=== PATIENT | male | born 1945 | race Caucasian/White ===

== ENCOUNTER 2016-06-13 01:37 | Emergency (ER) | payer OTHER ==
[~2016-06-13] VITALS: Ht 180.3 cm; Wt 73.3 kg
[~2016-06-13 01:37] MED LIST: ALLO300T2 PO; ASPI81TA28 PO; CLOP1TAB15 PO; CMP/10 PO; INSUINJ14 SC; INSUINJ4 SC; LOSA100T65 PO; METF-384 PO; NRV/5 PO; PLV75 PO; PRAV40TA2 PO; REPA1TAB10 PO
[2016-06-13 01:42] VITALS: TEMP 36.7; Ht 180.3 cm; Wt 73.3 kg
[2016-06-13] MEDS ORDERED: SODIUM CHLORIDE 0.9% 1000ML 1,000 ML IV STA ×2 (01:55→03:29)
[2016-06-13 02:06] VITALS: O2SAT 94
[2016-06-13] MEDS ORDERED: NovoLIN-R INSULIN PER UNIT CHARGE IV STA (02:15)
[2016-06-13 02:25] LABS: ISTAT CREATININE 0.8 mg/dl (0.6-1.3); ISTAT HEMOGLOBIN 14.6 g/dl (14.0-18.0); ISTAT IONIZED CALCIUM 1.19 mmol/l (1.12-1.32)
[2016-06-13] MEDS ORDERED: ATOR-24 PO (02:28)
[2016-06-13] MEDS ORDERED: ESCI10TA17 PO (02:30)
[2016-06-13] MEDS ORDERED: DOCU-94 PO (02:37)
[2016-06-13] MEDS ORDERED: DONE5TAB14 PO (02:39)
[2016-06-13 02:41] LABS: BASO % 0.6 %; BASO ABS # 0.04 K/uL (0-0.2); COMPLETE YES; EOS % 2.8 %; HEMATOCRIT 39.5 % (42-52); IG% 0.4 %; LYMPH % 25.4 %; LYMPH ABS # 1.71 K/uL (1.2-3.4); MEAN CELL VOLUME 86.1 fL (80-100); MEAN CORPUSCULAR HEMOGLOBIN 31.4 pg (25-34); MEAN CORPUSCULAR HGB CONC 36.5 g/dl (32-36); MEAN PLATELET VOLUME 10.2 fL (7.4-10.4); MONO % 7.3 %; NEUT % 63.5 %; PLATELET COUNT 310 K/uL (130-400); RED BLOOD COUNT 4.59 M/uL (4.7-6.1); URINE APPEARANCE CLEAR (CLEAR); URINE BILIRUBIN NEG (NEG); URINE COLOR YELLOW; URINE NITRITE NEG (NEG); URINE SPECIFIC GRAVITY 1.029 (1.000-1.030); UROBILINOGEN NEG (NEG); WHITE BLOOD COUNT 6.72 K/uL (4.8-10.8); ZZUR CULT IF INDIC CLEAN CATCH NO
[2016-06-13 02:54] LABS: MANUAL MICROSCOPIC REQUIRED? NO; REVIEW REQ? NO
[2016-06-13 02:59] LABS: VEN BLD GAS O2 SATURATION 63.9 %; VEN BLOOD GAS BASE EXCESS 4.1 mmol/L
[2016-06-13 03:17] LABS: ALKALINE PHOSPHATASE 294 U/L (45-117); ALT/SGPT 38 U/L (12-78); BLOOD UREA NITROGEN 17 mg/dl (7-18); BUN/CREATININE RATIO 13.3 (10-20); CALCIUM 8.9 mg/dl (8.5-10.1); CARBON DIOXIDE 26 mmol/L (21-32); CHLORIDE 91 mmol/L (98-107); GLUCOSE 642 mg/dl (70-99)
[2016-06-13 03:23] LABS: POTASSIUM 4.3 mmol/L (3.5-5.1); SODIUM 130 mmol/L (136-145)
[2016-06-13 03:38] LABS: AST/SGOT 19 U/L (15-37); BETA-HYDROXYBUTYRATE 3.91 mg/dL (0.2-2.81)
--- NOTE | 2016-06-13 03:43 | EMERGENCY ROOM VISIT NOTE ---
History First contact with patient: 01:47 Chief Complaint: HYPERGLYCEMIA Stated Complaint: VERY HIGH BLOOD SUGAR - REFERRED TO ER BY DR HILTON History of Present Illness The patient is a 70 year old male who presents to the Emergency Room with complaints of polydipsia and polyuria for the past few days who went to see the family care doctor for checkup and was called in to the ER for blood sugar greater than 800. Patient is a type II diabetic. He takes insulin. He does not routinely check his blood sugar. Blood sugar yesterday was 280. Patient states he has been feeling fatigued. Patient denies chest pain, dyspnea, fever , chills, cough, congestion, nausea, vomiting, diarrhea, back pain, urinary symptoms, diplopia. He is tolerating by mouth fluids and food. Review of Systems See HPI for pertinent positives & negatives. A total of 10 systems reviewed and were otherwise negative. Past Medical/Surgical History Medical Problems: (1) Chest pain (2) Chest pain (3) Chest pain at rest (4) Chest pain on exertion (5) Diabetes (6) Hyperglycemia (7) Hyperlipidemia Nec/Nos (8) Hypertension Nos (9) Lymphoma (10) Peripheral vascular disease (11) Weakness Surgical Problems: (1) Cataract Extraction Status Family History Heart disease Social History Smoking Status: Former Smoker Marital Status: Housing Status: lives with family Current/Historical Medications Scheduled Amlodipine Besylate (Amlodipine Besylate), 5 MG PO DAILY Aspirin (Aspirin Ec), 81 MG PO DAILY Atorvastatin (Lipitor), 40 MG PO DAILY Clopidogrel Bisulfate (Clopidogrel), 75 MG PO DAILY Donepezil Hydrochloride (Aricept), 5 MG PO DAILY Escitalopram (Lexapro), 10 MG PO DAILY Insulin Glargine (Lantus Solostar Pen), 10 UNITS SC AMPM Losartan Potassium (Cozaar), 100 MG PO DAILY Metformin Hcl (Glucophage), 1,000 MG PO BID Pravastatin Sodium (Pravastatin Sodium), 40 MG PO DAILY Repaglinide (Repaglinide), 2 MG PO DAILY Scheduled PRN Docusate Sodium (Colace), 100 MG PO BID PRN for Constipation Allergies Coded Allergies: KAVITA Inhibitors (Verified Allergy, Intermediate, COUGH, 06/13/16) Penicillins (Verified Allergy, Unknown, UNK, 06/13/16) Physical Exam Vital Signs Date Time Temp Pulse Resp B/P Pulse Ox O2 Delivery O2 Flow Rate FiO2 06/13/16 02:06 94 Room Air 06/13/16 01:42 36.7 85 18 125/74 93 Room Air Physical Exam VITALS: Vitals are noted on the nurse's note and reviewed by myself. Vital signs stable. GENERAL: Pleasant male, in no acute distress, nondiaphoretic, well-developed well-nourished. SKIN: The skin was without rashes, erythema, edema, or bruising. There is no tenting of the skin. Capillary reflex less than 2 seconds. HEAD: Normocephalic atraumatic. EARS: External auditory canals clear, tympanic membranes pearly amador without erythema or effusion bilaterally. EYES: Pupils equal round and reactive to light and accommodation. Conjunctivae without injection, sclerae without icterus. Extraocular movements intact. NOSE: Patent, turbinates without inflammation or discharge. MOUTH: Mucous membranes moist. Pharynx without erythema or exudate. Uvula midline. Airway patent. Tongue does not deviate. NECK: Supple without nuchal rigidity. No lymphadenopathy. No thyromegaly. Cervical spine is nontender. No JVD. HEART: Regular rate and rhythm LUNGS: Clear to auscultation bilaterally without wheezes, rales or rhonchi. No dullness to percussion. No retractions or accessory muscle use. ABDOMEN: Positive bowel sounds x 4. Normal tympanic percussion. Soft, nontender, without masses or organomegaly. Simmons sign negative. No guarding or rebound tenderness. MUSCULOSKELETAL: No muscle atrophy, erythema, or edema noted. NEURO: Patient was alert and oriented to person place and time. Normal sensation to light and sharp touch. No focal neurological deficits. Medical Decision & Procedures Laboratory Results 06/13/16 02:00 Red Blood Count 4.59, Mean Corpuscular Volume 86.1, Mean Corpuscular Hemoglobin 31.4, Mean Corpuscular Hemoglobin Concent 36.5, Mean Platelet Volume 10.2, Neutrophils (%) (Auto) 63.5, Lymphocytes (%) (Auto) 25.4, Monocytes (%) (Auto) 7.3, Eosinophils (%) (Auto) 2.8, Basophils (%) (Auto) 0.6, Neutrophils # (Auto) 4.26, Lymphocytes # (Auto) 1.71, Monocytes # (Auto) 0.49, Eosinophils # (Auto) 0.19, Basophils # (Auto) 0.04 06/13/16 02:00 Test 06/13/16 01:53 06/13/16 02:00 06/13/16 02:09 06/13/16 02:45 Bedside Glucose > 600 mg/dl (70-99) White Blood Count 6.72 K/uL (4.8-10.8) Red Blood Count 4.59 M/uL (4.7-6.1) Hemoglobin 14.4 g/dL (14.0-18.0) Hematocrit 39.5 % (42-52) Mean Corpuscular Volume 86.1 fL (80-100) Mean Corpuscular Hemoglobin 31.4 pg (25-34) Mean Corpuscular Hemoglobin Concent 36.5 g/dl (32-36) Platelet Count 310 K/uL (130-400) Mean Platelet Volume 10.2 fL (7.4-10.4) Neutrophils (%) (Auto) 63.5 % Lymphocytes (%) (Auto) 25.4 % Monocytes (%) (Auto) 7.3 % Eosinophils (%) (Auto) 2.8 % Basophils (%) (Auto) 0.6 % Neutrophils # (Auto) 4.26 K/uL (1.4-6.5) Lymphocytes # (Auto) 1.71 K/uL (1.2-3.4) Monocytes # (Auto) 0.49 K/uL (0.11-0.59) Eosinophils # (Auto) 0.19 K/uL (0-0.5) Basophils # (Auto) 0.04 K/uL (0-0.2) RDW Standard Deviation 37.9 fL (36.4-46.3) RDW Coefficient of Variation 12.0 % (11.5-14.5) Immature Granulocyte % (Auto) 0.4 % Immature Granulocyte # (Auto) 0.03 K/uL (0.00-0.02) Urine Color YELLOW Urine Appearance CLEAR (CLEAR) Urine pH 6.0 (4.5-7.5) Urine Specific [place]berta 1.029 (1.000-1.030) Urine Protein NEG (NEG) Urine Glucose (UA) 3+ (NEG) Urine Ketones NEG (NEG) Urine Occult Blood NEG (NEG) Urine Nitrite NEG (NEG) Urine Bilirubin NEG (NEG) Urine Urobilinogen NEG (NEG) Urine Leukocyte Esterase NEG (NEG) Est Creatinine Clear Calc Drug Dose 56.4 ml/min Estimated GFR () 65.0 Estimated GFR (Non- 56.1 BUN/Creatinine Ratio 13.3 (10-20) Calcium Level 8.9 mg/dl (8.5-10.1) Total Bilirubin 0.6 mg/dl (0.2-1) Direct Bilirubin 0.2 mg/dl (0-0.2) Aspartate Amino Transf (AST/SGOT) 19 U/L (15-37) Alanine Aminotransferase (ALT/SGPT) 38 U/L (12-78) Alkaline Phosphatase 294 U/L (45-117) Troponin I < 0.015 ng/ml (0-0.045) Total Protein 7.5 gm/dl (6.4-8.2) Albumin 4.3 gm/dl (3.4-5.0) Lipase 219 U/L (73-393) Beta-Hydroxybutyric Acid 3.91 mg/dL (0.2-2.81) Bedside Hemoglobin 14.6 g/dl (14.0-18.0) Bedside Hematocrit 43 % (42-52) Bedside Sodium 128 mEq/L (135-144) Bedside Potassium 4.2 mEq/L (3.3-5.0) Bedside Chloride 89 mEq/L (101-112) Bedside Total CO2 25 mEq/l (24-31) Anion Gap 19.0 mmol/L (16-25) Bedside Blood Urea Nitrogen 19 mg/dl (7-18) Bedside Creatinine 0.8 mg/dl (0.6-1.3) Bedside Glucose (other) 647 mg/dl (70-99) Bedside Ionized Calcium (Alen) 1.19 mmol/l (1.12-1.32) Venous Blood pH 7.42 (7.36-7.41) Venous Blood Partial Pressure CO2 47 mmHg (38.0-50.0) Venous Blood Partial Pressure O2 34 mmHg Venous Blood HCO3 29 mmol/L Venous Blood Oxygen Saturation 63.9 % Venous Blood Base Excess 4.1 mmol/L Medications Administered Medications (Trade) Dose Ordered Sig/Gypsy Route Start Time Stop Time Status Last Admin Dose Admin Sodium Chloride (Nss 1000ml) 1,000 ml @ 999 mls/hr Q1H1M STAT IV 06/13/16 01:55 06/13/16 02:55 DC 06/13/16 02:09 999 MLS/HR Insulin Human Regular (novoLIN-R U-100 PER UNIT) 10 units NOW STAT IV 06/13/16 02:15 06/13/16 02:16 DC 06/13/16 02:29 10 UNITS ED Course Prior records/ancillary studies reviewed and summarized above. Nursing notes reviewed. Additional history obtained from family The patient's history was concerning for hyperglycemia Differential diagnosis: Etiologies such as metabolic, infection, hypo/hyperglycemia, electrolyte abnormalities, cardiac sources, intracerebral event, toxicologic, neurologic, as well as others were entertained. Physical examination: As above. ER treatment provided: IV Lock IV fluids, insulin On reassessment the patient felt better. Diagnostics interpretation by me: ECG: Normal sinus, normal intervals, no acute ST-T wave changes. Impression normal sinus rhythm interpreted by myself The labs revealed hyperglycemia without DKA. Elevated alkaline phosphatase Imaging studies: Chest x-ray with no free air, consolidation or pneumothorax per my interpretation Exam and history seem consistent with hyperglycemia without DKA. Patient is well-appearing. No signs of meningitis. No signs of sepsis. No pneumonia. He was advised to rest, stay well-hydrated and to monitor his blood sugars. He was advised to follow-up tomorrow with family care here in the ER sooner for high blood sugar, chest pain, difficulty breathing, worsening signs or symptoms or as needed. He was advised to follow-up for his elevated alkaline phosphatase of family care. By the evaluation outlined above emergent etiologies such as infection, electrolyte abnormalities, cardiac sources, intracerebral event, toxologic, neurologic, metabolic, as well as others were deemed relatively unlikely. The pt informed about the findings as listed above. All questions were answered and pleased with the treatment. Return instructions were outlined and the patient was discharged in stable condition. Referral: The patient was referred back to primary care physician for follow-up in 2 to 3 days for a recheck of the current condition. Case reviewed with my attending Medical Decision As above Impression Primary Impression: Hyperglycemia due to type 2 diabetes mellitus Departure Information Dispostion Home / Self-Care Condition GOOD Referrals Morgan Rock, D.O. (PCP) Patient Instructions My [facility] Additional Instructions Ibuprofen(Motrin, Advil) may be used for fever or pain. Use 600mg every six hours as needed. Take with food. Avoid using more than 2400mg in a 24 hour period. Do not use 2400mg per day for more than three consecutive days without physician direction. Prolonged inappropriate use can lead to stomach upset or ulcers. (AND/OR) Acetaminophen(Tylenol) may be used for fever or pain. Use 1000mg every six hours as needed. Avoid using more than 3000mg in a 24 hour period. Monitor your blood sugars. Rest and drink plenty of fluids as tolerated. Continue current medications. Return to the ER immediately for worsening or persistent high blood sugar, abdominal pain, vomiting, fevers, chest pains, difficulty breathing, worsening of your condition, or as needed. Follow up with your primary physician in 2-3 days for a recheck of your current condition, call this morning for follow-up for further workup on your insulin regimen and follow up for your elevated alkaline phosphatase on bloodwork. Problem Qualifiers Primary Impression: Hyperglycemia due to type 2 diabetes mellitus Diabetes mellitus shelter insulin use: with extermination supervisor use Qualified Codes: E11.65 - Type 2 diabetes mellitus with hyperglycemia; Z79.4 - [facility] ( current) use of insulin
[2016-06-13 03:50] VITALS: BP 126/69; PULSE 76; O2SAT 96
--- NOTE | 2016-06-13 04:13 | EMERGENCY ROOM VISIT NOTE ---
ED Visit Note First contact with patient: 01:47 I have personally evaluated and examined this patient. I agree with assessment and plan of Luzmaria Azar PA-C. 70 yr old DMII on insulin and metformin arrives for evaluation of asymptomatic hyperglycemia other than increase PO fluids and frequent urination. No evidence infection. He admits he eats 4 bowls of icecream each night which clearly isn't helping things. Discussed proper diet and need to discuss with PCP if Insulin should be increased. BG much improved with fluids and IV insulin here. Feeling well and no distress. Home with . Will follow up with PCP in morning.
--- NOTE | 2016-06-13 06:47 | DIAGNOSTIC IMAGING REPORT ---
CHEST ONE VIEW PORTABLE CLINICAL HISTORY: CHEST PAIN pain COMPARISON STUDY: 09/02/2014 FINDINGS: The bones soft tissues and hemidiaphragms are normal. The cardiomediastinal silhouette is normal. The lungs are clear. The pulmonary vasculature is normal. IMPRESSION: Negative chest. Electronically signed by: Marc Fontenot M.D. 06/13/2016 6:46 AM Dictated Date/Time: 06/13/2016 6:45 AM
== END 2016-06-13 03:55 | disposition home or self-care (01) ==
LOC: C.EDB 01:40
DX: E11.65 Type 2 diabetes mellitus with hyperglycemia (principal); E78.5 Hyperlipidemia, unspecified; I10 Essential (primary) hypertension; Z82.49 Family history of ischemic heart disease and other diseases of the circulatory system; Z87.891 Personal history of nicotine dependence; Z79.82 Long term (current) use of aspirin; Z79.4 Long term (current) use of insulin

== ENCOUNTER 2017-08-27 13:08 | Emergency (ER) | payer OTHER ==
[~2017-08-27] VITALS: Ht 180.3 cm; Wt 75.8 kg
[~2017-08-27 13:08] MED LIST changes: -ALLO300T2 PO; +ATOR-24 PO; -CLOP1TAB15 PO; -CMP/10 PO; +DOCU-94 PO; +DONE5TAB14 PO; +ESCI10TA17 PO; -INSUINJ14 SC
[2017-08-27 13:13] VITALS: TEMP 36.8; Ht 180.3 cm; Wt 75.8 kg
--- NOTE | 2017-08-27 13:49 | DIAGNOSTIC IMAGING REPORT ---
L FOOT MIN 3 VIEWS ROUTINE HISTORY: 72 years-old Male L great toe infection acute pain and swelling of the left great toe COMPARISON: None available TECHNIQUE: 3 views of the left foot FINDINGS: Mild hallux valgus deformity. Bipartite medial and lateral hallux sesamoids. Mild soft tissue swelling of the great toe. Mild osteoarthritis about the interphalangeal joints. There is no acute fracture or dislocation identified. Mild soft tissue prominence about the fifth MTP joint. Mild soft tissue swelling about the ankle. Peripheral arterial calcifications. Mild marginal spurring about the tibiotalar joint. No opaque foreign body. IMPRESSION: 1. Mild forefoot and ankle soft tissue swelling without acute fracture or dislocation. 2. Degenerative changes as above. 3. Peripheral arterial disease. The above report was generated using voice recognition software. It may contain grammatical, syntax or spelling errors. Electronically signed by: Kendall Brush M.D. 08/27/2017 1:48 PM Dictated Date/Time: 08/27/2017 1:46 PM
[2017-08-27] MEDS ORDERED: INSDGIPEN SC (13:55)
[2017-08-27] MEDS ORDERED: CEPH500C2 PO (14:03)
--- NOTE | 2017-08-27 14:17 | EMERGENCY ROOM VISIT NOTE ---
ED Visit Note First contact with patient: 13:15 The patient was seen and examined with Harry Alexandra PA-C. I agree with the history, physical and findings. Please see the note for disposition and details.
[2017-08-27 14:26] VITALS: BP 143/86; PULSE 89; O2SAT 98
--- NOTE | 2017-08-27 20:50 | EMERGENCY ROOM VISIT NOTE ---
ED Visit Note First contact with patient: 13:15 Chief Complaint: Left great toe pain. History of Present Illness: Mr. Elizondo is a 72-year-old white male who ambulates into the ED complaining of left great toe pain. Patient reports approximately 1 week ago he remembers rubbing his toe on a piece of furniture and then 4-5 days ago he noticed that he was developing left great toe pain. Since that time his pain has been constant. Currently he describes his pain as a throbbing sensation. He rates his discomfort 1/10. His pain is nonradiating. His pain worsens with ambulation. He has not identified any alleviating factors related to the pain. Associated with his pain he has noted some redness and swelling around the toenail and extending down to the interphalangeal joint. He has not had to take any medications for his pain prior to arrival at the hospital. He denies fevers, chills, sweats, red streaking, fevers, other foot pain, ankle pain, foot/toe weakness/numbness/tingling peer Review of Systems: As noted above in history of present illness. Past Medical History: Diabetes, unspecified knee surgery. Current Medications: Medications Dose Route/Sig Max Daily Dose Days Date Category Lantus Solostar (Insulin Glargine) 100 Unit/Ml Inj 40 Units SC QAM 08/27/17 Reported Aricept (Donepezil Hydrochloride) 5 Mg Tab 5 Mg PO DAILY 06/13/16 Reported Colace (Docusate Sodium) 100 Mg Cap 100 Mg PO BID PRN 06/13/16 Reported Lexapro (Escitalopram Oxalate) 10 Mg Tab 10 Mg PO DAILY 06/13/16 Reported Lipitor (Atorvastatin Calcium) 40 Mg Tab 40 Mg PO DAILY 06/13/16 Reported Aspirin Ec (Aspirin) 81 Mg Tab 81 Mg PO DAILY 01/13/15 Reported Repaglinide 2 Mg Tab 2 Mg PO DAILY 01/13/15 Reported Clopidogrel (Clopidogrel Bisulfate) 75 Mg Tab 75 Mg PO DAILY 01/13/15 Reported Cozaar (Losartan Potassium) 100 Mg Tab 100 Mg PO DAILY 01/13/15 Reported Pravastatin Sodium 40 Mg Tab 40 Mg PO DAILY 01/13/15 Reported Amlodipine Besylate 5 Mg Tab 5 Mg PO DAILY 01/13/15 Reported Glucophage (Metformin Hcl) 1,000 Mg Tab 1,000 Mg PO BID 11/08/13 Reported Allergies to Medications: KAVITA inhibitors, penicillin. Social History: Patient is currently employed; he feels safe in his home environment; he denies tobacco use; he admits to alcohol use. Physical Examination: Vital Signs: Date Time Temp Pulse Resp B/P (MAP) Pulse Ox O2 Delivery O2 Flow Rate FiO2 08/27/17 14:26 89 20 143/86 98 08/27/17 13:13 36.8 103 18 158/63 99 Room Air GENERAL: 72-year-old male in no acute distress, nontoxic-appearing, afebrile and hemodynamically stable. NEUROLOGICAL: Awake, alert and oriented to person, place and time. Answering questions appropriately and following commands. Normal gait. Good hand eye coordination. No focal motor sensory deficits. SKIN: Warm, dry and pink. LEFT FOOT: No gross bony deformity. Over the medial aspect of the left great toe patient has an obvious ingrown toenail. The area is mildly erythematous and edematous. That erythema and edema advances superiorly to the interphalangeal joint. There is actually some blood in the medial nail fold. There is no blood or pus under the toenail. On palpation he does have mild tenderness over the lateral interphalangeal joint line. I do not appreciate any bony deformity or crepitus. He has full range of motion of the MTP and interphalangeal joint against resistance. Throughout the toe he was able to distinguish light sensations. Capillary refill was brisk. ED Course: Patient is assessed as noted above. Patient's medication list was reviewed. Patient was offered pain medication and refused. Left Foot X-Rays: Were read by myself and the radiologist showing no acute fractures or dislocations. Patient was offered a postop shoe and refused. Patient's case was reviewed with Dr. Barrera; we agreed on diagnostic approach, treatment, disposition and plan. Patient was educated about today's findings and instructed on his treatment plan ; he verbalized understanding and agreement with this plan. Clinical Impression: Left great toe ingrown toenail. Disposition: Patient discharged home in stable condition; prior to departure he was reassessed and subjectively reported that he was pain-free Plan: Patient was encouraged use ibuprofen or acetaminophen as needed for pain. Patient was prescribed Keflex 500 mg 4 times a day for 7 days. Patient was encouraged to keep his wound clean with soap and water and then cover the area with antibiotic ointment. Additionally patient was encouraged to soak his great toe 4-5 times a day and after soaking push the skin over the medial toenail to the side. Patient was encouraged to contact his PCPs office for advice on recommendation with podiatry. Patient was encouraged return the ED for worsening/uncontrolled pain, any increasing signs of infection or any new/concerning symptoms.
== END 2017-08-27 14:27 | disposition home or self-care (01) ==
LOC: C.EDB 13:10 → C.EDD 14:27
DX: L60.0 Ingrowing nail (principal); E11.9 Type 2 diabetes mellitus without complications; Z79.4 Long term (current) use of insulin; Z79.899 Other long term (current) drug therapy; Z79.82 Long term (current) use of aspirin; Z79.84 Long term (current) use of oral hypoglycemic drugs; Z88.0 Allergy status to penicillin; Z88.8 Allergy status to other drugs, medicaments and biological substances

== ENCOUNTER 2018-05-06 01:49 | Observation (INO) ==
[2018-05-06] MEDS ORDERED: NITROGLYCERIN SL 0.4 MG/TAB TAB SL STA (02:16)
[2018-05-06 02:25] LABS: Basophils # (auto) 0.03 K/uL (0-0.2); Basophils % (auto) 0.6 %; Eosinophils % (auto) 3.8 %; Hematocrit (blood only) 42.6 % (42-52); Hemoglobin 14.7 g/dL (14.0-18.0); Immature Granulocytes # (auto) 0.01 K/uL (0.00-0.02); Immature Granulocytes % (auto) 0.2 %; Lymphocytes # (auto) 1.59 K/uL (1.2-3.4); Lymphocytes % (auto) 30.5 %; Mean Corpuscular Hgb Conc 34.5 g/dL (32-36); Mean Corpuscular Volume 90.4 fL (80-100); Mean Platelet Volume 9.8 fL (7.4-10.4); Monocytes # (auto) 0.51 K/uL (0.11-0.59); Monocytes % (auto) 9.8 %; Neutrophils # (auto) 2.88 K/uL (1.4-6.5); Neutrophils % (auto) 55.1 %; Platelet Count 281 K/uL (130-400); RDW Coefficient of Variation 12.5 % (11.5-14.5); RDW Standard Deviation 41.4 fL (36.4-46.3); Red Blood Count 4.71 M/uL (4.7-6.1); White Blood Count 5.22 K/uL (4.8-10.8)
[2018-05-06 02:43] LABS: BUN Creatinine Ratio 18.1 (10-20); Blood Urea Nitrogen 15 mg/dl (7-18); Calcium 8.8 mg/dl (8.5-10.1); Carbon Dioxide 31 mmol/L (21-32); Chloride 105 mmol/L (98-107); Creatinine Clr Calc Pharmacy 83.4 ml/min; Est GFR (African American) 103.8; Est GFR (Non-African American) 89.6; Glucose 192 mg/dl (70-99); Potassium 4.3 mmol/L (3.5-5.1); Sodium 137 mmol/L (136-145)
[2018-05-06 02:47] LABS: Troponin I < 0.015 ng/ml (0-0.045)
--- NOTE | 2018-05-06 04:34 | Emergency Department Note ---
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 The patient states that the pain woke him up early this morning, and he notes that he's still in pain. The patient denies any radiation. The patient's , at bedside, states that his blood sugar has been "a little off." He denies any back pain, edema in the lower extremities, fever, cough, nausea/vomiting, dysuria, hematuria, hematochezia, syncope, and SOB. The patient states that he has been eating his normal diet. The patient reports that he took 325 mg Aspirin SECURITY ADVISOR. He denies any history of GERD. The patient's stated that he went in for a check-up 2 days ago, and notes that nothing abnormal was found. The patient reports that he used to smoke, but he no longer does. He denies the use of alcohol. ROS: See above HPI for pertinent positives & negatives. A total of 10 systems reviewed and were otherwise negative. Past Medical History: Diabetes, hypertension Past Surgical History: Stents Family History: Family history is noncontributory Social History: Home Medications: See below. Allergies: KAVITA Inhibitors, Penicillins Physical: Vitals: BP: 170/82, P: 62, R: 17, O2 Sat: 98, Delivery: Room Air Exam: GENERAL: Patient is well appearing and mildly distressed. EYES: No scleral icterus, unremarkable pupils. ENT: Mucous membranes moist, no nasal congestion. NECK: No masses appreciated, no meningismus, trachea is midline. RESPIRATORY: No dyspnea. Clear to auscultation and equal bilaterally. No wheeze , no rhonchi. CARDIOVASCULAR: Regular rate and rhythm. No murmurs, rubs, gallops appreciated. GASTROINTESTINAL: Abdomen soft, non-tender, no peritonitis. Bowel sounds positive. No masses appreciated. BACK: No midline tenderness, no CVA tenderness EXTREMITIES: Normal motion all extremities, no cyanosis, no edema. NEUROLOGIC: Alert and oriented, no acute motor or sensory deficits, no focal weakness, cranial nerves grossly intact. SKIN: No rash, no jaundice, no diaphoresis. ED Course: Prior Medical Record, Triage/Nursing Notes, Medications, Allergies reviewed by Me Vital Signs: reviewed and remarkable for hypertension. Labs: Reviewed and remarkable for Normal CBC, BMP, Trop. Mild elevated Dimer within age limit Interventions: None - already with ASA SECURITY ADVISOR and pain resolved prior to SLNTG Imaging: X ray results are stated below per my interpretation: Chest: 1 view: No infiltrate, no effusion, normal cardiac border. EKG: See below. Consults: I [facility] He will evaluate the patient for further management. Times: 0209: Past medical records reviewed. The patient was evaluated in room A9 , and a complete history and physical examination were performed. 0243: The patient states that he has a resolution of his chest pain. 0300: I spoke to the patient. He is agreeable to hospitalization. 0302: I reviewed the [facility]'s [facility] He will evaluate the patient for further management. Blood pressure: HTN - referred to hospitalist [facility] Prescriptions: none. Differentials: Acute coronary syndrome, pulmonary embolus, aortic dissection, musculoskeletal pain, pneumonia, pleural effusion, pneumothorax amongst other pathologies. Medical Decision Makin yr old male with known carotic artherosclerosis though no previous MA arrives with left chest pressure which resolved prior to slntg. ASA at home. He has DMII, HTN, Dislipidemia. He is high risk for CAD. At this time EKG OK and Trop negative thus I do not feel the heparinization indicated at this time. Dimer 610 and as he is 72yrs old I feel this is wnl for age, and without persistent pain and no shob nor vital abnormals I do not feel this is PE nor do I think this is dissection. Impression: Left Sided Chest Pain Osito Cartwright MD The scribe's documentation has been prepared under my direction and personally reviewed by me in its entirety. I confirm that the note above accurately reflects all work, treatment, procedures, and medical decision making performed by me. Impression & Plan Left sided chest pain Past Med/Surg History Social History Feels Safe at Home: Yes Smoking Status: Former smoker Results & Data Vital Signs Vital Signs - 24 hr 05/06/18 01:54 05/06/18 02:23 05/06/18 04:18 Sepsis Recent Fever Within 48 Hours No Sepsis New/Unexplained Change in Mental Status No Sepsis Action Taken by Nursing No Action Required Pulse Rate 62 Pulse Rate [Bilateral] 63 57 L Pulse Rhythm Regular Pulse Rhythm [Bilateral] Regular Regular Pulse Strength Normal Pulse Strength [Bilateral] Normal Normal Respiratory Rate 17 18 18 Respiratory Effort / Characteristics Non-Labored Spontaneous Non-Labored Spontaneous Non-Labored Spontaneous Respiratory Depth Normal Normal Normal Respiratory Pattern Regular Regular Regular Blood Pressure 170/82 H Blood Pressure [Right Arm] 164/78 H 159/74 H Blood Pressure Mean 111 Blood Pressure Mean [Right Arm] 106 102 Blood Pressure Position Lying Blood Pressure Position [Right Arm] Lying Lying Pulse Oximetry 98 98 98 Oxygen Delivery Method Room Air Room Air Room Air Home Medications Current Medication List: was personally reviewed by me Laboratory Data Attestation: I reviewed the patient's lab results. Result diagrams: 05/06/18 02:00 05/06/18 02:00 Lab Results 05/06/18 05/06/18 05/06/18 Range/Units 02:00 02:00 02:00 WBC 5.22 (4.8-10.8) K/uL RBC 4.71 (4.7-6.1) M/uL Hgb 14.7 (14.0-18.0) g/dL Hct 42.6 (42-52) % MCV 90.4 (80-100) fL MCH 31.2 (25-34) pg MCHC 34.5 (32-36) g/dL RDW Std Deviation 41.4 (36.4-46.3) fL RDW Coeff of Lolly 12.5 (11.5-14.5) % Plt Count 281 (130-400) K/uL MPV 9.8 (7.4-10.4) fL Immature Gran % (Auto) 0.2 % Neut % (Auto) 55.1 % Lymph % (Auto) 30.5 % [place] % (Auto) 9.8 % Eos % (Auto) 3.8 % Baso % (Auto) 0.6 % Immature Gran # (Auto) 0.01 (0.00-0.02) K/uL Neut # (Auto) 2.88 (1.4-6.5) K/uL Lymph # (Auto) 1.59 (1.2-3.4) K/uL [place] # (Auto) 0.51 (0.11-0.59) K/uL Eos # (Auto) 0.20 (0-0.5) K/uL Baso # (Auto) 0.03 (0-0.2) K/uL D-Dimer 610 H* (0-500) ug/L FEU Sodium 137 (136-145) mmol/L Potassium 4.3 (3.5-5.1) mmol/L Chloride 105 (98-107) mmol/L Carbon Dioxide 31 (21-32) mmol/L Anion Gap 1.0 L (3-11) BUN 15 (7-18) mg/dl Creatinine 0.82 (0.6-1.4) mg/dl Est Cr Clr Drug Dosing 83.4 ml/min Est GFR ( Amer) 103.8 Est GFR (Non-Af Amer) 89.6 BUN/Creatinine Ratio 18.1 (10-20) Glucose 192 H (70-99) mg/dl Calcium 8.8 (8.5-10.1) mg/dl Troponin I < 0.015 (0-0.045) ng/ml Administered Medications Discontinued Medications Nitroglycerin (Nitrostat) 0.4 mg SL NOW STA Stop: 05/06/18 02:17 Last Admin: 05/06/18 04:04 Dose: Not Given ECG Data Attestation: I personally reviewed and interpreted this ECG as follows: Indication: chest pain Rate (beats per minute): 63 Rhythm: normal sinus Findings: no acute ischemic change and no ectopy Change: the following changes noted (similar to previous EKG) Blood Pressure Blood Pressure Findings: Elevated blood pressure Blood Pressure Disposition: further management by hospitalist Discharge Plan Visit Data Chief Complaint: Chest Pain Stated Complaint: CHEST PAIN ED Provider: Osito Cartwright Discharge Problem: Left sided chest pain Patient Disposition: Being Evaluated by Hospitalist Discharge Instructions Interventions: ED Discharge Assessment Last Done: 05/06/18 04:22 Prescriptions Prescriptions: No Action atorvastatin 80 mg Tablet 80 mg PO DAILY RF: 0 metformin 500 mg Tablet Extended Release 24 Hr 500 mg PO PM RF: 0 escitalopram oxalate [Lexapro] 20 mg Tablet 20 mg PO DAILY RF: 0 aspirin 81 mg Tablet,Delayed Release (Dr/Ec) 81 mg PO DAILY RF: 0 donepezil 5 mg Tablet 5 mg PO DAILY RF: 0 clopidogrel 75 mg Tablet 75 mg PO DAILY RF: 0 losartan 100 mg Tablet 100 mg PO DAILY RF: 0 insulin glargine [Lantus Solostar U-100 Insulin] 100 unit/mL (3 mL) Insulin Pen 50 unit SUBCUT DAILY RF: 0 turmeric root extract 500 mg Capsule 500 mg PO DAILY RF: 0 The scribe's documentation has been prepared under my direction and personally reviewed by me in its entirety. I confirm that the note above accurately reflects all work, treatment, procedures, and medical decision making performed by me.
[2018-05-06] MEDS ORDERED: ONDANSETRON INJ 2 MG/ML 2 ML VIAL IV PRN (04:57)
[2018-05-06] MEDS ORDERED: ACETAMINOPHEN 325 MG TAB PO PRN (04:57)
[2018-05-06] MEDS ORDERED: DOCUSATE SODIUM 100 MG CAP PO PRN (04:57)
[2018-05-06] MEDS ORDERED: NITROGLYCERIN SL 0.4 MG/TAB TAB SL PRN (04:57)
[2018-05-06] MEDS ORDERED: Nursing to Pharmacy Communication ONE ×2 (05:38→14:29)
[2018-05-06] MEDS: INSULIN ASPART 100 UNITS/ML 3 ML PEN SC SCH ×2 (05:56→14:16)
[2018-05-06 07:09] LABS: Basophils # (auto) 0.03 K/uL (0-0.2); Basophils % (auto) 0.6 %; Eosinophils % (auto) 3.7 %; Hematocrit (blood only) 42.5 % (42-52); Hemoglobin 14.5 g/dL (14.0-18.0); Immature Granulocytes # (auto) 0.01 K/uL (0.00-0.02); Immature Granulocytes % (auto) 0.2 %; Lymphocytes # (auto) 1.57 K/uL (1.2-3.4); Lymphocytes % (auto) 29.1 %; Mean Corpuscular Hgb Conc 34.1 g/dL (32-36); Mean Corpuscular Volume 90.2 fL (80-100); Mean Platelet Volume 9.7 fL (7.4-10.4); Monocytes # (auto) 0.45 K/uL (0.11-0.59); Monocytes % (auto) 8.3 %; Neutrophils # (auto) 3.14 K/uL (1.4-6.5); Neutrophils % (auto) 58.1 %; Platelet Count 275 K/uL (130-400); RDW Coefficient of Variation 12.5 % (11.5-14.5); RDW Standard Deviation 41.1 fL (36.4-46.3); Red Blood Count 4.71 M/uL (4.7-6.1)
--- NOTE | 2018-05-06 07:12 | XRay Report ---
XR chest 1V portable CLINICAL HISTORY: 72 years-old Male presenting with chest pain. TECHNIQUE: Portable upright AP view of the chest was obtained. COMPARISON: 06/13/[address] from 08/03/2015. FINDINGS: Atherosclerosis of the aortic arch. Cardiac silhouette mildly enlarged. Mild hyperinflation of the sondra ngs. No focal opacity. No large effusion or pneumothorax. Osseous structures normal. Upper abdomen no rmal. Vascular stent projects over the left base of the neck. IMPRESSION: 1. Findings suggest emphysema. No focal infiltrate to suggest pneumonia. Electronically signed by: Wiliam Andujar M.D. 05/06/2018 7:11 AM
[2018-05-06 07:25] LABS: Estimated Average Glucose 338 mg/dl
[2018-05-06 07:48] LABS: BUN Creatinine Ratio 19.7 (10-20); Blood Urea Nitrogen 16 mg/dl (7-18); Calcium 8.5 mg/dl (8.5-10.1); Carbon Dioxide 30 mmol/L (21-32); Chloride 104 mmol/L (98-107); Creatinine Clr Calc Pharmacy 82.9 ml/min; Est GFR (African American) 104.4; Glucose 124 mg/dl (70-99); Magnesium 2.2 mg/dl (1.8-2.4); Sodium 139 mmol/L (136-145)
[2018-05-06 07:53] LABS: Chol HDL Ratio 3; Cholesterol 108 mg/dl (0-200); HDL Cholesterol 36 mg/dl; LDL Cholesterol Calculated 50 mg/dl; Triglycerides 111 mg/dl (0-150); Troponin I < 0.015 ng/ml (0-0.045); VLDL Cholesterol 22 mg/dl
--- NOTE | 2018-05-06 08:40 | History and Physical Report ---
DATE OF ADMISSION: 05/06/2018 NOTICE TO RECEIVING [facility]/AGENCY This information is strictly Confidential and protected under [place] law. [place] law prohibits you from making any further disclosure of this information unless further disclosure is expressly permitted by the written consent of the person to whom it pertains or is authorized by law. A general authorization for the release of medical or other information is not sufficient for this purpose. Hospital accepts no responsibility if the information is made available to any other person, INCLUDING THE PATIENT. CHIEF COMPLAINT: Chest pain. 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 Recently had follow up with heme/onc and subsequently seems to be in remission. Today in the middle of the night, he woke up with chest pain, left side rated 5/10 in severity, some pressure like feeling. No nausea. No shortness of breath, no sweating, no lightheadedness. He took aspirin by the time he came to the ED the pain resolved. He denies any headache, no blurred vision, no runny nose, no sore throat, no difficulty swallowing. No nausea, no vomiting, no abdominal pain. Normal bowel and bladder movements. Otherwise is active at home without any issues. ALLERGIES: KAVITA INHIBITORS, PENICILLIN. PAST MEDICAL HISTORY: As mentioned above. PAST SURGICAL HISTORY: Biopsy of skin , carpal tunnel surgery on right wrist, cataract surgeries bilateral, removal of a-port, lumbar spine injections , knee arthroscopy, lumbar spine biopsy, left carotid stent with cerebral angiogram. MEDICATIONS: The patient is on metformin ER 500 mg p.o. daily, Lexapro 20 mg p.o. daily, Lantus 15 units daily, Lipitor 80 mg p.o. daily, losartan 100 mg p.o. daily, aspirin 81 mg p.o. daily, Plavix 75 mg p.o. daily, Aricept 5 mg p.o. daily, carbonate 500 mg p.o. daily. FAMILY HISTORY: Significant for father at age of 62, history of COPD. Maternal grandmother had colon cancer. SOCIAL HISTORY: and lives with his . Quit smoking in 2011. Prior smoking history 2packs a day 15 years. Occasional glass of wine. No drug use. REVIEW OF SYMPTOMS: As per HPI. PHYSICAL EXAMINATION: GENERAL: The patient is of moderate build, not in distress. VITAL SIGNS: Afebrile, pulse 62, respiratory rate 15, blood pressure 130/82, oxygen 88% room air. HEENT: No pallor, no icterus. Pupils equal, round, and react to light. NECK: No neck masses, no carotid bruits. CARDIOVASCULAR: S1, S2 heard, regular rate and rhythm. No gallop. RESPIRATORY SYSTEM: Normal AP diameter. There is no wheezing, no crackles. ABDOMEN: Soft, bowel sounds present. Nontender. No distention. CENTRAL NERVOUS SYSTEM: CN 2-12 grossly intact. Nonfocal. EXTREMITIES: No edema. LABS: WBC 5.2, hematocrit 40.6, platelets 281. D-dimer 16. Sodium 137, potassium 4.3, chloride 105, bicarb 31, BUN 15, creatinine 0.8, serum glucose 192, calcium 8.8. Troponin I less than 0.015. Chest x-ray: No acute findings seen. EKG: Normal sinus rhythm with rate of 63, no acute ST changes seen. ASSESSMENT AND PLAN: This is a 72-year-old male who presents with chest pain. 1. Chest pain. relieved with aspirin, currently resting comfortable and hemodynamically stable. The patient has poorly controlled diabetes, hypertension, hyperlipidemia, age as risk factors. Will observe in tele floor. Serial cardiac enzymes, echocardiogram, consult cardiology for possible stress test We will keep him n.p.o. 2. Diabetes, poorly controlled. His last HbA1c levels was 14.1 in January 2018 .Patient is on Lantus daily and metformin ER 500 mg p.o. daily, We will hold metformin. The patient is currently n.p.o.will give Lantus 30 units ISS and monitor blood sugar. 3. History of carotid artery stenosis status post stent to the left carotid artery.Recently followed with vascular surgery. Continue aspirin, Plavix and statin. 4. History of depression. Continue Lexapro. 5. History of dementia. Follows with neurology.On Aricept. 6. Mild elevation of D-dimer. The patient is not short of breath, no tachycardia. chest pain resolved. PE is low probability.. We will follow lower extremity Doppler and echocardiogram. 7. Hypertension. Continue his home dose of losartan. Monitor blood pressure. 8. DVT prophylaxis, SCDs for now. 9. Disposition: Observation tele floor. Expect to discharge home and follow with family doctor. Level 1 full code. MTDD
[2018-05-06] MEDS ORDERED: DONEPEZIL HCL 5 MG TAB PO SCH (09:00)
[2018-05-06] MEDS ORDERED: CLOPIDOGREL BISULFATE 75 MG TAB PO SCH (09:00)
[2018-05-06] MEDS ORDERED: ATORVASTATIN 40 MG TAB PO SCH (09:00)
[2018-05-06] MEDS ORDERED: LOSARTAN POTASSIUM 50 MG TAB PO SCH (09:00)
[2018-05-06] MEDS ORDERED: ESCITALOPRAM OXALATE 20 MG TAB PO SCH (09:00)
[2018-05-06] MEDS ORDERED: ASPIRIN 81 MG ECTAB PO SCH (09:00)
[2018-05-06] MEDS ORDERED: INSULIN GLARGINE SOLOSTAR 100 UNITS/ML 3 ML PEN SC SCH (09:00)
--- NOTE | 2018-05-06 10:50 | Cardiology Consultation ---
Date of Consultation May 06, 2018 Assessment & Plan (1) Left sided chest pain: Patient developed left sided chest pain with some atypical features last evening concerns are raised given underlying known vascular disease and risk factors. Initial EKGs and enzymes are negative for injury or infarct. Plan: Given elevated d-dimer patient will be referred for CT of the chest exclude pulmonary embolus as well as assess other underlying issues including history of non-Hodgkin's lymphoma recent weight loss. If studies are unrevealing will refer for dobutamine stress echocardiography for risk stratification later today "orders placed (2) Vascular disease: Stable (3) Hypertension: (4) Hyperlipidemia: On appropriate therapy History of Present Illness Reason for Consultation: Chest pain Requesting Physician: Dr. Rios Attending Physician: Harry Rios MD History of Present Illness Patient is a complex 72-year-old male past medical history is notable for known vascular disease including left carotid artery stenting, moderate left leg atherosclerosis by recent testing. His underlying medical problems include a history of non-Hodgkin's lymphoma large B-cell type diagnosed in 2013 status post CHOP chemotherapy. He also carries a history of hyperlipidemia, hypertension and mild dementia with short-term memory issues. Patient presents this admission having been awakened from sleep with left-sided chest discomfort described as a pressure pain in his left subcostal area. Patient took aspirin at home with symptoms resolving prior to ER presentation. Noted no associated acute shortness of breath. Patient is a relatively poor historian discussed patient's he has manifested increasing dyspnea with exertion in the past weeks time. Did shovel snow earlier this week and day prior to presentation without chest pain or discomfort. He denies fevers chills sweats cough hoarseness wheeze or hemoptysis. Appetite's been fair with some slight decline in weight. Notes no bleeding difficulties melena hematochezia dysuria hematuria. Notes no sleep disturbances. Has been taking medications as prescribed Allergies Allergy/AdvReac Type Severity Reaction Status Date / Time KAVITA Inhibitors Allergy Intermediate COUGH Verified 05/06/18 04:16 Penicillins Allergy Unknown UNK Verified 05/06/18 04:16 Home Medications Home Medications Medication Instructions Recorded Confirmed Type aspirin 81 mg PO DAILY 05/06/18 05/06/18 History atorvastatin 80 mg PO DAILY 05/06/18 05/06/18 History clopidogrel 75 mg PO DAILY 05/06/18 05/06/18 History donepezil 5 mg PO DAILY 05/06/18 05/06/18 History escitalopram oxalate [Lexapro] 20 mg PO DAILY 05/06/18 05/06/18 History insulin glargine [Lantus Solostar 50 unit SUBCUT DAILY 05/06/18 05/06/18 History U-100 Insulin] losartan 100 mg PO DAILY 05/06/18 05/06/18 History metformin 500 mg PO PM 05/06/18 05/06/18 History turmeric root extract 500 mg PO DAILY 05/06/18 05/06/18 History Patient History Social History Current Living Situation: Spouse Current Living Situation Comment: lives with in home with 1 step to enter and 7 steps inside Other Information That Helps Us Care for You: No Feels Safe at Home: Yes Safety Concerns: Feels Safe At This Time Smoking Status: Former smoker Hx Alcohol Use: Yes Alcohol type: beer and wine Alcohol Intake Frequency: holidays/special occasions only Hx Substance Use: No Beliefs That Will Affect Care: None Preferred Language: Macedonian Communication Ability: Effective Engineering Instructor Required: No Review of Systems As per HPI with full review of systems otherwise negative Physical Exam 2 Vital Signs (Past 24 Hours): Last Vital Signs Temp 37.1 C 05/06/18 04:38 Pulse 66 05/06/18 08:00 Resp 16 05/06/18 04:38 BP 153/80 H 05/06/18 04:38 Pulse Ox 100 05/06/18 04:38 Constitutional: well developed and + thin Eyes: PERRL, conjunctivae normal, anicteric sclerae ENMT: external ear and nose normal, oropharynx normal Neck: trachea midline, no thyromegaly No palpable lymphadenopathy Respiratory: Clear with mildly diminished breath sounds Cardiovascular: Rate/Rhythm: regular rate and regular rhythm Heart Sounds: normal S1 and normal S2; no gallop, no murmur and no cardiac rub Vessels: + carotid bruit (Faint right carotid bruits present) and dorsalis pedis pulses present (Right greater than left) Extremities: no pedal edema Gastrointestinal (Abdomen): normal bowel sounds, soft, nontender, no hepatosplenomegaly Neurologic: PERRL, EOMI, accommodation nl, no face palsy, no dysarthria Evidence of mild dementia is present with short-term memory issues Results & Data Laboratory Results Laboratory Results - last 24 hr 0105/06/18 05/06/18 02:00 02:00 02:00 WBC 5.22 RBC 4.71 Hgb 14.7 Hct 42.6 MCV 90.4 MCH 31.2 MCHC 34.5 RDW Std Deviation 41.4 RDW Coeff of Lolly 12.5 Plt Count 281 MPV 9.8 Immature Gran % (Auto) 0.2 Neut % (Auto) 55.1 Lymph % (Auto) 30.5 [place] % (Auto) 9.8 Eos % (Auto) 3.8 Baso % (Auto) 0.6 Immature Gran # (Auto) 0.01 Neut # (Auto) 2.88 Lymph # (Auto) 1.59 [place] # (Auto) 0.51 Eos # (Auto) 0.20 Baso # (Auto) 0.03 D-Dimer 610 H* Sodium 137 Potassium 4.3 Chloride 105 Carbon Dioxide 31 Anion Gap 1.0 L BUN 15 Creatinine 0.82 Est Cr Clr Drug Dosing 83.4 Est GFR ( Amer) 103.8 Est GFR (Non-Af Amer) 89.6 BUN/Creatinine Ratio 18.1 Glucose 192 H POC Glucose Estimat Average Glucose Hemoglobin A1c Calcium 8.8 Magnesium Troponin I < 0.015 Triglycerides Cholesterol LDL Cholesterol, Calc VLDL Cholesterol, Calc HDL Cholesterol Cholesterol/HDL Ratio 05/06/18 05/06/18 05/06/18 05:36 06:55 06:55 WBC 5.40 RBC 4.71 Hgb 14.5 Hct 42.5 MCV 90.2 MCH 30.8 MCHC 34.1 RDW Std Deviation 41.1 RDW Coeff of Lolly 12.5 Plt Count 275 MPV 9.7 Immature Gran % (Auto) 0.2 Neut % (Auto) 58.1 Lymph % (Auto) 29.1 [place] % (Auto) 8.3 Eos % (Auto) 3.7 Baso % (Auto) 0.6 Immature Gran # (Auto) 0.01 Neut # (Auto) 3.14 Lymph # (Auto) 1.57 [place] # (Auto) 0.45 Eos # (Auto) 0.20 Baso # (Auto) 0.03 D-Dimer Sodium 139 Potassium 4.0 Chloride 104 Carbon Dioxide 30 Anion Gap 5.0 BUN 16 Creatinine 0.81 Est Cr Clr Drug Dosing 82.9 Est GFR ( Amer) 104.4 Est GFR (Non-Af Amer) 90.0 BUN/Creatinine Ratio 19.7 Glucose 124 H POC Glucose 131 H Estimat Average Glucose Hemoglobin A1c Calcium 8.5 Magnesium 2.2 Troponin I < 0.015 Triglycerides 111 Cholesterol 108 LDL Cholesterol, Calc 50 VLDL Cholesterol, Calc 22 HDL Cholesterol 36 Cholesterol/HDL Ratio 3 05/06/18 06:55 WBC RBC Hgb Hct MCV MCH MCHC RDW Std Deviation RDW Coeff of Lolly Plt Count MPV Immature Gran % (Auto) Neut % (Auto) Lymph % (Auto) [place] % (Auto) Eos % (Auto) Baso % (Auto) Immature Gran # (Auto) Neut # (Auto) Lymph # (Auto) [place] # (Auto) Eos # (Auto) Baso # (Auto) D-Dimer Sodium Potassium Chloride Carbon Dioxide Anion Gap BUN Creatinine Est Cr Clr Drug Dosing Est GFR ( Amer) Est GFR (Non-Af Amer) BUN/Creatinine Ratio Glucose POC Glucose Estimat Average Glucose 338 Hemoglobin A1c 13.4 H Calcium Magnesium Troponin I Triglycerides Cholesterol LDL Cholesterol, Calc VLDL Cholesterol, Calc HDL Cholesterol Cholesterol/HDL Ratio ECG Additional Comments: 06-MAY-2018 01:55:49 [facility] Normal sinus rhythm Normal ECG When compared with ECG of 13-JUN-2016 02:12, No significant change was found
[2018-05-06] MEDS ORDERED: METOPROLOL TARTRATE 1 MG/ML VIAL IV ONE (10:52)
[2018-05-06] MEDS ORDERED: DOBUTamine HCL 12.5 MG/ML 20 ML VIAL IV ONE (10:52)
[2018-05-06] MEDS ORDERED: ATROPINE SULFATE 0.1 MG/ML 10ML SYR IV ONE (10:55)
[2018-05-06] MEDS ORDERED: OPTIRAY 320 125ml IV PRN (11:07)
--- NOTE | 2018-05-06 11:14 | CT Scan Report ---
CT ANGIOGRAM OF THE CHEST CLINICAL HISTORY: Atypical chest pain and elevated d-dimer COMPARISON STUDY: Chest x-ray dated 05/06/2018, chest CT dated 08/03/2015 TECHNIQUE: Following the IV administration of 91 mL of [id number]-320, CT angiogram of the thorax was pe rformed from the thoracic inlet to the lung bases utilizing the pulmonary embolus protocol. Images ar e reviewed in the axial, sagittal, and coronal planes. IV contrast was administered without complicat ion. MIP imaging was performed. A dose lowering technique was utilized adhering to the principles of ALARA. CT DOSE: 250.72 mGy.cm FINDINGS: Subcarinal lymph nodes are the upper limits of normal in size. There is no definitive pathologic williams opathy. There is no evidence of thoracic aortic aneurysm. There were no pulmonary artery filling defects to indicate acute pulmonary embolism. Evaluation of pe ripheral lower lobe pulmonary artery branches is somewhat limited due to respiratory motion artifact. No pleural effusions are visualized. There is respiratory motion artifact. There is suspected underlying emphysema. There is no focal pulm onary consolidation. There is no pneumothorax. IMPRESSION: 1. Pulmonary emphysema 2. No evidence of acute pulmonary embolism 3. No evidence of focal pulmonary consolidation Electronically signed by: Marvel Ni M.D. 05/06/2018 11:13 AM
[2018-05-06] MEDS ORDERED: GLUCOSE 40% GEL 15 GM TUBE PO PRN (14:38)
[2018-05-06] MEDS ORDERED: DEXTROSE 50% 50 ML SYRINGE IV PRN (14:38)
[2018-05-06] MEDS ORDERED: GLUCAGON FOR INJ 1 MG VIAL IM PRN (14:38)
[2018-05-06] MEDS ORDERED: GLUCOSE 10 TABS/TUBE PO PRN (14:38)
[2018-05-06] MEDS ORDERED: CARBOHYDRATES FOR HYPOGLYCEMIA PO PRN (14:38)
--- NOTE | 2018-05-06 16:07 | Hospitalist Progress Note ---
Date of Service May 06, 2018 Assessment & Plan (1) Chest pain: Cardiology consulted. TX ruled out. PE ruled out by CTA. Dobutamine stress echo did not show any evidence of stress-induced ischemia. Continue risk factor modification. (2) Hypertension: Continue losartan. (3) Hyperlipidemia: Continue atorvastatin. (4) Carotid artery disease: Continue aspirin, clopidogrel, statin. (5) Diabetes mellitus type 2, uncontrolled, with complications: Not well-controlled. Hgb A1C 13.4. FBS day of discharge was 131. Discharge on usual regimen. Will need ongoing outpatient education / support. (6) Discharge planning issues: Discharge to home. Family Medicine follow-up with Dr. Morgan Rock. Subjective Doing well. No further chest pain. No other concerns. Physical Exam 2 Vital Signs (Past 24 Hours): Last Vital Signs Temp 36.9 C 05/06/18 15:15 Pulse 58 L 05/06/18 16:00 Resp 18 05/06/18 15:15 BP 125/67 05/06/18 15:15 Pulse Ox 97 05/06/18 15:15 Constitutional: no acute distress Respiratory: no respiratory distress Auscultation: lungs clear to auscultation bilaterally Cardiovascular: Rate/Rhythm: regular rate and regular rhythm Vessels: no JVD Extremities: no calf tenderness and no edema Gastrointestinal (Abdomen): normal bowel sounds, soft, nontender, no hepatosplenomegaly Skin: no rashes, warm and dry Psychiatric: Orientation: alert and oriented x 3
[2018-05-06] MEDS ORDERED: INSULIN ASPART 100 UNITS/ML 3 ML PEN SC SCH (16:30)
--- NOTE | 2018-05-12 08:38 | Discharge Summary ---
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 Recently had follow up with heme/onc and subsequently seems to be in remission. Today in the middle of the night, he woke up with chest pain, left side rated 5/10 in severity, some pressure like feeling. No nausea. No shortness of breath, no sweating, no lightheadedness. He took aspirin by the time he came to the ED the pain resolved. He denies any headache, no blurred vision, no runny nose, no sore throat, no difficulty swallowing. No nausea, no vomiting, no abdominal pain. Normal bowel and bladder movements. Otherwise is active at home without any issues. Admission Exam Per Admitting Provider GENERAL: The patient is of moderate build, not in distress. VITAL SIGNS: Afebrile, pulse 62, respiratory rate 15, blood pressure 130/82, oxygen 88% room air. HEENT: No pallor, no icterus. Pupils equal, round, and react to light. NECK: No neck masses, no carotid bruits. CARDIOVASCULAR: S1, S2 heard, regular rate and rhythm. No gallop. RESPIRATORY SYSTEM: Normal AP diameter. There is no wheezing, no crackles. ABDOMEN: Soft, bowel sounds present. Nontender. No distention. CENTRAL NERVOUS SYSTEM: CN 2-12 grossly intact. Nonfocal. EXTREMITIES: No edema. Principal Diagnosis chest pain ND ruled out negative dobutamine stress echo pulmonary embolism ruled out Discharge Data Allergies Allergy/AdvReac Type Severity Reaction Status Date / Time KAVITA Inhibitors Allergy Intermediate COUGH Verified 05/06/18 04:16 Penicillins Allergy Unknown UNK Verified 05/06/18 04:16 Consultations 05/06/18 02:59 ED Decision to Admit Stat 05/06/18 04:57 Consult Cardiology Routine Ordered Studies 05/06/18 10:54 CT angio chest PE protocol Stat Hospital Course (1) Chest pain: Cardiology consulted. [place] that CP was atypical, but warranted further evaluation given risk factors. ND ruled out. PE ruled out by CTA. Dobutamine stress echo did not show any evidence of stress-induced ischemia. Continue risk factor modification. (2) Hypertension: Continue losartan. (3) Hyperlipidemia: Continue atorvastatin. (4) Carotid artery disease: Continue aspirin, clopidogrel, statin. (5) Diabetes mellitus type 2, uncontrolled, with complications: Not well-controlled. Hgb A1C 13.4. FBS day of discharge was 131. Discharge on usual regimen. Will need ongoing outpatient education / support. (6) Discharge planning issues: Discharge to home. Family Medicine follow-up with Dr. Morgan Rock. Total Time Total Time Spent Total Time Spent (In Minutes): 30 Discharge Plan Discharge Items Patient Disposition: Home - Self-Care Reason For Visit: chest pain Discharge Diagnosis: chest pain- no sign of heart attack high blood sugars Discharge Goals: Decrease discomfort and Improve disease control Activity: Resume your previous activity Non-emergency contact: Primary Care Provider and Hospitalist Call non-emergency contact if: you have any medication questions and your symptoms worsen Follow-up/Referrals: Morgan Rock [Primary Care Provider] - (05/12/2018 11:10 AM Morgan Rock DO) Diet: Carb Consistent or DM2 and Heart Healthy Addtl Provider Instructions: OTHER INSTRUCTIONS: Your hemoglobin A1C was 13 (too high). Check your blood sugar before each meal. Continue Lantus 40 units each morning. Change metformin to 500 mg twice a day- new prescription sent to your pharmacy. If your sugars are too high, use NovoLog with meals to get things under control: BLOOD SUGAR UNITS NOVOLOG under 201 none 201-250 4 units 251-300 6 units 301-400 8 units above 400 10 units (This sliding scale for NovoLog is just a start. It may be adjusted by team in clinic if sugars still running too high.) Seek medical attention if you have: * temperature above 101 * chest pain or trouble breathing * abdominal pain, nausea, vomiting * diarrhea, dark stools or bloody stools * any unanswered questions or concerns Call [phone] if symptoms are severe. Call if you have any questions or problems. My cell # is [phone]. You can also reach a [facility] hospitalist on duty at [facility] 24 hours a day by calling [phone]. Prescriptions: New metformin 500 mg tablet extended release 24 hr 500 mg PO BID Qty: 60 RF: 5 insulin aspart U-100 [Novolog Flexpen U-100 Insulin] 100 unit/mL insulin pen See Label Instructions .ROUTE .COMPLEX Qty: 15 RF: 0 pen needle, diabetic [BD Ultra-Fine Leonor Pen Needle] 32 gauge x 5/32" needle .ROUTE .MEDSUPPLY Qty: 10 RF: 12 Continue atorvastatin 80 mg Tablet 80 mg PO DAILY RF: 0 escitalopram oxalate [Lexapro] 20 mg Tablet 20 mg PO DAILY RF: 0 aspirin 81 mg Tablet,Delayed Release (Dr/Ec) 81 mg PO DAILY RF: 0 donepezil 5 mg Tablet 5 mg PO DAILY RF: 0 clopidogrel 75 mg Tablet 75 mg PO DAILY RF: 0 losartan 100 mg Tablet 100 mg PO DAILY RF: 0 insulin glargine [Lantus Solostar U-100 Insulin] 100 unit/mL (3 mL) Insulin Pen 40 unit SUBCUT DAILY RF: 0 turmeric root extract 500 mg Capsule 500 mg PO DAILY RF: 0 Discontinued metformin 500 mg Tablet Extended Release 24 Hr 500 mg PO PM RF: 0 Stand-Alone Forms: [facility] Discharge Orders: Discharge Order (Routine); Ordered 05/06/18 Ordered By: Harry Rios Admission Data Admit Date/Time: 05/06/18 03:53 Attending Provider: Harry Rios Admit Provider: Luther Perdomo Primary Care Provider: Morgan Rock. Other Providers: Luther Perdomo ; Topher Cornell ; Domingo Bhatt ; Rhett Castillo ; Josué Mendoza ; Holland Brooke ; Marc Adkins ; Yoly Balderas ; Lien Norman Service: Telemetry Other Interventions: Discharge Summary Assessment (RN) Last Done: 05/06/18 16:34 DC Date/Time DO NOT enter until pt leaves facility: 05/06/18 18:10
== END 2018-05-06 18:10 | disposition home or self-care (01) ==
LOC: 2S 01:49 → ED 01:49 → 2S 04:22

== ENCOUNTER 2019-06-12 19:10 | Inpatient (IN) ==
[2019-06-12] MEDS ORDERED: GI COCKTAIL ED USE PO ONE (19:23)
[2019-06-12 19:33] LABS: Basophils # (auto) 0.04 K/uL (0-0.2); Basophils % (auto) 0.5 %; Eosinophils # (auto) 0.14 K/uL (0-0.5); Eosinophils % (auto) 1.9 %; Hemoglobin 11.4 g/dL (14.0-18.0); Immature Granulocytes # (auto) 0.02 K/uL (0.00-0.02); Immature Granulocytes % (auto) 0.3 %; Lymphocytes # (auto) 1.34 K/uL (1.2-3.4); Lymphocytes % (auto) 18.3 %; Mean Corpuscular Hemoglobin 31.1 pg (25-34); Mean Corpuscular Hgb Conc 32.6 g/dL (32-36); Mean Corpuscular Volume 95.6 fL (80-100); Mean Platelet Volume 9.6 fL (7.4-10.4); Monocytes # (auto) 0.76 K/uL (0.11-0.59); Monocytes % (auto) 10.4 %; Neutrophils # (auto) 5.04 K/uL (1.4-6.5); Neutrophils % (auto) 68.6 %; Platelet Count 290 K/uL (130-400); RDW Coefficient of Variation 12.9 % (11.5-14.5); RDW Standard Deviation 45.1 fL (36.4-46.3); Red Blood Count 3.66 M/uL (4.7-6.1); White Blood Count 7.34 K/uL (4.8-10.8)
--- NOTE | 2019-06-12 19:40 | XRay Report ---
XR chest 1V portable CLINICAL HISTORY: 73 years-old Male presenting with Chest Pain. TECHNIQUE: Portable upright AP view of the chest was obtained. COMPARISON: 05/06/2018. FINDINGS: Atherosclerosis of the aortic arch. Cardiac silhouette mildly enlarged. Degenerative changes of the g lenohumeral joints. Multiple right upper rib fractures may be present, new from prior. Upper abdomen normal. IMPRESSION: 1. Multiple right upper rib fractures may be present. Consider dedicated right rib series. 2. Mild cardiomegaly. ACT 112: Negative or not required by law. Electronically signed by: Wiliam Andujar M.D. 06/12/2019 7:38 PM
[2019-06-12 19:50] LABS: Albumin Level 3.3 gm/dl (3.4-5.0); BUN Creatinine Ratio 21.7 (10-20); Creatinine Clr Calc Pharmacy 60.6 ml/min; Est GFR (African American) 70.8; Est GFR (Non-African American) 61.1; Potassium 4.6 mmol/L (3.5-5.1)
[2019-06-12 20:08] LABS: Partial Thromboplastin Time 28.6 Seconds (21.0-31.0); Prothrombin Time 10.9 Seconds (9.0-12.0)
[2019-06-12 20:11] LABS: Albumin Globulin Ratio 0.9 (0.9-2); Bilirubin,Total 0.4 mg/dl (0.2-1); Globulin 3.7 gm/dl (2.5-4.0); Troponin I 0.99 ng/ml (0-0.045)
[2019-06-12] MEDS ORDERED: OPTIRAY 320 125ml IV PRN (20:15)
--- NOTE | 2019-06-12 20:34 | CT Scan Report ---
CT angio chest PE protocol CLINICAL HISTORY: 73 years-old Male presenting with atypical chest pain, possible rib fracture on x-r ay, clinical concern for pulmonary embolus. TECHNIQUE: Multidetector CT angiography of the chest was performed after administration of intravenou s contrast. 3-D volumetric and/or maximum intensity projection (MIP) images were subsequently reconst ructed for review. IV contrast: 119 mL of Optiray 320. One or more dose lowering techniques were used consistent with the principles of ALARA (as low as reasonably achievable), including automatic expos ure control, mA or kV adjustment to individual patient size, and/or use of iterative reconstruction. COMPARISON: CTA chest from 05/06/2018. CT DOSE (mGy.cm): The estimated cumulative dose is 372.44 mGy.cm. FINDINGS: Service Center Manager topogram: Unremarkable. Pulmonary vasculature: The study is adequate for assessment of the pulmonary vascular tree. No filling defect within the pul monary arteries to suggest embolus. Main pulmonary artery is not enlarged. No flattening of the inter ventricular septum. No intracardiac filling defect. No reflux of contrast into the hepatic veins. Remaining chest: Soft tissues: Normal thyroid and thoracic inlet. Largely subcentimeter mediastinal and bilateral giselle r lymph nodes. The largest nodes are located in the subcarinal region measuring nearly a centimeter i n short axis. These are larger than on the prior exam. Atherosclerosis of the aorta. Borderline enlar gement of the heart. Coronary artery and aortic valve calcification. Small bilateral pleural effusion s. Upper abdomen normal. Lungs and airways: No pneumothorax. Mild diffuse bronchial wall thickening. Central airways patent. P ulmonary artery is minimally enlarged relative to adjacent bronchi. Mild interlobular septal thickeni ng at the apices and lung bases. Mosaic attenuation. Trace centrilobular emphysema may be present. De pendent groundglass opacities and subpleural dependent solid consolidation, at least in part atelecta sis. Musculoskeletal: Multiple subacute to chronic rib fractures at the lateral right third through sixth ribs, the fifth rib fracture in 2 places. These fractures are new from prior though not acute appeari ng. This correlates to the radiographic finding. Additional subacute to chronic left lateral seventh through 11th rib fractures are also new from prior. IMPRESSION: 1. No evidence of pulmonary embolus. 2. Volume overload and congestive change. Some of the dependent groundglass opacity may represent ed tian rather than atelectasis. 3. Increased prominence of mediastinal and hilar lymph nodes. This is nonspecific though may represe nt changes related to venolymphatic congestion. Lymphoproliferative or metastatic disease considered much less likely. Attention on follow-up. 4. Small bilateral pleural effusions with passive atelectasis. 5. Multiple bilateral subacute to chronic rib fractures are new since the prior exam and correlate w ith the radiographic finding. ACT 112: Negative or not required by law. Electronically signed by: Wiliam Andujar M.D. 06/12/2019 8:33 PM
--- NOTE | 2019-06-12 21:10 | CT Scan Report ---
CT head/brain wo con CLINICAL HISTORY: 73 years-old Male presenting with exclude ICH for anticoagulation. TECHNIQUE: Multidetector CT imaging of the head was performed without the use of intravenous contrast . IV contrast: None. One or more dose lowering techniques were used consistent with the principles of ALARA (as low as reasonably achievable), including automatic exposure control, mA or kV adjustment t o individual patient size, and/or use of iterative reconstruction. COMPARISON: None. CT DOSE (mGy.cm): The estimated cumulative dose is 537.48 mGy.cm. FINDINGS: [employer] Teacher topogram: The patient is edentulous. Proportional ventricular and sulcal prominence, likely age-related parenchymal volume loss. No hemorr giles. Focal periventricular white matter hypodensity in the right parietal lobe with apparent intact overlying amador matter. Additional similar-appearing more limited focal periventricular white matter n oted in the left temporal occipital region. No acute territorial infarct. No mass effect or midline s hift. No extra-axial fluid collection. Paranasal sinuses and mastoid air cells clear. Focal lucent le javier near the confluence of the metopic suture and coronal suture (series 3 image 25), which has a na rrow zone of transition, possibly congenital and likely benign. Residual contrast noted in the dural venous sinuses. IMPRESSION: 1. Chronic small vessel ischemic change. No acute intracranial abnormality. 2. No hemorrhage. ACT 112: Negative or not required by law. Electronically signed by: Wiliam Andujar M.D. 06/12/2019 9:08 PM
[2019-06-12] MEDS ORDERED: HEPARIN SOD 5,000 UNIT/0.5 ML VIAL ONE (21:25)
[2019-06-12] MEDS: HEPARIN SODIUM/DEXTROSE 25,000 UNITS/500 ML BAG IV SCH (21:29)
--- NOTE | 2019-06-12 21:35 | Emergency Department Note ---
Entered by Jason Miller acting as a scribe for Ayush Landeros M.D. History of Present Illness General Chief complaint: Chest Pain Stated complaint: CHEST PAINS Time Seen by Provider: 06/12/19 19:14 Source: patient History of Present Illness Onset (ago): hour(s) 1 (1.5) Location: chest (left upper chest) Radiation: non-radiation Pain Consistency: + constant Maximum Pain Intensity: 3 Quality: + other (pressure) Relieved By: + none Exacerbated By: + none Associated symptoms: + denies other symptoms (leg swelling); no shortness of breath The patient is a 73 year old M who presents to the Emergency Room with complaints of constant chest pain that started 1.5 hours ago. The HPI was provided by the patient and his . The patient describes his chest pain as a pressure. He states that his chest pain is located in his left upper chest. He notes that his chest pain does not radiate. He states that nothing makes his pain better or worse. He adds that he was moving boxes prior to his onset of chest pain. The patients notes that she gave the patient 2 doses of bufferin prior to coming into the ED. She adds that the patient had pizza to eat for lunch. She notes that the patient has not had any recent cold symptoms. She denies that the patient has any recent travel. The patients states that the patient has Alzheimers. She notes that the patient left her a note, 2 days ago, that he was experiencing chest pains when he walked to the post office. The patient denies currently experiencing any shortness of breath and leg swelling. The patients notes that the patient has a history of cancer and stents placed in his neck. She adds that the patients cancer is in remission. She notes that the patient is supposed to take an aspirin every day, but adds that they ran out. She states that the patient is currently on Plavix. She adds that the patient had a stress test done, 1 year ago. Home Medications Home Medications Medication Instructions Recorded Confirmed Type Lantus Solostar U-100 Insulin 50 unit SUBCUT QA 05/06/18 06/12/19 History aspirin 81 mg PO QAM 05/06/18 06/12/19 History atorvastatin 80 mg PO QAM 05/06/18 06/12/19 History clopidogrel 75 mg PO QAM 05/06/18 06/12/19 History donepezil 5 mg PO QAM 05/06/18 06/12/19 History escitalopram oxalate [Lexapro] 20 mg PO QAM 05/06/18 06/12/19 History losartan 100 mg PO QAM 05/06/18 06/12/19 History turmeric root extract 500 mg PO DAILY PRN 05/06/18 06/12/19 History metformin 500 mg PO QAM 04/14/19 06/12/19 History finasteride 5 mg PO QAM 06/12/19 06/12/19 History sennosides-docusate sodium 2 tab PO BID PRN 06/12/19 06/12/19 History [Senokot-S] Allergies Allergy/AdvReac Type Severity Reaction Status Date / Time KAVITA Inhibitors Allergy Intermediate COUGH Verified 04/14/19 17:14 Penicillins Allergy Unknown UNK Verified 04/14/19 17:14 Past Med/Surg History Social History Preferred Language: Korean Communication Ability: Effective 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 and A total of 10 systems reviewed and were otherwise negative Physical Exam Vital Signs Vital Signs - 24 hr 06/12/19 19:11 06/12/19 19:30 Temperature 36.6 C Temperature Source Oral Pulse Rate 98 H Respiratory Rate 16 Blood Pressure 108/64 Blood Pressure Mean 78 Pulse Oximetry 96 98 Oxygen Delivery Method Room Air Room Air Sepsis Recent Fever Within 48 Hours No Sepsis New/Unexplained Change in Mental Status No Sepsis Action Taken by Nursing No Action Required GENERAL: Awake, alert, well-appearing, in no distress HENT: Normocephalic, atraumatic. EYES: Normal conjunctiva. Sclera non-icteric. RESPIRATORY: Clear to auscultation. No wheezes. Normal respiratory effort. CARDIAC: Normal rate. Normal rhythm. Extremities warm and well perfused. GI: Soft, non-distended. No tenderness to palpation. No rebound or guarding. No masses. MUSCULOSKELETAL: Atraumatic. Chest examination reveals no tenderness. LOWER EXTREMITIES: Calves are equal size bilaterally and non-tender. No edema NEURO: Normal sensorium. No sensory or motor deficits noted. No facial droop. Mild short-term memory deficits. SKIN: Warm and dry. No rash or jaundice noted. Course Course 1915: The patient was evaluated in room C3. A complete history and physical exam was performed. 2017: I re-checked the patient and update him on his test results. 2040: I updated the patient and plan of care was discussed. 2113: I updated the patient on the plan for admission. 2121: I reviewed the patient's case with Dr. Bonilla Perdomo, [facility]. He will evaluate the patient for further management. Administered Medications Heparin Sodium/Dextrose (Heparin Sodium/Dextrose) 25,000 units in 500 mls @ 0.02 mls/hr IV .Q24H [facility]; Protocol Stop: 07/12/19 21:14 Last Admin: 06/12/19 21:29 Dose: 1,350 units/hr, 27 mls/hr Documented by: [id number] Cosigned by: [id number] Ioversol (Optiray 320 125ml) 119 ml IV ONCE PRN PRN Reason: Interaction Checking Stop: 06/16/19 20:14 Last Admin: 06/12/19 20:16 Dose: 119 ml Documented by: [id number] Discontinued Medications Al Hydrox/Mg Hydrox/Simethicone () 1 dose PO ONE ONE Stop: 06/12/19 19:24 Last Admin: 06/12/19 19:44 Dose: 1 dose Documented by: [id number] Heparin Sodium (Porcine) (Heparin Sodium (Porcine)) Confirm Administered Dose 5,000 units .ROUTE .STK-MED ONE Stop: 06/12/19 21:26 Last Admin: 06/12/19 21:30 Dose: 5,000 units Documented by: [id number] Cosigned by: [id number] Critical Care Time Critical Care Time: Yes Total Critical Care Time: 43 I have personally spent 43 minutes of critical care time in the direct management of this patient. This includes bedside care, interpretation of diagnostic studies, and testing, discussion with consultants, patient, and family members, and other required patient management activities. This 43 minutes is in excess of all separately billable procedures. Medical Decision Making Differential Diagnosis Differential diagnoses includes but is not limited to acute coronary syndrome, myocardial infarction, pericarditis, pulmonary embolus, aortic dissection, pneumonia, pneumothorax, musculoskeletal, shingles, esophageal. Medical Records Attestation: I reviewed the patient's medical records. Home Medications Current Medication List: was personally reviewed by me Laboratory Data Attestation: I reviewed the patient's lab results. Result diagrams: 06/12/19 19:25 06/12/19 19:25 Lab Results 06/12/19 06/12/19 06/12/19 Range/Units 19:25 19:25 19:25 WBC 7.34 (4.8-10.8) K/uL RBC 3.66 L (4.7-6.1) M/uL Hgb 11.4 L (14.0-18.0) g/dL Hct 35.0 L (42-52) % MCV 95.6 (80-100) fL MCH 31.1 (25-34) pg MCHC 32.6 (32-36) g/dL RDW Std Deviation 45.1 (36.4-46.3) fL RDW Coeff of Lolly 12.9 (11.5-14.5) % Plt Count 290 (130-400) K/uL MPV 9.6 (7.4-10.4) fL Immature Gran % (Auto) 0.3 % Neut % (Auto) 68.6 % Lymph % (Auto) 18.3 % [place] % (Auto) 10.4 % Eos % (Auto) 1.9 % Baso % (Auto) 0.5 % Immature Gran # (Auto) 0.02 (0.00-0.02) K/uL Neut # (Auto) 5.04 (1.4-6.5) K/uL Lymph # (Auto) 1.34 (1.2-3.4) K/uL [place] # (Auto) 0.76 H (0.11-0.59) K/uL Eos # (Auto) 0.14 (0-0.5) K/uL Baso # (Auto) 0.04 (0-0.2) K/uL PT 10.9 (9.0-12.0) Seconds INR 1.0 (0.9-1.1) APTT 28.6 (21.0-31.0) Seconds PTT Ratio 1.0 Sodium 140 (136-145) mmol/L Potassium 4.6 (3.5-5.1) mmol/L Chloride 109 H (98-107) mmol/L Carbon Dioxide 28 (21-32) mmol/L Anion Gap 3.0 (3-11) BUN 26 H (7-18) mg/dl Creatinine 1.19 (0.6-1.4) mg/dl Est Cr Clr Drug Dosing 60.6 ml/min Est GFR ( Amer) 70.8 Est GFR (Non-Af Amer) 61.1 BUN/Creatinine Ratio 21.7 H (10-20) Glucose 123 H (70-99) mg/dl Calcium 9.0 (8.5-10.1) mg/dl Total Bilirubin 0.4 (0.2-1) mg/dl AST 20 (15-37) U/L ALT 39 (12-78) U/L Alkaline Phosphatase 78 (45-117) U/L Troponin I 0.990 H* (0-0.045) ng/ml Total Protein 7.0 (6.4-8.2) gm/dl Albumin 3.3 L (3.4-5.0) gm/dl Globulin 3.7 (2.5-4.0) gm/dl Albumin/Globulin Ratio 0.9 (0.9-2) Lipase 51 L (73-393) U/L Imaging Data Radiologist's Impression: Radiology results as stated below per my review and the radiologist's interpretation: XR chest 1V portable CLINICAL HISTORY: 73 years-old Male presenting with Chest Pain. TECHNIQUE: Portable upright AP view of the chest was obtained. COMPARISON: 05/06/2018. FINDINGS: Atherosclerosis of the aortic arch. Cardiac silhouette mildly enlarged. Degenerative changes of the glenohumeral joints. Multiple right upper rib fractures may be present, new from prior. Upper abdomen normal. IMPRESSION: 1. Multiple right upper rib fractures may be present. Consider dedicated right rib series. 2. Mild cardiomegaly. ACT 112: Negative or not required by law. Electronically signed by: Wiliam Andujar M.D. 06/12/2019 7:[address] angio chest PE protocol CLINICAL HISTORY: 73 years-old Male presenting with atypical chest pain, possible rib fracture on x-ray, clinical concern for pulmonary embolus. TECHNIQUE: Multidetector CT angiography of the chest was performed after administration of intravenous contrast. 3-D volumetric and/or maximum intensity projection (MIP) images were subsequently reconstructed for review. IV contrast: 119 mL of Optiray 320. One or more dose lowering techniques were used consistent with the principles of ALARA (as low as reasonably achievable), including automatic exposure control, mA or kV adjustment to individual patient size, and/or use of iterative reconstruction. COMPARISON: CTA chest from 05/06/2018. CT DOSE (mGy.cm): The estimated cumulative dose is 372.44 mGy.cm. FINDINGS: Geophysical Computer topogram: Unremarkable. Pulmonary vasculature: The study is adequate for assessment of the pulmonary vascular tree. No filling defect within the pulmonary arteries to suggest embolus. Main pulmonary artery is not enlarged. No flattening of the interventricular septum. No intracardiac filling defect. No reflux of contrast into the hepatic veins. Remaining chest: Soft tissues: Normal thyroid and thoracic inlet. Largely subcentimeter mediastinal and bilateral hilar lymph nodes. The largest nodes are located in the subcarinal region measuring nearly a centimeter in short axis. These are larger than on the prior exam. Atherosclerosis of the aorta. Borderline enlargement of the heart. Coronary artery and aortic valve calcification. Small bilateral pleural effusions. Upper abdomen normal. Lungs and airways: No pneumothorax. Mild diffuse bronchial wall thickening. Central airways patent. Pulmonary artery is minimally enlarged relative to adjacent bronchi. Mild interlobular septal thickening at the apices and lung bases. Mosaic attenuation. Trace centrilobular emphysema may be present. Dependent groundglass opacities and subpleural dependent solid consolidation, at least in part atelectasis. Musculoskeletal: Multiple subacute to chronic rib fractures at the lateral right third through sixth ribs, the fifth rib fracture in [address]. These fractures are new from prior though not acute appearing. This correlates to the radiographic finding. Additional subacute to chronic left lateral seventh thro ugh 11th rib fractures are also new from prior. IMPRESSION: 1. No evidence of pulmonary embolus. 2. Volume overload and congestive change. Some of the dependent groundglass opacity may represent edema rather than atelectasis. 3. Increased prominence of mediastinal and hilar lymph nodes. This is nonspecific though may represent changes related to venolymphatic congestion. Lymphoproliferative or metastatic disease considered much less likely. Attention on follow-up. 4. Small bilateral pleural effusions with passive atelectasis. 5. Multiple bilateral subacute to chronic rib fractures are new since the prior exam and correlate with the radiographic finding. ACT 112: Negative or not required by law. Electronically signed by: Wiliam Andujar M.D. 06/12/2019 8:[address] head/brain wo con CLINICAL HISTORY: 73 years-old Male presenting with exclude ICH for anticoagulation. TECHNIQUE: Multidetector CT imaging of the head was performed without the use of intravenous contrast. IV contrast: None. One or more dose lowering techniques were used consistent with the principles of ALARA (as low as reasonably achievable), including automatic exposure control, mA or kV adjustment to individual patient size, and/or use of iterative reconstruction. COMPARISON: None. CT DOSE (mGy.cm): The estimated cumulative dose is 537.48 mGy.cm. FINDINGS: Geophysical Computer topogram: The patient is edentulous. Proportional ventricular and sulcal prominence, likely age-related parenchymal volume loss. No hemorrhage. Focal periventricular white matter hypodensity in the right parietal lobe with apparent intact overlying amador matter. Additional similar-appearing more limited focal periventricular white matter noted in the left temporal occipital region. No acute territorial infarct. No mass effect or midline shift. No extra-axial fluid collection. Paranasal sinuses and mastoid air cells clear. Focal lucent lesion near the confluence of the metopic suture and coronal suture (series 3 image 25), which has a narrow zone of transition, possibly congenital and likely benign. Residual contrast noted in the dural venous sinuses. IMPRESSION: 1. Chronic small vessel ischemic change. No acute intracranial abnormality. 2. No hemorrhage. ACT 112: Negative or not required by law. Electronically signed by: Wiliam Andujar M.D. 06/12/2019 9:08 PM ECG Data Attestation: I personally reviewed and interpreted this ECG as follows: Indication: + chest pain Rate (beats per minute): 92 Rhythm: + normal sinus ECG [place]: + Normal ECG ST segments: + T-wave inversions (Inferior); no ST depression and no ST elevation ECG Findings: no PVCs Comparison ECG Date: from (05/06/18) Change: the following changes noted (new inferior TWI) Blood Pressure Blood Pressure Findings: Elevated blood pressure Blood Pressure Disposition: further management by hospitalist TAYA Narrative Patient is a 73-year-old gentleman history of some Alzheimer's, carotid artery disease with stent, diabetes, hypertension presenting today with report of onset of chest pain 90 minutes prior to arrival. Started with the patient was at rest. Did report earlier this week some chest pain with exertional walking [place] post office. Patient denies shortness of breath or radiation of his pain which is central to just left of the mid chest. Nonreproducible on exam. Took some aspirin prior to arrival as well as a Tagamet. Given a GI cocktail here. EKG without significant change. Chest x-ray was obtained. Basic labs obtained.Patient had prior cardiac work-up and stress test approximately 13 months ago. Patient is a vasculopath with known arterial disease and again carotid stent on Plavix. Patient has been out of his aspirin and not taking it regularly recently. Patient denies significant cardiac history to myself. Patient's troponin is significantly elevated and this is a new finding. Chest x-ray questioned possible rib fractures. Has a distant history. CT scan of the chest was completed to evaluate for this or possible PE. No evidence of PE. Subacute rib fractures noted but patient without significant chest wall tenderness. CT of the head was completed to exclude intracranial traumatic injury given his difficulty with memory before anticoagulating. This was negative for bleed. Heparin drip was started given the NSTEMI. Hospitalist was contacted for evaluation. Patient states he has maybe a small amount of tightness but no real pain at this time. Impression & Plan Non-ST elevation LA (NSTEMI), Chest pain Discharge Plan Visit Data Chief Complaint: Chest Pain Stated Complaint: CHEST PAINS ED Provider: Ayush Landeros Discharge Problem: Non-ST elevation LA (NSTEMI), Chest pain Patient Disposition: Admitted As Inpatient Forms Stand Alone Forms: [facility] Prescriptions Prescriptions: No Action atorvastatin 80 mg Tablet 80 mg PO QAM RF: 0 escitalopram oxalate [Lexapro] 20 mg Tablet 20 mg PO QAM RF: 0 aspirin 81 mg Tablet,Delayed Release (Dr/Ec) 81 mg PO QAM RF: 0 donepezil 5 mg Tablet 5 mg PO QAM RF: 0 clopidogrel 75 mg Tablet 75 mg PO QAM RF: 0 losartan 100 mg Tablet 100 mg PO QAM RF: 0 Lantus Solostar U-100 Insulin 100 unit/mL (3 mL) Insulin Pen 50 unit SUBCUT QAM RF: 0 turmeric root extract 500 mg Capsule 500 mg PO DAILY PRN (Reason: immune system boost) RF: 0 metformin 500 mg tablet extended release 24 hr 500 mg PO QAM RF: 0 finasteride 5 mg tablet 5 mg PO QAM RF: 0 sennosides-docusate sodium [Senokot-S] 8.6-50 mg tablet 2 tab PO BID PRN (Reason: Constipation) RF: 0 Referrals Referrals: Morgan Rock DO [Primary Care Provider] - Discharge Problem: Chest pain Qualifiers: Chest pain type: unspecified Qualified Code(s): R07.9 - Chest pain, unspecified The scribe's documentation has been prepared under my direction and personally reviewed by me in its entirety. I confirm that the note above accurately reflects all work, treatment, procedures, and medical decision making performed by me.
[2019-06-12] MEDS ORDERED: DOCUSATE SODIUM/SENNA 50/8.6MG TAB PO PRN (22:53)
[2019-06-12] MEDS ORDERED: ONDANSETRON INJ 2 MG/ML 2 ML VIAL IV PRN (22:53)
[2019-06-12] MEDS ORDERED: ACETAMINOPHEN 325 MG TAB PO PRN (22:53)
[2019-06-12] MEDS ORDERED: POLYETHYLENE (MIRALAX) 17 GM PACK PO PRN (22:53)
[2019-06-12] MEDS ORDERED: SODIUM CHLORIDE 0.9% 1000ML 1,000 ML IV SCH (22:53)
[2019-06-12] MEDS ORDERED: GLUCOSE 40% GEL 15 GM TUBE PO PRN (23:15)
[2019-06-12] MEDS ORDERED: GLUCAGON FOR INJ 1 MG VIAL SQ PRN (23:15)
[2019-06-12] MEDS ORDERED: GLUCOSE 10 TABS/TUBE PO PRN (23:15)
[2019-06-12] MEDS ORDERED: DEXTROSE 50% 50 ML SYRINGE IV PRN (23:15)
[2019-06-12] MEDS ORDERED: CARBOHYDRATES FOR HYPOGLYCEMIA PO PRN (23:15)
[2019-06-12] MEDS ORDERED: Nursing to Pharmacy Communication ONE (23:23)
[2019-06-12] MEDS: NITROGLYCERIN 2% OINTMENT 30GM TUBE EXT SCH (23:41)
[2019-06-13] MEDS: INSULIN ASPART 100 UNITS/ML 3 ML PEN SC SCH ×5 (00:12→20:38)
--- NOTE | 2019-06-13 03:07 | History and Physical Report ---
DATE OF ADMISSION: 06/12/2019 CHIEF COMPLAINT: Chest pain. 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 Following with hematology/oncology and currently in remission, presents with chest pain. The patient lives with his . states they were packing things today and in the evening he complained of chest pain, left sided , 6/10 in severity, nagging pain. No associating factors. Patient recently last Friday he walked [place], [place] and he has dementia and he wrote a note to his that he had chest pain while he was walking to the post office, so that he would not forget to tell her, but after that he seemed okay. Because of this recurring chest pain, he was brought into the ER and his troponin 0.9. EKG showed some T-wave inversions in inferior and anterior leads, he was started on IV heparin in the ER. Currently, resting comfortably and hemodynamically stable. He says he still has some mild nagging pain in the left side of the chest. No shortness of breath, no nausea. Has some mild headache, no dizziness, no cough, no fever, no chills, no runny nose, no sore throat, no cold like symptoms. No earaches, no abdominal pain. Normal bowel and bladder movements. No black stools or bloody stools. No burning micturition, no swelling in the legs, no rash. He sleeps okay. Appetite is good. Ambulates okay in the house without any support. ALLERGIES: KAVITA INHIBITORS, PENICILLIN. PAST MEDICAL HISTORY: As mentioned above. PAST SURGICAL HISTORY: Carpal tunnel surgery on the right side, colonoscopy, bilateral cataract surgeries, removal of the A-port, carotid stent x2, lumbar spinal shots, insertion of tunneled venous catheter, knee arthroscopy, cervical bone lumbar bone biopsy, left carotid stent with cerebral angiogram. MEDICATIONS: The patient is on aspirin 81 mg p.o. daily, Lipitor 80 mg daily, Plavix 75 mg daily, Aricept 5 mg p.o. a.m., Lexapro 20 mg p.o. a.m., finasteride 5 mg p.o. a.m., Lantus 15 units p.o. a.m., losartan 100 mg p.o. a.m., metformin 500 mg p.o. a.m., Senokot-S 2 tablets p.o. b.i.d. p.r.n., turmeric root extract 500 mg p.o. daily p.r.n. FAMILY HISTORY: Significant for maternal grandmother had colon cancer. SOCIAL HISTORY: Former smoker, quit in 2011, smoked 2 pack a day for 15 years. Alcohol rarely. No drug use. . REVIEW OF SYMPTOMS: As per HPI. Rest of review of symptoms negative. PHYSICAL EXAMINATION: GENERAL: The patient is of moderate build, not in acute distress. VITAL SIGNS: Temperature 36.6, pulse 73, respiratory rate 18, blood pressure 106/70, oxygen 98% on room air. HEENT: No pallor, no icterus. Pupils equal, round, and reactive to light. NECK: No JVD, no neck masses, no carotid bruits. CARDIOVASCULAR: S1, S2 heard, regular rate and rhythm, no murmur, no gallop. RESPIRATORY SYSTEM: Normal AP diameter. No accessory muscle use. No wheezing, no crackles. ABDOMEN: Soft, bowel sounds present, nontender. No distention. CENTRAL NERVOUS SYSTEM: Cranial nerves II-XII grossly intact. Nonfocal. EXTREMITIES: No edema, no erythema. LABORATORY DATA: WBC 7.3, hemoglobin 11.4, hematocrit 35, platelets 290. PT 10.9, INR 1, APTT 28.6. Sodium 140, potassium 4.6, chloride 109, bicarbonate 28, BUN 26, creatinine 1.1, serum glucose 123, calcium 9, total bilirubin 0.4, AST 20, ALT 13 and alkaline phosphatase 79. Troponin I 0.9, lipase 51. IMAGING: Chest x-ray, multiple right upper rib fractures. CT of the chest, no PE, volume overload and congestion and some dependent ground-glass opacity, represent edema rather than atelectasis, increased prominence of mediastinal and hilar lymph nodes are nonspecific though may represent changes related to venous or lymphatic congestion, lymphoproliferative or metastatic disease considered much less likely needs follow up. Head CT, chronic small vessel ischemic change, no acute intracranial abnormality. EKG: Normal sinus rhythm, rate of 92, T-wave inversions in inferior and anterior leads. ASSESSMENT AND PLAN: This is a 73-year-old male who presents with chest pain. 1. Chest pain, non-ST elevated myocardial infarction with elevation of troponin 0.9 and also some EKG changes. Still has some nagging left-sided chest pain. Will place him on nitro paste, IV heparin initiated in the ER which we will continue. Follow serial enzymes, echocardiogram. We will keep him n.p.o. after midnight and consult cardiology in a.m. for further recommendations for possible cardiac catheterization. On gentle IV fluids in anticipation of cardiac catheterization, but we will monitor for volume overload as there is some question of edema on the imaging studies. 2. Diabetes: Seems poorly controlled. Will give half of home Lantus as he is currently n.p.o. Hold metformin, placed on insulin sliding scale. Follow his blood sugars. Follow his HbA1c levels. 3. Dementia: On Aricept. Monitor for any delirium. 4. Depression: On Lexapro. 5. History of carotid artery stenosis status post left carotid stent: On aspirin, Plavix and statin. 6. Hyperlipidemia: On statin. 7. Hypertension: On losartan and also currently placing on nitro paste. Monitor blood pressure. 8. BPH: On Proscar. 9.. History of diffuse large B-cell lymphoma in the left forehead and L5 vertebral bodies, status post R-CHOP therapy x6 in 2013, currently in remission. No recurrence. 10. Multiple bilateral rib fractures could be also possible contributing pain.We will monitor. 11. DVT PX iv heparin. DISPOSITION: Closely monitor in tele floor. Level 1 full code. MTDD
[2019-06-13 05:21] LABS: Basophils # (auto) 0.04 K/uL (0-0.2); Basophils % (auto) 0.6 %; Eosinophils # (auto) 0.19 K/uL (0-0.5); Eosinophils % (auto) 2.9 %; Hemoglobin 9.9 g/dL (14.0-18.0); Immature Granulocytes # (auto) 0.01 K/uL (0.00-0.02); Immature Granulocytes % (auto) 0.2 %; Lymphocytes # (auto) 2.25 K/uL (1.2-3.4); Lymphocytes % (auto) 34.2 %; Mean Corpuscular Hemoglobin 30.7 pg (25-34); Mean Corpuscular Hgb Conc 31.9 g/dL (32-36); Mean Corpuscular Volume 96.3 fL (80-100); Monocytes # (auto) 0.62 K/uL (0.11-0.59); Monocytes % (auto) 9.4 %; Neutrophils # (auto) 3.47 K/uL (1.4-6.5); Neutrophils % (auto) 52.7 %; Platelet Count 285 K/uL (130-400); RDW Standard Deviation 45.5 fL (36.4-46.3); Red Blood Count 3.22 M/uL (4.7-6.1); White Blood Count 6.58 K/uL (4.8-10.8)
[2019-06-13 05:41] LABS: Partial Thromboplastin Ratio 2.3
[2019-06-13 05:53] LABS: Partial Thromboplastin Time 65.1 Seconds (21.0-31.0)
[2019-06-13 06:10] LABS: BUN Creatinine Ratio 22.7 (10-20); Calcium 8.3 mg/dl (8.5-10.1); Creatinine Clr Calc Pharmacy 66.8 ml/min; Est GFR (African American) 79.6; Est GFR (Non-African American) 68.7; Magnesium 2.1 mg/dl (1.8-2.4); Potassium 3.6 mmol/L (3.5-5.1)
[2019-06-13] MEDS: NITROGLYCERIN 2% OINTMENT 30GM TUBE EXT SCH ×4 (06:21→23:10)
[2019-06-13] MEDS ORDERED: D5W AND NSS 1,000 ML IV SCH (06:30)
[2019-06-13] MEDS ORDERED: INSULIN ASPART 100 UNITS/ML 3 ML PEN SC SCH (07:30)
[2019-06-13] MEDS: ESCITALOPRAM OXALATE 20 MG TAB PO SCH (12:27)
[2019-06-13] MEDS: FINASTERIDE 5 MG TAB PO SCH (12:27)
[2019-06-13] MEDS: CLOPIDOGREL BISULFATE 75 MG TAB PO SCH (12:28)
[2019-06-13] MEDS: LOSARTAN POTASSIUM 50 MG TAB PO SCH (12:28)
[2019-06-13] MEDS: INSULIN GLARGINE SOLOSTAR 100 UNITS/ML 3 ML PEN SC SCH (12:28)
[2019-06-13] MEDS: ATORVASTATIN 40 MG TAB PO SCH (12:28)
[2019-06-13] MEDS: ASPIRIN 81 MG ECTAB PO SCH (12:28)
[2019-06-13] MEDS: DONEPEZIL HCL 5 MG TAB PO SCH (12:28)
--- NOTE | 2019-06-13 13:55 | Hospitalist Progress Note ---
Date of Service June 13, 2019 Assessment & Plan (1) Non-ST elevation [place] (NSTEMI): presented with angina symptom , chest pain with exertion got relief with rest no chest pain or angina symptom at present EKG shows T wave inversion on lateral leads ECHO : significant wall motion abnormality on septal and anterior wall with reduced ejection fx of 30% possible late presentation of OR appreciate input from cardiology recommends medication management : pt is chest pain free , ischemic c ardiomyopathy evident in ECHO / pt is continued with IV heparin Started on dual antiplatelets aspirin Plavix, beta alfredo , losartan given presentation CHF with systolic dysfunction -by cardiology pt does not have any evidence of cardiac decompensation or CHF cont to monitor in tele for eval of any Arrhythmia post OR (2) Ischemic cardiomyopathy: possible due to acute OR happened between past several weeks pt is not a reliable historian due to baseline dementia does not recall any complain from pt regarding chest pain or discomfort in past similar to this presentation ischemic cardiomyopathy with systolic dysfunction EF 30% change from 05/2018 ECHO : which showed normal EF with no wall motion abnormality Dobutamine stress test was negative for stress induced ischemia 1 yr back cont to monitor vol status Added losartan by cardiology (3) Chest pain: due to stable angina / Symptom has resolved (4) Dementia: Patient is oriented to place and person, very pleasant, no confusion or agitation (5) Lymphoma: Admission and Anticipated Discharge Date Admission Date: June 12, 2019 Subjective no complain of chest pain or SOB no RIVERA pt feels fine has baseline dementia/no sign of confusion , very pleasant , present at bedside Patient feels comfortable, offers no complaint Review of Systems Review of Systems: All systems reviewed & are unremarkable except as noted in HPI & below Cardiovascular: no chest pain, no radiating jaw, neck or arm pain, no dyspnea, no dyspnea at rest, no orthopnea, no palpitations, no lightheadedness, no syncope and no edema Physical Exam Constitutional: WD/WN, vitals as above Eyes: PERRL, conjunctivae normal, anicteric sclerae ENMT: external ear and nose normal, oropharynx normal Neck: trachea midline, no thyromegaly Respiratory: normal respiratory effort, lungs clear to auscultation Cardiovascular: RRR, no murmur, no edema Gastrointestinal (Abdomen): normal bowel sounds, soft, nontender, no hepat osplenomegaly Musculoskeletal: no cyanosis or clubbing, extremities motor strength 5/5 Skin: no rashes, warm and dry Neurologic: PERRL, EOMI, accommodation nl, no face palsy, no dysarthria Psychiatric: A+Ox3, euthymic affect Results & Data ([facility]) Vital Signs (Past 12 Hours) Vital Signs Temp Pulse Pulse Pulse Resp BP BP 06/13/19 12:04 36.6 C 81 18 132/74 06/13/19 08:00 85 06/13/19 07:08 36.7 C 76 18 110/67 06/13/19 03:09 36.5 C 79 17 102/64 Pulse Ox 06/13/19 12:04 96 06/13/19 08:00 06/13/19 07:08 93 06/13/19 03:09 94 (1) Chest pain Chest pain type: unspecified Qualified Code(s): R07.9 - Chest pain, unspecified
--- NOTE | 2019-06-13 14:31 | Cardiology Consultation ---
Date of Consultation June 13, 2019 Assessment & Plan (1) Chest pain: (2) Non-ST elevation [place] (NSTEMI): (3) Ischemic cardiomyopathy: The patient is currently clinically stable. I believe that this is a late presentation of an acute myocardial infarction. It may have happened several weeks ago and he may have additional post infarct angina. It is hard to say because of his dementia. He does not have congestive heart failure. I agree with heparin and dual antiplatelet therapy. I will add a beta-alfredo. Given his history of dementia I think a conservative approach is indicated. I discussed the various options with the patient and his and in a shared decision making process they are agreeable to conservative management unless clinically medical management fails. History of Present Illness Attending Physician: Marni Ashraf MD History of Present Illness This is a 73-year-old male patient with a history of early dementia who states that [place] and recently during 1 of his walks he had chest pain and shortness of breath which concerned him. He had additional chest discomfort over several days and then presented to the emergency department where he has been admitted. His initial EKG would suggest a old anteroseptal infarct and his troponins are borderline elevated at 0.9 without much variation during serial studies. He was admitted in April and underwent an echocardiogram as well as an exercise echocardiogram study. At that time he had normal LV function and no wall motion abnormalities. He had an echocardiogram following this admission and there is been a change with wall motion abnormalities the distal septum and apex along with reduced LV function and ejection fraction 35%. He has had no progressive shortness of breath or dyspnea. No lower extremity edema or orthopnea. He does have early dementia and is not a good historian. Information is taken from the medical record as well as his . Allergies Allergy/AdvReac Type Severity Reaction Status Date / Time Penicillins Allergy Unknown UNK Verified 04/14/19 17:14 KAVITA Inhibitors AdvReac Intermediate COUGH Verified 06/12/19 21:45 Home Medications Home Medications Medication Instructions Recorded Confirmed Type Lantus Solostar U-100 Insulin 50 unit SUBCUT QA 05/06/18 06/12/19 History aspirin 81 mg PO QAM 05/06/18 06/12/19 History atorvastatin 80 mg PO QAM 05/06/18 06/12/19 History clopidogrel 75 mg PO QAM 05/06/18 06/12/19 History donepezil 5 mg PO QAM 05/06/18 06/12/19 History escitalopram oxalate [Lexapro] 20 mg PO QAM 05/06/18 06/12/19 History losartan 100 mg PO QAM 05/06/18 06/12/19 History turmeric root extract 500 mg PO DAILY PRN 05/06/18 06/12/19 History metformin 500 mg PO QAM 04/14/19 06/12/19 History finasteride 5 mg PO QAM 06/12/19 06/12/19 History sennosides-docusate sodium 2 tab PO BID PRN 06/12/19 06/12/19 History [Senokot-S] Patient History Medical History Carotid artery disease DM (diabetes mellitus) HTN (hypertension) Hyperglycemia Hyperlipemia Vascular disease Surgical History History of colonoscopy Family History Other Family history non-contributory Social History Preferred Language: German Communication Ability: Effective Underwear Cutter Required: No Beliefs That Will Affect Care: None Current Living Situation: Spouse Current Living Situation Comment: lives with in home with 1 step to enter and 7 steps inside Other Information That Helps Us Care for You: No Feels Safe at Home: Yes Safety Concerns: Feels Safe At This Time Smoking Status: Former smoker Do You Dip or Chew Tobacco: No (quit years ago) ; Smoking End Date: years ago ; Second Hand Exposure: No ; Hx Alcohol Use: Yes Alcohol type: beer and wine Hx Substance Use: No Review of Systems Review of Systems: All systems reviewed & are unremarkable except as noted in HPI & below Nothing additional to add. Physical Exam Physical Exam: General: no acute distress and stated age Head: normocephalic, no masses, lesions, tenderness or abnormalities Eyes: conjunctiva are pink and non-injected, sclera clear Neck: supple, no adenopathy, no bruits, normal jugular venous pulse, no hepatojugular reflux Chest: normal shape and normal respiratory effort Lungs: clear to auscultation and percussion Cardiac Exam: - regular rate & rhythm, no murmurs gallops or rubs - normal S1, normal S2 Pulses: 2(+) throughout Abdomen: abdomen soft, non-tender, no abnormal masses and no hepatosplenomegaly Musculoskeletal: no gait disturbance, no joint inflammation, no deforming arthritis Extremities: no edema and no cyanosis Neuro: grossly normal exam Results & Data ([facility]) Vital Signs (Past 12 Hours) Vital Signs Temp Pulse Pulse Pulse Resp BP BP 06/13/19 12:04 36.6 C 81 18 132/74 06/13/19 08:00 85 06/13/19 07:08 36.7 C 76 18 110/67 06/13/19 03:09 36.5 C 79 17 102/64 Pulse Ox 06/13/19 12:04 96 06/13/19 08:00 06/13/19 07:08 93 06/13/19 03:09 94 Laboratory Results Laboratory Results - last 24 hr 06/12/19 06/12/19 06/12/19 19:25 19:25 19:25 WBC 7.34 RBC 3.66 L Hgb 11.4 L Hct 35.0 L MCV 95.6 MCH 31.1 MCHC 32.6 RDW Std Deviation 45.1 RDW Coeff of Lolly 12.9 Plt Count 290 MPV 9.6 Immature Gran % (Auto) 0.3 Neut % (Auto) 68.6 Lymph % (Auto) 18.3 [place] % (Auto) 10.4 Eos % (Auto) 1.9 Baso % (Auto) 0.5 Immature Gran # (Auto) 0.02 Neut # (Auto) 5.04 Lymph # (Auto) 1.34 [place] # (Auto) 0.76 H Eos # (Auto) 0.14 Baso # (Auto) 0.04 PT 10.9 INR 1.0 APTT 28.6 PTT Ratio 1.0 Sodium 140 Potassium 4.6 Chloride 109 H Carbon Dioxide 28 Anion Gap 3.0 BUN 26 H Creatinine 1.19 Est Cr Clr Drug Dosing 60.6 Est GFR ( Amer) 70.8 Est GFR (Non-Af Amer) 61.1 BUN/Creatinine Ratio 21.7 H Glucose 123 H POC Glucose Estimat Average Glucose Hemoglobin A1c Calcium 9.0 Magnesium Total Bilirubin 0.4 AST 20 ALT 39 Alkaline Phosphatase 78 Troponin I 0.990 H* Total Protein 7.0 Albumin 3.3 L Globulin 3.7 Albumin/Globulin Ratio 0.9 Lipase 51 L Hepatitis C Ab Screen 06/12/19 06/12/19 06/12/19 19:26 23:10 23:38 WBC RBC Hgb Hct MCV MCH MCHC RDW Std Deviation RDW Coeff of Lolly Plt Count MPV Immature Gran % (Auto) Neut % (Auto) Lymph % (Auto) [place] % (Auto) Eos % (Auto) Baso % (Auto) Immature Gran # (Auto) Neut # (Auto) Lymph # (Auto) [place] # (Auto) Eos # (Auto) Baso # (Auto) PT INR APTT PTT Ratio Sodium Potassium Chloride Carbon Dioxide Anion Gap BUN Creatinine Est Cr Clr Drug Dosing Est GFR ( Amer) Est GFR (Non-Af Amer) BUN/Creatinine Ratio Glucose POC Glucose 163 H Estimat Average Glucose Hemoglobin A1c Calcium Magnesium Total Bilirubin AST ALT Alkaline Phosphatase Troponin I 0.961 H* Total Protein Albumin Globulin Albumin/Globulin Ratio Lipase Hepatitis C Ab Screen Neg 06/13/19 06/13/19 06/13/19 00:11 04:37 04:37 WBC 6.58 RBC 3.22 L Hgb 9.9 L Hct 31.0 L MCV 96.3 MCH 30.7 MCHC 31.9 L RDW Std Deviation 45.5 RDW Coeff of Lolly 13.0 Plt Count 285 MPV 10.0 Immature Gran % (Auto) 0.2 Neut % (Auto) 52.7 Lymph % (Auto) 34.2 [place] % (Auto) 9.4 Eos % (Auto) 2.9 Baso % (Auto) 0.6 Immature Gran # (Auto) 0.01 Neut # (Auto) 3.47 Lymph # (Auto) 2.25 [place] # (Auto) 0.62 H Eos # (Auto) 0.19 Baso # (Auto) 0.04 PT INR APTT 65.1 H* PTT Ratio 2.3 Sodium Potassium Chloride Carbon Dioxide Anion Gap BUN Creatinine Est Cr Clr Drug Dosing Est GFR ( Amer) Est GFR (Non-Af Amer) BUN/Creatinine Ratio Glucose POC Glucose 172 H Estimat Average Glucose Hemoglobin A1c Calcium Magnesium Total Bilirubin AST ALT Alkaline Phosphatase Troponin I Total Protein Albumin Globulin Albumin/Globulin Ratio Lipase Hepatitis C Ab Screen 06/13/19 06/13/19 06/13/19 04:37 04:37 06:11 WBC RBC Hgb Hct MCV MCH MCHC RDW Std Deviation RDW Coeff of Lolly Plt Count MPV Immature Gran % (Auto) Neut % (Auto) Lymph % (Auto) [place] % (Auto) Eos % (Auto) Baso % (Auto) Immature Gran # (Auto) Neut # (Auto) Lymph # (Auto) [place] # (Auto) Eos # (Auto) Baso # (Auto) PT INR APTT PTT Ratio Sodium 139 Potassium 3.6 D Chloride 108 H Carbon Dioxide 26 Anion Gap 5.0 BUN 24 H Creatinine 1.08 Est Cr Clr Drug Dosing 66.8 Est GFR ( Amer) 79.6 Est GFR (Non-Af Amer) 68.7 BUN/Creatinine Ratio 22.7 H Glucose 49 L* POC Glucose 53 L* Estimat Average Glucose Pending Hemoglobin A1c Pending Calcium 8.3 L Magnesium 2.1 Total Bilirubin AST ALT Alkaline Phosphatase Troponin I Total Protein Albumin Globulin Albumin/Globulin Ratio Lipase Hepatitis C Ab Screen 06/13/19 06/13/19 06/13/19 06:34 06:52 12:18 WBC RBC Hgb Hct MCV MCH MCHC RDW Std Deviation RDW Coeff of Lolly Plt Count MPV Immature Gran % (Auto) Neut % (Auto) Lymph % (Auto) [place] % (Auto) Eos % (Auto) Baso % (Auto) Immature Gran # (Auto) Neut # (Auto) Lymph # (Auto) [place] # (Auto) Eos # (Auto) Baso # (Auto) PT INR APTT PTT Ratio Sodium Potassium Chloride Carbon Dioxide Anion Gap BUN Creatinine Est Cr Clr Drug Dosing Est GFR ( Amer) Est GFR (Non-Af Amer) BUN/Creatinine Ratio Glucose POC Glucose 170 H 98 Estimat Average Glucose Hemoglobin A1c Calcium Magnesium Total Bilirubin AST ALT Alkaline Phosphatase Troponin I 0.929 H* Total Protein Albumin Globulin Albumin/Globulin Ratio Lipase Hepatitis C Ab Screen 06/13/19 12:34 WBC RBC Hgb Hct MCV MCH MCHC RDW Std Deviation RDW Coeff of Lolly Plt Count MPV Immature Gran % (Auto) Neut % (Auto) Lymph % (Auto) [place] % (Auto) Eos % (Auto) Baso % (Auto) Immature Gran # (Auto) Neut # (Auto) Lymph # (Auto) [place] # (Auto) Eos # (Auto) Baso # (Auto) PT INR APTT PTT Ratio Sodium Potassium Chloride Carbon Dioxide Anion Gap BUN Creatinine Est Cr Clr Drug Dosing Est GFR ( Amer) Est GFR (Non-Af Amer) BUN/Creatinine Ratio Glucose POC Glucose Estimat Average Glucose Hemoglobin A1c Calcium Magnesium Total Bilirubin AST ALT Alkaline Phosphatase Troponin I 0.917 H* Total Protein Albumin Globulin Albumin/Globulin Ratio Lipase Hepatitis C Ab Screen Medications Administered Current Inpatient Medications Acetaminophen (Tylenol) 650 mg PO Q4H PRN PRN Reason: Pain or Fever Stop: 07/12/19 22:52 Aspirin (Ecotrin Ectab) 81 mg PO [facility] Stop: 07/13/19 08:59 Last Admin: 06/13/19 12:28 Dose: 81 mg Documented by: Atorvastatin Calcium (Lipitor) 80 mg PO [facility] Stop: 07/13/19 08:59 Last Admin: 06/13/19 12:28 Dose: 80 mg Documented by: Clopidogrel Bisulfate (Plavix) 75 mg PO [facility] Stop: 07/13/19 08:59 Last Admin: 06/13/19 12:28 Dose: 75 mg Documented by: Dextrose (Dextrose 50%) 25 - 50 ml IV UD PRN; Protocol PRN Reason: Hypoglycemia Protocol Stop: 07/12/19 23:14 Last Admin: 06/13/19 06:15 Dose: 50 ml Documented by: Donepezil HCl (Aricept) 5 mg PO [facility] Stop: 07/13/19 08:59 Last Admin: 06/13/19 12:28 Dose: 5 mg Documented by: Escitalopram Oxalate (Lexapro Tab) 20 mg PO [facility] Stop: 07/13/19 08:59 Last Admin: 06/13/19 12:27 Dose: 20 mg Documented by: Finasteride (Proscar) 5 mg PO [facility] Stop: 07/13/19 08:59 Last Admin: 06/13/19 12:27 Dose: 5 mg Documented by: Glucagon (Glucagen) 1 mg SQ UD PRN; Protocol PRN Reason: Hypoglycemia Protocol Stop: 07/12/19 23:14 Glucose (Glucose 40%) 15 - 30 gm PO UD PRN; Protocol PRN Reason: Hypoglycemia Protocol Stop: 07/12/19 23:14 Glucose (Dex4 Glucose) 4 - 8 tabs PO UD PRN; Protocol PRN Reason: Hypoglycemia Protocol Stop: 07/12/19 23:14 Heparin Sodium/Dextrose (Heparin Sodium/Dextrose) 25,000 units in 500 mls @ 27 mls/hr IV .[id number] GISELL; Protocol Stop: 07/12/19 21:14 Last Titration: 06/13/19 07:06 Dose: 1,350 units/hr, 27 mls/hr Documented by: Dextrose/Sodium Chloride (D5w And Nss) 1,000 mls @ 50 mls/hr IV .Q20H [facility] Stop: 07/13/19 06:29 Last Infusion: 06/13/19 12:20 Dose: Infused Documented by: Insulin Aspart (Novolog Flexpen) 0 units SC Q6 [facility] Stop: 07/13/19 00:00 Last Admin: 06/13/19 12:33 Dose: 1 units Documented by: Insulin Glargine (Lantus Solostar Pen) 25 units SC DAILY [facility] Stop: 07/13/19 08:59 Last Admin: 06/13/19 12:28 Dose: 25 units Documented by: Losartan Potassium (Cozaar) 100 mg PO QAM [facility] Stop: 07/13/19 08:59 Last Admin: 06/13/19 12:28 Dose: 100 mg Documented by: Metoprolol Tartrate (Lopressor) 12.5 mg PO BID [facility] Stop: 07/13/19 20:59 Miscellaneous (Carbohydrates For Hypoglycemia) 15 - 30 gm PO UD PRN PRN Reason: Hypoglycemia Treatment Stop: 07/12/19 23:14 Morphine Sulfate (Morphine Sulfate) 2 mg IV Q30M PRN PRN Reason: Chest Pain Stop: 06/26/19 22:52 Nitroglycerin (Nitrostat) 0.4 mg SL UD PRN PRN Reason: Chest Pain Stop: 07/12/19 22:52 Nitroglycerin (Nitro-Bid 2%) 0.5 inch EXT Q6H [facility] Stop: 07/13/19 00:00 Last Admin: 06/13/19 13:32 Dose: 0.5 inch Documented by: Ondansetron HCl (Zofran) 4 mg IV Q6H PRN PRN Reason: Nausea Stop: 07/12/19 22:52 Polyethylene Glycol (Miralax Powder Packet) 17 gm PO DAILY PRN PRN Reason: Constipation Stop: 07/12/19 22:52 Senna/Docusate Sodium (Senokot S) 2 tab PO BID PRN PRN Reason: Constipation Stop: 07/12/19 22:52 (1) Chest pain Chest pain type: unspecified Qualified Code(s): R07.9 - Chest pain, unspecified
[2019-06-13] MEDS: HEPARIN SODIUM/DEXTROSE 25,000 UNITS/500 ML BAG IV SCH (15:53)
[2019-06-13] MEDS ORDERED: Nursing to Pharmacy Communication ONE (18:27)
[2019-06-13] MEDS: METOPROLOL TARTRATE 25 MG TAB PO SCH (20:33)
[2019-06-14] MEDS: NITROGLYCERIN 2% OINTMENT 30GM TUBE EXT SCH ×3 (06:00→19:11)
[2019-06-14 06:15] LABS: Estimated Average Glucose 269 mg/dl
[2019-06-14 07:08] LABS: Partial Thromboplastin Ratio 1.8
[2019-06-14 07:10] LABS: Partial Thromboplastin Time 49.5 Seconds (21.0-31.0)
[2019-06-14] MEDS: METOPROLOL TARTRATE 25 MG TAB PO SCH ×2 (08:16→20:37)
[2019-06-14] MEDS: ATORVASTATIN 40 MG TAB PO SCH (08:17)
[2019-06-14] MEDS: FINASTERIDE 5 MG TAB PO SCH (08:17)
[2019-06-14] MEDS: DONEPEZIL HCL 5 MG TAB PO SCH (08:17)
[2019-06-14] MEDS: CLOPIDOGREL BISULFATE 75 MG TAB PO SCH (08:17)
[2019-06-14] MEDS: ESCITALOPRAM OXALATE 20 MG TAB PO SCH (08:17)
[2019-06-14] MEDS: LOSARTAN POTASSIUM 50 MG TAB PO SCH (08:17)
[2019-06-14] MEDS: ASPIRIN 81 MG ECTAB PO SCH (08:17)
[2019-06-14] MEDS: INSULIN GLARGINE SOLOSTAR 100 UNITS/ML 3 ML PEN SC SCH (08:17)
[2019-06-14] MEDS: INSULIN ASPART 100 UNITS/ML 3 ML PEN SC SCH ×4 (08:18→20:41)
--- NOTE | 2019-06-14 10:12 | Cardiology Progress Note ---
Date of Service June 14, 2019 Assessment & Plan (1) Chest pain: (2) Non-ST elevation [place] (NSTEMI): (3) Ischemic cardiomyopathy: The plan is to continue conservative management. I will stop his heparin today. If he has no additional chest pain or cardiac symptoms then we can consider further care as an outpatient. Subjective The patient had an uneventful night. He seems to be a little bit more confused today. No current cardiac symptoms. Review of Systems Review of Systems: Unobtainable due to cognitive status Physical Exam Physical Exam: General: no acute distress and stated age Head: normocephalic, no masses, lesions, tenderness or abnormalities Eyes: conjunctiva are pink and non-injected, sclera clear Neck: supple, no adenopathy, no bruits, normal jugular venous pulse, no hepatojugular reflux Chest: normal shape and normal respiratory effort Lungs: clear to auscultation and percussion Cardiac Exam: - regular rate & rhythm, no murmurs gallops or rubs - normal S1, normal S2 Pulses: 2(+) throughout Abdomen: abdomen soft, non-tender, no abnormal masses and no hepatosplenomegaly Musculoskeletal: no gait disturbance, no joint inflammation, no deforming arthritis Extremities: no edema and no cyanosis Neuro: grossly normal exam Results & Data Vital Signs (Past 12 Hours) Vital Signs Temp Pulse Resp BP Pulse Ox 06/14/19 07:18 37.0 C 77 16 102/57 L 90 06/14/19 04:03 37.1 C 78 18 96/59 L 90 06/13/19 22:55 36.8 C 81 16 95/56 L 99 Laboratory Results Laboratory Results - last 24 hr 06/13/19 06/13/19 06/13/19 04:37 12:18 12:34 APTT PTT Ratio POC Glucose 98 Estimat Average Glucose 269 Hemoglobin A1c 11.0 H Troponin I 0.917 H* 06/13/19 06/13/19 06/14/19 16:10 20:35 06:21 APTT 49.5 H* PTT Ratio 1.8 POC Glucose 163 H 154 H Estimat Average Glucose Hemoglobin A1c Troponin I 06/14/19 06/14/19 06/14/19 07:12 07:13 07:13 APTT PTT Ratio POC Glucose 52 L* 95 94 Estimat Average Glucose Hemoglobin A1c Troponin I Medications Administered Current Inpatient Medications Acetaminophen (Tylenol) 650 mg PO Q4H PRN PRN Reason: Pain or Fever Stop: 07/12/19 22:52 Aspirin (Ecotrin Ectab) 81 mg PO [facility] Stop: 07/13/19 08:59 Last Admin: 06/14/19 08:17 Dose: 81 mg Documented by: Atorvastatin Calcium (Lipitor) 80 mg PO [facility] Stop: 07/13/19 08:59 Last Admin: 06/14/19 08:17 Dose: 80 mg Documented by: Clopidogrel Bisulfate (Plavix) 75 mg PO [facility] Stop: 07/13/19 08:59 Last Admin: 06/14/19 08:17 Dose: 75 mg Documented by: Dextrose (Dextrose 50%) 25 - 50 ml IV UD PRN; Protocol PRN Reason: Hypoglycemia Protocol Stop: 07/12/19 23:14 Last Admin: 06/13/19 06:15 Dose: 50 ml Documented by: Donepezil HCl (Aricept) 5 mg PO [facility] Stop: 07/13/19 08:59 Last Admin: 06/14/19 08:17 Dose: 5 mg Documented by: Escitalopram Oxalate (Lexapro Tab) 20 mg PO [facility] Stop: 07/13/19 08:59 Last Admin: 06/14/19 08:17 Dose: 20 mg Documented by: Famotidine (Pepcid) 10 mg PO BID [facility] Stop: 07/14/19 10:14 Finasteride (Proscar) 5 mg PO [facility] Stop: 07/13/19 08:59 Last Admin: 06/14/19 08:17 Dose: 5 mg Documented by: Glucagon (Glucagen) 1 mg SQ UD PRN; Protocol PRN Reason: Hypoglycemia Protocol Stop: 07/12/19 23:14 Glucose (Glucose 40%) 15 - 30 gm PO UD PRN; Protocol PRN Reason: Hypoglycemia Protocol Stop: 07/12/19 23:14 Glucose (Dex4 Glucose) 4 - 8 tabs PO UD PRN; Protocol PRN Reason: Hypoglycemia Protocol Stop: 07/12/19 23:14 Insulin Aspart (Novolog Flexpen) 0 units SC [facility] Stop: 07/13/19 00:00 Last Admin: 06/14/19 08:18 Dose: 3 units Documented by: Insulin Glargine (Lantus Solostar Pen) 25 units SC DAILY [facility] Stop: 07/13/19 08:59 Last Admin: 06/14/19 08:17 Dose: 25 units Documented by: Losartan Potassium (Cozaar) 100 mg PO QAM [facility] Stop: 07/13/19 08:59 Last Admin: 06/14/19 08:17 Dose: 100 mg Documented by: Metoprolol Tartrate (Lopressor) 12.5 mg PO BID [facility] Stop: 07/13/19 20:59 Last Admin: 06/14/19 08:16 Dose: 12.5 mg Documented by: Miscellaneous (Carbohydrates For Hypoglycemia) 15 - 30 gm PO UD PRN PRN Reason: Hypoglycemia Treatment Stop: 07/12/19 23:14 Morphine Sulfate (Morphine Sulfate) 2 mg IV Q30M PRN PRN Reason: Chest Pain Stop: 06/26/19 22:52 Nitroglycerin (Nitrostat) 0.4 mg SL UD PRN PRN Reason: Chest Pain Stop: 07/12/19 22:52 Nitroglycerin (Nitro-Bid 2%) 0.5 inch EXT Q6H [facility] Stop: 07/13/19 00:00 Last Admin: 06/14/19 06:00 Dose: Not Given Documented by: Ondansetron HCl (Zofran) 4 mg IV Q6H PRN PRN Reason: Nausea Stop: 07/12/19 22:52 Polyethylene Glycol (Miralax Powder Packet) 17 gm PO DAILY PRN PRN Reason: Constipation Stop: 07/12/19 22:52 Senna/Docusate Sodium (Senokot S) 2 tab PO BID PRN PRN Reason: Constipation Stop: 07/12/19 22:52 (1) Chest pain Chest pain type: unspecified Qualified Code(s): R07.9 - Chest pain, unspecified
[2019-06-14] MEDS: FAMOTIDINE 10 MG TABLET PO SCH ×2 (10:48→20:38)
[2019-06-14] MEDS: NITROGLYCERIN SL 0.4 MG/TAB TAB SL PRN ×2 (12:42→14:07)
--- NOTE | 2019-06-14 12:58 | Communication Note ---
Date of Service: June 14, 2019 The patient was having additional chest pain earlier this afternoon. Difficult to evaluate due to his dementia. We performed an EKG which showed no acute changes and was essentially unchanged from previous EKGs. We did give him 1 sublingual nitroglycerin that seemed to relieve his discomfort. The plan is to continue with conservative management.
--- NOTE | 2019-06-14 13:11 | Electrocardiogram Report ---
Test Reason : Blood Pressure : / mmHG Vent. Rate : 092 BPM Atrial Rate : 092 BPM P-R Int : 142 ms QRS Dur : 092 ms QT Int : 374 ms P-R-T Axes : 074 057 -08 degrees QTc Int : 462 ms Normal sinus rhythm Possible Anterior infarct , age undetermined Abnormal ECG When compared with ECG of 06-MAY-2018 01:55, T wave inversion now evident in Inferior leads T wave amplitude has decreased in Anterior leads Confirmed by Андрей Zabala ([id number]) on 06/14/2019 1:10:30 PM Referred By: REFERRED SELF Confirmed By:Андрей Zabala
--- NOTE | 2019-06-14 13:22 | Electrocardiogram Report ---
Test Reason : Blood Pressure : / mmHG Vent. Rate : 078 BPM Atrial Rate : 078 BPM P-R Int : 144 ms QRS Dur : 092 ms QT Int : 420 ms P-R-T Axes : 065 067 001 degrees QTc Int : 478 ms Normal sinus rhythm Normal ECG When compared with ECG of 12-JUN-2019 19:18, (unconfirmed) No significant change was found Confirmed by Андрей Zabala ([id number]) on 06/14/2019 1:21:56 PM Referred By: REFERRED SELF Confirmed By:Андрей Zabala
[2019-06-14] MEDS ORDERED: fentaNYL citrate 100 MCG/2 ML VIAL ONE (14:10)
[2019-06-14] MEDS ORDERED: NiCARDipine HCL INJ 2.5 MG/ML 10 ML AMP ONE (14:10)
[2019-06-14] MEDS ORDERED: MIDAZOLAM HCL 1 MG/ML 2ML VIAL ONE (14:10)
[2019-06-14] MEDS ORDERED: HEPARIN (PORCINE) 1000 UNIT/ML 10 ML (CATH LAB USE ONLY) ONE (14:10)
[2019-06-14] MEDS ORDERED: NITROGLYCERIN/D5W 100MCG/ML 20ML SYR ONE (14:11)
[2019-06-14] MEDS: MoRPHine SULFATE 2 MG/ML CARP IV PRN (14:14)
--- NOTE | 2019-06-14 14:50 | Hospitalist Progress Note ---
Date of Service June 14, 2019 Assessment & Plan (1) Non-ST elevation MO (NSTEMI): Unstable angina/cold heart alert developed crushing substernal chest pain this morning: Given sublingual nitro, with improvement of symptoms Stat EKG showed no acute ST-T wave changes Patient was sent for emergent cardiac cath given unstable angina, high risk for MO given already known underlying coronary artery disease Admitted with angina symptom , chest pain with exertion got relief with rest EKG shows T wave inversion on lateral leads ECHO : significant wall motion abnormality on septal and anterior wall with reduced ejection fx of 30% possible late presentation of MO appreciate input from cardiology Patient was treated with IV heparin for 48 hours, Started on dual antiplatelets aspirin Plavix, beta alfredo , losartan given presentation CHF with systolic dysfunction -by cardiology (2) Ischemic cardiomyopathy: possible due to acute MO happened between past several weeks pt is not a reliable historian due to baseline dementia does not recall any complain from pt regarding chest pain or discomfort in past similar to this presentation ischemic cardiomyopathy with systolic dysfunction EF 30% change from 05/2018 ECHO : which showed normal EF with no wall motion abnormality Dobutamine stress test was negative for stress induced ischemia 1 yr back Patient is scheduled to emergent cardiac cath, for acute onset of unstable angina (3) Chest pain: Presented with chest heaviness, on exertion, symptom was resolved on admission and overnight Patient started on medical management, treated with IV heparin, started with aspirin Plavix statin beta-alfredo Echocardiogram showed significant wall motion abnormality on septum to the wall(change from prior echo done 12 months back) Developed crushing substernal chest pain/unstable angina, patient sent for emergent cardiac cath (4) Dementia: Patient is oriented to place and person, Worsening confusion, delirium noted overnight and this morning Developed unstable angina, Patient sent for cardiac cath urgently CODE STATUS: Full code (5) Lymphoma: Admission and Anticipated Discharge Date Admission Date: June 12, 2019 Subjective CODE HEART ALERT was called on the floor Patient was found by nursing leaning on the left side, complaining of crushing substernal chest pain shortness of breath, was diaphoretic, hypotensive Code heart alert was alerted, patient was evaluated at bedside by myself, and cardiology Given sublingual nitro, Nitropaste was not placed as patient systolic blood pressure in 90s Patient reports improvement of chest heaviness, Stat twelve-lead EKG did not show any acute ST-T wave changes -Given patient's clinical presentation of unstable angina, high risk factors for CAD/MO :with already known hx of ischemic cardiomyopathy, ant and septal WMA noted in ECHO this admission decision was made by jewelry sales representative for emergent coronary angiogram and PTCA if indicated patient's was present at bedside, she was agreement for cardiac cath Review of Systems Review of Systems: Other crushing substernal chest pain , diaphoretic , SOB Cardiovascular: + chest pain, + chest pain at rest and + radiating jaw, neck or arm pain Physical Exam Constitutional: + acute distress (due to substernal chest pain ) Eyes: PERRL, conjunctivae normal, anicteric sclerae ENMT: external ear and nose normal, oropharynx normal Neck: trachea midline, no thyromegaly Respiratory: normal respiratory effort, lungs clear to auscultation Cardiovascular: RRR, no murmur, no edema Gastrointestinal (Abdomen): normal bowel sounds, soft, nontender, no hepatosplenomegaly Musculoskeletal: no cyanosis or clubbing, extremities motor strength 5/5 Skin: no rashes, warm and dry Neurologic: PERRL, EOMI, accommodation nl, no face palsy, no dysarthria Psychiatric: Orientation: alert and oriented to place Results & Data ([facility]) Vital Signs (Past 12 Hours) Vital Signs Temp Pulse Pulse Resp BP BP Pulse Ox 06/14/19 12:44 80 95/58 L 94 06/14/19 12:35 84 18 106/65 96 06/14/19 10:59 36.4 C L 83 18 98/60 L 95 06/14/19 08:00 82 06/14/19 07:18 37.0 C 77 16 102/57 L 90 06/14/19 04:03 37.1 C 78 18 96/59 L 90 (1) Chest pain Chest pain type: unspecified Qualified Code(s): R07.9 - Chest pain, unspecified
--- NOTE | 2019-06-14 15:29 | Electrocardiogram Report ---
Test Reason : Blood Pressure : / mmHG Vent. Rate : 082 BPM Atrial Rate : 082 BPM P-R Int : 148 ms QRS Dur : 094 ms QT Int : 390 ms P-R-T Axes : 071 075 042 degrees QTc Int : 456 ms Normal sinus rhythm Nonspecific ST abnormality Inferior leads Abnormal ECG When compared with ECG of 13-JUN-2019 06:43, (unconfirmed) No significant change was found Confirmed by Андрей Zabala ([id number]) on 06/14/2019 3:28:35 PM Referred By: REFERRED SELF Confirmed By:Андрей Zabala
--- NOTE | 2019-06-14 15:53 | Post Anesthesia Assessment ---
Date of Service June 14, 2019 Post Sedation Assessment Vital Signs Temp Pulse Pulse Pulse Resp BP BP 06/14/19 15:45 72 18 108/74 06/14/19 15:30 73 18 115/70 06/14/19 12:44 80 95/58 L 06/14/19 12:35 84 18 106/65 06/14/19 10:59 36.4 C L 83 18 98/60 L 06/14/19 08:00 82 06/14/19 07:18 37.0 C 77 16 102/57 L 06/14/19 04:03 37.1 C 78 18 96/59 L 06/13/19 22:55 36.8 C 81 16 95/56 L 06/13/19 19:08 36.6 C 91 H 17 117/65 Pulse Ox 06/14/19 15:45 94 06/14/19 15:30 94 06/14/19 12:44 94 06/14/19 12:35 96 06/14/19 10:59 95 06/14/19 08:00 06/14/19 07:18 90 06/14/19 04:03 90 06/13/19 22:55 99 06/13/19 19:08 95 Recovery Score Activity: Moves 4 extremities Respiration: Deep Breath/Cough Circulation: +/-20% PreAnes Value Consciousness: Fully Awake Oxygen Saturation: > 92% On Room Air Post Anesthesia Score: 10 Discharge Sedation Level of Care: Phase I Post Sedation Plan On clinical assessment, the patient appears to have tolerated the sedation without complications. Patient is recovering as anticipated. Patient will continue to be monitored by nursing and may be discharged when sedation discharge criteria are met per below protocol. Upon Completions of procedure up to 15 minutes continue every 5 minute vital signs and the P.A.R. score; then discharge to a Phase I or Fast Track to Phase II per the following guidelines: * Discharge Patient to appropriate Phase II area if PAR is 8 or greater or return to pre- procedure baseline. The post - procedure orders will be as directed. * If PAR score is less than 8 or not return to pre-procedure baseline then patient will follow Phase I monitoring till PAR is reached for Phase II. The Phase I may be done in procedure room or may call to secure a Phase I area. * If naloxone or flumazenil are used for reversal, hold in Phase I for continued monitoring from when last reversal dose was given for a minimum of 60 minutes or longer pending the nurse and/or physician discretion of patient condition before discharge to Phase II. Please call the Sedation Physician to re-evaluate and complete post-note for discharge to Phase II area. Do NOT discharge from procedure sedation or Phase 1 until post- sedation evaluation note is complete by procedure /sedation MD Sedation Discharge Instructions to be given to the patient at discharge to home.
--- NOTE | 2019-06-14 16:08 | Cardiac Catheterization ---
Cardiac Cath Procedure Full Procedure Date June 14, 2019 Pre-Procedure Diagnosis Pre-Procedure Diagnosis: Non STEMI AUC Score AUC Score: 09 Post-Procedure Diagnosis Post-Procedure Diagnosis: Severe CAD and Successful PCI Procedure(s) Performed Procedure(s) Performed: Coronary Angiography and Drug Eluting Stent Telegraph Office Manager Domingo Contreras MD Estimated Blood Loss Estimated Blood Loss: <10 ml Medication(s) Medication(s): Heparin, Lidocaine 1%, Nicardipine and Nitroglycerin Summary of Findings LMT: large, diffuse mild Ca+2 and disease. LAD: large and transapical. Prox-long eccentric 90% with Ca+2 and thrombus. Mid and distal scattered mild disease. S1 ok, D1 large caliber. Proximal Ca++ and 50-70%. Distal 70%. Too small for PCI LCx: medium and nondominant. Travels in AV groove. Distal terminates as small vessel. OM1-med branching. Diffuse up to 50%. Ramus: medium, long branching. Prox up to 50%, remainder diffuse mild. RCA: large, dominant. ostial 95%, prox heavily calcified up to 90%. Mid diffuse mild <40%. PDA and PLB mild. PCI to LAD: 0% residual stenosis post PCI (2.75x23 mm Narcisa KI, post dilated to 3.0 mm distally, 3.2 mm Proximally) no dissection/perforation post PCI MARY III flow post PCI Hemodynamics Rest Ao:: 75/44 mm Hg, mean 59 mm Hg Final Ao: 96/47 mm Hg, mean 66 mm Hg LV: deffered Recommendations Recommendations: PCI without planned CABG and Management Recommendatons (DAPT with ASA and Plavix for 1+ years. GDMT with beta alfredo, statin and ACEi/ARB as tolerated) Specimens Specimens: None Radiation Exposure (mGy) 2508 Contrast (mls) 180 ml Procedural Complication(s) None Disposition Psych Sales Specialist Holding/Recovery I attest to the content of the Intraoperative Record and any orders documented therein. Any exceptions are noted below. [facility] Data: Psych Sales Specialist Cardiac Status Clinical evaluation leading to the procedure CAD Presenation: Non STEMI Diagnostic Physicians Name: Domingo Contreras MD Closure Device Recommendations: PCI without planned CABG and Management Recommendatons (DAPT with ASA and Plavix for 1+ years. GDMT with beta alfredo, statin and ACEi/ARB as tolerated)
--- NOTE | 2019-06-14 16:18 | Cardiac Catheterization ---
Cardiac Cath Procedure Full Procedure Date June 14, 2019 Pre-Procedure Diagnosis Pre-Procedure Diagnosis: Non STEMI AUC Score AUC Score: 09 Post-Procedure Diagnosis Post-Procedure Diagnosis: Severe CAD and Successful PCI Procedure(s) Performed Procedure(s) Performed: Coronary Angiography and Drug Eluting Stent Campaign Advisor Domingo Contreras MD Estimated Blood Loss Estimated Blood Loss: <10 ml Medication(s) Medication(s): Heparin, Lidocaine 1%, Nicardipine and Nitroglycerin Summary of Findings LMT: large, diffuse mild Ca+2 and disease. LAD: large and transapical. Prox-long eccentric 90% with Ca+2 and thrombus. Mid and distal scattered mild disease. S1 ok, D1 large caliber. Proximal Ca++ and 50-70%. Distal 70%. Too small for PCI LCx: medium and nondominant. Travels in AV groove. Distal terminates as small vessel. OM1-med branching. Diffuse up to 50%. Ramus: medium, long branching. Prox up to 50%, remainder diffuse mild. RCA: large, dominant. ostial 95%, prox heavily calcified up to 90%. Mid diffuse mild <40%. PDA and PLB mild. PCI to LAD: 0% residual stenosis post PCI (2.75x23 mm Narcisa KI, post dilated to 3.0 mm distally, 3.2 mm Proximally) no dissection/perforation post PCI MARY III flow post PCI Hemodynamics Rest Ao:: 75/44 mm Hg, mean 59 mm Hg Final Ao: 96/47 mm Hg, mean 66 mm Hg LV: deferred Recommendations Recommendations: PCI without planned CABG and Management Recommendatons (DAPT with ASA and Plavix for 1+ years. GDMT with beta alfredo, statin and ACEi/ARB as tolerated) Specimens Specimens: None Procedural Complication(s) None Disposition Research Nurse Practitioner Holding/Recovery I attest to the content of the Intraoperative Record and any orders documented therein. Any exceptions are noted below. [facility] Data: Research Nurse Practitioner Cardiac Status Clinical evaluation leading to the procedure CAD Presenation: Non STEMI Anginal Classification: CCS IV Heart Failure: NYHA Class: CCS III Cardiogenic Shock within 24 Hours: No Cardiac Arrest within 24 Hours: No STEMI OR Non-STEMI Symptom Onset Date: 06/14/19 Symptom Onset Time: 12:01 Thrombolytics: No Coronary Anatomy Dominant: Right Left Main (% Stenosis): Normal (mild) LAD (% Stenosis): Proximal (90) D1 (% Stenosis): Proximal (50-70%) and Distal (70%) Circumflex (% Stenosis): Normal (diffuse less than 50%) RCA (% Stenosis): Ostial (95%), Proximal (90%) and Mid Ramus (% Stenosis): Proximal (50%) and Normal (diffuse mild) Diagnostic Physicians Name: Domingo Contreras MD Status: Urgent Closure Device Percutaneous Entry Location: Radial Closure Device: Radial Band Recommendations: PCI without planned CABG and Management Recommendatons (DAPT with ASA and Plavix for 1+ years. GDMT with beta alfredo, statin and ACEi/ARB as tolerated) PCI Indication: PCI for high risk Non-SAIMA Lesion Segment Name: proximal LAD Culprit Artery: Yes Stenosis Prior to Rx (%): 90 Chronic Total Occlusion: No Pre-Procedure MARY Flow: 2 Previously Treated Lesion: No Lesion Complexity: Non-High/Non-C Lesion Length (mm): 18 Thrombus Present: Yes Bifurcation Lesion: Yes Guidewire Across Lesion: Yes Intraprocedure Events Significant Disection: No Perforation: No
[2019-06-14 16:46] LABS: Basophils # (auto) 0.03 K/uL (0-0.2); Basophils % (auto) 0.5 %; Eosinophils # (auto) 0.11 K/uL (0-0.5); Eosinophils % (auto) 1.8 %; Hematocrit (blood only) 31.5 % (42-52); Hemoglobin 10.2 g/dL (14.0-18.0); Lymphocytes # (auto) 1.13 K/uL (1.2-3.4); Lymphocytes % (auto) 18.8 %; Mean Corpuscular Hemoglobin 30.4 pg (25-34); Mean Corpuscular Hgb Conc 32.4 g/dL (32-36); Mean Platelet Volume 9.5 fL (7.4-10.4); Monocytes # (auto) 0.53 K/uL (0.11-0.59); Monocytes % (auto) 8.8 %; Neutrophils # (auto) 4.21 K/uL (1.4-6.5); Neutrophils % (auto) 70.1 %; Platelet Count 265 K/uL (130-400); RDW Coefficient of Variation 12.9 % (11.5-14.5); RDW Standard Deviation 44.3 fL (36.4-46.3); Red Blood Count 3.35 M/uL (4.7-6.1); White Blood Count 6.01 K/uL (4.8-10.8)
[2019-06-15] MEDS: NITROGLYCERIN 2% OINTMENT 30GM TUBE EXT SCH ×5 (00:23→23:49)
[2019-06-15] MEDS: MoRPHine SULFATE 2 MG/ML CARP IV PRN ×3 (05:31→20:39)
[2019-06-15 06:46] LABS: Partial Thromboplastin Time 26.6 Seconds (21.0-31.0)
[2019-06-15 07:12] LABS: BUN Creatinine Ratio 24.6 (10-20); Creatinine Clr Calc Pharmacy 54.2 ml/min; Est GFR (African American) 64.2; Est GFR (Non-African American) 55.4; Potassium 4.2 mmol/L (3.5-5.1)
[2019-06-15] MEDS ORDERED: PHARMACY GLYCEMIC MGMT CONSULT PRN (07:44)
--- NOTE | 2019-06-15 08:24 | Hospitalist Progress Note ---
Date of Service June 15, 2019 Assessment & Plan (1) Non-ST elevation VT (NSTEMI): Patient admitted with non-ST elevated VT/unstable angina underwent emergent cardiac cath yesterday 06/14/2019, for non-ST elevated VT, substernal chest pain unstable angina Cardiac cath showed severe coronary artery disease with calcification thrombus on coronaries 90% narrowing with thrombus CA +2 in the LAD PCI to LAD with drug-eluting stent Patient tolerated procedure well, Remained hemodynamically stable overnight Intermittent chest discomfort reported by nursing Continue Nitropaste/may need to transition to long-acting PO nitro: Imdur -will follow recommendation per cardiology Appreciate input from cardiology Given drug-eluting stent, patient will need dual antiplatelet with aspirin and Plavix uninterrupted for 1 year Medical management for ACS: With beta-alfredo /statin /losartan Continue to monitor patient in PCU /telemetry post PTCA Troponin elevation noted, possible secondary to cardiac cath/procedure yesterday 06/14/2019 Per cardiac cath report, 0% residual stenosis noted post PCI at LAD No dissection/perforation post PCI MARY III flow post PCI. Admitted with angina symptom , chest pain with exertion got relief with rest EKG on admission shows T wave inversion on lateral leads ECHO : significant wall motion abnormality on septal and anterior wall with reduced ejection fx of 30% appreciate input from cardiology Patient was treated with IV heparin for 48 hours, Required emergent cardiac cath as outlined above Type 2 diabetes: Hypoglycemic episode with blood sugar 51 noted this morning, patient remains asymptomatic Received 30 g of p.o. dextrose per protocol repeat BSG 71 Hemoglobin A1c 11 on 06/13/2019 Long-acting Lantus discontinued, Insulin sliding scale with conservative glycemic management to prevent hypoglycemic episode, given acute VT, pharmacy consulted for glycemic management Continue to monitor in telemetry (2) Ischemic cardiomyopathy: Non-ST elevated VT/severe coronary artery disease pt is not a reliable historian due to baseline dementia Echo shows ischemic cardiomyopathy with systolic dysfunction EF 30% Status post emergent cardiac cath showing diffuse coronary artery disease/status post PCI to LAD as outlined above Patient is continued with losartan Monitor volume status (3) Chest pain: Unstable angina, Asymptomatic now status post PCI to LAD Continue Nitropaste, PCU monitoring Cardiology following closely (4) Dementia: Patient is oriented to place and person, Worsening confusion, delirium noted overnight and this morning CODE STATUS: Full code (5) Lymphoma: Admission and Anticipated Discharge Date Admission Date: June 12, 2019 Subjective Updated by production worker, Patient had intermittent chest heaviness earlier this morning around 5 AM while going to the bathroom Nitropaste was applied Patient seen at bedside, comfortable finishing breakfast, very pleasant and in good spirit Patient does not recall any event of chest pain or chest discomfort No sign of discomfort at present Review of Systems Review of Systems: Unobtainable due to cognitive status (Dementia, patient appears to be comfortable) Constitutional: no fever and no chills Physical Exam Constitutional: WD/WN, vitals as above no acute distress (due to substernal chest pain ) Eyes: PERRL, conjunctivae normal, anicteric sclerae ENMT: external ear and nose normal, oropharynx normal Neck: trachea midline, no thyromegaly Respiratory: normal respiratory effort, lungs clear to auscultation Cardiovascular: RRR, no murmur, no edema Gastrointestinal (Abdomen): normal bowel sounds, soft, nontender, no hepatosplenomegaly Musculoskeletal: no cyanosis or clubbing, extremities motor strength 5/5 Skin: no rashes, warm and dry Neurologic: PERRL, EOMI, accommodation nl, no face palsy, no dysarthria Psychiatric: Orientation: alert and oriented to person (Baseline dementia, pleasant) Results & Data ([facility]) Vital Signs (Past 12 Hours) Vital Signs Temp Pulse Pulse Resp BP Pulse Ox 06/15/19 07:33 36.4 C L 20 111/66 97 06/15/19 05:20 80 128/81 06/15/19 03:18 36.6 C 78 20 113/64 91 06/14/19 22:53 36.6 C 78 20 103/66 92 (1) Chest pain Chest pain type: unspecified Qualified Code(s): R07.9 - Chest pain, unspecified
[2019-06-15] MEDS: METOPROLOL TARTRATE 25 MG TAB PO SCH ×2 (08:28→20:17)
[2019-06-15] MEDS: DONEPEZIL HCL 5 MG TAB PO SCH (08:28)
[2019-06-15] MEDS: ASPIRIN 81 MG ECTAB PO SCH (08:28)
[2019-06-15] MEDS: LOSARTAN POTASSIUM 50 MG TAB PO SCH (08:29)
[2019-06-15] MEDS: ATORVASTATIN 40 MG TAB PO SCH (08:29)
[2019-06-15] MEDS: FINASTERIDE 5 MG TAB PO SCH (08:29)
[2019-06-15] MEDS: ESCITALOPRAM OXALATE 20 MG TAB PO SCH (08:29)
[2019-06-15] MEDS: CLOPIDOGREL BISULFATE 75 MG TAB PO SCH (08:30)
[2019-06-15] MEDS: FAMOTIDINE 10 MG TABLET PO SCH ×2 (08:30→20:17)
[2019-06-15] MEDS: INSULIN ASPART 100 UNITS/ML 3 ML PEN SC SCH ×4 (08:30→20:23)
[2019-06-15] MEDS: INSULIN GLARGINE SOLOSTAR 100 UNITS/ML 3 ML PEN SC SCH (10:25)
[2019-06-15] MEDS: NITROGLYCERIN SL 0.4 MG/TAB TAB SL PRN (12:35)
--- NOTE | 2019-06-15 14:20 | Cardiology Progress Note ---
Date of Service June 15, 2019 Assessment & Plan (1) Chest pain: (2) Non-ST elevation [place] (NSTEMI): (3) Ischemic cardiomyopathy: (4) Dementia: The patient is difficult to evaluate due to his dementia. His symptoms seem to be all over the place. He may have had a vasovagal event when he try to have a bowel movement earlier today. He is complaining of abdominal discomfort and at present I do not believe his symptoms are due to cardiac angina or congestive heart failure. Going to make him n.p.o. except for medications and start an IV for now. Subjective The patient this morning got up to use the commode. Although he said that he h ad a bowel movement the aide that was helping him said he did not. He then had an episode where he became short of breath, diaphoretic and lightheaded. He was brought back to his bed. He said that he was having some chest discomfort and he was given a sublingual nitroglycerin and Nitropaste. Nursing feels that his symptoms resolved with the nitroglycerin. When I was in to see him he was compl aining of abdominal discomfort. According to his he did eat lunch and soon after had his discomfort. He is difficult to evaluate due to his short-term memory loss and dementia. Review of Systems Review of Systems: Unobtainable due to cognitive status Physical Exam Physical Exam: General: no acute distress and stated age Head: normocephalic, no masses, lesions, tenderness or abnormalities Eyes: conjunctiva are pink and non-injected, sclera clear Neck: supple, no adenopathy, no bruits, normal jugular venous pulse, no hepatojugular reflux Chest: normal shape and normal respiratory effort Lungs: clear to auscultation and percussion Cardiac Exam: - regular rate & rhythm, no murmurs gallops or rubs - normal S1, normal S2 Pulses: 2(+) throughout Abdomen: abdomen soft, non-tender, no abnormal masses and no hepatosplenomegaly Musculoskeletal: no gait disturbance, no joint inflammation, no deforming arthritis Extremities: no edema and no cyanosis Neuro: grossly normal exam Results & Data Vital Signs (Past 12 Hours) Vital Signs Temp Pulse Pulse Resp BP Pulse Ox 06/15/19 11:24 36.4 C L 75 19 106/61 98 06/15/19 07:33 36.4 C L 20 111/66 97 06/15/19 05:20 80 128/81 06/15/19 03:18 36.6 C 78 20 113/64 91 Laboratory Results Laboratory Results - last 24 hr 06/14/19 06/14/19 06/14/19 14:59 16:26 16:36 WBC 6.01 RBC 3.35 L Hgb 10.2 L Hct 31.5 L MCV 94.0 MCH 30.4 MCHC 32.4 RDW Std Deviation 44.3 RDW Coeff of Lolly 12.9 Plt Count 265 MPV 9.5 Immature Gran % (Auto) 0.0 Neut % (Auto) 70.1 Lymph % (Auto) 18.8 [place] % (Auto) 8.8 Eos % (Auto) 1.8 Baso % (Auto) 0.5 Immature Gran # (Auto) 0.00 Neut # (Auto) 4.21 Lymph # (Auto) 1.13 L [place] # (Auto) 0.53 Eos # (Auto) 0.11 Baso # (Auto) 0.03 APTT PTT Ratio Activ Coag Time Kaolin 169 H Sodium Potassium Chloride Carbon Dioxide Anion Gap BUN Creatinine Est Cr Clr Drug Dosing Est GFR ( Amer) Est GFR (Non-Af Amer) BUN/Creatinine Ratio Glucose POC Glucose 131 H Calcium Troponin I 06/14/19 06/15/19 06/15/19 20:15 06:18 06:18 WBC RBC Hgb Hct MCV MCH MCHC RDW Std Deviation RDW Coeff of Lolly Plt Count MPV Immature Gran % (Auto) Neut % (Auto) Lymph % (Auto) [place] % (Auto) Eos % (Auto) Baso % (Auto) Immature Gran # (Auto) Neut # (Auto) Lymph # (Auto) [place] # (Auto) Eos # (Auto) Baso # (Auto) APTT 26.6 PTT Ratio 1.0 Activ Coag Time Kaolin Sodium 137 Potassium 4.2 Chloride 106 Carbon Dioxide 26 Anion Gap 5.0 BUN 32 H Creatinine 1.29 Est Cr Clr Drug Dosing 54.2 Est GFR ( Amer) 64.2 Est GFR (Non-Af Amer) 55.4 BUN/Creatinine Ratio 24.6 H Glucose 51 L* POC Glucose 187 H Calcium 8.0 L Troponin I 06/15/19 06/15/19 06/15/19 06:18 07:08 07:09 WBC RBC Hgb Hct MCV MCH MCHC RDW Std Deviation RDW Coeff of Lolly Plt Count MPV Immature Gran % (Auto) Neut % (Auto) Lymph % (Auto) [place] % (Auto) Eos % (Auto) Baso % (Auto) Immature Gran # (Auto) Neut # (Auto) Lymph # (Auto) [place] # (Auto) Eos # (Auto) Baso # (Auto) APTT PTT Ratio Activ Coag Time Kaolin Sodium Potassium Chloride Carbon Dioxide Anion Gap BUN Creatinine Est Cr Clr Drug Dosing Est GFR ( Amer) Est GFR (Non-Af Amer) BUN/Creatinine Ratio Glucose POC Glucose 59 L* 66 L* Calcium Troponin I 1.430 H* 06/15/19 06/15/19 06/15/19 07:31 11:12 11:41 WBC RBC Hgb Hct MCV MCH MCHC RDW Std Deviation RDW Coeff of Lolly Plt Count MPV Immature Gran % (Auto) Neut % (Auto) Lymph % (Auto) [place] % (Auto) Eos % (Auto) Baso % (Auto) Immature Gran # (Auto) Neut # (Auto) Lymph # (Auto) [place] # (Auto) Eos # (Auto) Baso # (Auto) APTT PTT Ratio Activ Coag Time Kaolin Sodium Potassium Chloride Carbon Dioxide Anion Gap BUN Creatinine Est Cr Clr Drug Dosing Est GFR ( Amer) Est GFR (Non-Af Amer) BUN/Creatinine Ratio Glucose POC Glucose 73 173 H Calcium Troponin I 1.480 H* 06/15/19 13:39 WBC RBC Hgb Hct MCV MCH MCHC RDW Std Deviation RDW Coeff of Lolly Plt Count MPV Immature Gran % (Auto) Neut % (Auto) Lymph % (Auto) [place] % (Auto) Eos % (Auto) Baso % (Auto) Immature Gran # (Auto) Neut # (Auto) Lymph # (Auto) [place] # (Auto) Eos # (Auto) Baso # (Auto) APTT PTT Ratio Activ Coag Time Kaolin Sodium Potassium Chloride Carbon Dioxide Anion Gap BUN Creatinine Est Cr Clr Drug Dosing Est GFR ( Amer) Est GFR (Non-Af Amer) BUN/Creatinine Ratio Glucose POC Glucose 128 H Calcium Troponin I Medications Administered Current Inpatient Medications Acetaminophen (Tylenol) 650 mg PO Q4H PRN PRN Reason: Pain or Fever Stop: 07/12/19 22:52 Aspirin (Ecotrin Ectab) 81 mg PO [facility] Stop: 07/13/19 08:59 Last Admin: 06/15/19 08:28 Dose: 81 mg Documented by: Atorvastatin Calcium (Lipitor) 80 mg PO [facility] Stop: 07/13/19 08:59 Last Admin: 06/15/19 08:29 Dose: 80 mg Documented by: Clopidogrel Bisulfate (Plavix) 75 mg PO [facility] Stop: 07/13/19 08:59 Last Admin: 06/15/19 08:30 Dose: 75 mg Documented by: Dextrose (Dextrose 50%) 25 - 50 ml IV UD PRN; Protocol PRN Reason: Hypoglycemia Protocol Stop: 07/12/19 23:14 Last Admin: 06/13/19 06:15 Dose: 50 ml Documented by: Donepezil HCl (Aricept) 5 mg PO [facility] Stop: 07/13/19 08:59 Last Admin: 06/15/19 08:28 Dose: 5 mg Documented by: Escitalopram Oxalate (Lexapro Tab) 20 mg PO [facility] Stop: 07/13/19 08:59 Last Admin: 06/15/19 08:29 Dose: 20 mg Documented by: Famotidine (Pepcid) 10 mg PO BID [facility] Stop: 07/14/19 10:14 Last Admin: 06/15/19 08:30 Dose: 10 mg Documented by: Finasteride (Proscar) 5 mg PO [facility] Stop: 07/13/19 08:59 Last Admin: 06/15/19 08:29 Dose: 5 mg Documented by: Glucagon (Glucagen) 1 mg SQ UD PRN; Protocol PRN Reason: Hypoglycemia Protocol Stop: 07/12/19 23:14 Glucose (Glucose 40%) 15 - 30 gm PO UD PRN; Protocol PRN Reason: Hypoglycemia Protocol Stop: 07/12/19 23:14 Glucose (Dex4 Glucose) 4 - 8 tabs PO UD PRN; Protocol PRN Reason: Hypoglycemia Protocol Stop: 07/12/19 23:14 Insulin Aspart (Novolog Flexpen) 0 units SC ACHS [facility]; Protocol Stop: 07/13/19 00:00 Last Admin: 06/15/19 11:50 Dose: 4 units Documented by: Insulin Glargine (Lantus Solostar Pen) 15 units SC DAILY [facility]; Protocol Stop: 07/15/19 08:59 Last Admin: 06/15/19 10:25 Dose: 15 units Documented by: Losartan Potassium (Cozaar) 100 mg PO QAM [facility] Stop: 07/13/19 08:59 Last Admin: 06/15/19 08:29 Dose: 100 mg Documented by: Metoprolol Tartrate (Lopressor) 12.5 mg PO BID [facility] Stop: 07/13/19 20:59 Last Admin: 06/15/19 08:28 Dose: 12.5 mg Documented by: Miscellaneous (Carbohydrates For Hypoglycemia) 15 - 30 gm PO UD PRN PRN Reason: Hypoglycemia Treatment Stop: 07/12/19 23:14 Last Admin: 06/15/19 07:13 Dose: 15 gm Documented by: Jeannecellaneous Information (Consult Glycemic Management Pharmacy) 1 ea N/A UD PRN PRN Reason: Consult Stop: 07/15/19 07:43 Morphine Sulfate (Morphine Sulfate) 2 mg IV Q30M PRN PRN Reason: Chest Pain Stop: 06/26/19 22:52 Last Admin: 06/15/19 12:40 Dose: 2 mg Documented by: Nitroglycerin (Nitrostat) 0.4 mg SL UD PRN PRN Reason: Chest Pain Stop: 07/12/19 22:52 Last Admin: 06/15/19 12:35 Dose: 0.4 mg Documented by: Nitroglycerin (Nitro-Bid 2%) 0.5 inch EXT Q6H [facility] Stop: 07/13/19 00:00 Last Admin: 06/15/19 12:40 Dose: 0.5 inch Documented by: Ondansetron HCl (Zofran) 4 mg IV Q6H PRN PRN Reason: Nausea Stop: 07/12/19 22:52 Polyethylene Glycol (Miralax Powder Packet) 17 gm PO DAILY PRN PRN Reason: Constipation Stop: 07/12/19 22:52 Senna/Docusate Sodium (Senokot S) 2 tab PO BID PRN PRN Reason: Constipation Stop: 07/12/19 22:52 (1) Chest pain Chest pain type: unspecified Qualified Code(s): R07.9 - Chest pain, unspecified
--- NOTE | 2019-06-15 14:28 | Electrocardiogram Report ---
Test Reason : Blood Pressure : / mmHG Vent. Rate : 077 BPM Atrial Rate : 077 BPM P-R Int : 148 ms QRS Dur : 090 ms QT Int : 420 ms P-R-T Axes : 069 071 -14 degrees QTc Int : 475 ms Normal sinus rhythm Septal infarct , age undetermined Abnormal ECG When compared with ECG of 14-JUN-2019 06:40, (unconfirmed) No significant change was found Confirmed by Андрей Zabala ([id number]) on 06/15/2019 2:28:01 PM Referred By: REFERRED SELF Confirmed By:Андрей Zabala
[2019-06-15] MEDS: SODIUM CHLORIDE 0.9% 1000ML 1,000 ML IV SCH (14:35)
--- NOTE | 2019-06-15 14:37 | Electrocardiogram Report ---
Test Reason : Blood Pressure : / mmHG Vent. Rate : 081 BPM Atrial Rate : 081 BPM P-R Int : 148 ms QRS Dur : 086 ms QT Int : 390 ms P-R-T Axes : 065 066 115 degrees QTc Int : 453 ms Poor data quality, interpretation may be adversely affected Normal sinus rhythm Nonspecific T wave abnormality Borderline ECG When compared with ECG of 14-JUN-2019 12:39, (unconfirmed) No significant change Confirmed by Андрей Zabala ([id number]) on 06/15/2019 2:36:54 PM Referred By: REFERRED SELF Confirmed By:Андрей Zabala
--- NOTE | 2019-06-15 15:00 | Electrocardiogram Report ---
Test Reason : Blood Pressure : / mmHG Vent. Rate : 074 BPM Atrial Rate : 074 BPM P-R Int : 146 ms QRS Dur : 096 ms QT Int : 422 ms P-R-T Axes : 072 075 -06 degrees QTc Int : 468 ms Normal sinus rhythm Low voltage QRS Septal infarct , age undetermined Abnormal ECG When compared with ECG of 14-JUN-2019 14:11, (unconfirmed) No significant change was found Confirmed by Андрей Zabala ([id number]) on 06/15/2019 3:00:07 PM Referred By: REFERRED SELF Confirmed By:Андрей Zabala
--- NOTE | 2019-06-15 16:15 | Hospitalist Progress Note ---
Date of Service June 15, 2019 Assessment & Plan Admission and Anticipated Discharge Date Admission Date: June 12, 2019 Subjective Attending addendum: Patient continues to complain of intermittent chest heaviness, anginal symptoms on exertion, shortness of breath, dizzy spell or lightheadedness Had chest heaviness around 5 AM this morning, given Nitropaste, EKG showed no acute change except for T wave inversion on anterolateral leads which were present since admission Around noontime patient developed severe chest heaviness, was very short of breath, became pale diaphoretic,-while walking to the bathroom Symptom was resolved after rest, sublingual nitro Patient reports of nausea, discomfort, no vomiting Cardiology aware of the symptoms, ordered for n.p.o. IV fluids, continue monitoring stripper preliminary serial cardiac markers, Troponin elevation noted at 6:18 AM :1.43,( post cardiac cath procedure) Repeat troponin at 12 PM- 1.48 Serial every 6 hours troponin ordered at 6 PM at midnight Patient may need IV heparin if troponin continues to rise and patient reports of unstable angina Remains hypotensive systolic in 90s, We will reduce losartan dose to 50 mg daily Continue Nitropaste, beta-alfredo, patient is on dual antiplatelet on aspirin and Plavix Patient's present at bedside updated Marni Ashraf MD Results & Data ([facility]) Vital Signs (Past 12 Hours) Vital Signs Temp Pulse Pulse Resp BP Pulse Ox 06/15/19 15:46 36.8 C 65 19 92/49 L 88 L 06/15/19 11:24 36.4 C L 75 19 106/61 98 06/15/19 07:33 36.4 C L 20 111/66 97 06/15/19 05:20 80 128/81
[2019-06-16] MEDS: SODIUM CHLORIDE 0.9% 1000ML 1,000 ML IV SCH ×2 (02:07→16:41)
[2019-06-16] MEDS: NITROGLYCERIN 2% OINTMENT 30GM TUBE EXT SCH ×3 (05:07→17:28)
[2019-06-16 07:29] LABS: BUN Creatinine Ratio 26.8 (10-20); Calcium 8.2 mg/dl (8.5-10.1); Creatinine Clr Calc Pharmacy 42.2 ml/min; Est GFR (African American) 45.7; Est GFR (Non-African American) 39.4
[2019-06-16] MEDS: FAMOTIDINE 10 MG TABLET PO SCH ×2 (08:26→20:01)
[2019-06-16] MEDS: METOPROLOL TARTRATE 25 MG TAB PO SCH ×2 (08:26→20:01)
[2019-06-16] MEDS: FINASTERIDE 5 MG TAB PO SCH (08:27)
[2019-06-16] MEDS: DONEPEZIL HCL 5 MG TAB PO SCH (08:27)
[2019-06-16] MEDS: ASPIRIN 81 MG ECTAB PO SCH (08:27)
[2019-06-16] MEDS: LOSARTAN POTASSIUM 50 MG TAB PO SCH (08:27)
[2019-06-16] MEDS: ESCITALOPRAM OXALATE 20 MG TAB PO SCH (08:27)
[2019-06-16] MEDS: ATORVASTATIN 40 MG TAB PO SCH (08:27)
[2019-06-16] MEDS: INSULIN ASPART 100 UNITS/ML 3 ML PEN SC SCH ×4 (08:28→21:39)
[2019-06-16] MEDS: CLOPIDOGREL BISULFATE 75 MG TAB PO SCH (08:28)
[2019-06-16] MEDS: INSULIN GLARGINE SOLOSTAR 100 UNITS/ML 3 ML PEN SC SCH (08:29)
--- NOTE | 2019-06-16 09:10 | Cardiology Progress Note ---
Date of Service June 16, 2019 Assessment & Plan (1) Chest pain: (2) Non-ST elevation [place] (NSTEMI): (3) Ischemic cardiomyopathy: (4) Dementia: The patient continues to have atypical chest pain despite having no EKG changes and troponins which are trending down after his intervention. He is difficult to evaluate and each time he has chest pain nursing becomes concerned resulting in phone calls to the hospitalist, especially at night, he is given treatment including analgesics and additional nitrates which may or may not be helping. I am going to ask the eyeglass fitter to review the case to be certain that nothing further can be done and that we are on the right tract. I am also going to ask neurology to see him. His dementia makes it difficult for us to evaluate him and I think there is a component of anxiety which may be contributing and if treated could potentially help us. I discussed the above options with the patient's and in a shared decision making process she is agreeable to the above. Subjective The patient had additional atypical chest pain last night. Although he is conversive he does have short-term memory loss and is confused. His cardiac markers continue to trend down despite having chest pain. EKG is unchanged which shows his old anterior wall infarct and no additional changes. He has no cardiac complaints this morning. Review of Systems Review of Systems: Unobtainable due to cognitive status Physical Exam Physical Exam: General: no acute distress and stated age Head: normocephalic, no masses, lesions, tenderness or abnormalities Eyes: conjunctiva are pink and non-injected, sclera clear Neck: supple, no adenopathy, no bruits, normal jugular venous pulse, no hepatojugular reflux Chest: normal shape and normal respiratory effort Lungs: clear to auscultation and percussion Cardiac Exam: - regular rate & rhythm, no murmurs gallops or rubs - normal S1, normal S2 Pulses: 2(+) throughout Abdomen: abdomen soft, non-tender, no abnormal masses and no hepatosplenomegaly Musculoskeletal: no gait disturbance, no joint inflammation, no deforming arthritis Extremities: no edema and no cyanosis Neuro: grossly normal exam Results & Data Vital Signs (Past 12 Hours) Vital Signs Temp Pulse Resp BP BP Pulse Ox 06/16/19 07:30 36.7 C 72 18 114/65 95 06/16/19 03:22 36.5 C 76 18 96/67 L 92 06/15/19 23:17 36.5 C 72 17 111/71 94 Laboratory Results Laboratory Results - last 24 hr 06/15/19 06/15/19 06/15/19 11:12 11:41 13:39 Sodium Potassium Chloride Carbon Dioxide Anion Gap BUN Creatinine Est Cr Clr Drug Dosing Est GFR ( Amer) Est GFR (Non-Af Amer) BUN/Creatinine Ratio Glucose POC Glucose 173 H 128 H Calcium Troponin I 1.480 H* 06/15/19 06/15/19 06/15/19 16:08 18:15 20:21 Sodium Potassium Chloride Carbon Dioxide Anion Gap BUN Creatinine Est Cr Clr Drug Dosing Est GFR ( Amer) Est GFR (Non-Af Amer) BUN/Creatinine Ratio Glucose POC Glucose 112 H 183 H Calcium Troponin I 1.320 H* 06/16/19 06/16/19 06/16/19 00:19 06:10 07:11 Sodium 135 L Potassium 5.0 D Chloride 105 Carbon Dioxide 26 Anion Gap 4.0 BUN 46 H Creatinine 1.71 H D Est Cr Clr Drug Dosing 42.2 Est GFR ( Amer) 45.7 Est GFR (Non-Af Amer) 39.4 BUN/Creatinine Ratio 26.8 H Glucose 173 H POC Glucose 154 H Calcium 8.2 L Troponin I 1.130 H* Medications Administered Current Inpatient Medications Acetaminophen (Tylenol) 650 mg PO Q4H PRN PRN Reason: Pain or Fever Stop: 07/12/19 22:52 Aspirin (Ecotrin Ectab) 81 mg PO [facility] Stop: 07/13/19 08:59 Last Admin: 06/16/19 08:27 Dose: 81 mg Documented by: Atorvastatin Calcium (Lipitor) 80 mg PO [facility] Stop: 07/13/19 08:59 Last Admin: 06/16/19 08:27 Dose: 80 mg Documented by: Clopidogrel Bisulfate (Plavix) 75 mg PO [facility] Stop: 07/13/19 08:59 Last Admin: 06/16/19 08:28 Dose: 75 mg Documented by: Dextrose (Dextrose 50%) 25 - 50 ml IV UD PRN; Protocol PRN Reason: Hypoglycemia Protocol Stop: 07/12/19 23:14 Last Admin: 06/13/19 06:15 Dose: 50 ml Documented by: Done[facility]il [facility] ([facility]) [facility] [place]: 07/13/19 08:59 Last Admin: 06/16/19 08:27 Dose: 5 mg Documented by: Escitalopram Oxalate (Lexapro Tab) 20 mg PO QAM [facility] Stop: 07/13/19 08:59 Last Admin: 06/16/19 08:27 Dose: 20 mg Documented by: Famotidine (Pepcid) 10 mg PO BID [facility] Stop: 07/14/19 10:14 Last Admin: 06/16/19 08:26 Dose: 10 mg Documented by: Finasteride (Proscar) 5 mg PO QAM [facility] Stop: 07/13/19 08:59 Last Admin: 06/16/19 08:27 Dose: 5 mg Documented by: Glucagon (Glucagen) 1 mg SQ UD PRN; Protocol PRN Reason: Hypoglycemia Protocol Stop: 07/12/19 23:14 Glucose (Glucose 40%) 15 - 30 gm PO UD PRN; Protocol PRN Reason: Hypoglycemia Protocol Stop: 07/12/19 23:14 Glucose (Dex4 Glucose) 4 - 8 tabs PO UD PRN; Protocol PRN Reason: Hypoglycemia Protocol Stop: 07/12/19 23:14 Sodium Chloride (Nss 1000ml) 1,000 mls @ 80 mls/hr IV .[id number] [facility] Stop: 07/15/19 14:29 Last Admin: 06/16/19 02:07 Dose: 80 mls/hr Documented by: Insulin Aspart (Novolog Flexpen) 0 units SC ACHS [facility]; Protocol Stop: 07/13/19 00:00 Last Admin: 06/16/19 08:28 Dose: 5 units Documented by: Insulin Glargine (Lantus Solostar Pen) 15 units SC DAILY [facility]; Protocol Stop: 07/15/19 08:59 Last Admin: 06/16/19 08:29 Dose: 15 units Documented by: Losartan Potassium (Cozaar) [facility] [place] Stop: 07/16/19 08:59 Last Admin: 06/16/19 08:27 Dose: 50 mg Documented by: Metoprolol Tartrate (Lopressor) 12.5 mg PO BID [facility] Stop: 07/13/19 20:59 Last Admin: 06/16/19 08:26 Dose: 12.5 mg Documented by: Miscellaneous (Carbohydrates For Hypoglycemia) 15 - 30 gm PO UD PRN PRN Reason: Hypoglycemia Treatment Stop: 07/12/19 23:14 Last Admin: 06/15/19 07:13 Dose: 15 gm Documented by: Miscellaneous Information (Consult Glycemic Management Pharmacy) 1 ea N/A UD PRN PRN Reason: Consult Stop: 07/15/19 07:43 Morphine Sulfate (Morphine Sulfate) 2 mg IV Q30M PRN PRN Reason: Chest Pain Stop: 06/26/19 22:52 Last Admin: 06/15/19 20:39 Dose: 2 mg Documented by: Nitroglycerin (Nitrostat) 0.4 mg SL UD PRN PRN Reason: Chest Pain Stop: 07/12/19 22:52 Last Admin: 06/15/19 12:35 Dose: 0.4 mg Documented by: Nitroglycerin (Nitro-Bid 2%) 0.5 inch EXT Q6H [facility] Stop: 07/13/19 00:00 Last Admin: 06/16/19 05:07 Dose: Not Given Documented by: Ondansetron HCl (Zofran) 4 mg IV Q6H PRN PRN Reason: Nausea Stop: 07/12/19 22:52 Polyethylene Glycol (Miralax Powder Packet) 17 gm PO DAILY PRN PRN Reason: Constipation Stop: 07/12/19 22:52 Senna/Docusate Sodium (Senokot S) 2 tab PO BID PRN PRN Reason: Constipation Stop: 07/12/19 22:52 (1) Chest pain Chest pain type: unspecified Qualified Code(s): R07.9 - Chest pain, unspecified
--- NOTE | 2019-06-16 09:40 | Pharmacy Report ---
Pharmacy Glycemic Short Note 2 - Date of Service June 16, 2019 - Glycemic Short BSG Results (Last 24 hours): 06/15/19 06/15/19 06/15/19 11:12 13:39 16:08 Glucose POC Glucose 173 H 128 H 112 H 06/15/19 06/16/19 06/16/19 20:21 06:10 07:11 Glucose 173 H POC Glucose 183 H 154 H OUTPATIENT ANTIDIABETIC REGIMEN: * Lantus 50 units SQ qAM * Metformin 500mg PO qAM * HbA1c: 11% (06/13/19) ASSESSMENT: 06/16/19: * Fasting BSG 154 this morning after reducing Lantus dose yesterday. * No further changes at this time. Will continue to monitor. * Patient has been requiring significantly less insulin during admission, likely due to decreased PO intake as compared to his eating habits at home. 06/15/19 * Mr Elizondo is a 73yo diabetic gentleman, admitted on 06/12/19 with chest pain/NSTEMI. * PMH is significant for Alzheimer's disease. Patient's administers insulin at home. Patient follows with [facility]. * CDE consulted and has spoken with pt/ this admission: "Pt's also reports that pt is home alone most of the day and tends to eat all day long and so she has started hiding some of the "junk food" in the house so that he can not eat it unsupervised." * Patient has been ordered a reduced dose of Lantus since admission, but has been hypoglycemic each morning (BSGs 53, 52, 59 past 3 days). * Lantus dose reduced this morning. Novolog parameters appear to be appropriate at this time. PLAN FOR INPATIENT GLYCEMIC CONTROL: * Hold outpatient oral diabetes medications * Basal insulin * Lantus 15 units SQ qAM * Bolus insulin * NovoLog per scale ACHS or Q6hrs while NPO * Goal Range: Low 120 mg/dL - High 150 mg/dL * Correction Factor: 30 mg/dL/unit * Nutritional / Prandial insulin per carb ratio of 1 unit per 12 grams CHO consumed PLAN FOR DISCHARGE: * Patient's current A1c (11%) indicates significantly sub-optimal glycemic control. * Given patient's comorbidities and age, a reasonable goal A1c might be closer to ~8%. * Patient follows with [facility], and A1c has been improving with their help. * Would encourage continued mgmt with outpatient providers to optimize A1c.
--- NOTE | 2019-06-16 10:11 | Cardiology Consultation ---
Date of Consultation June 16, 2019 Assessment & Plan (1) Chest pain on exertion: Most of his chest pain is non-anginal and likely non cardiac. He did fall and possible this is related to injury. However, his less frequent SOB and tightness in chest may be anginal. Has been relieved by nitro. Would consider change to Imdur and titrate up to relieve CP. If BP limits then add Ranexa. Present on Admission?: Yes (2) Non-ST elevation CO (NSTEMI): The culprit lesion was treated by KI. Continue DAPT with ASA and plavix. Continue GDMT with metoprolol, ARB and statin. If unable to adequately control anginal chest pain, can consider high risk PCI to RCA for anginal relief. This would best be accomplished at a facility with CTS backup. Present on Admission?: No (3) Hyperlipidemia: high risk. Agree with high intensity stain therapy with Lipitor 80 mg. Present on Admission?: Yes History of Present Illness Reason for Consultation: recurrent chest pain Requesting Physician: Dr Holland Brooke Attending Physician: Gabino Lux MD History of Present Illness pleasant demented 73 yo male whom I took to the cathode builder on Friday for ACS. He received a KI to LAD for severe thrombotic lesion felt to be culprit. Had chronic severe RCA disease with significant calcification. Patient complains of chest pain which is reproducible by palpation and is specifically oriented over the L sternal border. He has also complained of acute dyspnea and his reports he was pale, anxious, and diaphoretic. He does not recall episodes well but states he gets light headed upon rising from bed and ambulating. He denied chest pain or pressure. Prior to admission his states he fell at home. Unclear if LOC. Currently, he denies any chest pain, SOB, syncope, near syncope, orthopnea, PND, tachycardia, palpitations and edema. His has concerns regarding how he will do when discharged. She feels home health or rehab may be best. Allergies Allergy/AdvReac Type Severity Reaction Status Date / Time Penicillins Allergy Unknown UNK Verified 04/14/19 17:14 KAVITA Inhibitors AdvReac Intermediate COUGH Verified 06/12/19 21:45 Home Medications Home Medications Medication Instructions Recorded Confirmed Type Lantus Solostar U-100 Insulin 50 unit SUBCUT QAM 05/06/18 06/12/19 History aspirin 81 mg PO QAM 05/06/18 06/12/19 History atorvastatin 80 mg PO QAM 05/06/18 06/12/19 History clopidogrel 75 mg PO QAM 05/06/18 06/12/19 History donepezil 5 mg PO QAM 05/06/18 06/12/19 History escitalopram oxalate [Lexapro] 20 mg PO QAM 05/06/18 06/12/19 History losartan 100 mg PO QAM 05/06/18 06/12/19 History turmeric root extract 500 mg PO DAILY PRN 05/06/18 06/12/19 History metformin 500 mg PO QAM 04/14/19 06/12/19 History finasteride 5 mg PO QAM 06/12/19 06/12/19 History sennosides-docusate sodium 2 tab PO BID PRN 06/12/19 06/12/19 History [Senokot-S] Patient History Medical History (Updated 06/16/19 @ 10:17 by Domingo Contreras MD) Carotid artery disease Chest pain on exertion (Resolved 11/08/13) DM (diabetes mellitus) HTN (hypertension) Hyperglycemia Hyperlipemia Vascular disease Surgical History History of colonoscopy Family History Other Family history non-contributory Social History Preferred Language: Moldovan Communication Ability: Effective Silver [employer] Assembler Required: No Beliefs That Will Affect Care: None Current Living Situation: Spouse Current Living Situation Comment: lives with in home with 1 step to enter and 7 steps inside Other Information That Helps Us Care for You: No Feels Safe at Home: Yes Safety Concerns: Feels Safe At This Time Smoking Status: Former smoker Do You Dip or Chew Tobacco: No (quit years ago) ; Smoking End Date: years ago ; Second Hand Exposure: No ; Hx Alcohol Use: Yes Alcohol type: beer and wine Hx Substance Use: No Review of Systems Cardiovascular: + chest pain with activity and + dyspnea on exertion Physical Exam Constitutional: WD/WN, vitals as above Eyes: PERRL and EOM intact bilaterally ENMT: external ear and nose normal, oropharynx normal Neck: normal visual inspection No JVD Respiratory: normal respiratory effort, lungs clear to auscultation No ronchi, crackles, wheezing Cardiovascular: Rate/Rhythm: regular rate and regular rhythm Heart Sounds: normal S1, normal S2 and + murmur (soft systolic) Extremities: normal capillary refill cath access site without mass, bruit. Chest (Breasts): Chest: normal inspection of chest Additional Comments: mild tenderness to palpation of L anterior chest. Gastrointestinal (Abdomen): normal bowel sounds, soft, nontender, no hepatosplenomegaly Musculoskeletal: no cyanosis or clubbing, extremities motor strength 5/5 Neurologic: moves all extremities Results & Data ([facility]) Vital Signs (Past 12 Hours) Vital Signs Temp Pulse Resp BP BP Pulse Ox 06/16/19 07:30 36.7 C 72 18 114/65 95 06/16/19 03:22 36.5 C 76 18 96/67 L 92 06/15/19 23:17 36.5 C 72 17 111/71 94
[2019-06-16] MEDS: NITROGLYCERIN SL 0.4 MG/TAB TAB SL PRN ×2 (10:18→12:33)
--- NOTE | 2019-06-16 13:48 | Neurology Consultation ---
Date of Consultation June 16, 2019 Assessment & Plan (1) Dementia: 1. aricept 5 mg currently would not increase- if bradycardia is an issues would D/C 2. work up as outpatient for further treatment after discharge 3. anxiety does not seem to be a current issue - continue to monitor and psych could be consulted for treatment 4. if folic acid, TSH, b12 has not been checked would order 5. MRI brain with and without can be done as an outpatient for further evaluation of possible lesions etc 6. call with questions concerns. will be available as needed follow up with neurology as outpatient in 4-6 weeks Lien IRENE (2) Ischemic cardiomyopathy: (3) Vascular disease: Supervising Physician Co-Signing Physician Notes Patient was seen and examined. Patient previously seen by Jacy Broussard for dementia and on Aricept. He currently denies any complaints at this time. Awake and alert. Pleasant. No acute distress. Disoriented to year. Comprehension is intact. Speech is clear. Following 4 part commands. EOMI. Face is symmetric. Agree with Lien Boyd PA-C as noted below. May consider formal neuropsych eval as outpatient. 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 He follows with hem/onc and currently in remission. He presented to the ED with CP 06/12/2019. He was seen by cardiology and they are following for his cardiac issues. He is pleasant demented and cooperates with exam. He took of the site monitor and nursing currently replacing leads. denies CP, SOB, abdominal pain, one sided weakness, numbness tingling, N, V. Allergies Allergy/AdvReac Type Severity Reaction Status Date / Time Penicillins Allergy Unknown UNK Verified 04/14/19 17:14 KAVITA Inhibitors AdvReac Intermediate COUGH Verified 06/12/19 21:45 Home Medications Home Medications Medication Instructions Recorded Confirmed Type Lantus Solostar U-100 Insulin 50 unit SUBCUT QAM 05/06/18 06/12/19 History aspirin 81 mg PO QAM 05/06/18 06/12/19 History atorvastatin 80 mg PO QAM 05/06/18 06/12/19 History clopidogrel 75 mg PO QAM 05/06/18 06/12/19 History donepezil 5 mg PO QAM 05/06/18 06/12/19 History escitalopram oxalate [Lexapro] 20 mg PO QAM 05/06/18 06/12/19 History losartan 100 mg PO QAM 05/06/18 06/12/19 History turmeric root extract 500 mg PO DAILY PRN 05/06/18 06/12/19 History metformin 500 mg PO QAM 04/14/19 06/12/19 History finasteride 5 mg PO QAM 06/12/19 06/12/19 History sennosides-docusate sodium 2 tab PO BID PRN 06/12/19 06/12/19 History [Senokot-S] Patient History Family History Other Family history non-contributory Social History Preferred Language: Divehi Communication Ability: Effective Zinc Skimmer Required: No Beliefs That Will Affect Care: None Current Living Situation: Spouse Current Living Situation Comment: lives with in home with 1 step to enter and 7 steps inside Other Information That Helps Us Care for You: No Feels Safe at Home: Yes Safety Concerns: Feels Safe At This Time Smoking Status: Former smoker Do You Dip or Chew Tobacco: No (quit years ago) ; Smoking End Date: years ago ; Second Hand Exposure: No ; Hx Alcohol Use: Yes Alcohol type: beer and wine Hx Substance Use: No Physical Exam Physical Exam: Physical Exam: Constitutional: appearance nourished, healthy and normal Ears, Nose, Mouth and Throat: mucous membranes moist, no injection and skin normal, eyes normal Cardiovascular: normal S-1 and S-2 and regular rate and rhythm Respiratory: clear to auscultation (CTA) and no rales, or wheezing Musculoskeletal: no peripheral edema and good distal pulses Skin: no stigmata of neurocutaneous disease noted and normal and intact Eyes: extraocular muscles intact (EOMI) and pupils equal, round and reactive to light (PERRL) NEUROLOGIC EXAMINATION: Mental status: Alert and interactive Oriented to [place] he lives in [place], know Jayne president, does not know season, year-2016 Oriented to person Speech fluent with no evidence of aphasia Cranial Nerves smile eye brow raise symmetric Reflexes: Deep tendon reflexes were symmetrical and graded 2/5. down going toes Sensory: no deficit to light or cool touch Coordination: finger to nose no bi pass Gait/Stance: Posture normal. Gait not assessed Motor: Negative for pronator drift of out stretched arms with eyes closed. Strength: biceps triceps hand intake clinician bilaterally 5/5 hip flex patellar plantar flex ext 5/5 Results & Data Vital Signs (Past 12 Hours) Vital Signs Temp Pulse Pulse Resp BP BP Pulse Ox 06/16/19 10:37 36.7 C 68 18 108/69 92 06/16/19 08:00 83 06/16/19 07:30 36.7 C 72 18 114/65 95 06/16/19 03:22 36.5 C 76 18 96/67 L 92 Laboratory Results Abnormal lab results 06/15/19 06/15/19 06/15/19 Range/Units 16:08 18:15 20:21 Sodium (136-145) mmol/L BUN (7-18) mg/dl Creatinine (0.6-1.4) mg/dl BUN/Creatinine Ratio (10-20) Glucose (70-99) mg/dl POC Glucose 112 H 183 H (70-99) mg/dl Calcium (8.5-10.1) mg/dl Troponin I 1.320 H* (0-0.045) ng/ml 06/16/19 06/16/19 06/16/19 Range/Units 00:19 06:10 07:11 Sodium 135 L (136-145) mmol/L BUN 46 H (7-18) mg/dl Creatinine 1.71 H D (0.6-1.4) mg/dl BUN/Creatinine Ratio 26.8 H (10-20) Glucose 173 H (70-99) mg/dl POC Glucose 154 H (70-99) mg/dl Calcium 8.2 L (8.5-10.1) mg/dl Troponin I 1.130 H* (0-0.045) ng/ml 06/16/19 Range/Units 11:23 Sodium (136-145) mmol/L BUN (7-18) mg/dl Creatinine (0.6-1.4) mg/dl BUN/Creatinine Ratio (10-20) Glucose (70-99) mg/dl POC Glucose 185 H (70-99) mg/dl Calcium (8.5-10.1) mg/dl Troponin I (0-0.045) ng/ml Diagnostic Findings CT head- Chronic small vessel ischemic change. No acute intracranial abnormality.
--- NOTE | 2019-06-16 16:26 | Electrocardiogram Report ---
Test Reason : Blood Pressure : / mmHG Vent. Rate : 079 BPM Atrial Rate : 079 BPM P-R Int : 154 ms QRS Dur : 096 ms QT Int : 412 ms P-R-T Axes : 078 081 -07 degrees QTc Int : 472 ms Normal sinus rhythm T wave abnormality, consider inferior ischemia Abnormal ECG When compared with ECG of 15-JUN-2019 03:23, No significant change was found Confirmed by Андрей Zabala ([id number]) on 06/16/2019 4:25:59 PM Referred By: REFERRED SELF Confirmed By:Андрей Zabala
--- NOTE | 2019-06-16 20:54 | Hospitalist Progress Note ---
Date of Service June 16, 2019 Assessment & Plan (1) Chest pain: (2) Non-ST elevation ND (NSTEMI): Presented on admission with chest pain Had emergent cardiac cath done on 06/14/2019, for non-ST elevated ND, substernal chest pain unstable angina Cardiac cath showed severe coronary artery disease with calcification thrombus on coronaries 90% narrowing with thrombus CA +2 in the LAD Successful PCI to LAD with drug-eluting stent Continue to have intermittent chest discomfort Troponin elevation noted, possible secondary to cardiac cath/procedure, Troponin trending down Imdur added and would titrate up to relieve CP If unable to adequately control anginal chest pain, can consider high risk PCI to RCA for anginal relief (will need to transfer to a tertiary facility) Cardiology on board ECHO showed significant wall motion abnormality on septal and anterior wall with reduced ejection fx of 30% Continue dual antiplatelet with aspirin and Plavix uninterrupted for 1 year Continue beta-alfredo /statin /losartan Continue monitor in tele Type 2 diabetes: Hypoglycemic episode with blood sugar 51 noted this morning, patient remains asymptomatic Most recent Hemoglobin A1c 11 on 06/13/2019 Long-acting Lantus discontinued Continue insulin sliding scale pharmacy consulted for glycemic management Continue monitor BS ASHER Creatinine increased to 1.7 On Gentle hydration Monitor closely for fluid overload Will d/c IVF Avoid nephrotoxic agents Monitor BMP (3) Lymphoma: Admission and Anticipated Discharge Date Admission Date: June 12, 2019 Subjective Pt was seen an examined Lying in bed with no distress with at bedside Pt said that early today he had some nagging chest discomfort early Currently denies any chest pain, palpitation and SOB Physical Exam Physical Exam: General- No acute distress Head- atraumatic Eyes- PERRL, EOMI, ENT- oropharynx clear Neck- supple, no JVD Lungs- clear to auscultation Heart- regular rhythm; no murmur Abdomen- normal bowel sounds, soft, nontender Extremities- no calf tenderness Neuro- alert, oriented x 3; PERRL, EOMI; no facial palsy; no dysarthria Skin- warm & dry Results & Data ([facility]) Vital Signs (Past 12 Hours) Vital Signs Temp Pulse Pulse Resp BP BP Pulse Ox 06/16/19 19:27 36.8 C 84 16 135/68 93 06/16/19 16:32 73 06/16/19 15:23 36.6 C 76 18 114/69 99 06/16/19 10:37 36.7 C 68 18 108/69 92 (1) Chest pain Chest pain type: unspecified Qualified Code(s): R07.9 - Chest pain, unspecified
[2019-06-17] MEDS: NITROGLYCERIN 2% OINTMENT 30GM TUBE EXT SCH ×5 (00:52→23:28)
[2019-06-17 07:56] LABS: BUN Creatinine Ratio 31.7 (10-20); Calcium 8.4 mg/dl (8.5-10.1); Creatinine Clr Calc Pharmacy 56.8 ml/min; Est GFR (African American) 65.4; Est GFR (Non-African American) 56.5; Potassium 4.7 mmol/L (3.5-5.1)
[2019-06-17] MEDS: FINASTERIDE 5 MG TAB PO SCH (08:56)
[2019-06-17] MEDS: ATORVASTATIN 40 MG TAB PO SCH (08:56)
[2019-06-17] MEDS: LOSARTAN POTASSIUM 50 MG TAB PO SCH (08:56)
[2019-06-17] MEDS: CLOPIDOGREL BISULFATE 75 MG TAB PO SCH (08:56)
[2019-06-17] MEDS: ESCITALOPRAM OXALATE 20 MG TAB PO SCH (08:56)
[2019-06-17] MEDS: ASPIRIN 81 MG ECTAB PO SCH (08:56)
[2019-06-17] MEDS: DONEPEZIL HCL 5 MG TAB PO SCH (08:56)
[2019-06-17] MEDS: METOPROLOL TARTRATE 25 MG TAB PO SCH ×2 (08:57→20:51)
[2019-06-17] MEDS: FAMOTIDINE 10 MG TABLET PO SCH ×2 (08:57→20:52)
[2019-06-17] MEDS: INSULIN ASPART 100 UNITS/ML 3 ML PEN SC SCH ×4 (09:00→20:53)
[2019-06-17] MEDS ORDERED: INSULIN GLARGINE SOLOSTAR 100 UNITS/ML 3 ML PEN SC SCH (09:00)
--- NOTE | 2019-06-17 12:41 | Cardiology Progress Note ---
Date of Service June 17, 2019 Assessment & Plan (1) Chest pain: (2) Non-ST elevation SD (NSTEMI): (3) Ischemic cardiomyopathy: (4) Dementia: The patient is having a better day today. Both interventional cardiology and neurology notes appreciated. Although he has had no additional chest pain he has had some shortness of breath and I think he may be in some mild heart failure. Going to give him a dose of Lasix today. At present we will continue current management. Subjective The patient appears to be having a better day today. He has had no additional chest pain however when nursing stands him up he is a little short of breath. Review of Systems Review of Systems: All systems reviewed & are unremarkable except as noted in HPI & below Nothing additional to add. Physical Exam Physical Exam: General: no acute distress and stated age Head: normocephalic, no masses, lesions, tenderness or abnormalities Eyes: conjunctiva are pink and non-injected, sclera clear Neck: supple, no adenopathy, no bruits, normal jugular venous pulse, no he patojugular reflux Chest: normal shape and normal respiratory effort Lungs: Rales right lower lung field Cardiac Exam: - regular rate & rhythm, no murmurs gallops or rubs - normal S1, normal S2 Pulses: 2(+) throughout Abdomen: abdomen soft, non-tender, no abnormal masses and no hepatosplenomegaly Musculoskeletal: no gait disturbance, no joint inflammation, no deforming arthritis Extremities: no edema and no cyanosis Neuro: grossly normal exam Results & Data Vital Signs (Past 12 Hours) Vital Signs Temp Pulse Pulse Resp BP BP Pulse Ox 06/17/19 10:59 36.5 C 88 19 124/74 93 06/17/19 08:00 76 06/17/19 07:43 36.7 C 82 18 136/79 92 06/17/19 03:15 36.7 C 86 18 164/68 H 92 Laboratory Results Laboratory Results - last 24 hr 06/16/19 06/16/19 06/17/19 16:27 20:22 07:13 Sodium 136 Potassium 4.7 Chloride 107 Carbon Dioxide 24 Anion Gap 5.0 BUN 40 H Creatinine 1.27 D Est Cr Clr Drug Dosing 56.8 Est GFR ( Amer) 65.4 Est GFR (Non-Af Amer) 56.5 BUN/Creatinine Ratio 31.7 H Glucose 189 H POC Glucose 157 H 236 H Calcium 8.4 L 06/17/19 06/17/19 07:33 11:27 Sodium Potassium Chloride Carbon Dioxide Anion Gap BUN Creatinine Est Cr Clr Drug Dosing Est GFR ( Amer) Est GFR (Non-Af Amer) BUN/Creatinine Ratio Glucose POC Glucose 206 H 292 H Calcium Medications Administered Current Inpatient Medications Acetaminophen (Tylenol) 650 mg PO Q4H PRN PRN Reason: Pain or Fever Stop: 07/12/19 22:52 Aspirin (Ecotrin Ectab) 81 mg PO [facility] Stop: 07/13/19 08:59 Last Admin: 06/17/19 08:56 Dose: 81 mg Documented by: Atorvastatin Calcium (Lipitor) 80 mg PO [facility] Stop: 07/13/19 08:59 Last Admin: 06/17/19 08:56 Dose: 80 mg Documented by: Clopidogrel Bisulfate (Plavix) 75 mg PO [facility] Stop: 07/13/19 08:59 Last Admin: 06/17/19 08:56 Dose: 75 mg Documented by: Dextrose (Dextrose 50%) 25 - 50 ml IV UD PRN; Protocol PRN Reason: Hypoglycemia Protocol Stop: 07/12/19 23:14 Last Admin: 06/13/19 06:15 Dose: 50 ml Documented by: Donepezil HCl (Aricept) 5 mg PO [facility] Stop: 07/13/19 08:59 Last Admin: 06/17/19 08:56 Dose: 5 mg Documented by: Escitalopram Oxalate (Lexapro Tab) 20 mg PO [facility] Stop: 07/13/19 08:59 Last Admin: 06/17/19 08:56 Dose: 20 mg Documented by: Famotidine (Pepcid) 10 mg PO BID [facility] Stop: 07/14/19 10:14 Last Admin: 06/17/19 08:57 Dose: 10 mg Documented by: Finasteride (Proscar) 5 mg PO [facility] Stop: 07/13/19 08:59 Last Admin: 06/17/19 08:56 Dose: 5 mg Documented by: Furosemide (Lasix) 40 mg PO ONE ONE Stop: 06/17/19 12:46 Glucagon (Glucagen) 1 mg SQ UD PRN; Protocol PRN Reason: Hypoglycemia Protocol Stop: 07/12/19 23:14 Glucose (Glucose 40%) 15 - 30 gm PO UD PRN; Protocol PRN Reason: Hypoglycemia Protocol Stop: 07/12/19 23:14 Glucose (Dex4 Glucose) 4 - 8 tabs PO UD PRN; Protocol PRN Reason: Hypoglycemia Protocol Stop: 07/12/19 23:14 Insulin Aspart (Novolog Flexpen) 0 units SC ACHS [facility]; Protocol Stop: 07/13/19 00:00 Last Admin: 06/17/19 12:29 Dose: 9 units Documented by: Insulin Glargine (Lantus Solostar Pen) 20 units SC DAILY [facility]; Protocol Stop: 07/17/19 08:59 Last Admin: 06/17/19 08:57 Dose: 20 units Documented by: Losartan Potassium (Cozaar) 50 mg PO QAM [facility] Stop: 07/16/19 08:59 Last Admin: 06/17/19 08:56 Dose: 50 mg Documented by: Metoprolol Succinate (Toprol Xl) 25 mg PO QAM [facility] Stop: 07/18/19 08:59 Metoprolol Tartrate (Lopressor) 12.5 mg PO BID [facility] Stop: 06/18/19 06:59 Last Admin: 06/17/19 08:57 Dose: 12.5 mg Documented by: Miscellaneous (Carbohydrates For Hypoglycemia) 15 - 30 gm PO UD PRN PRN Reason: Hypoglycemia Treatment Stop: 07/12/19 23:14 Last Admin: 06/15/19 07:13 Dose: 15 gm Documented by: Miscellaneous Information (Consult Glycemic Management Pharmacy) 1 ea N/A UD PRN PRN Reason: Consult Stop: 07/15/19 07:43 Morphine Sulfate (Morphine Sulfate) 2 mg IV Q30M PRN PRN Reason: Chest Pain Stop: 06/26/19 22:52 Last Admin: 06/15/19 20:39 Dose: 2 mg Documented by: Nitroglycerin (Nitrostat) 0.4 mg SL UD PRN PRN Reason: Chest Pain Stop: 07/12/19 22:52 Last Admin: 06/16/19 12:33 Dose: 0.4 mg Documented by: Nitroglycerin (Nitro-Bid 2%) 0.5 inch EXT Q6H [facility] Stop: 07/13/19 00:00 Last Admin: 06/17/19 06:08 Dose: 0.5 inch Documented by: Ondansetron HCl (Zofran) 4 mg IV Q6H PRN PRN Reason: Nausea Stop: 07/12/19 22:52 Polyethylene Glycol (Miralax Powder Packet) 17 gm PO DAILY PRN PRN Reason: Constipation Stop: 07/12/19 22:52 Senna/Docusate Sodium (Senokot S) 2 tab PO BID PRN PRN Reason: Constipation Stop: 07/12/19 22:52 (1) Chest pain Chest pain type: unspecified Qualified Code(s): R07.9 - Chest pain, unspecified
[2019-06-17] MEDS ORDERED: FUROSEMIDE 40 MG TAB PO ONE (12:45)
--- NOTE | 2019-06-17 15:49 | Pharmacy Report ---
Pharmacy Glycemic Short Note 2 - Date of Service June 17, 2019 - Glycemic Short BSG Results (Last 24 hours): 06/16/19 06/16/19 06/17/19 16:27 20:22 07:13 Glucose 189 H POC Glucose 157 H 236 H 06/17/19 06/17/19 07:33 11:27 Glucose POC Glucose 206 H 292 H OUTPATIENT ANTIDIABETIC REGIMEN: * Lantus 50 units SQ qAM * Metformin 500mg PO qAM * HbA1c: 11% (06/13/19) ASSESSMENT: 06/17/19: * BSGs became elevated last night. Suspect that this may be due to increased PO intake? * Lantus dose increased this morning. Novolog parameters adjusted to provide additional prandial/correctional insulin. * Will continue to follow. 06/16/19 * Fasting BSG 154 this morning after reducing Lantus dose yesterday. * No further changes at this time. Will continue to monitor. * Patient has been requiring significantly less insulin during admission, likely due to decreased PO intake as compared to his eating habits at home. 06/15/19 * Mr Elizondo is a 73yo diabetic gentleman, admitted on 06/12/19 with chest pain/NSTEMI. * PMH is significant for Alzheimer's disease. Patient's administers insulin at home. Patient follows with [facility]. * CDE consulted and has spoken with pt/ this admission: "Pt's also reports that pt is home alone most of the day and tends to eat all day long and so she has started hiding some of the "junk food" in the house so that he can not eat it unsupervised." * Patient has been ordered a reduced dose of Lantus since admission, but has been hypoglycemic each morning (BSGs 53, 52, 59 past 3 days). * Lantus dose reduced this morning. Novolog parameters appear to be appropriate at this time. PLAN FOR INPATIENT GLYCEMIC CONTROL: * Hold outpatient oral diabetes medications * Basal insulin * Lantus 20 units SQ qAM * Bolus insulin * NovoLog per scale ACHS or Q6hrs while NPO * Goal Range: Low 110 mg/dL - High 140 mg/dL * Correction Factor: 30 mg/dL/unit * Nutritional / Prandial insulin per carb ratio of 1 unit per 10 grams CHO consumed PLAN FOR DISCHARGE: * Patient's current A1c (11%) indicates significantly sub-optimal glycemic control. * Given patient's comorbidities and age, a reasonable goal A1c might be closer to ~8%. * Patient follows with [facility], and A1c has been improving with their help. * Would encourage continued mgmt with outpatient providers to optimize A1c.
--- NOTE | 2019-06-17 19:17 | Hospitalist Progress Note ---
Date of Service June 17, 2019 Assessment & Plan (1) Chest pain: Unstable angina, Asymptomatic now status post PCI to LAD Continue Nitropaste, PCU monitoring Cardiology following closely (2) Non-ST elevation [place] (NSTEMI): Presented on admission with chest pain Had emergent cardiac cath done on 06/14/2019, for non-ST elevated [place], substernal chest pain unstable angina Cardiac cath showed severe coronary artery disease with calcification thrombus on coronaries 90% narrowing with thrombus CA +2 in the LAD Successful PCI to LAD with drug-eluting stent Continue to have intermittent chest discomfort Troponin elevation noted, possible secondary to cardiac cath/procedure, Troponin trending down Imdur added and would titrate up to relieve CP If unable to adequately control anginal chest pain, can consider high risk PCI to RCA for anginal relief (will need to transfer to a tertiary facility) Cardiology on board ECHO showed significant wall motion abnormality on septal and anterior wall with reduced ejection fx of 30% Case discussed with cardio and recommended to start on lasix 20mg Continue dual antiplatelet with aspirin and Plavix uninterrupted for 1 year Continue beta-alfredo /statin /losartan Continue monitor in tele Type 2 diabetes: Hypoglycemic episode with blood sugar 51 noted this morning, patient remains asymptomatic Most recent Hemoglobin A1c 11 on 06/13/2019 Long-acting Lantus discontinued Continue insulin sliding scale pharmacy consulted for glycemic management Continue monitor BS ASHER Creatinine increased to 1.7 Received Gentle hydration Creatinine improved to 1.2 Monitor closely for fluid overload Avoid nephrotoxic agents Monitor BMP (3) Lymphoma: Admission and Anticipated Discharge Date Admission Date: June 12, 2019 Subjective Pt was seen and examined Lying in bed with no distress Currently denies any chest pain Physical Exam Physical Exam: General- No acute distress Head- atraumatic Eyes- PERRL, EOMI, ENT- oropharynx clear Neck- supple, no JVD Lungs- clear to auscultation Heart- regular rhythm; no murmur Abdomen- normal bowel sounds, soft, nontender Extremities- no calf tenderness Neuro- alert, oriented x 3; PERRL, EOMI; no facial palsy; no dysarthria Skin- warm & dry Results & Data ([facility]) Vital Signs (Past 12 Hours) Vital Signs Temp Pulse Pulse Resp BP Pulse Ox 06/17/19 17:45 86 06/17/19 15:56 36.3 C L 79 18 133/80 97 06/17/19 10:59 36.5 C 88 19 124/74 93 06/17/19 08:00 76 06/17/19 07:43 36.7 C 82 18 136/79 92 (1) Chest pain Chest pain type: unspecified Qualified Code(s): R07.9 - Chest pain, unspecified
[2019-06-18] MEDS: NITROGLYCERIN 2% OINTMENT 30GM TUBE EXT SCH (06:23)
[2019-06-18] MEDS: INSULIN ASPART 100 UNITS/ML 3 ML PEN SC SCH ×4 (08:54→21:07)
[2019-06-18 08:58] LABS: BUN Creatinine Ratio 29.9 (10-20); Calcium 8.6 mg/dl (8.5-10.1); Creatinine Clr Calc Pharmacy 56.4 ml/min; Est GFR (African American) 64.8; Est GFR (Non-African American) 55.9; Potassium 4.5 mmol/L (3.5-5.1)
[2019-06-18] MEDS ORDERED: INSULIN GLARGINE SOLOSTAR 100 UNITS/ML 3 ML PEN SC SCH (09:00)
[2019-06-18] MEDS: DONEPEZIL HCL 5 MG TAB PO SCH (09:01)
[2019-06-18] MEDS: ASPIRIN 81 MG ECTAB PO SCH (09:01)
[2019-06-18] MEDS: ESCITALOPRAM OXALATE 20 MG TAB PO SCH (09:01)
[2019-06-18] MEDS: FAMOTIDINE 10 MG TABLET PO SCH ×2 (09:02→20:35)
[2019-06-18] MEDS: LOSARTAN POTASSIUM 50 MG TAB PO SCH (09:02)
[2019-06-18] MEDS: ATORVASTATIN 40 MG TAB PO SCH (09:02)
[2019-06-18] MEDS: CLOPIDOGREL BISULFATE 75 MG TAB PO SCH (09:03)
[2019-06-18] MEDS: FINASTERIDE 5 MG TAB PO SCH (09:03)
[2019-06-18] MEDS: METOPROLOL SUCC 25MG EXT REL TAB PO SCH (09:04)
--- NOTE | 2019-06-18 10:56 | Cardiology Progress Note ---
Date of Service June 18, 2019 Assessment & Plan (1) Chest pain: (2) Non-ST elevation [place] (NSTEMI): (3) Ischemic cardiomyopathy: (4) Dementia: The patient has had no anginal type chest pain for the past 24 hours. He appears to be comfortable. I think the diuretics may have helped him as well and I will continue Lasix. I will switch him over to an oral nitrate. Hopefully he will progress to the point where he can be discharged home over the weekend. Subjective The patient has had no significant chest pain for the past 24 hours. He does have some point tenderness over his left breast which is most likely musculoskeletal in what he describes as his chest pain. I do not believe that this is angina. Review of Systems Review of Systems: All systems reviewed & are unremarkable except as noted in HPI & below Nothing additional to add. Physical Exam Physical Exam: General: no acute distress and stated age Head: normocephalic, no masses, lesions, tenderness or abnormalities Eyes: conjunctiva are pink and non-injected, sclera clear Neck: supple, no adenopathy, no bruits, normal jugular venous pulse, no hepatojugular reflux Chest: normal shape and normal respiratory effort Lungs: clear to auscultation and percussion Cardiac Exam: - regular rate & rhythm, no murmurs gallops or rubs - normal S1, normal S2 Pulses: 2(+) throughout Abdomen: abdomen soft, non-tender, no abnormal masses and no hepatosplenomegaly Musculoskeletal: no gait disturbance, no joint inflammation, no deforming arthritis Extremities: no edema and no cyanosis Neuro: grossly normal exam Results & Data Vital Signs (Past 12 Hours) Vital Signs Temp Pulse Resp BP BP Pulse Ox 06/18/19 08:59 79 127/69 06/18/19 06:59 36.6 C 71 18 123/72 90 06/18/19 04:00 36.6 C 76 16 120/74 92 06/17/19 23:01 36.6 C 72 18 124/72 95 Laboratory Results Laboratory Results - last 24 hr 06/17/19 06/17/19 06/17/19 11:27 16:21 20:21 Sodium Potassium Chloride Carbon Dioxide Anion Gap BUN Creatinine Est Cr Clr Drug Dosing Est GFR ( Amer) Est GFR (Non-Af Amer) BUN/Creatinine Ratio Glucose POC Glucose 292 H 213 H 162 H Calcium 06/18/19 06/18/19 07:23 08:20 Sodium 138 Potassium 4.5 Chloride 107 Carbon Dioxide 27 Anion Gap 4.0 BUN 38 H Creatinine 1.28 Est Cr Clr Drug Dosing 56.4 Est GFR ( Amer) 64.8 Est GFR (Non-Af Amer) 55.9 BUN/Creatinine Ratio 29.9 H Glucose 206 H POC Glucose 210 H Calcium 8.6 Medications Administered Current Inpatient Medications Acetaminophen (Tylenol) 650 mg PO Q4H PRN PRN Reason: Pain or Fever Stop: 07/12/19 22:52 Aspirin (Ecotrin Ectab) 81 mg PO [facility] Stop: 07/13/19 08:59 Last Admin: 06/18/19 09:01 Dose: 81 mg Documented by: Atorvastatin Calcium (Lipitor) 80 mg PO [facility] Stop: 07/13/19 08:59 Last Admin: 06/18/19 09:02 Dose: 80 mg Documented by: Clopidogrel Bisulfate (Plavix) 75 mg PO [facility] Stop: 07/13/19 08:59 Last Admin: 06/18/19 09:03 Dose: 75 mg Documented by: Dextrose (Dextrose 50%) 25 - 50 ml IV UD PRN; Protocol PRN Reason: Hypoglycemia Protocol Stop: 07/12/19 23:14 Last Admin: 06/13/19 06:15 Dose: 50 ml Documented by: Donepezil HCl (Aricept) 5 mg PO [facility] Stop: 07/13/19 08:59 Last Admin: 06/18/19 09:01 Dose: 5 mg Documented by: Escitalopram Oxalate (Lexapro Tab) 20 mg PO [facility] Stop: 07/13/19 08:59 Last Admin: 06/18/19 09:01 Dose: 20 mg Documented by: Famotidine (Pepcid) 10 mg PO BID [facility] Stop: 07/14/19 10:14 Last Admin: 06/18/19 09:02 Dose: 10 mg Documented by: Finasteride (Proscar) 5 mg PO [facility] Stop: 07/13/19 08:59 Last Admin: 06/18/19 09:03 Dose: 5 mg Documented by: [facility] (Lasix) [facility]: 07/19/19 08:59 Furosemide (Lasix) 40 mg PO NOW ONE Stop: 06/18/19 10:46 Glucagon (Glucagen) 1 mg SQ UD PRN; Protocol PRN Reason: Hypoglycemia Protocol Stop: 07/12/19 23:14 Glucose (Glucose 40%) 15 - 30 gm PO UD PRN; Protocol PRN Reason: Hypoglycemia Protocol Stop: 07/12/19 23:14 Glucose (Dex4 Glucose) 4 - 8 tabs PO UD PRN; Protocol PRN Reason: Hypoglycemia Protocol Stop: 07/12/19 23:14 Insulin Aspart (Novolog Flexpen) 0 units SC [facility]; Protocol Stop: 07/13/19 00:00 Last Admin: 06/18/19 08:54 Dose: 9 units Documented by: Insulin Glargine (Lantus Solostar Pen) 22 units SC DAILY [facility]; Protocol Stop: 07/18/19 08:59 Last Admin: 06/18/19 08:55 Dose: 22 units Documented by: Isosorbide Mononitrate (Imdur Extended Rel) 30 mg PO NOW ONE Stop: 06/18/19 10:42 Isosorbide Mononitrate (Imdur Extended Rel) 30 mg PO [facility] Stop: 07/19/19 08:59 Losartan Potassium (Cozaar) 50 mg PO [facility] Stop: 07/16/19 08:59 Last Admin: 06/18/19 09:02 Dose: 50 mg Documented by: Metoprolol Succinate (Toprol Xl) 25 mg PO [facility] Stop: 07/18/19 08:59 Last Admin: 06/18/19 09:04 Dose: 25 mg Documented by: Miscellaneous (Carbohydrates For Hypoglycemia) 15 - 30 gm PO UD PRN PRN Reason: Hypoglycemia Treatment Stop: 07/12/19 23:14 Last Admin: 06/15/19 07:13 Dose: 15 gm Documented by: Miscellaneous Information (Consult Glycemic Management Pharmacy) 1 ea N/A UD PRN PRN Reason: Consult Stop: 07/15/19 07:43 Morphine Sulfate (Morphine Sulfate) 2 mg IV Q30M PRN PRN Reason: Chest Pain Stop: 06/26/19 22:52 Last Admin: 06/15/19 20:39 Dose: 2 mg Documented by: Nitroglycerin (Nitrostat) 0.4 mg SL UD PRN PRN Reason: Chest Pain Stop: 07/12/19 22:52 Last Admin: 06/16/19 12:33 Dose: 0.4 mg Documented by: Ondansetron HCl (Zofran) 4 mg IV Q6H PRN PRN Reason: Nausea Stop: 07/12/19 22:52 Polyethylene Glycol (Miralax Powder Packet) 17 gm PO DAILY PRN PRN Reason: Constipation Stop: 07/12/19 22:52 Senna/Docusate Sodium (Senokot S) 2 tab PO BID PRN PRN Reason: Constipation Stop: 07/12/19 22:52 (1) Chest pain Chest pain type: unspecified Qualified Code(s): R07.9 - Chest pain, unspecified
--- NOTE | 2019-06-18 11:01 | Pharmacy Report ---
Glycemic Control Progress Note - Date of Service June 18, 2019 - Scope Glycemic Pharmacist consulted for glycemic control to write orders per [facility] inpatient glycemic control protocol. - Objective Accuchecks BSG(last 24 hours):: 06/17/19 06/17/19 06/17/19 11:27 16:21 20:21 Glucose POC Glucose 292 H 213 H 162 H 06/18/19 06/18/19 07:23 08:20 Glucose 206 H POC Glucose 210 H HbA1c:: Hemoglobin A1c 11.0 % (4.5-5.6) H 06/13/19 04:37 - Recent Pertinent Medications The patient is currently receiving: * Basal insulin: Lantus 20 units every 24 hours * Correctional Insulin: Novolog Correction per scale ACHS Goal Range: Low 110 mg/dL - High 140 mg/dL Correction Factor: 30 mg/dL/unit * Prandial insulin: Per carb ratio of 1 unit per 10 grams CHO consumed - Outpatient Anti-Diabetic Meds Lantus 50 units in the morning and metformin 500 mg qAM - Assessment & Plan ASSESSMENT: * See progress note from 06/15/2019 for more background info, in short: * Pt receiving SQ basal bolus insulin regimen for hyperglycemia secondary to baseline DM (outpatient regimen on hold). * Patient is currently receiving an average of 47 units of insulin per day * 20 units of basal insulin * 27 units of prandial/correctional insulin * BSGs ranging 162 - 292 mg/dl over the past 24hrs * Changes needed to insulin regimen: * AM Fasting BSG = 210 mg/dl. This is above goal range for patient based on inpatient targets and co-morbidities. The basal insulin will be increased by 10% to 22 units. Hesitant to go straight to 25 units daily as patient had hypoglycemia on this dose. HOWEVER, if fasting BSGs continue to trend upwards this will be necessary. Set a scale for tomorrow morning reflecting this. * Post-prandial BSGs were trending upwards to tightened. * Total daily dose = ~50-60 units. Increased dosing appropriately. PLAN FOR INPATIENT GLYCEMIC CONTROL: * Increasing Lantus to 22 units SQ daily (25 units if BSG 160 mg/dL or greater) * TIGHTENING correction factor to 25 mg/dl/unit * TIGHTENING carb ratio to 1 unit per 8 grams CHO consumed * Continuing goal range of Low 110 mg/dL - High 140 mg/dL RECOMMENDATIONS FOR DISCHARGE: * Continue to follow with [facility]. Thank you.
[2019-06-18] MEDS ORDERED: FUROSEMIDE 40 MG TAB PO ONE (11:15)
[2019-06-18] MEDS ORDERED: ISOSORBIDE MONO EXTENDED REL 30 MG TABCR PO ONE (11:15)
--- NOTE | 2019-06-18 19:33 | Hospitalist Progress Note ---
Date of Service June 18, 2019 Assessment & Plan (1) Chest pain: Unstable angina, Asymptomatic now status post PCI to LAD Continue Nitropaste, PCU monitoring Cardiology following closely (2) Non-ST elevation [place] (NSTEMI): Presented on admission with chest pain Had emergent cardiac cath done on 06/14/2019, for non-ST elevated [place], substernal chest pain unstable angina Cardiac cath showed severe coronary artery disease with calcification thrombus on coronaries 90% narrowing with thrombus CA +2 in the LAD Successful PCI to LAD with drug-eluting stent Continue to have intermittent chest discomfort Troponin elevation noted, possible secondary to cardiac cath/procedure, Troponin trending down Imdur added and would titrate up to relieve CP If unable to adequately control anginal chest pain, can consider high risk PCI to RCA for anginal relief (will need to transfer to a tertiary facility) Cardiology on board ECHO showed significant wall motion abnormality on septal and anterior wall with reduced ejection fx of 30% Continue dual antiplatelet with aspirin and Plavix uninterrupted for 1 year Continue beta-alfredo /statin /losartan Continue monitor in tele Type 2 diabetes: Hypoglycemic episode with blood sugar 51 noted this morning, patient remains asymptomatic Most recent Hemoglobin A1c 11 on 06/13/2019 Long-acting Lantus discontinued Continue insulin sliding scale pharmacy consulted for glycemic management Continue monitor BS ASHER Creatinine increased to 1.7 On Gentle hydration Monitor closely for fluid overload Creatinine improved to 1.2 Avoid nephrotoxic agents Monitor BMP Unsteady gait Fall precaution PT/OT eval DVT px Adding heparin subq (3) Lymphoma: Admission and Anticipated Discharge Date Admission Date: June 12, 2019 Subjective Pt was seen and examined Pt said that he feels much better he said that he feels good He has no chest pain today Denies any chest pain, palpitation, dizziness and SOB Physical Exam Physical Exam: General- No acute distress Head- atraumatic Eyes- PERRL, EOMI, ENT- oropharynx clear Neck- supple, no JVD Lungs- clear to auscultation Heart- regular rhythm; no murmur Abdomen- normal bowel sounds, soft, nontender Extremities- no calf tenderness Neuro- alert, oriented x 3; PERRL, EOMI; no facial palsy; no dysarthria Skin- warm & dry Results & Data ([facility]) Vital Signs (Past 12 Hours) Vital Signs Temp Pulse Pulse Resp BP BP Pulse Ox 06/18/19 19:25 36.5 C 81 17 149/76 H 96 06/18/19 16:00 70 06/18/19 15:58 73 06/18/19 15:52 36.4 C L 84 18 157/75 H 93 06/18/19 11:51 36.4 C L 72 19 131/72 95 06/18/19 11:21 71 119/74 06/18/19 08:59 79 127/69 06/18/19 08:00 74 (1) Chest pain Chest pain type: unspecified Qualified Code(s): R07.9 - Chest pain, unspecified
[2019-06-19] MEDS: ISOSORBIDE MONO EXTENDED REL 30 MG TABCR PO SCH (08:07)
[2019-06-19] MEDS: ESCITALOPRAM OXALATE 20 MG TAB PO SCH (08:07)
[2019-06-19] MEDS: METOPROLOL SUCC 25MG EXT REL TAB PO SCH (08:07)
[2019-06-19] MEDS: ASPIRIN 81 MG ECTAB PO SCH (08:12)
[2019-06-19] MEDS: ATORVASTATIN 40 MG TAB PO SCH (08:12)
[2019-06-19] MEDS: CLOPIDOGREL BISULFATE 75 MG TAB PO SCH (08:12)
[2019-06-19] MEDS: FINASTERIDE 5 MG TAB PO SCH (08:12)
[2019-06-19] MEDS: DONEPEZIL HCL 5 MG TAB PO SCH (08:12)
[2019-06-19] MEDS: FUROSEMIDE 20 MG TAB PO SCH (08:13)
[2019-06-19] MEDS: LOSARTAN POTASSIUM 50 MG TAB PO SCH (08:13)
[2019-06-19] MEDS: FAMOTIDINE 10 MG TABLET PO SCH ×2 (08:13→20:12)
[2019-06-19] MEDS: INSULIN GLARGINE SOLOSTAR 100 UNITS/ML 3 ML PEN SC SCH (08:14)
[2019-06-19] MEDS: INSULIN ASPART 100 UNITS/ML 3 ML PEN SC SCH ×4 (08:15→20:15)
--- NOTE | 2019-06-19 14:16 | Cardiology Progress Note ---
Date of Service June 19, 2019 Assessment & Plan (1) Non-ST elevation [place] (NSTEMI): (2) Ischemic cardiomyopathy: Status post PCI, drug-eluting stent to the proximal LAD which is felt to be the culprit this admission. Medication management recommended for complex calcified ostial RCA. Continue dual antiplatelet therapy with aspirin and clopidogrel. Continue metoprolol, Imdur, furosemide, losartan, atorvastatin. Volume status appears well compensated. DVT prophylaxis: Increase ambulation as tolerated. Subjective Patient denies chest discomfort. Physical Exam Physical Exam: Temp Pulse Resp BP Pulse Ox 36.4 C L 80 18 131/72 93 06/19/19 13:47 06/19/19 13:47 06/19/19 13:47 06/19/19 13:47 06/19/19 13:47 Constitutional: WD/WN, vitals as above Respiratory: normal respiratory effort, lungs clear to auscultation Cardiovascular: RRR, no murmur, no edema Gastrointestinal (Abdomen): normal bowel sounds, soft, nontender, no hepatosplenomegaly Neurologic: PERRL, EOMI, accommodation nl, no face palsy, no dysarthria Results & Data Vital Signs (Past 12 Hours) Vital Signs Temp Pulse Pulse Resp BP BP Pulse Ox 06/19/19 13:47 36.4 C L 80 78 18 120/64 131/72 93 06/19/19 12:02 36.4 C L 78 18 120/64 93 06/19/19 07:45 36.7 C 81 18 130/71 93 06/19/19 04:45 36.4 C L 81 18 131/81 93 Laboratory Results Intake and Output 06/18/19 06/19/19 06/19/19 22:59 06:59 14:59 Intake Total 425 / 825 Balance 425 / 825 Intake: Oral 425 / 825 Other: Other Intake Source sips # Unmeasured Voids 3 Weight 79.6 kg 79.6 kg Patient Weight 06/20/19 06:59 Weight 79.6 kg
--- NOTE | 2019-06-19 15:36 | Hospitalist Progress Note ---
Date of Service June 19, 2019 Assessment & Plan (1) Chest pain: (2) Non-ST elevation [place] (NSTEMI): Presented on admission with chest pain Had emergent cardiac cath done on 06/14/2019, for non-ST elevated [place], substernal chest pain unstable angina Cardiac cath showed severe coronary artery disease with calcification thrombus on coronaries 90% narrowing with thrombus CA +2 in the LAD Successful PCI to LAD with drug-eluting stent Medication management recommended for complex calcified ostial RCA. Troponin elevation noted, possible secondary to cardiac cath/procedure, Troponin trending down Imdur added and would titrate up to relieve CP If unable to adequately control anginal chest pain, can consider high risk PCI to RCA for anginal relief (will need to transfer to a tertiary facility) Cardiology on board ECHO showed significant wall motion abnormality on septal and anterior wall with reduced ejection fx of 30% Continue dual antiplatelet with aspirin and Plavix uninterrupted for 1 year Continue metoprolol, Imdur, furosemide, losartan, atorvastatin. OK from cardiology standpoint to discharge home Will need referral to cardiac rehab Type 2 diabetes: Hypoglycemic episode with blood sugar 51 noted this morning, patient remains asymptomatic Most recent Hemoglobin A1c 11 on 06/13/2019 Long-acting Lantus discontinued Continue insulin sliding scale Pharmacy on board for glycemic management Continue monitor BS ASHER Creatinine increased to 1.7 On Gentle hydration Monitor closely for fluid overload Creatinine improved to 1.2 Avoid nephrotoxic agents Monitor BMP Unsteady gait Fall precaution PT recommended to use a cane and walker with ambulation Ribs fracture CT chest showed multiple subacute to chronic rib fractures at the lateral right third through sixth ribs, the fifth rib fracture in [address]. Subacute to chronic left lateral seventh through 11th rib fractures are also new from prior. Continue PT/OT with home health services Fall precaution (3) Lymphoma: CT showed increased prominence of mediastinal and hilar lymph nodes. Will need outpatient follow up Admission and Anticipated Discharge Date Admission Date: June 12, 2019 Subjective Pt was seen and examined Lying in bed with no distress with at bedside Pt said that he feels fine today He said that he does not have any chest pain He walked around with therapy today with no distress Denies any chest pain, palpitation, dizziness and SOB Physical Exam Physical Exam: General- No acute distress Head- atraumatic Eyes- PERRL, EOMI, ENT- oropharynx clear Neck- supple, no JVD Lungs- clear to auscultation Heart- regular rhythm; no murmur Abdomen- normal bowel sounds, soft, nontender Extremities- no calf tenderness Neuro- alert, oriented x 3; PERRL, EOMI; no facial palsy; no dysarthria Skin- warm & dry Results & Data ([facility]) Vital Signs (Past 12 Hours) Vital Signs Temp Pulse Pulse Resp BP BP Pulse Ox 06/19/19 15:18 36.4 C L 74 16 126/69 94 06/19/19 13:47 36.4 C L 80 78 18 120/64 131/72 93 06/19/19 12:02 36.4 C L 78 18 120/64 93 06/19/19 07:45 36.7 C 81 18 130/71 93 06/19/19 04:45 36.4 C L 81 18 131/81 93 (1) Chest pain Chest pain type: unspecified Qualified Code(s): R07.9 - Chest pain, unspecified
[2019-06-19] MEDS: HEPARIN SOD 5,000 UNIT/0.5 ML VIAL SQ SCH (20:16)
[2019-06-20] MEDS: HEPARIN SOD 5,000 UNIT/0.5 ML VIAL SQ SCH ×2 (05:52→13:06)
[2019-06-20] MEDS: FINASTERIDE 5 MG TAB PO SCH (07:54)
[2019-06-20] MEDS: FAMOTIDINE 10 MG TABLET PO SCH (07:54)
[2019-06-20] MEDS: ESCITALOPRAM OXALATE 20 MG TAB PO SCH (07:55)
[2019-06-20] MEDS: METOPROLOL SUCC 25MG EXT REL TAB PO SCH (07:55)
[2019-06-20] MEDS: ASPIRIN 81 MG ECTAB PO SCH (07:55)
[2019-06-20] MEDS: CLOPIDOGREL BISULFATE 75 MG TAB PO SCH (07:56)
[2019-06-20] MEDS: ISOSORBIDE MONO EXTENDED REL 30 MG TABCR PO SCH (07:56)
[2019-06-20] MEDS: FUROSEMIDE 20 MG TAB PO SCH (07:56)
[2019-06-20] MEDS: ATORVASTATIN 40 MG TAB PO SCH (07:56)
[2019-06-20] MEDS: DONEPEZIL HCL 5 MG TAB PO SCH (07:57)
[2019-06-20] MEDS: LOSARTAN POTASSIUM 50 MG TAB PO SCH (07:57)
[2019-06-20] MEDS: INSULIN GLARGINE SOLOSTAR 100 UNITS/ML 3 ML PEN SC SCH (08:02)
[2019-06-20] MEDS: INSULIN ASPART 100 UNITS/ML 3 ML PEN SC SCH ×2 (08:03→11:57)
--- NOTE | 2019-06-20 08:52 | Pharmacy Report ---
Pharmacy Glycemic Short Note 2 - Date of Service June 20, 2019 - Glycemic Short BSG Results (Last 24 hours): 06/19/19 06/19/19 06/19/19 11:43 16:11 20:10 POC Glucose 162 H 89 195 H 06/20/19 08:00 POC Glucose 96 OUTPATIENT ANTIDIABETIC REGIMEN: * Lantus 50 units SQ qAM * Metformin 500mg PO qAM * HbA1c: 11% (06/13/19) ASSESSMENT: 06/19: * Patient received total of 38 units of insulin yesterday, of which 22 were basal insulin * Fasting BSG trending down more today at 96 mg/dL - Lantus already given this morning/plan to decrease tomorrow 06/20 * Will plan to loosen CF/CR today as anticipate BSGs to trend down throughout the day PLAN FOR INPATIENT GLYCEMIC CONTROL: * Hold outpatient oral diabetes medications * Basal insulin * Lantus 22 units this AM * Decreased 316 AM - Will reevaluate 316 AM * Bolus insulin - loosen * NovoLog per scale ACHS or Q6hrs while NPO * Goal Range: Low 110 mg/dL - High 140 mg/dL * Correction Factor: 35 mg/dL/unit * Nutritional / Prandial insulin per carb ratio of 1 unit per -- grams CHO consumed PLAN FOR DISCHARGE: * To be determined * A1C 11% - patient will need outpatient provider follow on discharge
--- NOTE | 2019-06-20 15:47 | Cardiology Progress Note ---
Date of Service June 20, 2019 Assessment & Plan (1) Non-ST elevation [place] (NSTEMI): (2) Ischemic cardiomyopathy: (3) Dementia: Discussion with the patient and his spouse. I do not think the most recent chest pain episodes are reflective of angina, the patient shows no indication of distress. The residual right coronary artery lesion has the appearance of significant chronicity, and the culprit LAD lesion was addressed with PCI. We discussed that if worse there is a degree of unpredictable nature to coronary heart disease, but I think at this time, ongoing medication therapy is recommended, and he is on an excellent regimen including aspirin, clopidogrel, atorvastatin, losartan, metoprolol, and isosorbide mononitrate. He is also on low-dose furosemide. Recommend discharge, with plans for outpatient follow-up with Dr. Brooke or other provider in our office and interval of 2 to 3 weeks. Subjective Patient had been tentatively discharged yesterday but then had an episode of recurrent chest discomfort. This prompted a repeat EKG performed yesterday 06/20/2019 at 1725 revealing sinus rhythm at 77 bpm, age-indeterminate septal infarction pattern noted in lead V2, unchanged compared to 06/15/2019. Ongoing observation was recommended. Today during my assessment he is feeling well. He has his clothes on and feels ready to go home. His spouse is at the bedside. Telemetry reveals sinus rhythm at 70 bpm range, he did have a 7 beat run of atrial tachycardia at 10:30 AM with no associated symptoms. Review of Systems Review of Systems: All systems reviewed & are unremarkable except as noted in HPI & below Physical Exam Physical Exam: Temp Pulse Resp BP Pulse Ox 36.7 C 71 18 131/72 91 06/20/19 11:45 06/20/19 11:45 06/20/19 11:45 06/20/19 11:45 06/20/19 11:45 Constitutional: WD/WN, vitals as above Respiratory: normal respiratory effort, lungs clear to auscultation Cardiovascular: RRR, no murmur, no edema Gastrointestinal (Abdomen): normal bowel sounds, soft, nontender, no hepatosplenomegaly Neurologic: moves all extremities Cognitive impairment consistent with his history of dementia Results & Data Vital Signs (Past 12 Hours) Vital Signs Temp Pulse Resp BP BP Pulse Ox 06/20/19 11:45 36.7 C 71 18 131/72 91 06/20/19 07:55 36.6 C 77 18 116/67 94
[2019-06-21] MEDS ORDERED: INSULIN ASPART 100 UNITS/ML 3 ML PEN SC SCH
--- NOTE | 2019-06-22 05:38 | Electrocardiogram Report ---
Test Reason : Blood Pressure : / mmHG Vent. Rate : 075 BPM Atrial Rate : 075 BPM P-R Int : 144 ms QRS Dur : 094 ms QT Int : 426 ms P-R-T Axes : 074 072 -07 degrees QTc Int : 475 ms Normal sinus rhythm Nonspecific T wave abnormality Septal infarct Abnormal ECG When compared with ECG of 19-JUN-2019 17:25, No significant change was found Confirmed by Espinoza Haynes ([id number]) on 06/22/2019 5:38:23 AM Referred By: REFERRED SELF Confirmed By:Espinoza Haynes
--- NOTE | 2019-06-24 23:08 | Discharge Summary ---
Date of Service June 20, 2019 Admission HPI Per Admitting Provider CHIEF COMPLAINT: Chest pain. 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 Following with hematology/oncology and currently in remission, presents with chest pain. The patient lives with his . states they were packing things today and in the evening he complained of chest pain, left sided , 6/10 in severity, nagging pain. No associating factors. Patient recently last Friday [place], [place] and he has dementia and he wrote a note to his that he had chest pain while he was walking to the post office, so that he would not forget to tell her, but after that he seemed okay. Because of this recurring chest pain, he was brought into the ER and his troponin 0.9. EKG showed some T-wave inversions in inferior and anterior leads, he was started on IV heparin in the ER. Currently, resting comfortably and hemodynamically stable. He says he still has some mild nagging pain in the left side of the chest. No shortness of breath, no nausea. Has some mild headache, no dizziness, no cough, no fever, no chills, no runny nose, no sore throat, no cold like symptoms. No earaches, no abdominal pain. Normal bowel and bladder movements. No black stools or bloody stools. No burning micturition, no swelling in the legs, no rash. He sleeps okay. Appetite is good. Ambulates okay in the house without any support. Admission Exam Per Admitting Provider GENERAL: The patient is of moderate build, not in acute distress. VITAL SIGNS: Temperature 36.6, pulse 73, respiratory rate 18, blood pressure 106/70, oxygen 98% on room air. HEENT: No pallor, no icterus. Pupils equal, round, and reactive to light. NECK: No JVD, no neck masses, no carotid bruits. CARDIOVASCULAR: S1, S2 heard, regular rate and rhythm, no murmur, no gallop. RESPIRATORY SYSTEM: Normal AP diameter. No accessory muscle use. No wheezing, no crackles. ABDOMEN: Soft, bowel sounds present, nontender. No distention. CENTRAL NERVOUS SYSTEM: Cranial nerves II-XII grossly intact. Nonfocal. EXTREMITIES: No edema, no erythema. Principal Diagnosis Chest pain: Non-ST elevation WY (NSTEMI): Type 2 diabetes: ASHER Unsteady gait Ribs fracture Lymphoma: Discharge Exam General- No acute distress Head- atraumatic Eyes- PERRL, EOMI, ENT- oropharynx clear Neck- supple, no JVD Lungs- clear to auscultation Heart- regular rhythm; no murmur Abdomen- normal bowel sounds, soft, nontender Extremities- no calf tenderness Neuro- alert, oriented x 3; PERRL, EOMI; no facial palsy; no dysarthria Skin- warm & dry Discharge Data Allergies Allergy/AdvReac Type Severity Reaction Status Date / Time Penicillins Allergy Unknown UNK Verified 06/20/19 21:19 KAVITA Inhibitors AdvReac Intermediate COUGH Verified 06/20/19 21:19 Consultations 06/12/19 21:16 ED Decision to Admit Stat 06/12/19 22:53 Consult Case Management - Discharge Planning Routine 06/13/19 08:00 Consult Cardiology Routine 06/16/19 08:47 Consult Cardiology Routine 06/16/19 08:49 Consult Neurology Routine Procedures Performed Operation Date: 06/14/19 14:15 Actual Procedures s Cineradiography w/Routine Exam - Domingo Contreras MD s Cath, Coronaries ONLY (no LV) - Domingo Contreras MD p Aspiration/PCI w/IK for Stemi - Domingo Contreras MD Ordered Studies 06/12/19 20:01 CT angio chest PE protocol Stat 06/12/19 20:36 CT head/brain wo con Stat 06/14/19 14:09 CL Cath Imgs for PACS use only Routine XR chest 1V portable CLINICAL HISTORY: 73 years-old Male presenting with Chest Pain. TECHNIQUE: Portable upright AP view of the chest was obtained. COMPARISON: 05/06/2018. FINDINGS: Atherosclerosis of the aortic arch. Cardiac silhouette mildly enlarged. Degenerative changes of the glenohumeral joints. Multiple right upper rib fractures may be present, new from prior. Upper abdomen normal. IMPRESSION: 1. Multiple right upper rib fractures may be present. Consider dedicated right rib series. 2. Mild cardiomegaly. ACT 112: Negative or not required by law. Electronically signed by: Wiliam Andujar M.D. 06/12/2019 7:38 PM Dictated: 06/12/191936 Transcribed: 06/12/191936 CT angio chest PE protocol CLINICAL HISTORY: 73 years-old Male presenting with atypical chest pain, possibl e rib fracture on x-ray, clinical concern for pulmonary embolus. TECHNIQUE: Multidetector CT angiography of the chest was performed after administration of intravenous contrast. 3-D volumetric and/or maximum intensity projection (MIP) images were subsequently reconstructed for review. IV contrast: 119 mL of Optiray 320. One or more dose lowering techniques were used consistent with the principles of ALARA (as low as reasonably achievable), including automatic exposure control, mA or kV adjustment to individual patient size, and/or use of iterative reconstruction. COMPARISON: CTA chest from 05/06/2018. CT DOSE (mGy.cm): The estimated cumulative dose is 372.44 mGy.cm. FINDINGS: Biological Aide topogram: Unremarkable. Pulmonary vasculature: The study is adequate for assessment of the pulmonary vascular tree. No filling defect within the pulmonary arteries to suggest embolus. Main pulmonary artery is not enlarged. No flattening of the interventricular septum. No intracardiac filling defect. No reflux of contrast into the hepatic veins. Remaining chest: Soft tissues: Normal thyroid and thoracic inlet. Largely subcentimeter mediastinal and bilateral hilar lymph nodes. The largest nodes are located in the subcarinal region measuring nearly a centimeter in short axis. These are larger than on the prior exam. Atherosclerosis of the aorta. Borderline enlargement of the heart. Coronary artery and aortic valve calcification. Small bilateral pleural effusions. Upper abdomen normal. Lungs and airways: No pneumothorax. Mild diffuse bronchial wall thickening. Central airways patent. Pulmonary artery is minimally enlarged relative to adjacent bronchi. Mild interlobular septal thickening at the apices and lung bases. Mosaic attenuation. Trace centrilobular emphysema may be present. Depend ent groundglass opacities and subpleural dependent solid consolidation, at least in part atelectasis. Musculoskeletal: Multiple subacute to chronic rib fractures at the lateral right third through sixth ribs, the fifth rib fracture in [address]. These fractures are new from prior though not acute appearing. This correlates to the radiographic finding. Additional subacute to chronic left lateral seventh through 11th rib fractures are also new from prior. IMPRESSION: 1. No evidence of pulmonary embolus. 2. Volume overload and congestive change. Some of the dependent groundglass opacity may represent edema rather than atelectasis. 3. Increased prominence of mediastinal and hilar lymph nodes. This is nonspecific though may represent changes related to venolymphatic congestion. Lymphoproliferative or metastatic disease considered much less likely. Attention on follow-up. 4. Small bilateral pleural effusions with passive atelectasis. 5. Multiple bilateral subacute to chronic rib fractures are new since the prior exam and correlate with the radiographic finding. ACT 112: Negative or not required by law. Electronically signed by: Wiliam Andujar M.D. 06/12/2019 8:33 PM Dictated: 06/12/192024 CT head/brain wo con CLINICAL HISTORY: 73 years-old Male presenting with exclude ICH for anticoagulation. TECHNIQUE: Multidetector CT imaging of the head was performed without the use of intravenous contrast. IV contrast: None. One or more dose lowering techniques were used consistent with the principles of ALARA (as low as reasonably achievable), including automatic exposure control, mA or kV adjustment to individual patient size, and/or use of iterative reconstruction. COMPARISON: None. CT DOSE (mGy.cm): The estimated cumulative dose is 537.48 mGy.cm. FINDINGS: Biological Aide topogram: The patient is edentulous. Proportional ventricular and sulcal prominence, likely age-related parenchymal volume loss. No hemorrhage. Focal periventricular white matter hypodensity in the right parietal lobe with apparent intact overlying amador matter. Additional similar-appearing more limited focal periventricular white matter noted in the left temporal occipital region. No acute territorial infarct. No mass effect or midline shift. No extra-axial fluid collection. Paranasal sinuses and mastoid air cells clear. Focal lucent lesion near the confluence of the metopic suture and coronal suture (series 3 image 25), which has a narrow zone of transition, possibly congenital and likely benign. Residual contrast noted in the dural venous sinuses. IMPRESSION: 1. Chronic small vessel ischemic change. No acute intracranial abnormality. 2. No hemorrhage. ACT 112: Negative or not required by law. Electronically signed by: Wiliam Andujar M.D. 06/12/2019 9:08 PM Dictated: 06/12/192103 Transcribed: 06/12/192103 Hospital Course (1) Chest pain: (2) Non-ST elevation WY (NSTEMI): Presented on admission with chest pain Had emergent cardiac cath done on 06/14/2019, for non-ST elevated WY, substernal chest pain unstable angina Cardiac cath showed severe coronary artery disease with calcification thrombus on coronaries 90% narrowing with thrombus CA +2 in the LAD Successful PCI to LAD with drug-eluting stent Medication management recommended for complex calcified ostial RCA. Troponin elevation noted, possible secondary to cardiac cath/procedure, Troponin trending down Imdur added and would titrate up to relieve CP If unable to adequately control anginal chest pain, can consider high risk PCI t o RCA for anginal relief (will need to transfer to a tertiary facility) Cardiology on board ECHO showed significant wall motion abnormality on septal and anterior wall with reduced ejection fx of 30% Continue dual antiplatelet with aspirin and Plavix uninterrupted for 1 year Continue metoprolol, Imdur, furosemide, losartan, atorvastatin. OK from cardiology standpoint to discharge home Will need referral to cardiac rehab Type 2 diabetes: Hypoglycemic episode with blood sugar 51 noted this morning, patient remains asymptomatic Most recent Hemoglobin A1c 11 on 06/13/2019 Long-acting Lantus discontinued Continue insulin sliding scale Pharmacy on board for glycemic management Continue monitor BS ASHER Creatinine increased to 1.7 On Gentle hydration Monitor closely for fluid overload Creatinine improved to 1.2 Avoid nephrotoxic agents Monitor BMP Unsteady gait Fall precaution PT recommended to use a cane and walker with ambulation Ribs fracture CT chest showed multiple subacute to chronic rib fractures at the lateral right third through sixth ribs, the fifth rib fracture in 2 places. Subacute to chronic left lateral seventh through 11th rib fractures are also new from prior. Continue PT/OT with home health services Fall precaution (3) Lymphoma: CT showed increased prominence of mediastinal and hilar lymph nodes. Will need outpatient follow up Total Time Total Time Spent Total Time Spent (In Minutes): 35 minutes Total Time Includes: Examination of the Patient, Discharge Planning, Medication Reconciliation, Communication With Other Providers and Other Discharge Plan Discharge Items Patient Disposition: Home - Home Health Services Reason For Visit: CHEST PAIN Discharge Diagnosis: Chest pain: Non-ST elevation WY (NSTEMI): Type 2 diabetes: ASHER Unsteady gait Ribs fracture Lymphoma: Activity: Resume your previous activity Non-emergency contact: Primary Care Provider and Salesperson [employer] Call non-emergency contact if: you have any medication questions and your symptoms worsen Follow-up/Referrals: Holland Brooke DO [[employer]person [employer]] - 07/07/19 10:45 am (06/21/19 @ 8:57 LM WITH FOLLOW-UP APPT DATE,TIME AND WITH DR. BROOKE AT [facility]) Morgna Pimentel DO [Primary Care Provider] - 06/28/19 1:05 pm (06/21/19 @ 8:57am- LM WITH FOLLOW-UP APPT DATE AND TIME WITH DR. PIMENTEL) Diet: Carb Consistent or DM2 and Heart Healthy Addtl Attending Provider Instructions: Follow up with your primary care provider Dr. Pimentel within 1 week Follow up with your cardiology in 2 to 4 weeks Continue physical and occupation therapy with home health services Check BMP in 1 week to monitor your electrolytes and renal function Fall precaution Please use a walker or a cane with ambulation Continue aspirin and plavix uninterrupted for 1 year Monitor for abnormal bleeding while on aspirin and plavix (Please notify your physician or seek medical attention if you develop any bleeding) Continue monitor your blood sugar and bring your blood sugar reading at your next appointment with your physician Your physician will refer you for cardiac rehab Your Cat scan showed enlarge lymph node, your physician will need to continue monitor the lymph node Pending Studies at Discharge: No Stand-Alone Forms: My Accumulate, Smoking Cessation Medications and DC Order Prescriptions: New isosorbide mononitrate 30 mg Tablet Extended Release 24 Hr 30 mg PO QAM 30 Days Qty: 30 RF: 0 nitroglycerin [Nitrostat] 0.4 mg Tablet, Sublingual 0.4 mg sublingual UD PRN (Reason: chest pain) Qty: 30 RF: 0 furosemide 20 mg Tablet 20 mg PO QAM 30 Days Qty: 30 RF: 0 metoprolol succinate 25 mg Tablet Extended Release 24 Hr 25 mg PO QAM 30 Days Qty: 30 RF: 0 Continued atorvastatin 80 mg Tablet 80 mg PO QAM RF: 0 escitalopram oxalate [Lexapro] 20 mg Tablet 20 mg PO QAM RF: 0 donepezil 5 mg Tablet 5 mg PO QAM RF: 0 clopidogrel 75 mg Tablet 75 mg PO QAM RF: 0 losartan 100 mg Tablet 100 mg PO QAM RF: 0 Lantus Solostar U-100 Insulin 100 unit/mL (3 mL) Insulin Pen 50 unit SUBCUT QAM RF: 0 turmeric root extract 500 mg Capsule 500 mg PO DAILY PRN (Reason: immune system boost) RF: 0 metformin 500 mg tablet extended release 24 hr 500 mg PO QAM RF: 0 finasteride 5 mg tablet 5 mg PO QAM RF: 0 sennosides-docusate sodium [Senokot-S] 8.6-50 mg tablet 2 tab PO BID PRN (Reason: Constipation) RF: 0 aspirin 81 mg Tablet,Delayed Release (Dr/Ec) 81 mg PO QAM 30 Days Qty: 30 RF: 0 Discharge Orders: Discharge Order (Routine); Ordered 06/20/19 Ordered By: Gabino Lux Admission Data Admit Date/Time: 06/12/19 21:57 Attending Provider: Gabino Lux Admit Provider: Luther Perdomo Primary Care Provider: Morgan Pimentel Other Providers: Luther Perdomo ; Holland Brooke ; Marni Ashraf ; Domingo Contreras ; Lien Boyd ; Harry Miramontes ; Lien Mendenhall ; Smith Dial ; [facility] Other Interventions: Discharge Summary Assessment (RN) Last Done: 06/19/19 13:47 DC Date/Time DO NOT enter until pt leaves facility: 06/20/19 15:57
== END 2019-06-20 15:57 | disposition home health service (06) | DRG 247 ==
LOC: ED 19:10 → SUATTDRO 21:57 → 2S 21:57
PROC: CLB.CCO (2019-06-14 14:15)

== ENCOUNTER 2019-12-25 14:52 | Inpatient (IN) ==
[2019-12-25] MEDS ORDERED: SODIUM CHLORIDE 0.9% 1000ML 1,000 ML IV ONE (15:41)
[2019-12-25 16:22] LABS: Basophils # (auto) 0.03 K/uL (0-0.2); Basophils % (auto) 0.2 %; Eosinophils # (auto) 0.09 K/uL (0-0.5); Eosinophils % (auto) 0.6 %; Hematocrit (blood only) 38.6 % (42-52); Hemoglobin 12.9 g/dL (14.0-18.0); Immature Granulocytes # (auto) 0.03 K/uL (0.00-0.02); Immature Granulocytes % (auto) 0.2 %; Lymphocytes % (auto) 9.2 %; Mean Corpuscular Hemoglobin 30.4 pg (25-34); Mean Corpuscular Hgb Conc 33.4 g/dL (32-36); Mean Platelet Volume 8.8 fL (7.4-10.4); Monocytes # (auto) 0.78 K/uL (0.11-0.59); Monocytes % (auto) 5.1 %; Neutrophils # (auto) 12.94 K/uL (1.4-6.5); Neutrophils % (auto) 84.7 %; Platelet Count 487 K/uL (130-400); RDW Coefficient of Variation 12.7 % (11.5-14.5); RDW Standard Deviation 42.6 fL (36.4-46.3); Red Blood Count 4.24 M/uL (4.7-6.1); White Blood Count 15.27 K/uL (4.8-10.8)
--- NOTE | 2019-12-25 16:37 | CT Scan Report ---
CT SCAN OF THE BRAIN WITHOUT IV CONTRAST CLINICAL HISTORY: Syncope. COMPARISON STUDY: CT of the brain dated 12/16/2019. TECHNIQUE: Unenhanced axial CT scan of the brain is performed from the vertex to the skull base. A do se lowering technique was utilized adhering to the principles of ALARA. CT DOSE: 1074.96 mGy.cm FINDINGS: Brain parenchyma: There are age-related involutional changes noting mild subcortical and periventric ular microangiopathic change. A focus of right parietal encephalomalacia is unchanged and consistent with a remote insult. There is no hemorrhage, mass effect, or evidence of acute territorial ischemia by CT criteria. Fernandez-white matter differentiation is preserved. No extra-axial fluid collection is se en. Ventricles, sulci, cisterns: Prominent secondary to involutional change. Intracranial vasculature: There is atherosclerotic calcification of the cavernous carotid and vertebr al arteries. Calvarium: A benign-appearing sclerotic lesion centered in the anterior frontal bone is unchanged fro m previous. The skeletal structures are osteopenic. No depressed calvarial fracture is identified. Sinuses and mastoids: The visualized paranasal sinuses are clear. The mastoid air cells are well pneu matized. Orbits: The bony orbits are grossly intact. IMPRESSION: There is no hemorrhage, mass effect, or evidence of acute territorial ischemia by CT brandon lawler. ACT 112: Negative or not required by law. Electronically signed by: Alistair Gavin M.D. 12/25/2019 4:36 PM
[2019-12-25 16:38] LABS: INR 1.1 (0.9-1.1); Partial Thromboplastin Ratio 1.1; Partial Thromboplastin Time 30.7 Seconds (21.0-31.0); Prothrombin Time 11.7 Seconds (9.0-12.0)
[2019-12-25 16:39] LABS: Alanine Aminotransferase 19 U/L (12-78); Albumin Level 2.9 gm/dl (3.4-5.0); Aspartate Aminotransferase 13 U/L (15-37); BUN Creatinine Ratio 19.9 (10-20); Blood Urea Nitrogen 18 mg/dl (7-18); Calcium 9.2 mg/dl (8.5-10.1); Carbon Dioxide 29 mmol/L (21-32); Chloride 102 mmol/L (98-107); Creatinine Clr Calc Pharmacy 74.3 ml/min; Est GFR (African American) 97.2; Est GFR (Non-African American) 83.9; Glucose 159 mg/dl (70-99); Lipase 39 U/L (73-393); Magnesium 1.9 mg/dl (1.8-2.4); Potassium 4.5 mmol/L (3.5-5.1); Sodium 137 mmol/L (136-145)
[2019-12-25 16:50] LABS: Albumin Globulin Ratio 0.6 (0.9-2); Alkaline Phosphatase 83 U/L (45-117); Bilirubin,Total 0.5 mg/dl (0.2-1); Globulin 4.5 gm/dl (2.5-4.0); Phosphorus 2.9 mg/dl (2.5-4.9); Total Protein 7.4 gm/dl (6.4-8.2); Troponin I < 0.015 ng/ml (0-0.045)
--- NOTE | 2019-12-25 16:58 | Electrocardiogram Report ---
Test Reason : Blood Pressure : / mmHG Vent. Rate : 080 BPM Atrial Rate : 080 BPM P-R Int : 136 ms QRS Dur : 080 ms QT Int : 400 ms P-R-T Axes : 077 030 041 degrees QTc Int : 461 ms Normal sinus rhythm Normal ECG When compared with ECG of 20-JUN-2019 19:41, T wave inversion no longer evident in Inferior leads T wave amplitude has increased in Anterolateral leads Confirmed by Matthias Rizo ([id number]) on 12/25/2019 4:58:25 PM Referred By: REFERRED SELF Confirmed By:Panchito Rizo
--- NOTE | 2019-12-25 17:09 | XRay Report ---
SINGLE VIEW CHEST CLINICAL HISTORY: Atypical chest pain. FINDINGS: 2 AP, portable, upright chest radiographs are compared to study dated 06/20/2019 and correla cliff with chest CT dated 06/12/2019. The examination is degraded by portable technique and patient rotat ion. The heart is top normal for projection noting atherosclerotic calcification of the thoracic aort a. The pulmonary vasculature is noncongested. Emphysema and chronic interstitial thickening is simila r to previous. No airspace consolidation or large pleural effusion is identified. No pneumothorax is seen. The skeletal structures are osteopenic. There are numerous healed bilateral rib fractures. A st ent is noted in the left carotid artery. IMPRESSION: Emphysematous change with no acute cardiopulmonary abnormality. ACT 112: Negative or not required by law. Electronically signed by: Alistair Gavin M.D. 12/25/2019 5:08 PM
--- NOTE | 2019-12-25 17:10 | XRay Report ---
RIGHT FOOT 3 VIEWS CLINICAL HISTORY: Ulcers. Heel pain. FINDINGS: 3 views of the right foot are obtained. No prior studies are available for comparison at th e time of dictation. The skeletal structures are heterogeneously osteopenic. No fracture is seen. The re is no bony erosion or periostitis. Mild osteoarthritic change is noted in the first metatarsophala ngeal joint and throughout the midfoot. Mild soft tissue edema overlies the heel. There is advanced a therosclerotic calcification of the regional arteries. IMPRESSION: 1. No acute bony abnormality is identified. 2. Soft tissue edema overlies the heel. Electronically signed by: Alistair Gavin M.D. 12/25/2019 5:09 PM
--- NOTE | 2019-12-25 17:43 | Emergency Department Note ---
Impression & Plan Generalized weakness, Dementia, PAD (peripheral artery disease), Chronic heel ulcer ED Provider Note NAME: ESTRELLA CAMARENA AGE: 74 SEX: M ARRIVES VIA: Ambulance INFORMANT: , ED PROVIDER(S): Milan Franco MD CHIEF COMPLAINT: Weakness, Chronic BLE wounds PLAN: Disposition: Admit MEDICAL DECISION MAKING: The patient is a pleasant 74 a gentleman with a past medical history of dementia, DM 2, hypertension, hyperlipidemia, carotid stenosis, dementia, history of diffuse large B-cell lymphoma, CAD with h/o NSTEMI s/p PCI 06/14/2019 who presents emergency department accompanied by his concern for generalized weakness with near syncope in the setting of the patient's dementia where the patient's reports he is growing more more difficult to manage safely at home. When discussing the patient's worsening dementia and functional status she quickly becomes tearful and appears somewhat hopeless and relates that "she does not know what to do". Further relates that the patient has been following with wound care for chronic lower extremity ulcers but that there is new concern for worsening of right lateral heel ulcers. She reports a culture was performed on his last visit. She does report that the patient's diarrhea has improved and nearly resolved with only 1 bowel movement per day but she reports that he frequently will stool himself in the setting of his dementia which complicates his ability be managed at home. He is almost completed his course of oral vancomycin and despite being seen previously for episodes of low blood sugar these have been stable after insulin adjustments. On arrival, the patient is fatigued appearing but no acute distress, afebrile stable vital signs. He appears clinically dry. He otherwise has no complaints. Abdomen is benign. He moves all extremities equally without any focal neuro deficits. Scattered BLE leg ulcers with largesst of right lateral heel measuring ~4cm with central eschar, mild surround erythema and tenderness. No crepitus. EKG without overt acute ischemia. Chest x-ray negative acute process. WBC 15.2, nonspecific but increased from prior. H/H 12.9/38.6 improved from prior. Platelets 487 similar to prior. ESR and CRP are elevated at 69 and 5, respectively. Chemistry without acidosis. Electrolytes and LFTs unremarkable. Troponin negative/undetectable. CT head negative. Plain film of the right foot without any evidence of osseous involvement per plain film. In the patient's worsening functional status at home as well as clinical findings that suggest at a minimum worsening cellulitis/ulcer will proceed with admission for further evaluation/management and possible placement. The patient's is agreeable and grateful for this. Will defer antibiotics to admitting team given the patient's history of C. difficile. Recent wound cultures have grown pansensitive Klebsiella oxytoca and group B beta strep with sensitivities pending. Case was discussed with Roshan Ramirez PAC, with Dr. Timmy Islas hospitalist who will evaluate the patient for admission. Triage Nursing notes reviewed and agree them. Prior medical records reviewed: wound cx from 12/23/2019 grew Kebsiella oxytoca (pansensitive) and Group B Beta strep (sensitivities pending) Vital Signs: reviewed and remarkable for no significant abnormalities Differential diagnosis: Infection, dehydration, metabolic abnormality, hypo/hyperglycemia, electrolyte disturbance, anemia, hypoxia, cardiac sources, intracerebral event, toxicologic, neurologic, as well as other pathologies. ER treatment provided: See below. Diagnostics interpreted by me: ECG: Normal sinus rhythm, 80 bpm, no ectopy, no overt ST elevation or depression, QTC 461, QRS 80. Cardiac Monitoring: An order for continuous cardiac monitoring was placed and demonstrated sinus rhythm, 80 bpm, no ectopy. Laboratory studies: See below Imaging studies: CT SCAN OF THE BRAIN WITHOUT IV CONTRAST CLINICAL HISTORY: Syncope. COMPARISON STUDY: CT of the brain dated 12/16/2019. TECHNIQUE: Unenhanced axial CT scan of the brain is performed from the vertex to the skull base. A dose lowering technique was utilized adhering to the principles of ALARA. CT DOSE: 1074.96 mGy.cm FINDINGS: Brain parenchyma: There are age-related involutional changes noting mild subcortical and periventricular microangiopathic change. A focus of right parietal encephalomalacia is unchanged and consistent with a remote insult. There is no hemorrhage, mass effect, or evidence of acute territorial ischemia by CT criteria. Fernandez-white matter differentiation is preserved. No extra-axial fluid collection is seen. Ventricles, sulci, cisterns: Prominent secondary to involutional change. Intracranial vasculature: There is atherosclerotic calcification of the cavernous carotid and vertebral arteries. Calvarium: A benign-appearing sclerotic lesion centered in the anterior frontal bone is unchanged from previous. The skeletal structures are osteopenic. No depressed calvarial fracture is identified. Sinuses and mastoids: The visualized paranasal sinuses are clear. The mastoid air cells are well pneumatized. Orbits: The bony orbits are grossly intact. IMPRESSION: There is no hemorrhage, mass effect, or evidence of acute territorial ischemia by CT criteria. - SINGLE VIEW CHEST CLINICAL HISTORY: Atypical chest pain. FINDINGS: 2 AP, portable, upright chest radiographs are compared to study dated 06/20/2019 and correlated with chest CT dated 06/12/2019. The examination is deg raded by portable technique and patient rotation. The heart is top normal for projection noting atherosclerotic calcification of the thoracic aorta. The pulmonary vasculature is noncongested. Emphysema and chronic interstitial thickening is similar to previous. No airspace consolidation or large pleural effusion is identified. No pneumothorax is seen. The skeletal structures are osteopenic. There are numerous healed bilateral rib fractures. A stent is noted in the left carotid artery. IMPRESSION: Emphysematous change with no acute cardiopulmonary abnormality. - RIGHT FOOT 3 VIEWS CLINICAL HISTORY: Ulcers. Heel pain. FINDINGS: 3 views of the right foot are obtained. No prior studies are available for comparison at the time of dictation. The skeletal structures are heterogeneously osteopenic. No fracture is seen. There is no bony erosion or periostitis. Mild osteoarthritic change is noted in the first metatarsophalangeal joint and throughout the midfoot. Mild soft tissue edema overlies the heel. There is advanced atherosclerotic calcification of the regional arteries. IMPRESSION: 1. No acute bony abnormality is identified. 2. Soft tissue edema overlies the heel. Consultation(s): Case was discussed with Roshan Ramirez PAC, with Dr. Timmy Islas hospitalist who will evaluate the patient for admission. HPI: The patient is a pleasant 74 a gentleman with a past medical history of dementia, DM 2, hypertension, hyperlipidemia, carotid stenosis, dementia, history of diffuse large B-cell lymphoma, CAD with h/o NSTEMI s/p PCI 06/14/2019 who presents emergency department accompanied by his concern for gener alized weakness with near syncope in the setting of the patient's dementia where the patient's reports he is growing more more difficult to manage safely at home. When discussing the patient's worsening dementia and functional status she quickly becomes tearful and appears somewhat hopeless and relates that "she does not know what to do". Further relates that the patient has been following with wound care for chronic lower extremity ulcers but that there is new concern for worsening of right lateral heel ulcers. She reports a culture was performed on his last visit. She does report that the patient's diarrhea has improved and nearly resolved with only 1 bowel movement per day but she reports that he frequently will stool himself in the setting of his dementia which complicates his ability be managed at home. He is almost completed his course of oral vancomycin and despite being seen previously for episodes of low blood sugar these have been stable after insulin adjustments. ROS: See above HPI for pertinent positives & negatives. A total of 10 systems reviewed and were otherwise negative. PAST MEDICAL HISTORY:See Below PAST SURGICAL HISTORY:See Below FAMILY HISTORY:See Below SOCIAL HISTORY:See Below HOME MEDICATIONS:See Below ALLERGIES:See Below VITALS:See Below PHYSICAL EXAMINATION: GENERAL: Awake, alert, fatigued-appearing, in no distress HENT: Normocephalic, atraumatic. Oropharynx with dry mucous membranes and otherwise unremarkable. . EYES: Normal conjunctiva. Sclera non-icteric. NECK: Supple. No nuchal rigidity. FROM. No JVD. RESPIRATORY: Clear to auscultation. CARDIAC: Regular rate, normal rhythm. Extremities warm and well perfused. Pulses equal. ABDOMEN: Soft, non-distended. No tenderness to palpation. No rebound or guarding. No masses. RECTAL: Deferred. MUSCULOSKELETAL: Chest examination reveals no tenderness. The back is symmetrical on inspection without obvious abnormality. There is no CVA tenderness to palpation. No joint edema. LOWER EXTREMITIES: Calves are equal size bilaterally and non-tender. Scattered BLE leg ulcers with largesst of right lateral heel measuring ~4cm with central eschar, mild surround erythema and tenderness. No crepitus. NEURO: Normal sensorium. No focal sensory or motor deficits noted. 5/5 strength and SILT x 4 extremities. SKIN: No rash or jaundice noted. Milan Franco MD Past Med/Surg History Medical History Carotid artery disease Chest pain on exertion (11/08/13) Dementia DM (diabetes mellitus) HTN (hypertension) Hyperglycemia Hyperlipemia Hypoglycemia Ischemic cardiomyopathy Non-ST elevation WI (NSTEMI) Open wound Slurred speech Type 2 diabetes mellitus, with long-term current use of insulin Vascular disease Vascular disease Surgical History History of colonoscopy History of repair of ACL Family History Other Family history non-contributory Social History Smoking Status: Former smoker Second Hand Exposure: No; Hx Alcohol Use: Yes Alcohol type: beer and wine Hx Substance Use: No Preferred Language: Surinamese Communication Ability: Effective Auto Body Repairman Required: No Beliefs That Will Affect Care: None Current Living Situation: Spouse Current Living Situation Comment: lives with in home with 1 step to enter and 7 steps inside Other Information That Helps Us Care for You: No Feels Safe at Home: Yes Safety Concerns: Feels Safe At This Time Allergies Allergies Allergy/AdvReac Type Severity Reaction Status Date / Time Penicillins Allergy Unknown UNK Verified 12/25/19 17:36 KAVITA Inhibitors AdvReac Intermediate COUGH Verified 12/25/19 17:36 Home Meds Home Medications Medication Instructions Recorded Confirmed atorvastatin 80 mg PO QAM 05/06/18 12/25/19 clopidogrel 75 mg PO QAM 05/06/18 12/25/19 donepezil 5 mg PO QAM 05/06/18 12/25/19 escitalopram oxalate [Lexapro] 20 mg PO QAM 05/06/18 12/25/19 turmeric root extract 500 mg PO DAILY 05/06/18 12/25/19 metformin 500 mg PO QAM 04/14/19 12/25/19 finasteride 5 mg PO QAM 06/12/19 12/25/19 insulin glargine 100 unit/mL (3 26 unit SUBCUT QAM ml 11/29/19 12/25/19 mL) subcutaneous pen insulin aspart U-100 0 unit SUBCUT UD 12/16/19 12/25/19 isosorbide mononitrate 30 mg PO DAILY 12/16/19 12/25/19 metoprolol succinate 25 mg PO DAILY 12/16/19 12/25/19 polyethylene glycol 3350 [Miralax] 17 g PO DAILY 12/16/19 12/25/19 psyllium husk (with sugar) 1 tsp PO DAILY 12/16/19 12/25/19 [Metamucil Free] risperidone 0.25 mg PO DAILY PRN 12/16/19 12/25/19 sennosides [senna] 8.6 mg PO HS 12/16/19 12/25/19 acidophilus-pectin, citrus 1 cap PO TIDM 12/25/19 12/25/19 [Acidophilus Probiotic] hydroxyzine HCl 10 mg PO Q8 12/25/19 12/25/19 vancomycin 125 mg PO Q6H 12/25/19 12/25/19 Previous Rx's Medication Instructions Recorded aspirin 81 mg PO QAM 30 Days #30 tab 06/19/19 nitroglycerin [Nitrostat] 0.4 mg SUBLINGUAL UD PRN #30 tab 06/19/19 Results & Data (ED) Vital Signs Vital Signs - 24 hr 12/25/19 14:57 12/25/19 15:00 12/25/19 15:30 Temperature 36.7 C Temperature Source Oral Pulse Rate 84 78 74 Pulse Rate [Apical] Pulse Rate from SpO2 Sensor 77 75 Respiratory Rate 16 17 18 Respiratory Effort / Characteristics Non-Labored Spontaneous Respiratory Depth Normal Respiratory Pattern Regular Blood Pressure 165/75 H 165/75 H 154/77 H Blood Pressure [Right Arm] Blood Pressure Mean 105 110 120 Blood Pressure Mean [Right Arm] Blood Pressure Position Lying Pulse Oximetry 97 96 94 Oxygen Delivery Method Room Air Sepsis Recent Fever Within 48 Hours No Sepsis New/Unexplained Change in Mental Status No Sepsis Action Taken by Nursing No Action Required 12/25/19 15:43 12/25/19 16:10 12/25/19 16:11 Temperature Temperature Source Pulse Rate 74 Pulse Rate [Apical] 74 Pulse Rate from SpO2 Sensor 74 Respiratory Rate 19 18 Respiratory Effort / Characteristics Respiratory Depth Respiratory Pattern Blood Pressure 152/73 H Blood Pressure [Right Arm] 152/73 H Blood Pressure Mean 123 Blood Pressure Mean [Right Arm] 99 Blood Pressure Position Pulse Oximetry 96 93 93 Oxygen Delivery Method Room Air Room Air Sepsis Recent Fever Within 48 Hours Sepsis New/Unexplained Change in Mental Status Sepsis Action Taken by Nursing 12/25/19 16:41 12/25/19 17:01 12/25/19 17:31 Temperature Temperature Source Pulse Rate 78 84 77 Pulse Rate [Apical] Pulse Rate from SpO2 Sensor 77 83 77 Respiratory Rate 18 17 15 Respiratory Effort / Characteristics Respiratory Depth Respiratory Pattern Blood Pressure 175/81 H 181/84 H 136/70 Blood Pressure [Right Arm] Blood Pressure Mean 124 99 96 Blood Pressure Mean [Right Arm] Blood Pressure Position Pulse Oximetry 95 97 96 Oxygen Delivery Method Sepsis Recent Fever Within 48 Hours Sepsis New/Unexplained Change in Mental Status Sepsis Action Taken by Nursing 12/25/19 18:00 Temperature Temperature Source Pulse Rate 77 Pulse Rate [Apical] Pulse Rate from SpO2 Sensor 76 Respiratory Rate 16 Respiratory Effort / Characteristics Respiratory Depth Respiratory Pattern Blood Pressure 160/81 H Blood Pressure [Right Arm] Blood Pressure Mean 122 Blood Pressure Mean [Right Arm] Blood Pressure Position Pulse Oximetry 95 Oxygen Delivery Method Sepsis Recent Fever Within 48 Hours Sepsis New/Unexplained Change in Mental Status Sepsis Action Taken by Nursing Laboratory Data Attestation: I reviewed the patient's lab results. Result diagrams: 12/25/19 16:10 12/25/19 16:10 Lab Results 12/25/19 12/25/19 12/25/19 Range/Units 16:10 16:10 16:10 WBC 15.27 H (4.8-10.8) K/uL RBC 4.24 L (4.7-6.1) M/uL Hgb 12.9 L (14.0-18.0) g/dL Hct 38.6 L (42-52) % MCV 91.0 (80-100) fL MCH 30.4 (25-34) pg MCHC 33.4 (32-36) g/dL RDW Std Deviation 42.6 (36.4-46.3) fL RDW Coeff of Lolly 12.7 (11.5-14.5) % Plt Count 487 H (130-400) K/uL MPV 8.8 (7.4-10.4) fL Immature Gran % (Auto) 0.2 % Neut % (Auto) 84.7 % Lymph % (Auto) 9.2 % Haines % (Auto) 5.1 % Eos % (Auto) 0.6 % Baso % (Auto) 0.2 % Neut # (Auto) 12.94 H (1.4-6.5) K/uL Lymph # (Auto) 1.40 (1.2-3.4) K/uL Haines # (Auto) 0.78 H (0.11-0.59) K/uL Eos # (Auto) 0.09 (0-0.5) K/uL Baso # (Auto) 0.03 (0-0.2) K/uL Immature Gran # (Auto) 0.03 H (0.00-0.02) K/uL ESR (0-14) mm/hr PT 11.7 (9.0-12.0) Seconds INR 1.1 (0.9-1.1) APTT 30.7 (21.0-31.0) Seconds PTT Ratio 1.1 Sodium 137 (136-145) mmol/L Potassium 4.5 (3.5-5.1) mmol/L Chloride 102 (98-107) mmol/L Carbon Dioxide 29 (21-32) mmol/L Anion Gap 7.0 (3-11) BUN 18 (7-18) mg/dl Creatinine 0.91 (0.6-1.4) mg/dl Est Cr Clr Drug Dosing 74.3 ml/min Est GFR ( Amer) 97.2 Est GFR (Non-Af Amer) 83.9 BUN/Creatinine Ratio 19.9 (10-20) Glucose 159 H (70-99) mg/dl Calcium 9.2 (8.5-10.1) mg/dl Phosphorus 2.9 (2.5-4.9) mg/dl Magnesium 1.9 (1.8-2.4) mg/dl Total Bilirubin 0.5 (0.2-1) mg/dl AST 13 L (15-37) U/L ALT 19 (12-78) U/L Alkaline Phosphatase 83 (45-117) U/L Troponin I < 0.015 (0-0.045) ng/ml C-Reactive Protein (0-0.29) mg/dl Total Protein 7.4 (6.4-8.2) gm/dl Albumin 2.9 L (3.4-5.0) gm/dl Globulin 4.5 H (2.5-4.0) gm/dl Albumin/Globulin Ratio 0.6 L (0.9-2) Lipase 39 L (73-393) U/L TSH 1.960 (0.300-4.500) uIu/ml 12/25/19 12/25/19 Range/Units 16:16 16:16 WBC (4.8-10.8) K/uL RBC (4.7-6.1) M/uL Hgb (14.0-18.0) g/dL Hct (42-52) % MCV (80-100) fL MCH (25-34) pg MCHC (32-36) g/dL RDW Std Deviation (36.4-46.3) fL RDW Coeff of Lolly (11.5-14.5) % Plt Count (130-400) K/uL MPV (7.4-10.4) fL Immature Gran % (Auto) % Neut % (Auto) % Lymph % (Auto) % Haines % (Auto) % Eos % (Auto) % Baso % (Auto) % Neut # (Auto) (1.4-6.5) K/uL Lymph # (Auto) (1.2-3.4) K/uL Haines # (Auto) (0.11-0.59) K/uL Eos # (Auto) (0-0.5) K/uL Baso # (Auto) (0-0.2) K/uL Immature Gran # (Auto) (0.00-0.02) K/uL ESR 69 H (0-14) mm/hr PT (9.0-12.0) Seconds INR (0.9-1.1) APTT (21.0-31.0) Seconds PTT Ratio Sodium (136-145) mmol/L Potassium (3.5-5.1) mmol/L Chloride (98-107) mmol/L Carbon Dioxide (21-32) mmol/L Anion Gap (3-11) BUN (7-18) mg/dl Creatinine (0.6-1.4) mg/dl Est Cr Clr Drug Dosing ml/min Est GFR ( Amer) Est GFR (Non-Af Amer) BUN/Creatinine Ratio (10-20) Glucose (70-99) mg/dl Calcium (8.5-10.1) mg/dl Phosphorus (2.5-4.9) mg/dl Magnesium (1.8-2.4) mg/dl Total Bilirubin (0.2-1) mg/dl AST (15-37) U/L ALT (12-78) U/L Alkaline Phosphatase (45-117) U/L Troponin I (0-0.045) ng/ml C-Reactive Protein 5.03 H (0-0.29) mg/dl Total Protein (6.4-8.2) gm/dl Albumin (3.4-5.0) gm/dl Globulin (2.5-4.0) gm/dl Albumin/Globulin Ratio (0.9-2) Lipase (73-393) U/L TSH (0.300-4.500) uIu/ml Administered Medications Heparin Sodium (Porcine) (Heparin Sod 5,000 Unit/0.5 Ml Vial) 5,000 units SQ Q12 GISELL Stop: 01/24/20 20:59 Last Admin: 12/25/19 21:33 Dose: 5,000 units Documented by: [id number] Cosigned by: [id number] Sodium Chloride (Nss 1000ml) 1,000 mls @ 80 mls/hr IV .[id number] GISELL Stop: 12/26/19 20:13 Last Admin: 12/25/19 21:30 Dose: 80 mls/hr Documented by: [id number] Cefepime HCl 2,000 mg/ Syringe 20 mls @ 5 mls/min IV Q12H GISELL Stop: 01/01/20 21:59 Last Admin: 12/25/19 21:46 Dose: 5 mls/min Documented by: [id number] Insulin Aspart (Insulin Aspart 100 Units/Ml 3 Ml Pen) 0 units SC ACHS GISELL Stop: 01/24/20 20:59 Last Admin: 12/25/19 21:34 Dose: Not Given Documented by: [id number] Cosigned by: [id number] Insulin Glargine (Insulin Glargine Solostar 100 Units/Ml 3 Ml Pen) 12 units SC BID GISELL Stop: 01/24/20 20:59 Last Admin: 12/25/19 21:33 Dose: 12 units Documented by: [id number] Cosigned by: [id number] Metronidazole (Metronidazole 500 Mg Tab) 500 mg PO TID GISELL; Protocol Stop: 01/01/20 21:59 Last Admin: 12/25/19 21:46 Dose: 500 mg Documented by: [id number] Discontinued Medications Sodium Chloride (Nss 1000ml) 1,000 mls @ 999 mls/hr IV .[id number] ONE Stop: 12/25/19 16:41 Last Infusion: 12/25/19 17:20 Dose: 0 mls/hr Documented by: [id number] Admin: 12/25/19 16:11 Dose: 999 mls/hr Documented by: [id number] Blood Pressure Blood Pressure Findings: Elevated blood pressure Blood Pressure Disposition: elevated BP felt to be situational Discharge Plan Visit Data Chief Complaint: Weakness ED Provider: Milan Franco Discharge Problem: Generalized weakness, Dementia, PAD (peripheral artery disease), Chronic heel ulcer Patient Disposition: Admitted As Inpatient Discharge Instructions Interventions: ED Discharge Assessment Last Done: 12/25/19 19:53
[2019-12-25] MEDS ORDERED: NON-FORMULARY MEDICATION (Vancomycin 125 MG) PO SCH (18:47)
--- NOTE | 2019-12-25 19:07 | History & Physical Report ---
Date of Service December 25, 2019 Assessment & Plan (1) Weakness: (2) Confusion: (3) Dementia: Patient is a complicated 74 yo male with increasing confusion and weakness per his . He has many possible contributing factors including dementia, chronic right heel ulceration which appears acutely infected, C Diff colitis, etc. Patient will be admitted for Observation. Full code per discussion with patient and his . He does have a living will. The patient likely will benefit from increased care at home or consideration of placement for further care. Renal function stable. Gentle hydration with NSS 80ml/hr Fall precautions. Urine sample pending collection- possible contributing factor still could include UTI. (4) Chronic heel ulcer: (5) Arterial leg ulcer: (6) PAD (peripheral artery disease): Patient's right heel ulceration is acutely tender to the touch and erythematous. Wound care images reviewed from 12/21. Appears relatively stable, but still concern for underlying infection. Recent culture grew Klebsiella and Group B strep (pending sensitivities) ESR, CRP, and WBC count elevated. Foot XR was unrevealing. Concern for possible osteo. Check MRI foot ID Consult Wound care nurse consult Start IV Zosyn pending ID opinion. (7) C. difficile colitis: C. Diff has been improving per the patient's . Due to use of IV abx, recommend continuing PO Vancomycin 125 mg QID. Consider longer course pending continued need for abx. Continue probiotic. Deescalate abx when able. Await ID opinion (8) Carotid artery disease: (9) History of non-ST elevation myocardial infarction (NSTEMI): (10) Hyperlipidemia: Continue Atorvastatin, ASA, Plavix. Recheck Lipids in AM Consider repeat Arterial Doppler of RLE especially (11) Hypertension: Continue Metoprolol. Monitor BP. History of problems with hypotension per his - monitor closely (12) Type 2 diabetes mellitus, with long-term current use of insulin: Stop Metformin. Insulin while inpatient. Repeat A1C in AM (13) History of lymphoma: Scheduled for PET-CT as an outpatient. No further management at this time. (14) DVT prophylaxis: Heparin Q12h History of Present Illness Chief Complaint: Weakness, confusion Primary Care Provider: Corina Strong MD Patient is a 74 yo male with a complex past medical history including DM Type 2, chronic bilateral lower extremity PAD with chronic right heel ulceration, HTN, Dyslipidemia, Dementia, history of NSTEMI, history of Lymphoma who presented to the ED with concern of worsening confusion and functional status this morning. The patient's is the main historian, but the patient does contribute to the conversation as well. His states that he has been steadily declining over the past few months, but more recently, he has had increasing confusion and had a lot of 'almost' falls at home. The patient saw his PCP's office yesterday, and they were trying to get him more help at home vs. placement. He ultimately was not placed, and he didn't get out of bed until 1:30 PM today. His states that he moved his bowels prior to waking and then was having problems getting cleaned up. She has a hard time taking care of him at home at this point. The patient does also follow regularly at Wound Care with [facility]. He saw them on 12/22/19 and a culture was taken of his right ankle wound. The culture is growing pansensitive Klebsiella oxytoca and Group B strep for which sensitivities are pending. He did have a Foot X-Ray since presentation to the ED which showed no signs of osteo and soft tissue edema. Patient did have CATA's done as an outpatient on the B/L LE last year 05/04/18 which showed moderate arterial occlusive disease B/L LE. He is expected to have repeat vascular US next week at wound care. Of note, the patient was also set up for outpatient PET-CT to check on some lymphadenopathy that he has had. He has history of lymphoma. Since presentation to the ED, that patient is noted to have a WBC count of 15K with left shift, elevated ESR of 69, elevated CRP of 5.03. BUN 18, Creatinine 0.91. Most recently outpatient A1C was 7.4 in October 2019. Allergies Allergy/AdvReac Type Severity Reaction Status Date / Time Penicillins Allergy Unknown UNK Verified 12/25/19 17:36 KAVITA Inhibitors AdvReac Intermediate COUGH Verified 12/25/19 17:36 Home Medications Home Medications Medication Instructions Recorded Confirmed Type atorvastatin 80 mg PO QAM 05/06/18 12/25/19 History clopidogrel 75 mg PO QAM 05/06/18 12/25/19 History donepezil 5 mg PO QAM 05/06/18 12/25/19 History escitalopram oxalate [Lexapro] 20 mg PO QAM 05/06/18 12/25/19 History turmeric root extract 500 mg PO DAILY 05/06/18 12/25/19 History metformin 500 mg PO QAM 04/14/19 12/25/19 History finasteride 5 mg PO QAM 06/12/19 12/25/19 History aspirin 81 mg PO QAM 30 Days #30 tab 06/19/19 12/25/19 Rx nitroglycerin [Nitrostat] 0.4 mg SUBLINGUAL UD PRN #30 tab 06/19/19 12/25/19 Rx insulin glargine 100 unit/mL (3 26 unit SUBCUT QAM ml 11/29/19 12/25/19 History mL) subcutaneous pen insulin aspart U-100 0 unit SUBCUT UD 12/16/19 12/25/19 History isosorbide mononitrate 30 mg PO DAILY 12/16/19 12/25/19 History metoprolol succinate 25 mg PO DAILY 12/16/19 12/25/19 History polyethylene glycol 3350 [Miralax] 17 g PO DAILY 12/16/19 12/25/19 History psyllium husk (with sugar) 1 tsp PO DAILY 12/16/19 12/25/19 History [Metamucil Free] risperidone 0.25 mg PO DAILY PRN 12/16/19 12/25/19 History sennosides [senna] 8.6 mg PO HS 12/16/19 12/25/19 History acidophilus-pectin, citrus 1 cap PO TIDM 12/25/19 12/25/19 History [Acidophilus Probiotic] hydroxyzine HCl 10 mg PO Q8 12/25/19 12/25/19 History vancomycin 125 mg PO Q6H 12/25/19 12/25/19 History Past Med/Surg History Medical History (Updated 12/25/19 @ 19:03 by Ledy Dimas PA-C) Carotid artery disease Chest pain on exertion (11/08/13) Dementia DM (diabetes mellitus) HTN (hypertension) Hyperglycemia Hyperlipemia Hypoglycemia Ischemic cardiomyopathy Non-ST elevation MT (NSTEMI) Open wound Slurred speech Type 2 diabetes mellitus, with long-term current use of insulin Vascular disease Vascular disease Surgical History History of colonoscopy History of repair of ACL Family History Other Family history non-contributory Social History Smoking Status: Former smoker Second Hand Exposure: No; Hx Alcohol Use: Yes Alcohol type: beer and wine Hx Substance Use: No Preferred Language: Albanian Communication Ability: Effective Industrial Sociologist Required: No Beliefs That Will Affect Care: None Current Living Situation: Spouse Current Living Situation Comment: lives with in home with 1 step to enter and 7 steps inside Other Information That Helps Us Care for You: No Feels Safe at Home: Yes Safety Concerns: Feels Safe At This Time Review of Systems Review of Systems: All systems reviewed & are unremarkable except as noted in HPI & below Physical Exam Constitutional: WD/WN, vitals as above Eyes: PERRL, conjunctivae normal, anicteric sclerae ENMT: external ear and nose normal, oropharynx normal Neck: trachea midline, no thyromegaly Respiratory: normal respiratory effort, lungs clear to auscultation Cardiovascular: RRR, no murmur, no edema Gastrointestinal (Abdomen): normal bowel sounds, soft, nontender, no hepatosplenomegaly Musculoskeletal: Head/Neck/Chest: normocephalic and head atraumatic Skin: + ulcer (2 large, black eschars on the right lateral heel. Surrounding erythema.); no rashes Tenderness to palpation. Neurologic: moves all extremities; no focal motor deficits Speech / Cognition: normal speech Psychiatric: Orientation: alert Speech: normal rate/rhythm/volume of speech Affect: euthymic affect Results & Data Results & Data ([facility]) Vital Signs (Past 12 Hours) Vital Signs Temp Pulse Pulse Resp BP BP Pulse Ox 12/25/19 18:00 77 16 160/81 H 95 12/25/19 17:31 77 15 136/70 96 12/25/19 17:01 84 17 181/84 H 97 12/25/19 16:41 78 18 175/81 H 95 12/25/19 16:11 74 18 152/73 H 93 12/25/19 16:10 74 19 152/73 H 93 12/25/19 15:43 96 12/25/19 15:30 74 18 154/77 H 94 12/25/19 15:00 78 17 165/75 H 96 12/25/19 14:57 36.7 C 84 16 165/75 H 97 Laboratory Results Laboratory Results - last 24 hr 12/25/19 12/25/19 12/25/19 16:10 16:10 16:10 WBC 15.27 H RBC 4.24 L Hgb 12.9 L Hct 38.6 L MCV 91.0 MCH 30.4 MCHC 33.4 RDW Std Deviation 42.6 RDW Coeff of Lolly 12.7 Plt Count 487 H MPV 8.8 Immature Gran % (Auto) 0.2 Neut % (Auto) 84.7 Lymph % (Auto) 9.2 [place] % (Auto) 5.1 Eos % (Auto) 0.6 Baso % (Auto) 0.2 Neut # (Auto) 12.94 H Lymph # (Auto) 1.40 [place] # (Auto) 0.78 H Eos # (Auto) 0.09 Baso # (Auto) 0.03 Immature Gran # (Auto) 0.03 H ESR PT 11.7 INR 1.1 APTT 30.7 PTT Ratio 1.1 Sodium 137 Potassium 4.5 Chloride 102 Carbon Dioxide 29 Anion Gap 7.0 BUN 18 Creatinine 0.91 Est Cr Clr Drug Dosing 74.3 Est GFR ( Amer) 97.2 Est GFR (Non-Af Amer) 83.9 BUN/Creatinine Ratio 19.9 Glucose 159 H Calcium 9.2 Phosphorus 2.9 Magnesium 1.9 Total Bilirubin 0.5 AST 13 L ALT 19 Alkaline Phosphatase 83 Troponin I < 0.015 C-Reactive Protein Total Protein 7.4 Albumin 2.9 L Globulin 4.5 H Albumin/Globulin Ratio 0.6 L Lipase 39 L TSH 1.960 12/25/19 12/25/19 16:16 16:16 WBC RBC Hgb Hct MCV MCH MCHC RDW Std Deviation RDW Coeff of Lolly Plt Count MPV Immature Gran % (Auto) Neut % (Auto) Lymph % (Auto) [place] % (Auto) Eos % (Auto) Baso % (Auto) Neut # (Auto) Lymph # (Auto) [place] # (Auto) Eos # (Auto) Baso # (Auto) Immature Gran # (Auto) ESR 69 H PT INR APTT PTT Ratio Sodium Potassium Chloride Carbon Dioxide Anion Gap BUN Creatinine Est Cr Clr Drug Dosing Est GFR ( Amer) Est GFR (Non-Af Amer) BUN/Creatinine Ratio Glucose Calcium Phosphorus Magnesium Total Bilirubin AST ALT Alkaline Phosphatase Troponin I C-Reactive Protein 5.03 H Total Protein Albumin Globulin Albumin/Globulin Ratio Lipase TSH Diagnostic Findings Head CT: IMPRESSION: There is no hemorrhage, mass effect, or evidence of acute territorial ischemia by CT criteria. CXR: IMPRESSION: Emphysematous change with no acute cardiopulmonary abnormality. Right Foot X-Ray: IMPRESSION: 1. No acute bony abnormality is identified. 2. Soft tissue edema overlies the heel. Code Status & VTE Plan VTE Prophylaxis Plan VTE Prophylaxis will be ordered: Yes Supervising Physician Co-Signing Physician Notes I saw this patient with the physician hair assistant, I participated in the history, physical, review of systems, and physical exam. I reviewed the medications with the patient and the physician hair assistant and helped reconcile the medications. I helped take a detailed family and social history as well. I formulated the assessment and plan personally with the physician hair assistant and went over it with the patient. Physical Exam Gen-AAO x 3, NAD, Afebrile, [place]-NCAT, EOMI, PERRLA, Anicteric Sclera, No Posterior Pharyngeal Erythema Neck-Supple, No JVD, No Thyromegaly, No Masses, No LAD, No Bruits Lungs-Clear to Auscultation Bilaterally, No Rales, No Rhonchi, No Wheezing, No Crepitus Chest-No S4, +S1, +S2, No S3, No Murmurs, No Rubs, No Gallops, No Ectopy Abdomen-Soft, Bowel Sounds Present, Non Tender, Non Distended, No Hepatomegaly, No Splenomegaly, No Palpable Masses, No Rebound, No Rigidity, No Guarding Musculoskeletal-Full Range of Motion Bilaterally, No CVAT Extremities-No Cyanosis, No Clubbing, No Edema, +Ankle ulcers R Lateral and L foot wound, Tender Nuero-Cranial Nerves II-XII grossly intact, Motor WNL, DTRs WNL, Strength WNL, Non Focal Psych-Normal Mood
[2019-12-25] MEDS ORDERED: GLUCOSE 40% GEL 15 GM TUBE PO PRN (20:14)
[2019-12-25] MEDS ORDERED: ACETAMINOPHEN 325 MG TAB PO PRN (20:14)
[2019-12-25] MEDS ORDERED: DEXTROSE 50% 50 ML SYRINGE IV PRN (20:14)
[2019-12-25] MEDS ORDERED: GLUCOSE 10 TABS/TUBE PO PRN (20:14)
[2019-12-25] MEDS ORDERED: CARBOHYDRATES FOR HYPOGLYCEMIA PO PRN (20:14)
[2019-12-25] MEDS ORDERED: GLUCAGON FOR INJ 1 MG VIAL SQ PRN (20:14)
[2019-12-25] MEDS ORDERED: POLYETHYLENE (MIRALAX) 17 GM PACK PO PRN (20:14)
[2019-12-25] MEDS ORDERED: PIPERACILL/TAZOBAC CONSULT ACTIVE PRN (20:24)
[2019-12-25] MEDS ORDERED: INSULIN GLARGINE SOLOSTAR 100 UNITS/ML 3 ML PEN SC SCH (21:00)
[2019-12-25] MEDS ORDERED: CEFEPIME CONSULT ACTIVE PRN (21:25)
[2019-12-25] MEDS: SODIUM CHLORIDE 0.9% 1000ML 1,000 ML IV SCH (21:30)
[2019-12-25] MEDS: HEPARIN SOD 5,000 UNIT/0.5 ML VIAL SQ SCH (21:33)
[2019-12-25] MEDS: INSULIN ASPART 100 UNITS/ML 3 ML PEN SC SCH (21:34)
[2019-12-25] MEDS: CEFEPIME 2,000 MG in SYRINGE 0 ML IV SCH (21:46)
[2019-12-25] MEDS: metroNIDAZOLE 500 MG TAB PO SCH (21:46)
[2019-12-26] MEDS: VANCOMYCIN HCL 125 MG/2.5ML SOLN PO SCH ×5 (00:41→23:45)
[2019-12-26] MEDS: RASPBERRY SYRUP 5 ML UDP PO SCH ×5 (00:41→23:45)
[2019-12-26 05:47] LABS: Hemoglobin 10.8 g/dL (14.0-18.0); Mean Corpuscular Hemoglobin 30.1 pg (25-34); Mean Corpuscular Hgb Conc 32.7 g/dL (32-36); Mean Corpuscular Volume 91.9 fL (80-100); Mean Platelet Volume 8.8 fL (7.4-10.4); Platelet Count 456 K/uL (130-400); RDW Coefficient of Variation 12.7 % (11.5-14.5); RDW Standard Deviation 42.7 fL (36.4-46.3); Red Blood Count 3.59 M/uL (4.7-6.1); White Blood Count 12.09 K/uL (4.8-10.8)
[2019-12-26 05:48] LABS: Appearance Urine Clear (Clear); Bilirubin Urine Negative (Negative); Blood Urine Negative (Negative); Color Urine Yellow; Glucose Urine UA Trace (Negative); Ketones Urine Negative (Negative); Leukocyte Esterase Urine Negative (Negative); Nitrite Urine Negative (Negative); Protein Urine Negative (Negative); Specific Gravity Urine 1.018 (1.000-1.030); Urobilinogen Urine Negative (Negative)
[2019-12-26 06:23] LABS: BUN Creatinine Ratio 21.1 (10-20); Calcium 8.5 mg/dl (8.5-10.1); Creatinine Clr Calc Pharmacy 84.5 ml/min; Est GFR (African American) 103.4; Est GFR (Non-African American) 89.2; Potassium 3.9 mmol/L (3.5-5.1)
[2019-12-26] MEDS: ISOSORBIDE MONO EXTENDED REL 30 MG TABCR PO SCH (09:05)
[2019-12-26] MEDS: METOPROLOL SUCC 25MG EXT REL TAB PO SCH (09:07)
[2019-12-26] MEDS: metroNIDAZOLE 500 MG TAB PO SCH ×3 (09:07→21:14)
[2019-12-26] MEDS: ATORVASTATIN 40 MG TAB PO SCH (09:07)
[2019-12-26] MEDS: ASPIRIN 81 MG ECTAB PO SCH (09:07)
[2019-12-26] MEDS: FINASTERIDE 5 MG TAB PO SCH (09:08)
[2019-12-26] MEDS: ESCITALOPRAM OXALATE 20 MG TAB PO SCH (09:08)
[2019-12-26] MEDS: DONEPEZIL HCL 5 MG TAB PO SCH (09:08)
[2019-12-26] MEDS: risperiDONE 0.5 MG TABLET PO PRN (09:08)
[2019-12-26] MEDS: HEPARIN SOD 5,000 UNIT/0.5 ML VIAL SQ SCH ×2 (09:09→20:40)
[2019-12-26] MEDS: LACTOBACILLUS ACIDOPHILUS (FLORANEX) TAB PO SCH ×3 (09:09→18:08)
[2019-12-26] MEDS: CLOPIDOGREL BISULFATE 75 MG TAB PO SCH (09:09)
[2019-12-26] MEDS: INSULIN ASPART 100 UNITS/ML 3 ML PEN SC SCH ×4 (09:12→20:41)
[2019-12-26] MEDS: SODIUM CHLORIDE 0.9% 1000ML 1,000 ML IV SCH (09:19)
[2019-12-26] MEDS: CEFEPIME 2,000 MG in SYRINGE 0 ML IV SCH ×2 (09:55→21:14)
--- NOTE | 2019-12-26 11:33 | Hospitalist Progress Note ---
Date of Service December 26, 2019 Assessment & Plan (1) Weakness: (2) Confusion: Admitted with weakness and acute confusion Has history of dementia and could be due to ongoing dementia No definite infection as per symptoms and sign Has chronic ulcers involving the lower extremities and mostly right heel MRI of the heel will be done to rule out any osteomyelitis (3) Dementia: Patient is a complicated 74 yo male with increasing confusion and weakness per his . He has many possible contributing factors including dementia, chronic right heel ulceration which appears acutely infected, C Diff colitis, etc. Renal function stable. Gentle hydration with NSS 80ml/hr Fall precautions. Urine sample pending collection- possible contributing factor still could include UTI. (4) Chronic heel ulcer: (5) Arterial leg ulcer: (6) PAD (peripheral artery disease): Patient's right heel ulceration is acutely tender to the touch and erythematous. Wound care images reviewed from 12/21. Appears relatively stable, but still concern for underlying infection. Recent culture grew Klebsiella and Group B strep (pending sensitivities) ESR-elevated at 69, CRP elevated at 5.03, and WBC count elevated. Foot XR was unrevealing. Concern for possible osteo. Check MRI foot-pending ID Consult Wound care nurse consult Has been on IV cefepime pending ID opinion. We will continue wound care as an outpatient (7) C. difficile colitis: C. Diff has been improving per the patient's . Due to use of IV abx, recommend continuing PO Vancomycin 125 mg QID and oral metronidazole. Consider longer course pending continued need for abx. Continue probiotic. Deescalate abx when able. Await ID opinion (8) Carotid artery disease: (9) History of non-ST elevation myocardial infarction (NSTEMI): (10) Hyperlipidemia: Continue Atorvastatin, ASA, Plavix. Recheck Lipids in AM Consider repeat Arterial Doppler of RLE especially (11) Hypertension: Continue Metoprolol. Monitor BP. History of problems with hypotension per his - monitor closely (12) Type 2 diabetes mellitus, with long-term current use of insulin: Stop Metformin. Insulin while inpatient. Repeat A1C in AM-pending Noted to have hypoglycemia this morning Will adjust doses of insulin (13) History of lymphoma: Scheduled for PET-CT as an outpatient. No further management at this time. (14) DVT prophylaxis: Heparin Q12h Admission and Anticipated Discharge Date Admission Date: December 25, 2019 Subjective 12/26/2019 The patient was seen and examined in medical floor He was admitted yesterday with generalized weakness and confusion with history of dementia and diabetes including other medical conditions as mentioned in H&P Was noted to have a blood sugar of lower 40s early this morning Denies any symptoms during my examination Remains alert, awake and oriented l Review of Systems Review of Systems: All systems reviewed and are unremarkable except as noted b elow Integumentary: Has multiple superficial and deep arterial ulcers involving the lower extremities as in picture Physical Exam Physical Exam: Lying in bed comfortably Constitutional: well developed and well nourished; no acute distress and not ill appearing Eyes: PERRL, conjunctivae normal, anicteric sclerae ENMT: external ear and nose normal, oropharynx normal Neck: trachea midline, no thyromegaly Respiratory: normal respiratory effort; no respiratory distress Auscultation: lungs clear to auscultation bilaterally Cardiovascular: Rate/Rhythm: regular rate and regular rhythm Heart Sounds: no murmur Gastrointestinal (Abdomen): Inspection/Auscultation: abdomen normal to inspection and normal bowel sounds; abdomen not distended Percussion/Palpation: abdomen soft Musculoskeletal: No acute arthritis involving any joint Skin: Multiple superficial and deep ulcers of various sizes were noted bilateral lower extremities. Worst ulcer was in the right heel Neurologic: moves all extremities; no focal motor deficits Alert, awake and oriented x3. Psychiatric: A+Ox3, euthymic affect Lymphatic: no cervical or axillary lymphadenopathy Results & Data Results & Data ([facility]) Vital Signs (Past 12 Hours) Vital Signs Temp Pulse Resp BP Pulse Ox 12/26/19 09:47 74 109/51 L 12/25/19 23:47 36.9 C 66 16 124/50 L 95 Laboratory Results Short CBC 12/25/19 12/26/19 Range/Units 16:10 05:08 WBC 15.27 H 12.09 H (4.8-10.8) K/uL Hgb 12.9 L 10.8 L (14.0-18.0) g/dL Hct 38.6 L 33.0 L (42-52) % Plt Count 487 H 456 H (130-400) K/uL BMP 12/25/19 12/26/19 16:10 05:08 Sodium 137 140 Potassium 4.5 3.9 Chloride 102 107 Carbon Dioxide 29 29 BUN 18 17 Creatinine 0.91 0.80 Glucose 159 H 45 L* Calcium 9.2 8.5 Cardiac Enzymes 12/25/19 Range/Units 16:10 Troponin I < 0.015 (0-0.045) ng/ml Liver Function 12/25/19 Range/Units 16:10 Total Bilirubin 0.5 (0.2-1) mg/dl AST 13 L (15-37) U/L ALT 19 (12-78) U/L Alkaline Phosphatase 83 (45-117) U/L Albumin 2.9 L (3.4-5.0) gm/dl Urine 12/26/19 Range/Units 05:33 Urine Color Yellow Urine Appearance Clear (Clear) Urine pH 6.0 (4.5-7.5) Ur Specific [place] 1.018 (1.000-1.030) Urine Protein Negative (Negative) Urine Glucose (UA) Trace H (Negative) Medications Administered Current Inpatient Medications Acetaminophen (Acetaminophen 325 Mg Tab) 650 mg PO Q4H PRN PRN Reason: pain/fever Stop: 01/24/20 20:13 Aspirin (Aspirin 81 Mg Ectab) 81 mg PO [facility] Stop: 01/25/20 08:59 Last Admin: 12/26/19 09:07 Dose: 81 mg Documented by: Atorvastatin Calcium (Atorvastatin 40 Mg Tab) 80 mg PO [facility] Stop: 01/25/20 08:59 Last Admin: 12/26/19 09:07 Dose: 80 mg Documented by: Clopidogrel Bisulfate (Clopidogrel Bisulfate 75 Mg Tab) 75 mg PO [facility] Stop: 01/25/20 08:59 Last Admin: 12/26/19 09:09 Dose: 75 mg Documented by: Dextrose (Dextrose 50% 50 Ml Syringe) 25 - 50 ml IV UD PRN; Protocol PRN Reason: Hypoglycemia Protocol Stop: 01/24/20 20:13 Donepezil HCl (Donepezil Hcl 5 Mg Tab) 5 mg PO [facility] Stop: 01/25/20 08:59 Last Admin: 12/26/19 09:08 Dose: 5 mg Documented by: Escitalopram Oxalate (Escitalopram Oxalate 20 Mg Tab) 20 mg PO [facility] Stop: 01/25/20 08:59 Last Admin: 12/26/19 09:08 Dose: 20 mg Documented by: Finasteride (Finasteride 5 Mg Tab) 5 mg PO QAM GISELL Stop: 01/25/20 08:59 Last Admin: 12/26/19 09:08 Dose: 5 mg Documented by: Glucagon (Glucagon For Inj 1 Mg Vial) 1 mg SQ UD PRN; Protocol PRN Reason: Hypoglycemia Protocol Stop: 01/24/20 20:13 Glucose (Glucose 10 Tabs/Tube) 4 - 8 tabs PO UD PRN; Protocol PRN Reason: Hypoglycemia Protocol Stop: 01/24/20 20:13 Glucose (Glucose 40% Gel 15 Gm Tube) 15 - 30 gm PO UD PRN; Protocol PRN Reason: Hypoglycemia Protocol Stop: 01/24/20 20:13 Heparin Sodium (Porcine) (Heparin Sod 5,000 Unit/0.5 Ml Vial) 5,000 units SQ Q12 GISELL Stop: 01/24/20 20:59 Last Admin: 12/26/19 09:09 Dose: 5,000 units Documented by: Sodium Chloride (Nss 1000ml) 1,000 mls @ 80 mls/hr IV .[id number] GISELL Stop: 12/26/19 20:13 Last Admin: 12/26/19 09:19 Dose: 80 mls/hr Documented by: Cefepime HCl 2,000 mg/ Syringe 20 mls @ 5 mls/min IV Q12H GISELL Stop: 01/01/20 21:59 Last Admin: 12/26/19 09:55 Dose: 5 mls/min Documented by: Insulin Aspart (Insulin Aspart 100 Units/Ml 3 Ml Pen) 0 units SC ACHS GISELL Stop: 01/24/20 20:59 Last Admin: 12/26/19 09:12 Dose: 3 units Documented by: Insulin Glargine (Insulin Glargine Solostar 100 Units/Ml 3 Ml Pen) 12 units SC BID GISELL Stop: 01/24/20 20:59 Last Admin: 12/25/19 21:33 Dose: 12 units Documented by: Isosorbide Mononitrate (Isosorbide [place] Extended Rel 30 Mg Tabcr) 30 mg PO DAILY GISELL Stop: 01/25/20 08:59 Last Admin: 12/26/19 09:05 Dose: 30 mg Documented by: Lactobacillus Acidophilus (Lactobacillus Acidophilus (Floranex) Tab) 4 tab PO TIDM GISELL Stop: 01/25/20 07:59 Last Admin: 12/26/19 09:09 Dose: 4 tab Documented by: Metoprolol Succinate (Metoprolol Succ 25mg Ext Rel Tab) 25 mg PO DAILY [facility] Stop: 01/25/20 08:59 Last Admin: 12/26/19 09:07 Dose: 25 mg Documented by: Metronidazole (Metronidazole 500 Mg Tab) 500 mg PO TID [facility]; Protocol Stop: 01/01/20 21:59 Last Admin: 12/26/19 09:07 Dose: 500 mg Documented by: Miscellaneous (Carbohydrates For Hypoglycemia ) 15 - 30 gm PO UD PRN PRN Reason: Hypoglycemia Protocol Stop: 01/24/20 20:13 Last Admin: 12/26/19 06:28 Dose: 30 gm Documented by: Miscellaneous Information (Cefepime Consult Active) 1 ea N/A UD PRN PRN Reason: Consult Stop: 01/24/20 21:24 Polyethylene Glycol (Polyethylene (Miralax) 17 Gm Pack) 17 gm PO DAILY PRN PRN Reason: Constipation Stop: 01/24/20 20:13 Raspberry (Raspberry Syrup 5 Ml Udp) 5 ml PO Q6 GISELL Stop: 01/09/20 00:00 Last Admin: 12/26/19 05:52 Dose: 5 ml Documented by: Risperidone (Risperidone 0.5 Mg Tablet) 0.25 mg PO DAILY PRN PRN Reason: confusion Stop: 01/24/20 20:13 Last Admin: 12/26/19 09:08 Dose: 0.25 mg Documented by: Vancomycin HCl (Vancomycin Hcl 125 Mg/2.5ml Soln) 125 mg PO Q6 [facility] Stop: 01/05/20 00:00 Last Admin: 12/26/19 05:52 Dose: 125 mg Documented by:
[2019-12-26] MEDS ORDERED: GADOXETATE DISODIUM IV ONE (15:48)
--- NOTE | 2019-12-26 16:04 | Magnetic Resonance Report ---
MR ankle RT wo/w con HISTORY: Skin ulcer within the ankle. Assess for osteomyelitis. TECHNIQUE: Multiplanar multisequence MRI of the right ankle was performed both before and after the i ntravenous administration of 7 cc of Gadavist contrast. COMPARISON STUDY: Right foot 12/25/2019. FINDINGS: Focal skin ulceration overlying the lateral malleolus and lateral aspect of the posterior c alcaneus. There is marrow edema and decreased T1 signal within the lateral malleolus with suggestion of focal cortical erosion best seen on axial T1 image 12. There is associated marrow enhancement at t he lateral malleolus. This likely represents a site of osteomyelitis. There is similar T2 hyperintens e, T1 hypointense signal within the lateral posterior calcaneus with associated enhancement. This is also concerning for a focus of osteomyelitis. No loculated fluid collections to suggest an abscess. N o fracture or dislocation within the ankle. There is soft tissue enhancement along the lateral malleo tiago and lateral calcaneus consistent with an associated cellulitis. The flexor, extensor, peroneal, a nd Achilles tendons appear intact. Enhancement with soft tissue edema seen within the plantar muscles . The plantar fascia is intact. No significant joint effusions. Mild cartilage space narrowing at the tibiotalar joint. IMPRESSION: 1. Abnormal signal intensity and enhancement deep to the skin ulcerations at the lateral malleolus an d lateral calcaneus. This is highly suspicious for areas of osteomyelitis. 2. No loculated fluid collections to suggest an abscess. 3. Additional findings as described above. ACT 112: Negative or not required by law. Electronically signed by: Medardo Burnham M.D. 12/26/2019 4:02 PM
[2019-12-27] MEDS: VANCOMYCIN HCL 125 MG/2.5ML SOLN PO SCH ×4 (05:56→23:40)
[2019-12-27] MEDS: RASPBERRY SYRUP 5 ML UDP PO SCH ×4 (05:56→23:40)
[2019-12-27 06:12] LABS: Estimated Average Glucose 174 mg/dl; Hemoglobin A1C 7.7 % (4.5-5.6)
[2019-12-27 09:27] LABS: Creatinine Clr Calc Pharmacy 67.6 ml/min; Est GFR (African American) 86.8; Est GFR (Non-African American) 74.9
[2019-12-27] MEDS: INSULIN ASPART 100 UNITS/ML 3 ML PEN SC SCH ×4 (09:30→21:14)
[2019-12-27] MEDS: HEPARIN SOD 5,000 UNIT/0.5 ML VIAL SQ SCH ×2 (09:31→21:14)
[2019-12-27] MEDS: CLOPIDOGREL BISULFATE 75 MG TAB PO SCH (09:35)
[2019-12-27] MEDS: LACTOBACILLUS ACIDOPHILUS (FLORANEX) TAB PO SCH ×3 (09:35→17:21)
[2019-12-27] MEDS: ATORVASTATIN 40 MG TAB PO SCH (09:36)
[2019-12-27] MEDS: FINASTERIDE 5 MG TAB PO SCH (09:37)
[2019-12-27] MEDS: ASPIRIN 81 MG ECTAB PO SCH (09:37)
[2019-12-27] MEDS: ISOSORBIDE MONO EXTENDED REL 30 MG TABCR PO SCH (09:38)
[2019-12-27] MEDS: DONEPEZIL HCL 5 MG TAB PO SCH (09:39)
[2019-12-27] MEDS: metroNIDAZOLE 500 MG TAB PO SCH ×2 (09:39→12:58)
[2019-12-27] MEDS: ESCITALOPRAM OXALATE 20 MG TAB PO SCH (09:39)
[2019-12-27] MEDS: METOPROLOL SUCC 25MG EXT REL TAB PO SCH (09:39)
[2019-12-27] MEDS: CEFEPIME 2,000 MG in SYRINGE 0 ML IV SCH (10:42)
--- NOTE | 2019-12-27 13:10 | Hospitalist Progress Note ---
Date of Service December 27, 2019 Assessment & Plan (1) Weakness: (2) Confusion: Admitted with weakness and acute confusion Has history of dementia and could be due to ongoing dementia No definite infection as per symptoms and sign Has chronic ulcers involving the lower extremities and mostly right heel MRI of the heel will be done to rule out any osteomyelitis Remains pleasantly confused (3) Dementia: Patient is a complicated 74 yo male with increasing confusion and weakness per his . He has many possible contributing factors including dementia, chronic right heel ulceration which appears acutely infected, C Diff colitis, etc. Renal function stable. Gentle hydration with NSS 80ml/hr Fall precautions. Urine sample pending collection- possible contributing factor still could include UTI. (4) Chronic heel ulcer: (5) Arterial leg ulcer: Patient's right heel ulceration is acutely tender to the touch and erythematous. Wound care images reviewed from 12/21. Appears relatively stable, but still concern for underlying infection. Recent culture grew Klebsiella and Group B strep (pending sensitivities) ESR-elevated at 69, CRP elevated at 5.03, and WBC count elevated. Foot XR was unrevealing. Concern for possible osteo. Wound culture from of this month grew Klebsiella oxytoca and group B beta strep both are sensitive to ceftriaxone Check MRI foot-possible right lateral malleolus and lateral calcaneus osteomyelitis ID Consult-awaited Wound care nurse consult Has been on IV cefepime pending ID opinion. (6) PAD (peripheral artery disease): We will get arterial Doppler (7) C. difficile colitis: C. Diff has been improving per the patient's . Due to use of IV abx, recommend continuing PO Vancomycin 125 mg QID and oral metronidazole. Consider longer course pending continued need for abx. Continue probiotic. Deescalate abx when able. Await ID opinion (8) Carotid artery disease: (9) History of non-ST elevation myocardial infarction (NSTEMI): (10) Hyperlipidemia: Continue Atorvastatin, ASA, Plavix. Recheck Lipids in AM Consider repeat Arterial Doppler of RLE especially (11) Hypertension: Continue Metoprolol. Monitor BP. History of problems with hypotension per his - monitor closely (12) Type 2 diabetes mellitus, with long-term current use of insulin: Stop Metformin. Insulin while inpatient. Repeat A1C in AM-7.7 Noted to have hypoglycemia this morning Will adjust doses of insulin (13) History of lymphoma: Scheduled for PET-CT as an outpatient. No further management at this time. (14) DVT prophylaxis: Heparin Q12h Admission and Anticipated Discharge Date Admission Date: December 25, 2019 Discussed with the in detail Cannot take care of for her at home Case management has been consulted for possible placement Subjective 12/26/2019 The patient was seen and examined in medical floor He was admitted yesterday with generalized weakness and confusion with history of dementia and diabetes including other medical conditions as mentioned in H&P Was noted to have a blood sugar of lower 40s early this morning Denies any symptoms during my examination Remains alert, awake and oriented 12/27/2019 The patient was seen and examined in medical floor in presence of the He does not have any complaints but the says that he has pain involving the right leg and foot Denies any fever and/or chills, denies any nausea and or vomiting Review of Systems Review of Systems: All systems reviewed and are unremarkable except as noted below Integumentary: Has multiple superficial and deep arterial ulcers involving the lower extremities as in picture Physical Exam Physical Exam: Lying in bed comfortably Constitutional: well developed and well nourished; no acute distress and not ill appearing Eyes: PERRL, conjunctivae normal, anicteric sclerae ENMT: external ear and nose normal, oropharynx normal Neck: trachea midline, no thyromegaly Respiratory: normal respiratory effort; no respiratory distress Auscultation: lungs clear to auscultation bilaterally Cardiovascular: Rate/Rhythm: regular rate and regular rhythm Heart Sounds: no murmur Gastrointestinal (Abdomen): Inspection/Auscultation: abdomen normal to inspec tion and normal bowel sounds; abdomen not distended Percussion/Palpation: abdomen soft Musculoskeletal: Right ankle pain with movement Neurologic: moves all extremities; no focal motor deficits Alert and awake. Pleasantly confused at times Psychiatric: Orientation: alert Affect: euthymic affect Judgement: + limited judgement Lymphatic: no cervical or axillary lymphadenopathy Results & Data Results & Data ([facility]) Vital Signs (Past 12 Hours) Vital Signs Temp Pulse Resp BP Pulse Ox 12/27/19 07:30 36.9 C 69 18 133/65 94 Laboratory Results BMP 12/27/19 08:30 Creatinine 1.00 Medications Administered Current Inpatient Medications Acetaminophen (Acetaminophen 325 Mg Tab) 650 mg PO Q4H PRN PRN Reason: pain/fever Stop: 01/24/20 20:13 Aspirin (Aspirin 81 Mg Ectab) [facility] Stop: 01/25/20 08:59 Last Admin: 12/27/19 09:37 Dose: 81 mg Documented by: Atorvastatin Calcium (Atorvastatin 40 Mg Tab) 80 mg PO QAM [facility] Stop: 01/25/20 08:59 Last Admin: 12/27/19 09:36 Dose: 80 mg Documented by: Clopidogrel Bisulfate (Clopidogrel Bisulfate 75 Mg Tab) [facility] Stop: 01/25/20 08:59 Last Admin: 12/27/19 09:35 Dose: 75 mg Documented by: Dextrose (Dextrose 50% 50 Ml Syringe) 25 - 50 ml IV UD PRN; Protocol PRN Reason: Hypoglycemia Protocol Stop: 01/24/20 20:13 Donepezil HCl (Donepezil Hcl 5 Mg Tab) 5 mg PO [facility] Stop: 01/25/20 08:59 Last Admin: 12/27/19 09:39 Dose: 5 mg Documented by: Escitalopram Oxalate (Escitalopram Oxalate 20 Mg Tab) 20 mg PO [facility] Stop: 01/25/20 08:59 Last Admin: 12/27/19 09:39 Dose: 20 mg Documented by: Finasteride (Finasteride 5 Mg Tab) 5 mg PO [facility] Stop: 01/25/20 08:59 Last Admin: 12/27/19 09:37 Dose: 5 mg Documented by: Glucagon (Glucagon For Inj 1 Mg Vial) 1 mg SQ UD PRN; Protocol PRN Reason: Hypoglycemia Protocol Stop: 01/24/20 20:13 Glucose (Glucose 10 Tabs/Tube) 4 - 8 tabs PO UD PRN; Protocol PRN Reason: Hypoglycemia Protocol Stop: 01/24/20 20:13 Glucose (Glucose 40% Gel 15 Gm Tube) 15 - 30 gm PO UD PRN; Protocol PRN Reason: Hypoglycemia Protocol Stop: 01/24/20 20:13 Heparin Sodium (Porcine) (Heparin Sod 5,000 Unit/0.5 Ml Vial) 5,000 units SQ Q12 [facility] Stop: 01/24/20 20:59 Last Admin: 12/27/19 09:31 Dose: 5,000 units Documented by: Cefepime HCl 2,000 mg/ Syringe 20 mls @ 5 mls/min IV Q12H [facility] Stop: 01/01/20 21:59 Last Admin: 12/27/19 10:42 Dose: 5 mls/min Documented by: Insulin Aspart (Insulin Aspart 100 Units/Ml 3 Ml Pen) 0 units SC ACHS [facility] Stop: 01/24/20 20:59 Last Admin: 12/27/19 12:59 Dose: 8 units Documented by: Insulin Glargine (Insulin Glargine Solostar 100 Units/Ml 3 Ml Pen) 12 units SC BID [facility] Stop: 01/24/20 20:59 Last Admin: 12/25/19 21:33 Dose: 12 units Documented by: Isosorbide Mononitrate (Isosorbide Yellow [place] Extended Rel 30 Mg Tabcr) 30 mg PO DAILY [facility] Stop: 01/25/20 08:59 Last Admin: 12/27/19 09:38 Dose: 30 mg Documented by: Lactobacillus Acidophilus (Lactobacillus Acidophilus (Floranex) Tab) 4 tab PO TIDM [facility] Stop: 01/25/20 07:59 Last Admin: 12/27/19 13:03 Dose: 4 tab Documented by: Metoprolol Succinate (Metoprolol Succ 25mg Ext Rel Tab) 25 mg PO DAILY [facility] Stop: 01/25/20 08:59 Last Admin: 12/27/19 09:39 Dose: 25 mg Documented by: Metronidazole (Metronidazole 500 Mg Tab) 500 mg PO TID [facility]; Protocol Stop: 01/01/20 21:59 Last Admin: 12/27/19 12:58 Dose: 500 mg Documented by: Miscellaneous (Carbohydrates For Hypoglycemia ) 15 - 30 gm PO UD PRN PRN Reason: Hypoglycemia Protocol Stop: 01/24/20 20:13 Last Admin: 12/26/19 06:28 Dose: 30 gm Documented by: Miscellaneous Information (Cefepime Consult Active) 1 ea N/A UD PRN PRN Reason: Consult Stop: 01/24/20 21:24 Polyethylene Glycol (Polyethylene (Miralax) 17 Gm Pack) 17 gm PO DAILY PRN PRN Reason: Constipation Stop: 01/24/20 20:13 Raspberry (Raspberry Syrup 5 Ml Udp) 5 ml PO Q6 [facility] Stop: 01/09/20 00:00 Last Admin: 12/27/19 12:57 Dose: 5 ml Documented by: Risperidone (Risperidone 0.5 Mg Tablet) 0.25 mg PO DAILY PRN PRN Reason: confusion Stop: 01/24/20 20:13 Last Admin: 12/26/19 09:08 Dose: 0.25 mg Documented by: Vancomycin HCl (Vancomycin Hcl 125 Mg/2.5ml Soln) 125 mg PO Q6 [facility] Stop: 01/05/20 00:00 Last Admin: 12/27/19 12:57 Dose: 125 mg Documented by:
--- NOTE | 2019-12-27 15:51 | Ultrasound Report ---
US arterial duplex LE BI CLINICAL HISTORY: Peripheral vascular disease. COMPARISON STUDY: Bilateral lower extremity arterial Doppler study 04/18/2014. FINDINGS: The right ankle-brachial index measured with the dorsalis pedis artery was 0.72 in the left ankle-brachial index measured with the dorsalis pedis artery is 0.50. The posterior tibial arteries were noncompressible. Diffuse calcified atherosclerotic plaque seen throughout the bilateral lower ex tremities. No arterial occlusion identified. Monophasic low velocity waveforms seen throughout the ca lf arteries also suggestive of diffuse atherosclerotic disease. Bilateral common femoral arteries are patent. Monophasic waveforms seen within the bilateral superficial femoral arteries and popliteal ar teries with low velocity waveforms. This is most pronounced within the left superficial femoral arter y suggestive of diffuse stenosis. IMPRESSION: 1. Diffuse calcified atherosclerotic plaque seen throughout the bilateral lower extremities. 2. This is most pronounced within the left superficial femoral artery which is heavily calcified and demonstrates dampened monophasic waveform suggestive of diffuse stenosis. 3. No areas of arterial occlusion identified. ACT 112: Negative or not required by law. Electronically signed by: Medardo Burnham M.D. 12/27/2019 3:49 PM
[2019-12-27] MEDS ORDERED: diphenhydrAMINE 50 MG/ML VIAL IV PRN (15:53)
[2019-12-27] MEDS: AMPICILLIN/SULBACTAM SOD 3,000 MG in 0.9 % SODIUM CHLORIDE 100 ML IV SCH ×2 (16:59→22:14)
[2019-12-27] MEDS ORDERED: CEFEPIME 2,000 MG in SYRINGE 0 ML IV SCH (18:00)
[2019-12-28] MEDS: AMPICILLIN/SULBACTAM SOD 3,000 MG in 0.9 % SODIUM CHLORIDE 100 ML IV SCH ×4 (04:58→21:15)
[2019-12-28] MEDS: RASPBERRY SYRUP 5 ML UDP PO SCH ×3 (05:38→17:18)
[2019-12-28] MEDS: VANCOMYCIN HCL 125 MG/2.5ML SOLN PO SCH ×3 (05:38→21:16)
[2019-12-28 06:21] LABS: Est GFR (African American) 85.7
[2019-12-28] MEDS: HEPARIN SOD 5,000 UNIT/0.5 ML VIAL SQ SCH ×2 (09:09→20:33)
[2019-12-28] MEDS: LACTOBACILLUS ACIDOPHILUS (FLORANEX) TAB PO SCH ×3 (09:10→17:19)
[2019-12-28] MEDS: DONEPEZIL HCL 5 MG TAB PO SCH (09:11)
[2019-12-28] MEDS: METOPROLOL SUCC 25MG EXT REL TAB PO SCH (09:11)
[2019-12-28] MEDS: ATORVASTATIN 40 MG TAB PO SCH (09:12)
[2019-12-28] MEDS: FINASTERIDE 5 MG TAB PO SCH (09:12)
[2019-12-28] MEDS: ASPIRIN 81 MG ECTAB PO SCH (09:12)
[2019-12-28] MEDS: ISOSORBIDE MONO EXTENDED REL 30 MG TABCR PO SCH (09:12)
[2019-12-28] MEDS: CLOPIDOGREL BISULFATE 75 MG TAB PO SCH (09:12)
[2019-12-28] MEDS: ESCITALOPRAM OXALATE 20 MG TAB PO SCH (09:13)
[2019-12-28] MEDS: INSULIN ASPART 100 UNITS/ML 3 ML PEN SC SCH ×4 (10:17→20:33)
[2019-12-28] MEDS: INSULIN GLARGINE SOLOSTAR 100 UNITS/ML 3 ML PEN SC SCH (11:12)
--- NOTE | 2019-12-28 16:01 | Wound Consultation ---
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 No debridement was done. Wounds will be dressed with Aquacel Ag. Recommend infectious disease consult and direction for antibiotics. Recommend orthopedic surgery evaluation. Thank you for limited participate in the care of this patient. Please call with any questions. History of Present Illness Reason for Consultation: Right ankle wound Attending Physician: Rudy Isabel MD History of Present Illness Male with a history of peripheral arterial disease, vascular disease, CAD status post [place] and ischemic cardiomyopathy, Alzheimer's disease, dyslipidemia and hypertension who was admitted to the hospital for with increased weakness and confusion. Patient is been following with the wound clinic for bilateral leg wounds. Patient was scheduled to have arterial studies done as an outpatient however was admitted prior to this. MRI is suggestive of osteomyelitis of his right ankle. Allergies Allergy/AdvReac Type Severity Reaction Status Date / Time Penicillins Allergy Unknown UNK Verified 12/25/19 17:36 KAVITA Inhibitors AdvReac Intermediate COUGH Verified 12/25/19 17:36 Home Medications Home Medications Medication Instructions Recorded Confirmed Type atorvastatin 80 mg PO QAM 05/06/18 12/25/19 History clopidogrel 75 mg PO QAM 05/06/18 12/25/19 History donepezil 5 mg PO QAM 05/06/18 12/25/19 History escitalopram oxalate [Lexapro] 20 mg PO QAM 05/06/18 12/25/19 History turmeric root extract 500 mg PO DAILY 05/06/18 12/25/19 History metformin 500 mg PO QAM 04/14/19 12/25/19 History finasteride 5 mg PO QAM 06/12/19 12/25/19 History aspirin 81 mg PO QAM 30 Days #30 tab 06/19/19 12/25/19 Rx nitroglycerin [Nitrostat] 0.4 mg SUBLINGUAL UD PRN #30 tab 06/19/19 12/25/19 Rx insulin glargine 100 unit/mL (3 26 unit SUBCUT QAM ml 11/29/19 12/25/19 History mL) subcutaneous pen insulin aspart U-100 0 unit SUBCUT UD 12/16/19 12/25/19 History isosorbide mononitrate 30 mg PO DAILY 12/16/19 12/25/19 History metoprolol succinate 25 mg PO DAILY 12/16/19 12/25/19 History polyethylene glycol 3350 [Miralax] 17 g PO DAILY 12/16/19 12/25/19 History psyllium husk (with sugar) 1 tsp PO DAILY 12/16/19 12/25/19 History [Metamucil Free] risperidone 0.25 mg PO DAILY PRN 12/16/19 12/25/19 History sennosides [senna] 8.6 mg PO HS 12/16/19 12/25/19 History acidophilus-pectin, citrus 1 cap PO TIDM 12/25/19 12/25/19 History [Acidophilus Probiotic] hydroxyzine HCl 10 mg PO Q8 12/25/19 12/25/19 History vancomycin 125 mg PO Q6H 12/25/19 12/25/19 History cefdinir 300 mg capsule 300 mg PO BID 14 Days #28 cap 12/27/19 Rx Patient History Medical History Carotid artery disease Chest pain on exertion (11/08/13) Dementia DM (diabetes mellitus) HTN (hypertension) Hyperglycemia Hyperlipemia Hypoglycemia Ischemic cardiomyopathy Non-ST elevation [place] (NSTEMI) Open wound Slurred speech Type 2 diabetes mellitus, with long-term current use of insulin Vascular disease Vascular disease Surgical History History of colonoscopy History of repair of ACL Family History Other Family history non-contributory Social History Smoking Status: Former smoker Second Hand Exposure: No; Hx Alcohol Use: Yes Alcohol type: beer and wine Hx Substance Use: No Preferred Language: Tajik Communication Ability: Effective Welfare Officer Required: No Beliefs That Will Affect Care: None marital status: Current Living Situation: Spouse Current Living Situation Comment: lives with in home with 1 step to enter and 7 steps inside Other Information That Helps Us Care for You: No Feels Safe at Home: Yes Safety Concerns: Feels Safe At This Time Assistive Devices: Denture - Upper, Denture - Lower, Glasses and Walker Review of Systems Review of Systems: All systems reviewed & are unremarkable except as noted in HPI & below Physical Exam Physical Exam: Temp Pulse Resp BP Pulse Ox 36.8 C 75 18 167/77 H 97 12/28/19 15:23 12/28/19 15:23 12/28/19 15:23 12/28/19 15:23 12/28/19 15:23 Constitutional: WD/WN, vitals as above Eyes: PERRL, conjunctivae normal, anicteric sclerae ENMT: external ear and nose normal, oropharynx normal Respiratory: normal respiratory effort, lungs clear to auscultation Cardiovascular: RRR, no murmur, no edema Gastrointestinal (Abdomen): normal bowel sounds, soft, nontender, no hepatosplenomegaly Skin: Wounds measuring as recorded in nursing documentation. Overall bilateral leg wounds seem to be improving. The right lateral ankle wounds are covered with eschar and are now palpating is boggy. Neurologic: awake and + confused Psychiatric: Orientation: oriented to person, oriented to place and cooperative Results & Data ([facility]) Vital Signs (Past 12 Hours) Vital Signs Temp Pulse Pulse Resp BP Pulse Ox 12/28/19 15:23 36.8 C 75 18 167/77 H 97 12/28/19 08:37 36.8 C 67 18 165/70 H 92 Laboratory Results 12/28/19 12/28/19 12/28/19 Range/Units 11:56 11:55 08:46 Creatinine (0.6-1.4) mg/dl Est Cr Clr Drug Dosing ml/min Est GFR ( Amer) Est GFR (Non-Af Amer) POC Glucose 354 H* 356 H* 232 H (70-99) mg/dl 12/28/19 12/27/19 12/27/19 Range/Units 04:58 20:33 17:01 Creatinine 1.01 (0.6-1.4) mg/dl Est Cr Clr Drug Dosing 67.0 ml/min Est GFR ( Amer) 85.7 Est GFR (Non-Af Amer) 74.0 POC Glucose 206 H 215 H (70-99) mg/dl Diagnostic Findings right ankle MRI IMPRESSION: 1. Abnormal signal intensity and enhancement deep to the skin ulcerations at the lateral malleolus and lateral calcaneus. This is highly suspicious for areas of osteomyelitis. 2. No loculated fluid collections to suggest an abscess. 3. Additional findings as described above. Arterial duplex right CATA 0.72, left CATA 0.5 IMPRESSION: 1. Diffuse calcified atherosclerotic plaque seen throughout the bilateral lower extremities. 2. This is most pronounced within the left superficial femoral artery which is heavily calcified and demonstrates dampened monophasic waveform suggestive of diffuse stenosis. 3. No areas of arterial occlusion identified. 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
--- NOTE | 2019-12-28 16:18 | Hospitalist Progress Note ---
Date of Service December 28, 2019 Assessment & Plan (1) Weakness: (2) Confusion: Likely has Metabolic encephalopathy in setting of infection Admitted with weakness and acute confusion Has history of dementia and could be due to ongoing dementi Has chronic ulcers involving the lower extremities and mostly right heel MRI of the heel -showed possible osteomyelitis involving the right lateral malleolus and calcaneus Remains pleasantly confused (3) Dementia: Patient is a complicated 74 yo male with increasing confusion and weakness per his . He has many possible contributing factors including dementia, chronic right heel ulceration which appears acutely infected, C Diff colitis, etc. Renal function stable. Gentle hydration with NSS 80ml/hr Fall precautions. (4) Chronic heel ulcer: Acute osteomyelitis, right heel; complicated by diabetes and PVD Patient's right heel ulceration is acutely tender to the touch and erythematous. Wound care images reviewed from 12/21. Appears relatively stable, but still concern for underlying infection. Recent culture grew Klebsiella and Group B strep (pending sensitivities) ESR-elevated at 69, CRP elevated at 5.03, and WBC count elevated. Foot XR was unrevealing. Concern for possible osteo. Wound culture from of this month grew Klebsiella oxytoca and group B beta strep both are sensitive to ceftriaxone Check MRI foot-possible right lateral malleolus and lateral calcaneus osteomyelitis Appreciate ID input and recommendation: Advised to discontinue intravenous cefepime and Flagyl and start Unasyn 3 g IV every 6 hourly If surgical debridement of the wound is undertaken he will need intravenous antibiotic for 6 weeks otherwise he can be transferred to oral antibiotic with Augmentin for 2 weeks Appreciate wound care provider input and recommendation Orthopedic has been consulted for possible debridement Vascular surgery has been consulted for PVD (5) Arterial leg ulcer: As in pictures (6) PAD (peripheral artery disease): We will get arterial Doppler: 1. Diffuse calcified atherosclerotic plaque seen throughout the bilateral lower extremities. 2. This is most pronounced within the left superficial femoral artery which is heavily calcified and demonstrates dampened monophasic waveform suggestive of diffuse stenosis. 3. No areas of arterial occlusion identified. Vascular surgery consulted (7) C. difficile colitis: C. Diff has been improving per the patient's . Due to use of IV abx, recommend continuing PO Vancomycin 125 mg QID and oral metronidazole. Consider longer course pending continued need for abx. Continue probiotic. Deescalate abx when able. Appreciate ID input and recommendation Vancomycin can be continued for twice daily for 1 more week and then stop if no more diarrhea If he has to continue IV/oral antibiotic then continue vancomycin 2 times daily for the duration of the IV/oral antibiotic (8) Carotid artery disease: (9) History of non-ST elevation myocardial infarction (NSTEMI): (10) Hyperlipidemia: Continue Atorvastatin, ASA, Plavix. Recheck Lipids in AM Consider repeat Arterial Doppler of RLE especially (11) Hypertension: Continue Metoprolol. Monitor BP. History of problems with hypotension per his - monitor closely (12) Type 2 diabetes mellitus, with long-term current use of insulin: Stop Metformin. Insulin while inpatient. Repeat A1C in AM-7.7 Noted to have hypoglycemia this morning Will adjust doses of insulin (13) History of lymphoma: Scheduled for PET-CT as an outpatient. No further management at this time. (14) DVT prophylaxis: Heparin Q12h Discussed with the in detail Patient will need to be placed as the mentioned that she cannot take care of her at home Social service has been consulted Admission and Anticipated Discharge Date Admission Date: December 27, 2019 Subjective 12/26/2019 The patient was seen and examined in medical floor He was admitted yesterday with generalized weakness and confusion with history of dementia and diabetes including other medical conditions as mentioned in H&P Was noted to have a blood sugar of lower 40s early this morning Denies any symptoms during my examination Remains alert, awake and oriented 12/27/2019 The patient was seen and examined in medical floor in presence of the He does not have any complaints but the says that he has pain involving the right leg and foot Denies any fever and/or chills, denies any nausea and or vomiting 12/28/2019 Patient was seen and examined in medical floor in presence of the He remains stable and denies any significant symptoms No fever and/or chills and pain in the right foot remains stable Review of Systems Review of Systems: All systems reviewed and are unremarkable except as noted below Integumentary: Has multiple superficial and deep arterial ulcers involving the lower extremities as in picture Physical Exam Physical Exam: During on a chair without any acute distress Constitutional: well developed and well nourished; no acute distress and not ill appearing Eyes: PERRL, conjunctivae normal, anicteric sclerae ENMT: external ear and nose normal, oropharynx normal Neck: trachea midline, no thyromegaly Respiratory: normal respiratory effort; no respiratory distress Auscultation: lungs clear to auscultation bilaterally Cardiovascular: Rate/Rhythm: regular rate and regular rhythm Heart Sounds: no murmur Extremities: no edema Gastrointestinal (Abdomen): Inspection/Auscultation: abdomen normal to inspection and normal bowel sounds; abdomen not distended Percussion/Palpation: abdomen soft Musculoskeletal: Moderate pain with movement of the right ankle Neurologic: moves all extremities; no focal motor deficits Psychiatric: A+Ox3, euthymic affect Orientation: alert Affect: euthymic affect Judgement: + limited judgement Lymphatic: no cervical or axillary lymphadenopathy Results & Data Results & Data ([facility]) Vital Signs (Past 12 Hours) Vital Signs Temp Pulse Pulse Resp BP Pulse Ox 12/28/19 15:23 36.8 C 75 18 167/77 H 97 12/28/19 08:37 36.8 C 67 18 165/70 H 92 Laboratory Results BMP 12/28/19 04:58 Creatinine 1.01 Medications Administered Current Inpatient Medications Acetaminophen (Acetaminophen 325 Mg Tab) 650 mg PO Q4H PRN PRN Reason: pain/fever Stop: 01/24/20 20:13 Aspirin (Aspirin 81 Mg Ectab) [facility] Stop: 01/25/20 08:59 Last Admin: 12/28/19 09:12 Dose: 81 mg Documented by: Atorvastatin Calcium (Atorvastatin 40 Mg Tab) 80 mg PO QAM [facility] Stop: 01/25/20 08:59 Last Admin: 12/28/19 09:12 Dose: 80 mg Documented by: Clopidogrel Bisulfate (Clopidogrel Bisulfate 75 Mg Tab) 75 mg PO QAM [facility] Stop: 01/25/20 08:59 Last Admin: 12/28/19 09:12 Dose: 75 mg Documented by: Dextrose (Dextrose 50% 50 Ml Syringe) 25 - 50 ml IV UD PRN; Protocol PRN Reason: Hypoglycemia Protocol Stop: 01/24/20 20:13 Diphenhydramine HCl (Diphenhydramine Hcl 50 Mg/Ml Vial) 12.5 mg IV Q4H PRN PRN Reason: Rash Stop: 01/26/20 15:52 Donepezil HCl (Donepezil Hcl 5 Mg Tab) [facility] Stop: 01/25/20 08:59 Last Admin: 12/28/19 09:11 Dose: 5 mg Documented by: Escitalopram Oxalate (Escitalopram Oxalate 20 Mg Tab) 20 mg PO QAM [facility] Stop: 01/25/20 08:59 Last Admin: 12/28/19 09:13 Dose: 20 mg Documented by: Finasteride (Finasteride 5 Mg Tab) 5 mg PO QAM [facility] Stop: 01/25/20 08:59 Last Admin: 12/28/19 09:12 Dose: 5 mg Documented by: Glucagon (Glucagon For Inj 1 Mg Vial) 1 mg SQ UD PRN; Protocol PRN Reason: Hypoglycemia Protocol Stop: 01/24/20 20:13 Glucose (Glucose 10 Tabs/Tube) 4 - 8 tabs PO UD PRN; Protocol PRN Reason: Hypoglycemia Protocol Stop: 01/24/20 20:13 Glucose (Glucose 40% Gel 15 Gm Tube) 15 - 30 gm PO UD PRN; Protocol PRN Reason: Hypoglycemia Protocol Stop: 01/24/20 20:13 Heparin Sodium (Porcine) (Heparin Sod 5,000 Unit/0.5 Ml Vial) 5,000 units SQ Q12 [facility] Stop: 01/24/20 20:59 Last Admin: 12/28/19 09:09 Dose: 5,000 units Documented by: Ampicillin Sodium/Sulbactam Sodium 3,000 mg/ Sodium Chloride 108 mls @ 200 mls/hr IV Q6H [facility]; Protocol Stop: 02/07/20 15:59 Last Infusion: 12/28/19 10:55 Dose: Infused Documented by: Insulin Aspart (Insulin Aspart 100 Units/Ml 3 Ml Pen) 0 units SC ACHS [facility] Stop: 01/24/20 20:59 Last Admin: 12/28/19 13:18 Dose: 7 units Documented by: Insulin Glargine (Insulin Glargine Solostar 100 Units/Ml 3 Ml Pen) 20 units SC DAILY [facility] Stop: 01/27/20 10:59 Last Admin: 12/28/19 11:12 Dose: 20 units Documented by: Isosorbide Mononitrate (Isosorbide Roberts Extended Rel 30 Mg Tabcr) 30 mg PO DAILY [facility] Stop: 01/25/20 08:59 Last Admin: 12/28/19 09:12 Dose: 30 mg Documented by: Lactobacillus Acidophilus (Lactobacillus Acidophilus (Floranex) Tab) 4 tab PO TIDM [facility] Stop: 01/25/20 07:59 Last Admin: 12/28/19 13:16 Dose: 4 tab Documented by: Metoprolol Succinate (Metoprolol Succ 25mg Ext Rel Tab) 25 mg PO DAILY [facility] Stop: 01/25/20 08:59 Last Admin: 12/28/19 09:11 Dose: 25 mg Documented by: Miscellaneous (Carbohydrates For Hypoglycemia ) 15 - 30 gm PO UD PRN PRN Reason: Hypoglycemia Protocol Stop: 01/24/20 20:13 Last Admin: 12/26/19 06:28 Dose: 30 gm Documented by: Polyethylene Glycol (Polyethylene (Miralax) 17 Gm Pack) 17 gm PO DAILY PRN PRN Reason: Constipation Stop: 01/24/20 20:13 Raspberry (Raspberry Syrup 5 Ml Udp) 5 ml PO Q6 [facility] Stop: 01/09/20 00:00 Last Admin: 12/28/19 13:16 Dose: 5 ml Documented by: Risperidone (Risperidone 0.5 Mg Tablet) 0.25 mg PO DAILY PRN PRN Reason: confusion Stop: 01/24/20 20:13 Last Admin: 12/26/19 09:08 Dose: 0.25 mg Documented by: Vancomycin HCl (Vancomycin Hcl 125 Mg/2.5ml Soln) 125 mg PO Q6 [facility] Stop: 01/05/20 00:00 Last Admin: 12/28/19 13:17 Dose: 125 mg Documented by:
--- NOTE | 2019-12-28 18:49 | Orthopedic Consultation ---
Date of Consultation December 28, 2019 Assessment & Plan (1) Chronic heel ulcer: (2) Osteomyelitis: Continue with local wound care, IV antibiotics per infectious disease, trend inflammatory labs, pending vascular consultation and possible intervention patient will most likely require debridement of at least lateral calcaneus chronic ulcer and bone. We will follow with you. Thank you for the consultation. History of Present Illness Reason for Consultation: Right foot and ankle osteomyelitis Attending Physician: Rudy Isabel MD History of Present Illness Patient is a 74 yo male with a complex past medical history including DM Type 2, chronic bilateral lower extremity PAD with chronic right heel ulceration, HTN, Dyslipidemia, Dementia, history of NSTEMI, history of Lymphoma who presented to [facility] ED with worsening confusion and functional status this morning. The patient is a poor historian secondary to underlying dementia and the majority of the HPI was obtained from the chart. The patient follows with [facility] wound care. Cultures taken lower extremity ulcerations positive for Klebsiella and group B strep. MRI taken while inpatient demonstrated increased signal uptake overlying the lateral malleolus and lateral calcaneus concerning for osteomyelitis. Allergies Allergy/AdvReac Type Severity Reaction Status Date / Time Penicillins Allergy Unknown UNK Verified 12/25/19 17:36 KAVITA Inhibitors AdvReac Intermediate COUGH Verified 12/25/19 17:36 Home Medications Home Medications Medication Instructions Recorded Confirmed Type atorvastatin 80 mg PO QAM 05/06/18 12/25/19 History clopidogrel 75 mg PO QAM 05/06/18 12/25/19 History donepezil 5 mg PO QAM 05/06/18 12/25/19 History escitalopram oxalate [Lexapro] 20 mg PO QAM 05/06/18 12/25/19 History turmeric root extract 500 mg PO DAILY 05/06/18 12/25/19 History metformin 500 mg PO QAM 04/14/19 12/25/19 History finasteride 5 mg PO QAM 06/12/19 12/25/19 History aspirin 81 mg PO QAM 30 Days #30 tab 06/19/19 12/25/19 Rx nitroglycerin [Nitrostat] 0.4 mg SUBLINGUAL UD PRN #30 tab 06/19/19 12/25/19 Rx insulin glargine 100 unit/mL (3 26 unit SUBCUT QAM ml 11/29/19 12/25/19 History mL) subcutaneous pen insulin aspart U-100 0 unit SUBCUT UD 12/16/19 12/25/19 History isosorbide mononitrate 30 mg PO DAILY 12/16/19 12/25/19 History metoprolol succinate 25 mg PO DAILY 12/16/19 12/25/19 History polyethylene glycol 3350 [Miralax] 17 g PO DAILY 12/16/19 12/25/19 History psyllium husk (with sugar) 1 tsp PO DAILY 12/16/19 12/25/19 History [Metamucil Free] risperidone 0.25 mg PO DAILY PRN 12/16/19 12/25/19 History sennosides [senna] 8.6 mg PO HS 12/16/19 12/25/19 History acidophilus-pectin, citrus 1 cap PO TIDM 12/25/19 12/25/19 History [Acidophilus Probiotic] hydroxyzine HCl 10 mg PO Q8 12/25/19 12/25/19 History vancomycin 125 mg PO Q6H 12/25/19 12/25/19 History cefdinir 300 mg capsule 300 mg PO BID 14 Days #28 cap 12/27/19 Rx Patient History Medical History Carotid artery disease Chest pain on exertion (11/08/13) Dementia DM (diabetes mellitus) HTN (hypertension) Hyperglycemia Hyperlipemia Hypoglycemia Ischemic cardiomyopathy Non-ST elevation MD (NSTEMI) Open wound Slurred speech Type 2 diabetes mellitus, with long-term current use of insulin Vascular disease Vascular disease Surgical History History of colonoscopy History of repair of ACL Family History Other Family history non-contributory Social History Smoking Status: Former smoker Second Hand Exposure: No; Hx Alcohol Use: Yes Alcohol type: beer and wine Hx Substance Use: No Preferred Language: Mongolian Communication Ability: Effective Youth Teacher Required: No Beliefs That Will Affect Care: None marital status: Current Living Situation: Spouse Current Living Situation Comment: lives with in home with 1 step to enter and 7 steps inside Other Information That Helps Us Care for You: No Feels Safe at Home: Yes Safety Concerns: Feels Safe At This Time Assistive Devices: None Review of Systems Review of Systems: All systems reviewed & are unremarkable except as noted in HPI & below Constitutional: as per Subjective / HPI Physical Exam Physical Exam: Bilateral lower extremities are neurovascular sensory intact, decreased sensation grossly at baseline due to neuropathy. Compartment soft nontender, multiple small ulcerations bilateral lower extremity measuring less than 1 cm. Moderately sized ulceration overlying right lower extremity lateral malleolus and calcaneus measuring 1.5 cm x 1 cm and 3 cm x 3 cm respectively. Ulceration overlying lateral calcaneus with necrotic tissue in wound bed. Constitutional: WD/WN, vitals as above Results & Data ([facility]) Vital Signs (Past 12 Hours) Vital Signs Temp Pulse Pulse Resp BP Pulse Ox 12/28/19 15:23 36.8 C 75 18 167/77 H 97 12/28/19 08:37 36.8 C 67 18 165/70 H 92 Diagnostic Findings MR ankle RT wo/w con HISTORY: Skin ulcer within the ankle. Assess for osteomyelitis. TECHNIQUE: Multiplanar multisequence MRI of the right ankle was performed both before and after the intravenous administration of 7 cc of Gadavist contrast. COMPARISON STUDY: Right foot 12/25/2019. FINDINGS: Focal skin ulceration overlying the lateral malleolus and lateral aspect of the posterior calcaneus. There is marrow edema and decreased T1 signal within the lateral malleolus with suggestion of focal cortical erosion best seen on axial T1 image 12. There is associated marrow enhancement at the lateral malleolus. This likely represents a site of osteomyelitis. There is similar T2 hyperintense, T1 hypointense signal within the lateral posterior calcaneus with associated enhancement. This is also concerning for a focus of osteomyelitis. No loculated fluid collections to suggest an abscess. No fracture or dislocation within the ankle. There is soft tissue enhancement along the lateral malleolus and lateral calcaneus consistent with an associated cellulitis. The flexor, extensor, peroneal, and Achilles tendons appear intact. Enhancement with soft tissue edema seen within the plantar muscles. The plantar fascia is intact. No significant joint effusions. Mild cartilage space narrowing at the tibiotalar joint. IMPRESSION: 1. Abnormal signal intensity and enhancement deep to the skin ulcerations at the lateral malleolus and lateral calcaneus. This is highly suspicious for areas of osteomyelitis. 2. No loculated fluid collections to suggest an abscess. 3. Additional findings as described above. RIGHT FOOT 3 VIEWS CLINICAL HISTORY: Ulcers. Heel pain. FINDINGS: 3 views of the right foot are obtained. No prior studies are available for comparison at the time of dictation. The skeletal structures are heterogeneously osteopenic. No fracture is seen. There is no bony erosion or periostitis. Mild osteoarthritic change is noted in the first metatarsophalangeal joint and throughout the midfoot. Mild soft tissue edema overlies the heel. There is advanced atherosclerotic calcification of the regional arteries. IMPRESSION: 1. No acute bony abnormality is identified. 2. Soft tissue edema overlies the heel.
[2019-12-29] MEDS: AMPICILLIN/SULBACTAM SOD 3,000 MG in 0.9 % SODIUM CHLORIDE 100 ML IV SCH ×4 (03:32→21:27)
[2019-12-29 07:03] LABS: Basophils # (auto) 0.05 K/uL (0-0.2); Basophils % (auto) 0.4 %; Eosinophils # (auto) 0.21 K/uL (0-0.5); Eosinophils % (auto) 1.6 %; Hematocrit (blood only) 34.5 % (42-52); Immature Granulocytes # (auto) 0.02 K/uL (0.00-0.02); Immature Granulocytes % (auto) 0.2 %; Lymphocytes # (auto) 1.31 K/uL (1.2-3.4); Lymphocytes % (auto) 9.9 %; Mean Corpuscular Hemoglobin 29.2 pg (25-34); Mean Corpuscular Hgb Conc 31.9 g/dL (32-36); Mean Corpuscular Volume 91.5 fL (80-100); Monocytes # (auto) 1.07 K/uL (0.11-0.59); Monocytes % (auto) 8.1 %; Neutrophils # (auto) 10.51 K/uL (1.4-6.5); Neutrophils % (auto) 79.8 %; Platelet Count 536 K/uL (130-400); RDW Coefficient of Variation 12.7 % (11.5-14.5); RDW Standard Deviation 42.8 fL (36.4-46.3); Red Blood Count 3.77 M/uL (4.7-6.1); White Blood Count 13.17 K/uL (4.8-10.8)
[2019-12-29 07:28] LABS: BUN Creatinine Ratio 16.3 (10-20); Calcium 8.5 mg/dl (8.5-10.1); Creatinine Clr Calc Pharmacy 65.7 ml/min; Est GFR (African American) 83.7; Est GFR (Non-African American) 72.2; Phosphorus 2.6 mg/dl (2.5-4.9)
[2019-12-29] MEDS: INSULIN ASPART 100 UNITS/ML 3 ML PEN SC SCH ×4 (09:02→21:20)
[2019-12-29] MEDS: HEPARIN SOD 5,000 UNIT/0.5 ML VIAL SQ SCH ×2 (09:03→21:19)
[2019-12-29] MEDS: LACTOBACILLUS ACIDOPHILUS (FLORANEX) TAB PO SCH ×3 (09:04→16:20)
[2019-12-29] MEDS: ISOSORBIDE MONO EXTENDED REL 30 MG TABCR PO SCH (09:05)
[2019-12-29] MEDS: DONEPEZIL HCL 5 MG TAB PO SCH (09:06)
[2019-12-29] MEDS: ASPIRIN 81 MG ECTAB PO SCH (09:06)
[2019-12-29] MEDS: METOPROLOL SUCC 25MG EXT REL TAB PO SCH (09:06)
[2019-12-29] MEDS: ATORVASTATIN 40 MG TAB PO SCH (09:07)
[2019-12-29] MEDS: INSULIN GLARGINE SOLOSTAR 100 UNITS/ML 3 ML PEN SC SCH (09:07)
[2019-12-29] MEDS: ESCITALOPRAM OXALATE 20 MG TAB PO SCH (09:08)
[2019-12-29] MEDS: CLOPIDOGREL BISULFATE 75 MG TAB PO SCH (09:08)
[2019-12-29] MEDS: FINASTERIDE 5 MG TAB PO SCH (09:08)
[2019-12-29] MEDS: RASPBERRY SYRUP 5 ML UDP PO SCH ×2 (09:13→21:22)
[2019-12-29] MEDS: VANCOMYCIN HCL 125 MG/2.5ML SOLN PO SCH ×2 (09:13→21:22)
[2019-12-29] MEDS ORDERED: PHARMACY GLYCEMIC MGMT CONSULT PRN (10:56)
[2019-12-29] MEDS ORDERED: INSULIN GLARGINE SOLOSTAR 100 UNITS/ML 3 ML PEN SC ONE (12:00)
--- NOTE | 2019-12-29 13:52 | Hospitalist Progress Note ---
Date of Service December 29, 2019 Assessment & Plan (1) Osteomyelitis: MRI reveals +osteomyelitis. Cont Unasyn per ID recs pending surgical recommendations for debridement. Ortho and Vascular both consulted. Of note, expressed she prefers any operation to be performed at [facility]. 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 The patient is not currently septic. (3) Generalized weakness: This appears to be resolved. PT has already cleared him to return home when medically cleared. (4) C. difficile colitis: Per ID he will cont Vanc PO 125 BID while on antibiotics until he has been without any diarrhea for at least one week. Will cont to monitor clinically and cont contact precautions. (5) History of lymphoma: Per , she states her primary care PA ordered a whole body PET scan for him for enlarged lymph nodes. Encouraged to touch base with his oncologist for help with interpretation with this study, which is currently delayed with active infection. (6) Atherosclerotic plaque: He has known, stable, chronic PAD and CAD. Cont medical management including ASA, Plavix, Lipitor, Toprol. (7) Type 2 diabetes mellitus, with long-term current use of insulin: Still uncontrolled A1C of 7.7 which is improved since June 2019 which was 11.0. He is not at goal inpatient glucose level, so have asked the inpatient glycemic pharmacist to assist with management. Appreciate recs. (8) Alzheimer's dementia: Supportive care. High risk for hospital-induced delirium. Reorient as needed. Cont Donepezil per home regimen. (9) Depression: cont Lexapro per home regimen. (10) DVT prophylaxis: Heparin Full Code Dispo-pending surgical recommendations. DO Roshan Mcginnis Hospitalist Admission and Anticipated Discharge Date Admission Date: December 27, 2019 Subjective 74-year-old man presented on 12/24 with weakness, confusion. He has a known chronic arterial leg ulcer and peripheral arterial disease with the wound concerning for underlying infection. An ankle MRI revealed presence of osteomyelitis. Zosyn was started and has been going on for the last 5 days. Infectious disease was consulted and recommended Unasyn every 6 hours as this will cover Klebsiella oxytocin and group be strep as well as other pathogens including anaerobes that may be present. Orthopedics and vascular surgery were consulted and are currently in the process of deciding about surgical debridement. If debridement will not be pursued infectious disease recommends focusing on treating the soft tissue infection with 2 weeks of oral Augmentin. The patient is a diabetic with Alzheimer's disease. He has multiple ulcers and wounds on both legs and has been seen in these wounds have been dressed by the [facility] care provider. As the patient has Alzheimer's disease and is disoriented at baseline, review of systems is very limited from him. History was obtained from the who was at bedside. She expresses that if any surgery is to be done she would prefer he be transferred to [facility]. The patient is currently sitting upright and eating his meal. He is energetic and joking. He denies any pain and does not appear to be in pain. Overall, his disposition and clinical presents appears to be improved since admission, and his agrees. Review of Systems Review of Systems: Other (Alzheimer's dementia and disorientation limits ROS) Physical Exam Physical Exam: CONSTITUTIONAL: WNWD, vitals as above, generally well- appearing EYES: pupils are equal and round bilaterally, normal conjunctivae, no scleral icterus ENT: external ear and nose normal, oropharynx clear, MMM RESPIRATORY: clear to auscultation bilaterally, no crackles, rales or wheezes, normal respiratory effort CARDIOVASCULAR: regular rate and rhythm, S1 and 2 heard without murmurs, gallops or rubs, no JVD, no peripheral edema GASTROINTESTINAL: soft, nontender, nondistended, no guarding. MUSCULOSKELETAL: strength 5/5 throughout, head is normocephalic and atraumatic SKIN: warm and dry NEUROLOGIC: No facial palsy, no dysarthria. CN 2-12 grossly intact, normal cognition, normal speech PSYCHIATRIC: alert cooperative and disoriented to place and time. Results & Data Results & Data ([facility]) Vital Signs (Past 12 Hours) Vital Signs Temp Pulse Resp BP Pulse Ox 12/29/19 08:21 36.7 C 64 18 165/71 H 93 Laboratory Results Short CBC 12/29/19 Range/Units 06:42 WBC 13.17 H (4.8-10.8) K/uL Hgb 11.0 L (14.0-18.0) g/dL Hct 34.5 L (42-52) % Plt Count 536 H (130-400) K/uL BMP 12/29/19 06:42 Sodium 136 Potassium 4.0 Chloride 101 Carbon Dioxide 27 BUN 17 Creatinine 1.03 Glucose 245 H Calcium 8.5 Medications Administered Current Inpatient Medications Acetaminophen (Acetaminophen 325 Mg Tab) 650 mg PO Q4H PRN PRN Reason: pain/fever Stop: 01/24/20 20:13 Aspirin (Aspirin 81 Mg Ectab) 81 mg PO [facility] Stop: 01/25/20 08:59 Last Admin: 12/29/19 09:06 Dose: 81 mg Documented by: Atorvastatin Calcium (Atorvastatin 40 Mg Tab) 80 mg PO [facility] Stop: 01/25/20 08:59 Last Admin: 12/29/19 09:07 Dose: 80 mg Documented by: Clopidogrel Bisulfate (Clopidogrel Bisulfate 75 Mg Tab) 75 mg PO [facility] Stop: 01/25/20 08:59 Last Admin: 12/29/19 09:08 Dose: 75 mg Documented by: Dextrose (Dextrose 50% 50 Ml Syringe) 25 - 50 ml IV UD PRN; Protocol PRN Reason: Hypoglycemia Protocol Stop: 01/24/20 20:13 Diphenhydramine HCl (Diphenhydramine Hcl 50 Mg/Ml Vial) 12.5 mg IV Q4H PRN PRN Reason: Rash Stop: 01/26/20 15:52 Donepezil HCl (Donepezil Hcl 5 Mg Tab) 5 mg PO [facility] Stop: 01/25/20 08:59 Last Admin: 12/29/19 09:06 Dose: 5 mg Documented by: Escitalopram Oxalate (Escitalopram Oxalate 20 Mg Tab) 20 mg PO [facility] Stop: 01/25/20 08:59 Last Admin: 12/29/19 09:08 Dose: 20 mg Documented by: Finasteride (Finasteride 5 Mg Tab) 5 mg PO [facility] Stop: 01/25/20 08:59 Last Admin: 12/29/19 09:08 Dose: 5 mg Documented by: Glucagon (Glucagon For Inj 1 Mg Vial) 1 mg SQ UD PRN; Protocol PRN Reason: Hypoglycemia Protocol Stop: 01/24/20 20:13 Glucose (Glucose 10 Tabs/Tube) 4 - 8 tabs PO UD PRN; Protocol PRN Reason: Hypoglycemia Protocol Stop: 01/24/20 20:13 Glucose (Glucose 40% Gel 15 Gm Tube) 15 - 30 gm PO UD PRN; Protocol PRN Reason: Hypoglycemia Protocol Stop: 01/24/20 20:13 Heparin Sodium (Porcine) (Heparin Sod 5,000 Unit/0.5 Ml Vial) 5,000 units SQ Q12 [facility] Stop: 01/24/20 20:59 Last Admin: 12/29/19 09:03 Dose: 5,000 units Documented by: Ampicillin Sodium/Sulbactam Sodium 3,000 mg/ Sodium Chloride 108 mls @ 200 mls/hr IV Q6H [facility]; Protocol Stop: 02/07/20 15:59 Last Infusion: 12/29/19 09:55 Dose: Infused Documented by: Insulin Aspart (Insulin Aspart 100 Units/Ml 3 Ml Pen) 0 units SC ACHS [facility] Stop: 01/24/20 20:59 Last Admin: 12/29/19 09:02 Dose: 7 units Documented by: Insulin Glargine (Insulin Glargine Solostar 100 Units/Ml 3 Ml Pen) 20 units SC DAILY [facility] Stop: 01/27/20 10:59 Last Admin: 12/29/19 09:07 Dose: 20 units Documented by: Isosorbide Mononitrate (Isosorbide [place] Extended Rel 30 Mg Tabcr) 30 mg PO DAILY [facility] Stop: 01/25/20 08:59 Last Admin: 12/29/19 09:05 Dose: 30 mg Documented by: Lactobacillus Acidophilus (Lactobacillus Acidophilus (Floranex) Tab) 4 tab PO TIDM [facility] Stop: 01/25/20 07:59 Last Admin: 12/29/19 09:04 Dose: 4 tab Documented by: Metoprolol Succinate (Metoprolol Succ 25mg Ext Rel Tab) 25 mg PO DAILY [facility] Stop: 01/25/20 08:59 Last Admin: 12/29/19 09:06 Dose: 25 mg Documented by: Miscellaneous (Carbohydrates For Hypoglycemia ) 15 - 30 gm PO UD PRN PRN Reason: Hypoglycemia Protocol Stop: 01/24/20 20:13 Last Admin: 12/26/19 06:28 Dose: 30 gm Documented by: Miscellaneous Information (Pharmacy Glycemic Mgmt Consult) 1 ea N/A UD PRN PRN Reason: Consult Stop: 01/28/20 10:55 Polyethylene Glycol (Polyethylene (Miralax) 17 Gm Pack) 17 gm PO DAILY PRN PRN Reason: Constipation Stop: 01/24/20 20:13 Raspberry (Raspberry Syrup 5 Ml Udp) 5 ml PO BID G[facility] Stop: 01/12/20 08:59 Last Admin: 12/29/19 09:13 Dose: 5 ml Documented by: Risperidone (Risperidone 0.5 Mg Tablet) 0.25 mg PO DAILY PRN PRN Reason: confusion Stop: 01/24/20 20:13 Last Admin: 12/26/19 09:08 Dose: 0.25 mg Documented by: Vancomycin HCl (Vancomycin Hcl 125 Mg/2.5ml Soln) 125 mg PO BID [facility] Stop: 01/07/20 20:59 Last Admin: 12/29/19 09:13 Dose: 125 mg Documented by:
--- NOTE | 2019-12-29 14:45 | Pharmacy Report ---
Pharmacy Glycemic Short Note 2 - Date of Service December 29, 2019 - Glycemic Short BSG Results (Last 24 hours): 12/28/19 12/28/19 12/28/19 17:12 17:13 20:31 Glucose POC Glucose 305 H* 300 H 211 H 12/29/19 12/29/19 12/29/19 06:42 08:18 12:30 Glucose 245 H POC Glucose 242 H 296 H OUTPATIENT ANTIDIABETIC REGIMEN: * Lantus 26 units SQ qAM * Novolog SSI * Metformin 500mg PO qAM * HbA1c: 7.7% (12/26/19) ASSESSMENT: * Mr Elizondo is a 74yo diabetic male, admitted with weakness/confusion and also has chronic ulcers in his heals, concerning for osteomyelitis at this time. * BSGs have been significantly elevated for the past couple of days. It looks like patient had an episode of hypoglycemia on 12/25, which prompted Lantus to be held on 12/26. Suspect that hyperglycemia is largely a result of basal insulin deficit. * Pharmacy glycemic consult received today. * Supplemental dose of Lantus given and Novolog parameters tightened to provide additional correctional/prandial insulin throughout the day. * Goals for this patient are to minimize the risk of hypoglycemia (in the setting of dementia) but also to keep BSGs reasonably well controlled to promote wound healing and discourage further infection. PLAN FOR INPATIENT GLYCEMIC CONTROL: * Hold outpatient oral diabetes medications * Continue to hold Metformin for now, as pt is potential surgical candidate. * Basal insulin * Lantus 20 units SQ daily, plus additional 10 units mid-day today * Resume home dose of Lantus 26 units SQ daily starting tomorrow morning * Bolus insulin -- tighten * NovoLog per scale ACHS or Q6hrs while NPO -- overnight check added tonight to provide additional correction if needed * Goal Range: Low 120 mg/dL - High 160 mg/dL * Correction Factor: 30 mg/dL/unit * Nutritional / Prandial insulin per carb ratio of 1 unit per 10 grams CHO consumed PLAN FOR DISCHARGE: * Patient's A1c (7.7%) indicates adequate glycemic control, in a 74yo patient with multiple comorbidities. * Expect that pt may resume home regimen on discharge, as long as he does not report having episodes of hypoglycemia. * Less stringent glycemic mgmt is appropriate in the setting of dementia, when reducing the risk for hypoglycemia is especially relevant.
--- NOTE | 2019-12-29 15:34 | Consultation ---
Date of Consultation December 29, 2019 Assessment & Plan (1) PAD (peripheral artery disease): Pt with PAD noted on US and R heel osteomyelitis. Had US reviewed by Dr Fournier, recommends pt undergo RLE angiogram with intervention in OR on FRIDAY. Will discuss with pt and tomorrow. Patient was seen, examined, and chart reviewed. Agree with exam and treatment plan of the Vascular PA. History of Present Illness Reason for Consultation: RLE osteomyelitis Attending Physician: Danielle Flores DO History of Present Illness 74 yo m with multiple medical problems, including dementia, DMII, ME, PAD, ischemia cardiomyopathy, carotid stenosis s/p L carotid stent, HTN, hyperlipidemia, admitted with infected R heel wound and osteomyelitis, seen in consultation today for PAD noted on US. Pt is very poor historian, so most hx obtained from . Pt is ambulatory. He developed a wound to R heel approx 6 weeks ago and has been going to [facility] regularly. Saw his PCP a few days ago who was worried when he saw the wound and sent him to [facility] for eval d/t infection. unsure how pt developed the wound. Has hx of L carotid stent by Dr Abreu at [facility] sometime within last 5 yrs or so, and was told pt had PAD, but that nothing needed done about it. Not sure how severe it was. Pt denies any claudication or rest pain, but states his heel hurts. Denies COCHRAN, fever, chest pain, SOB, abd pain, N/V, other complaints. Arterial US demonstrated significant PAD in BLE. MRI demonstrated probable osteomyelitis R heel. Allergies Allergy/AdvReac Type Severity Reaction Status Date / Time Penicillins Allergy Unknown UNK Verified 12/25/19 17:36 KAVITA Inhibitors AdvReac Intermediate COUGH Verified 12/25/19 17:36 Home Medications Home Medications Medication Instructions Recorded Confirmed Type atorvastatin 80 mg PO QAM 05/06/18 12/25/19 History clopidogrel 75 mg PO QAM 05/06/18 12/25/19 History donepezil 5 mg PO QAM 05/06/18 12/25/19 History escitalopram oxalate [Lexapro] 20 mg PO QAM 05/06/18 12/25/19 History turmeric root extract 500 mg PO DAILY 05/06/18 12/25/19 History metformin 500 mg PO QAM 04/14/19 12/25/19 History finasteride 5 mg PO QAM 06/12/19 12/25/19 History aspirin 81 mg PO QAM 30 Days #30 tab 06/19/19 12/25/19 Rx nitroglycerin [Nitrostat] 0.4 mg SUBLINGUAL UD PRN #30 tab 06/19/19 12/25/19 Rx insulin glargine 100 unit/mL (3 26 unit SUBCUT QAM ml 11/29/19 12/25/19 History mL) subcutaneous pen insulin aspart U-100 0 unit SUBCUT UD 12/16/19 12/25/19 History isosorbide mononitrate 30 mg PO DAILY 12/16/19 12/25/19 History metoprolol succinate 25 mg PO DAILY 12/16/19 12/25/19 History polyethylene glycol 3350 [Miralax] 17 g PO DAILY 12/16/19 12/25/19 History psyllium husk (with sugar) 1 tsp PO DAILY 12/16/19 12/25/19 History [Metamucil Free] risperidone 0.25 mg PO DAILY PRN 12/16/19 12/25/19 History sennosides [senna] 8.6 mg PO HS 12/16/19 12/25/19 History acidophilus-pectin, citrus 1 cap PO TIDM 12/25/19 12/25/19 History [Acidophilus Probiotic] hydroxyzine HCl 10 mg PO Q8 12/25/19 12/25/19 History vancomycin 125 mg PO Q6H 12/25/19 12/25/19 History cefdinir 300 mg capsule 300 mg PO BID 14 Days #28 cap 12/27/19 Rx Patient History Medical History Carotid artery disease Chest pain on exertion (11/08/13) Dementia DM (diabetes mellitus) HTN (hypertension) Hyperglycemia Hyperlipemia Hypoglycemia Ischemic cardiomyopathy Non-ST elevation ME (NSTEMI) Open wound Slurred speech Type 2 diabetes mellitus, with long-term current use of insulin Vascular disease Vascular disease Surgical History History of colonoscopy History of repair of ACL Family History Other Family history non-contributory Social History Smoking Status: Former smoker Second Hand Exposure: No; Hx Alcohol Use: Yes Alcohol type: beer and wine Hx Substance Use: No Preferred Language: Bruneian Communication Ability: Effective Pot Puncher Required: No Beliefs That Will Affect Care: None marital status: Current Living Situation: Spouse Current Living Situation Comment: lives with in home with 1 step to enter and 7 steps inside Feels Safe at Home: Yes Assistive Devices: None Review of Systems Review of Systems: All systems reviewed & are unremarkable except as noted in HPI & below (but pt is poor historian.) Physical Exam Constitutional: WD/WN, vitals as above + thin, healthy appearing, cooperative and comfortable; not in distress Eyes: PERRL, conjunctivae normal, anicteric sclerae ENMT: Ears: no hearing impairment and no external ear abnormality Neck: trachea midline Respiratory: normal respiratory effort, lungs clear to auscultation Auscultation: + diminished lung sounds Cardiovascular: Rate/Rhythm: regular rate and regular rhythm Vessels: femoral pulses present, posterior tibial pulses present (nonpalpable BLE. Dopplerable), dorsalis pedis pulses present (nonpalpable BLE. Dopplerable) and radial pulses present; + abnormal peripheral pulses Extremities: normal capillary refill and + edema (R heel/ankle) Gastrointestinal (Abdomen): normal bowel sounds, soft, nontender, no hepatosplenomegaly Musculoskeletal: no cyanosis or clubbing, extremities motor strength 5/5 Skin: + wound and + eschar (R lateral heel area, significant odor noted) Neurologic: moves all extremities, awake and + confused (mildly); no focal motor deficits Psychiatric: Orientation: alert, oriented to person, oriented to place and cooperative; + not oriented to time Results & Data ([facility]) Vital Signs (Past 12 Hours) Vital Signs Temp Pulse Resp BP Pulse Ox 12/29/19 08:21 36.7 C 64 18 165/71 H 93
[2019-12-29] MEDS: risperiDONE 0.5 MG TABLET PO PRN (19:39)
[2019-12-30] MEDS ORDERED: INSULIN ASPART 100 UNITS/ML 3 ML PEN SC ONE (02:00)
[2019-12-30] MEDS: AMPICILLIN/SULBACTAM SOD 3,000 MG in 0.9 % SODIUM CHLORIDE 100 ML IV SCH ×4 (04:04→20:56)
--- NOTE | 2019-12-30 08:39 | Surgery Progress Note ---
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 Will discuss with . Admission and Anticipated Discharge Date Admission Date: December 27, 2019 Subjective No complaints Physical Exam Physical Exam: No changes in his exam Constitutional: WD/WN, vitals as above Results & Data ([facility]) Vital Signs (Past 12 Hours) Vital Signs Temp Pulse Pulse Resp BP Pulse Ox 12/30/19 07:35 36.7 C 63 16 147/73 H 95 12/29/19 23:00 36.6 C 75 16 134/63 91
[2019-12-30 08:40] LABS: Est GFR (African American) 88.9; Est GFR (Non-African American) 76.7
[2019-12-30] MEDS ORDERED: INSULIN GLARGINE SOLOSTAR 100 UNITS/ML 3 ML PEN SC SCH (09:00)
[2019-12-30] MEDS: LACTOBACILLUS ACIDOPHILUS (FLORANEX) TAB PO SCH ×3 (09:10→16:08)
[2019-12-30] MEDS: DONEPEZIL HCL 5 MG TAB PO SCH (09:11)
[2019-12-30] MEDS: ATORVASTATIN 40 MG TAB PO SCH (09:11)
[2019-12-30] MEDS: FINASTERIDE 5 MG TAB PO SCH (09:11)
[2019-12-30] MEDS: ASPIRIN 81 MG ECTAB PO SCH (09:11)
[2019-12-30] MEDS: ESCITALOPRAM OXALATE 20 MG TAB PO SCH (09:12)
[2019-12-30] MEDS: METOPROLOL SUCC 25MG EXT REL TAB PO SCH (09:12)
[2019-12-30] MEDS: ISOSORBIDE MONO EXTENDED REL 30 MG TABCR PO SCH (09:12)
[2019-12-30] MEDS: CLOPIDOGREL BISULFATE 75 MG TAB PO SCH (09:12)
[2019-12-30] MEDS: HEPARIN SOD 5,000 UNIT/0.5 ML VIAL SQ SCH ×2 (09:14→20:53)
[2019-12-30] MEDS: RASPBERRY SYRUP 5 ML UDP PO SCH ×2 (09:14→20:56)
[2019-12-30] MEDS: INSULIN ASPART 100 UNITS/ML 3 ML PEN SC SCH ×4 (09:16→20:53)
--- NOTE | 2019-12-30 09:20 | Pharmacy Report ---
Pharmacy Glycemic Short Note 2 - Date of Service December 30, 2019 - Glycemic Short BSG Results (Last 24 hours): 12/29/19 12/29/19 12/29/19 12:30 17:10 20:25 POC Glucose 296 H 186 H 104 H 12/30/19 12/30/19 02:02 08:12 POC Glucose 127 H 152 H OUTPATIENT ANTIDIABETIC REGIMEN: * Lantus 26 units SQ qAM * Novolog SSI * Metformin 500mg PO qAM * HbA1c: 7.7% (12/26/19) ASSESSMENT: * Pt has received 52 units of insulin over the past 24hrs * 30 units of basal * 22 units of prandial/correctional * BSGs [phone] mg/dl * Pt tolerating PO per CHO counts * AM fasting BSG is in goal range for patient based on inpatient targets. Pt only received 20 units on 12/27 which resulted in hyperglycemia on 12/28. Pt received stressed dose of basal on 12/28 to compensate for decreased dose on 12/27. Will resume outpatient dosing of 26 units today which should be adequate based on A1c and previous days dosing. Will continue with conservative glycemic control to minimize the risk of hypo (in the setting of dementia). * Post-prandial BSGs improved after tightening paramters yesterday at lunch time. No change needed today. * Goal is to maintain BSGs < 200mg/ld (ideally <150 mg/dl) to prevent post-op complications PLAN FOR INPATIENT GLYCEMIC CONTROL: * Hold outpatient oral diabetes medications * Continue to hold Metformin for now, as pt is potential surgical candidate. * Basal insulin * Resume home dose of Lantus 26 units SQ daily * Bolus insulin -- no change * NovoLog per scale ACHS or Q6hrs while NPO -- overnight check added tonight to provide additional correction if needed * Goal Range: Low 120 mg/dL - High 160 mg/dL * Correction Factor: 30 mg/dL/unit * Nutritional / Prandial insulin per carb ratio of 1 unit per 10 grams CHO consumed PLAN FOR DISCHARGE: * Patient's A1c (7.7%) indicates adequate glycemic control, in a 74yo patient with multiple comorbidities. * Expect that pt may resume home regimen on discharge, as long as he does not report having episodes of hypoglycemia. * Less stringent glycemic mgmt is appropriate in the setting of dementia, when reducing the risk for hypoglycemia is especially relevant.
[2019-12-30] MEDS: VANCOMYCIN HCL 125 MG/2.5ML SOLN PO SCH ×2 (09:26→20:56)
--- NOTE | 2019-12-30 19:31 | Consultation Report ---
DATE OF CONSULTATION: 12/30/2019 HISTORY OF PRESENT ILLNESS: This is a 74-year-old gentleman with chronic right heel ulceration, peripheral artery disease, C. diff infection on 12/14/2019, diabetes mellitus type 2, coronary artery disease, status post PCI this 06/2019, hyperlipidemia, Alzheimer dementia, GERD, depression and previous heart attack. The patient has had several challenges related to his heel and has been under the care of Dr. Mauro Orantes at the [facility]. He presents back to the Emergency Department on 12/24, admitted through the hospitalist service. Placed on IV antibiotics. Has been in consultations with internal medicine, infectious disease, multiple hospitalists and orthopedics and vascular surgery. The patient has had ulceration for several months and has had difficulty with management due to multiple mitigating factors as noted above. I was asked to see the patient in consultation. He is noted to have findings highly suspicious of osteomyelitis on his most recent MRI affecting the lateral malleolus and the lateral calcaneus. The MRI on 12/26/2019 demonstrates signal intensity and enhancement of deep skin ulcerations of the lateral malleolus and lateral calcaneus, highly suspicious for osteomyelitis. There is local periosteal reaction and possible early bone invasion. He is scheduled to have the arteriogram and possible vascular procedure tomorrow. This will be performed by Dr. Forunier. We will consult with Dr. Fournier as to his findings and develop a care plan including surgical debridement, which will likely occur on Friday after Dr. Fournier was given an opportunity to possibly revascularize the patient. Thank you for the opportunity to participate in the care of this patient. We will reassess tomorrow. In the meantime, continue with IV antibiotics, further care and management by the hospitalist service and vascular services.
--- NOTE | 2019-12-30 22:49 | Hospitalist Progress Note ---
Date of Service December 30, 2019 Assessment & Plan (1) Osteomyelitis: MRI reveals +osteomyelitis. Cont Unasyn per ID recs pending surgical recommendations for debridement. Ortho and Vascular both consulted. We are proceeding with angiogram of RLE in am and possible intervention to increase blood flow per Vascular Surgeon. Based on those results, ortho will weigh in regarding further needs for surgical interventions including debridement or something more extensive. Of note, expressed she prefers any operation to be performed at [facility]. 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 The patient is not currently septic. (3) Generalized weakness: This appears to be resolved. PT has already cleared him to return home when medically cleared. (4) C. difficile colitis: Per ID he will cont Vanc PO 125 BID while on antibiotics until he has been without any diarrhea for at least one week. Will cont to monitor clinically and cont contact precautions. (5) History of lymphoma: Per , she states her primary care PA ordered a whole body PET scan for him for enlarged lymph nodes. Encouraged to touch base with his oncologist for help with interpretation with this study, which is currently delayed with active infection. (6) Atherosclerotic plaque: He has known, stable, chronic PAD and CAD. Cont medical management including ASA, Plavix, Lipitor, Toprol. (7) Type 2 diabetes mellitus, with long-term current use of insulin: Still uncontrolled A1C of 7.7 which is improved since June 2019 which was 11.0. More at inpatient goal today. Cont basal collus insulin. (8) Alzheimer's dementia: Supportive care. High risk for hospital-induced delirium. Reorient as needed. Cont Donepezil per home regimen. (9) Depression: cont Lexapro per home regimen. (10) DVT prophylaxis: Heparin Full Code Dispo-uncertain, angiogram in am and then proceed based on findings and vascular recommendations. Danielle Flores DO [facility] Hospitalist Admission and Anticipated Discharge Date Admission Date: December 27, 2019 Subjective states he is feeling well today denies pain denies fever tolerating PO is good with angiogram and poss intervention byy Vascular Surgeon in am. Review of Systems Review of Systems: All systems reviewed & are unremarkable except as noted in Subjective Physical Exam Physical Exam: CONSTITUTIONAL: WNWD, vitals as above, generally well- appearing EYES: pupils are equal and round bilaterally, normal conjunctivae, no scleral icterus ENT: external ear and nose normal, oropharynx clear, MMM RESPIRATORY: clear to auscultation bilaterally, no crackles, rales or wheezes, normal respiratory effort CARDIOVASCULAR: regular rate and rhythm, S1 and 2 heard without murmurs, gallops or rubs, no JVD, no peripheral edema GASTROINTESTINAL: soft, nontender, nondistended, no guarding. MUSCULOSKELETAL: strength 5/5 throughout, head is normocephalic and atraumatic SKIN: warm and dry NEUROLOGIC: No facial palsy, no dysarthria. CN 2-12 grossly intact, normal cognition, normal speech PSYCHIATRIC: alert cooperative and disoriented to place and time. Results & Data Results & Data ([facility]) Vital Signs (Past 12 Hours) Vital Signs Temp Pulse Resp BP Pulse Ox 12/30/19 15:53 37.1 C 66 16 144/45 H 92 Laboratory Results BMP 12/30/19 07:29 Creatinine 0.98 Medications Administered Current Inpatient Medications Acetaminophen (Acetaminophen 325 Mg Tab) 650 mg PO Q4H PRN PRN Reason: pain/fever Stop: 01/24/20 20:13 Aspirin (Aspirin 81 Mg Ectab) 81 mg PO [facility] Stop: 01/25/20 08:59 Last Admin: 12/30/19 09:11 Dose: 81 mg Documented by: Atorvastatin Calcium ([facility]vastatin 40 Mg Tab) [facility] Stop: 01/25/20 08:59 Last Admin: 12/30/19 09:11 Dose: 80 mg Documented by: Clopidogrel Bisulfate (Clopidogrel Bisulfate 75 Mg Tab) 75 mg PO [facility] Stop: 01/25/20 08:59 Last Admin: 12/30/19 09:12 Dose: 75 mg Documented by: Dextrose (Dextrose 50% 50 Ml Syringe) 25 - 50 ml IV UD PRN; Protocol PRN Reason: Hypoglycemia Protocol Stop: 01/24/20 20:13 Diphenhydramine HCl (Diphenhydramine Hcl 50 Mg/Ml Vial) 12.5 mg IV Q4H PRN PRN Reason: Rash Stop: 01/26/20 15:52 Donepezil HCl (Donepezil Hcl 5 Mg Tab) [facility] Stop: 01/25/20 08:59 Last Admin: 12/30/19 09:11 Dose: 5 mg Documented by: Escitalopram Oxalate (Escitalopram Oxalate 20 Mg Tab) 20 mg PO QAM [facility] Stop: 01/25/20 08:59 Last Admin: 12/30/19 09:12 Dose: 20 mg Documented by: Finasteride (Finasteride 5 Mg Tab) 5 mg PO QAM [facility] Stop: 01/25/20 08:59 Last Admin: 12/30/19 09:11 Dose: 5 mg Documented by: Glucagon (Glucagon For Inj 1 Mg Vial) 1 mg SQ UD PRN; Protocol PRN Reason: Hypoglycemia Protocol Stop: 01/24/20 20:13 Glucose (Glucose 10 Tabs/Tube) 4 - 8 tabs PO UD PRN; Protocol PRN Reason: Hypoglycemia Protocol Stop: 01/24/20 20:13 Glucose (Glucose 40% Gel 15 Gm Tube) 15 - 30 gm PO UD PRN; Protocol PRN Reason: Hypoglycemia Protocol Stop: 01/24/20 20:13 Heparin Sodium (Porcine) (Heparin Sod 5,000 Unit/0.5 Ml Vial) 5,000 units SQ Q12 [facility] Stop: 01/24/20 20:59 Last Admin: 12/30/19 20:53 Dose: 5,000 units Documented by: Ampicillin Sodium/Sulbactam Sodium 3,000 mg/ Sodium Chloride 108 mls @ 200 mls/hr IV Q6H [facility]; Protocol Stop: 02/07/20 15:59 Last Infusion: 12/30/19 21:30 Dose: Infused Documented by: Sodium Chloride (Nss 1000ml) 1,000 mls @ 100 mls/hr IV .Q10H [facility] Stop: 12/31/19 17:59 Insulin Aspart (Insulin Aspart 100 Units/Ml 3 Ml Pen) 0 units SC ACHS [facility] Stop: 01/24/20 20:59 Last Admin: 12/30/19 20:53 Dose: Not Given Documented by: Insulin Aspart (Insulin Aspart 100 Units/Ml 3 Ml Pen) 0 units SC TODAY@0200 ONE Stop: 12/31/19 02:01 Insulin Glargine (Insulin Glargine Solostar 100 Units/Ml 3 Ml Pen) 26 units SC DAILY [facility]; Protocol Stop: 01/29/20 08:59 Last Admin: 12/30/19 09:15 Dose: 26 units Documented by: Isosorbide Mononitrate (Isosorbide [place] Extended Rel 30 Mg Tabcr) 30 mg PO DAILY [facility] Stop: 01/25/20 08:59 Last Admin: 12/30/19 09:12 Dose: 30 mg Documented by: Lactobacillus Acidophilus (Lactobacillus Acidophilus (Floranex) Tab) 4 tab PO TIDM [facility] Stop: 01/25/20 07:59 Last Admin: 12/30/19 16:08 Dose: 4 tab Documented by: Metoprolol Succinate (Metoprolol Succ 25mg Ext Rel Tab) 25 mg PO DAILY [facility] Stop: 01/25/20 08:59 Last Admin: 12/30/19 09:12 Dose: 25 mg Documented by: Miscellaneous (Carbohydrates For Hypoglycemia ) 15 - 30 gm PO UD PRN PRN Reason: Hypoglycemia Protocol Stop: 01/24/20 20:13 Last Admin: 12/26/19 06:28 Dose: 30 gm Documented by: Miscellaneous Information (Pharmacy Glycemic Mgmt Consult) 1 ea N/A UD PRN PRN Reason: Consult Stop: 01/28/20 10:55 Polyethylene Glycol (Polyethylene (Miralax) 17 Gm Pack) 17 gm PO DAILY PRN PRN Reason: Constipation Stop: 01/24/20 20:13 Raspberry (Raspberry Syrup 5 Ml Udp) 5 ml PO BID [facility] Stop: 01/12/20 08:59 Last Admin: 12/30/19 20:56 Dose: 5 ml Documented by: Risperidone (Risperidone 0.5 Mg Tablet) 0.25 mg PO DAILY PRN PRN Reason: confusion Stop: 01/24/20 20:13 Last Admin: 12/29/19 19:39 Dose: 0.25 mg Documented by: Vancomycin HCl (Vancomycin Hcl 125 Mg/2.5ml Soln) 125 mg PO BID [facility] Stop: 01/07/20 20:59 Last Admin: 12/30/19 20:56 Dose: 125 mg Documented by:
[2019-12-31] MEDS ORDERED: INSULIN ASPART 100 UNITS/ML 3 ML PEN SC ONE (02:00)
[2019-12-31] MEDS: AMPICILLIN/SULBACTAM SOD 3,000 MG in 0.9 % SODIUM CHLORIDE 100 ML IV SCH ×4 (04:13→21:23)
[2019-12-31] MEDS: INSULIN ASPART 100 UNITS/ML 3 ML PEN SC SCH ×4 (06:38→21:22)
[2019-12-31] MEDS: CLOPIDOGREL BISULFATE 75 MG TAB PO SCH (07:48)
[2019-12-31] MEDS: ISOSORBIDE MONO EXTENDED REL 30 MG TABCR PO SCH (07:49)
[2019-12-31] MEDS: DONEPEZIL HCL 5 MG TAB PO SCH (07:49)
[2019-12-31] MEDS: FINASTERIDE 5 MG TAB PO SCH (07:49)
[2019-12-31] MEDS: METOPROLOL SUCC 25MG EXT REL TAB PO SCH (07:50)
[2019-12-31] MEDS: ASPIRIN 81 MG ECTAB PO SCH (07:50)
[2019-12-31] MEDS: ESCITALOPRAM OXALATE 20 MG TAB PO SCH (07:50)
[2019-12-31] MEDS: LACTOBACILLUS ACIDOPHILUS (FLORANEX) TAB PO SCH ×3 (07:51→18:49)
[2019-12-31] MEDS: ATORVASTATIN 40 MG TAB PO SCH (07:51)
--- NOTE | 2019-12-31 07:57 | History & Physical Bridge Note ---
Date of Service December 31, 2019 History & Physical Bridge Note Patient for arteriography today with possible intervention. I have discussed the risks options and benefits of the procedure with the patient's . The patient's understands the risks options and benefits and agrees to the procedure. I have examined the patient, reviewed the History & Physical and in the interval since the performance of the History & Physical I have noted the following changes of clinical significance: no changes noted
[2019-12-31] MEDS ORDERED: SODIUM CHLORIDE 0.9% 1000ML 1,000 ML IV SCH (08:00)
[2019-12-31] MEDS: HEPARIN SOD 5,000 UNIT/0.5 ML VIAL SQ SCH ×2 (08:28→21:22)
[2019-12-31] MEDS ORDERED: INSULIN GLARGINE SOLOSTAR 100 UNITS/ML 3 ML PEN SC SCH (09:00)
[2019-12-31] MEDS: VANCOMYCIN HCL 125 MG/2.5ML SOLN PO SCH ×2 (10:36→21:23)
[2019-12-31] MEDS: RASPBERRY SYRUP 5 ML UDP PO SCH ×2 (10:36→21:23)
[2019-12-31] MEDS ORDERED: LIDOCAINE HCL 1% 20 ML VIAL ONE (12:50)
--- NOTE | 2019-12-31 12:50 | Pharmacy Report ---
Pharmacy Glycemic Short Note 2 - Date of Service December 31, 2019 - Glycemic Short BSG Results (Last 24 hours): 12/30/19 12/30/19 12/31/19 17:11 19:50 02:11 POC Glucose 206 H 131 H 211 H 12/31/19 12/31/19 06:00 11:56 POC Glucose 196 H 181 H OUTPATIENT ANTIDIABETIC REGIMEN: * Lantus 26 units SQ qAM * Novolog SSI * Metformin 500mg PO qAM * HbA1c: 7.7% (12/26/19) ASSESSMENT: * Pt has received 49 units of insulin over the past 24hrs * 26 units of basal * 23 units of prandial/correctional * Fasting BSG this AM was elevated at 196. Lantus dose was slightly increased to 30 units this AM. * Post-prandial BSGs were elevated but lower at HS yesterday. * Patient was NPO today for procedure. BSG check at lunch today was 181. No changes were made to Novolog parameters. PLAN FOR INPATIENT GLYCEMIC CONTROL: * Hold outpatient oral diabetes medications * Continue to hold Metformin. * Basal insulin * Lantus dose increased to 30 units SQ daily * Bolus insulin- no change * NovoLog per scale ACHS or Q6hrs while NPO -- overnight check added tonight to provide additional correction if needed * Goal Range: Low 120 mg/dL - High 160 mg/dL * Correction Factor: 30 mg/dL/unit * Nutritional / Prandial insulin per carb ratio of 1 unit per 8 grams CHO consumed PLAN FOR DISCHARGE: * Patient's A1c (7.7%) indicates adequate glycemic control, in a 74yo patient with multiple comorbidities. * Expect that pt may resume home regimen on discharge, as long as he does not report having episodes of hypoglycemia. * Less stringent glycemic mgmt is appropriate in the setting of dementia, when reducing the risk for hypoglycemia is especially relevant.
[2019-12-31] MEDS ORDERED: fentaNYL citrate 100 MCG/2 ML VIAL ONE (13:01)
[2019-12-31] MEDS ORDERED: MIDAZOLAM HCL 1 MG/ML 2ML VIAL ONE (13:02)
--- NOTE | 2019-12-31 13:16 | Pre Anesthesia Assessment ---
Date of Service December 31, 2019 Pre Sedation Assessment Vital Signs Temp Pulse Pulse Resp BP BP Pulse Ox 12/31/19 12:33 36.9 C 65 18 132/77 92 12/31/19 08:29 36.7 C 69 16 134/68 96 12/30/19 23:39 36.4 C L 12/30/19 23:17 38.0 C H 70 16 154/67 H 90 12/30/19 15:53 37.1 C 66 16 144/45 H 92 Cardiovascular RRR, no murmur, no edema Respiratory normal respiratory effort, lungs clear to auscultation Pre-Sedation Airway Assessment Smoking Status: Former smoker Hx Sleep Apnea: No Short, Thick Neck: No Thyromental Distance: > or= 3.5 Finger Breadths Oral Cavity: + WNL Mallampati Class: II ASA: ASA3 NPO Status Date of Last Intake of Fluids: 12/30/19 Date of Last Intake of Solid Food: 12/30/19 Time of Last Intake of Solid Foods: 17:00 Procedure Planning Contraindications for Sedation: none Current Medications Reviewed: Yes Notes The planned sedation has been discussed with the patient. Informed Consent was obtained. I have identified the patient, determined the appropriateness of sedation and have assessed the patient immediately prior to the procedure. All medicine(s) and interventions are by my order.
--- NOTE | 2019-12-31 13:55 | Hospitalist Progress Note ---
Date of Service December 31, 2019 Assessment & Plan (1) Osteomyelitis: MRI reveals +osteomyelitis. Cont Unasyn. Angiogram was unsuccessful today and patient will require bypass surgery next week Ortho will need to debride foot surgically, also. Will need to figure out Ortho plans/recs. 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 The patient is not currently septic. (3) C. difficile colitis: Per ID he will cont Vanc PO 125 BID while on antibiotics until he has been without any diarrhea for at least one week. Will cont to monitor clinically and cont contact precautions. (4) Atherosclerotic plaque: He has known, stable, chronic PAD and CAD. Cont medical management including ASA, Plavix, Lipitor, Toprol. Unsuccessful intervention on leg today. (5) Type 2 diabetes mellitus, with long-term current use of insulin: At inpatient goal glucose. Cont MDD insulin while hospitalized. (6) Alzheimer's dementia: Supportive care. High risk for hospital-induced delirium. Reorient as needed. Cont Donepezil per home regimen. (7) Depression: cont Lexapro per home regimen. (8) DVT prophylaxis: Heparin Full Code Dispo-uncertain at this time. Need orthopedic recs Danielle Flores DO [facility] Hospitalist Admission and Anticipated Discharge Date Admission Date: December 27, 2019 Subjective Pt is post op from angiogram He is alone without Denies pain in legs or anywhere Doing well at this time. Review of Systems Review of Systems: All systems reviewed & are unremarkable except as noted in Subjective Physical Exam Physical Exam: CONSTITUTIONAL: WNWD, vitals as above, generally well- appearing EYES: pupils are equal and round bilaterally, normal conjunctivae, no scleral icterus ENT: external ear and nose normal, oropharynx clear, MMM RESPIRATORY: clear to auscultation bilaterally, no crackles, rales or wheezes, normal respiratory effort. Appears to be better airflow today. CARDIOVASCULAR: regular rate and rhythm, S1 and 2 heard without murmurs, gallops or rubs, no JVD, no peripheral edema GASTROINTESTINAL: soft, nontender, nondistended, no guarding. MUSCULOSKELETAL: strength 5/5 throughout, head is normocephalic and atraumatic SKIN: warm and dry, R round 2 cm arterial ulceration, appears necrotic without drainage. Multiple other nondraining wounds. NEUROLOGIC: No facial palsy, no dysarthria. CN 2-12 grossly intact, normal cognition, normal speech PSYCHIATRIC: alert and cooperative. Results & Data Results & Data ([facility]) Vital Signs (Past 12 Hours) Vital Signs Temp Pulse Pulse Pulse Resp BP Pulse Ox 12/31/19 13:50 57 L 12 117/55 L 100 12/31/19 13:45 59 L 12 106/53 L 100 12/31/19 13:40 59 L 12 110/57 L 100 12/31/19 13:35 60 12 103/54 L 100 12/31/19 13:30 58 L 14 131/66 100 12/31/19 13:25 63 16 144/68 H 100 12/31/19 13:20 67 18 136/64 99 12/31/19 12:33 36.9 C 65 18 132/77 92 12/31/19 08:29 36.7 C 69 16 134/68 96 Medications Administered Current Inpatient Medications Acetaminophen (Acetaminophen 325 Mg Tab) 650 mg PO Q4H PRN PRN Reason: pain/fever Stop: 01/24/20 20:13 Aspirin (Aspirin 81 Mg Ectab) 81 mg PO [facility] Stop: 01/25/20 08:59 Last Admin: 12/31/19 07:50 Dose: 81 mg Documented by: Atorvastatin Calcium (Atorvastatin 40 Mg Tab) 80 mg PO [facility] Stop: 01/25/20 08:59 Last Admin: 12/31/19 07:51 Dose: 80 mg Documented by: Clopidogrel Bisulfate (Clopidogrel Bisulfate 75 Mg Tab) 75 mg PO [facility] Stop: 01/25/20 08:59 Last Admin: 12/31/19 07:48 Dose: 75 mg Documented by: Dextrose (Dextrose 50% 50 Ml Syringe) 25 - 50 ml IV UD PRN; Protocol PRN Reason: Hypoglycemia Protocol Stop: 01/24/20 20:13 Diphenhydramine HCl (Diphenhydramine Hcl 50 Mg/Ml Vial) 12.5 mg IV Q4H PRN PRN Reason: Rash Stop: 01/26/20 15:52 Donepezil HCl (Donepezil Hcl 5 Mg Tab) [facility] Stop: 01/25/20 08:59 Last Admin: 12/31/19 07:49 Dose: 5 mg Documented by: Escitalopram Oxalate (Escitalopram Oxalate 20 Mg Tab) 20 mg PO QAM [facility] Stop: 01/25/20 08:59 Last Admin: 12/31/19 07:50 Dose: 20 mg Documented by: Finasteride (Finasteride 5 Mg Tab) 5 mg PO QAM [facility] Stop: 01/25/20 08:59 Last Admin: 12/31/19 07:49 Dose: 5 mg Documented by: Glucagon (Glucagon For Inj 1 Mg Vial) 1 mg SQ UD PRN; Protocol PRN Reason: Hypoglycemia Protocol Stop: 01/24/20 20:13 Glucose (Glucose 10 Tabs/Tube) 4 - 8 tabs PO UD PRN; Protocol PRN Reason: Hypoglycemia Protocol Stop: 01/24/20 20:13 Glucose (Glucose 40% Gel 15 Gm Tube) 15 - 30 gm PO UD PRN; Protocol PRN Reason: Hypoglycemia Protocol Stop: 01/24/20 20:13 Heparin Sodium (Porcine) (Heparin Sod 5,000 Unit/0.5 Ml Vial) 5,000 units SQ Q12 [facility] Stop: 01/24/20 20:59 Last Admin: 12/31/19 08:28 Dose: Not Given Documented by: Ampicillin Sodium/Sulbactam Sodium 3,000 mg/ Sodium Chloride 108 mls @ 200 mls/hr IV Q6H [facility]; Protocol Stop: 02/07/20 15:59 Last Infusion: 12/31/19 11:10 Dose: Infused Documented by: Sodium Chloride (Nss 1000ml) 1,000 mls @ 100 mls/hr IV .Q10H [facility] Stop: 12/31/19 17:59 Last Admin: 12/31/19 07:45 Dose: 100 mls/hr Documented by: Insulin Aspart (Insulin Aspart 100 Units/Ml 3 Ml Pen) 0 units SC Q6 [facility] Stop: 01/30/20 05:59 Last Admin: 12/31/19 12:11 Dose: 1 units Documented by: Insulin Glargine (Insulin Glargine Solostar 100 Units/Ml 3 Ml Pen) 30 units SC DAILY [facility]; Protocol Stop: 01/30/20 08:59 Last Admin: 12/31/19 07:57 Dose: 30 units Documented by: Isosorbide Mononitrate (Isosorbide [place] Extended Rel 30 Mg Tabcr) 30 mg PO DAILY [facility] Stop: 01/25/20 08:59 Last Admin: 12/31/19 07:49 Dose: 30 mg Documented by: Lactobacillus Acidophilus (Lactobacillus Acidophilus (Floranex) Tab) 4 tab PO TIDM [facility] Stop: 01/25/20 07:59 Last Admin: 12/31/19 12:11 Dose: Not Given Documented by: Metoprolol Succinate (Metoprolol Succ 25mg Ext Rel Tab) 25 mg PO DAILY [facility] Stop: 01/25/20 08:59 Last Admin: 12/31/19 07:50 Dose: 25 mg Documented by: Miscellaneous (Carbohydrates For Hypoglycemia ) 15 - 30 gm PO UD PRN PRN Reason: Hypoglycemia Protocol Stop: 01/24/20 20:13 Last Admin: 12/26/19 06:28 Dose: 30 gm Documented by: Miscellaneous Information (Pharmacy Glycemic Mgmt Consult) 1 ea N/A UD PRN PRN Reason: Consult Stop: 01/28/20 10:55 Polyethylene Glycol (Polyethylene (Miralax) 17 Gm Pack) 17 gm PO DAILY PRN PRN Reason: Constipation Stop: 01/24/20 20:13 Raspberry (Raspberry Syrup 5 Ml Udp) 5 ml PO BID [facility] Stop: 01/12/20 08:59 Last Admin: 12/31/19 10:36 Dose: 5 ml Documented by: Risperidone (Risperidone 0.5 Mg Tablet) 0.25 mg PO DAILY PRN PRN Reason: confusion Stop: 01/24/20 20:13 Last Admin: 12/29/19 19:39 Dose: 0.25 mg Documented by: Vancomycin HCl (Vancomycin Hcl 125 Mg/2.5ml Soln) 125 mg PO BID [facility] Stop: 01/07/20 20:59 Last Admin: 12/31/19 10:36 Dose: 125 mg Documented by:
--- NOTE | 2019-12-31 14:42 | Procedure Note ---
Angiogram Post Procedure Fluoroscopy Time (minutes): 32.9 Conscious Sedation Time (minutes): 83 Radiation (mGy): 175 Contrast: 70mL Post Operative Report Pre & Post Diagnosis Operation Date: 12/31/19 12:50 <No data on this case meets the specified criteria> I identified the patient and participated in the time-out.: Yes Procedure Operation Date: 12/31/19 12:50 Actual Procedures p Right Lower Extremity Angiogram, Moderate Concious Sedation 1328 to 1451(Left) - Blu Fournier MD Surgeon Blu Fournier MD Regulatory Law Specialist Hanh Sanchze MD Estimated Blood Loss 3 Findings Consistent with Post-Op Diagnosis Specimens None Anesthesia Type RN Sedation Complications none Disposition Accompanied Patient To Recovery: No Disposition: Recovery Room Indications 74 yoM with a non-healing wound on the RLE with osteomyelitis. Description of Procedure The patient was placed supine on the operating room table. His bilateral groins were prepared with chlorhexidine and he was draped in standard sterile fashion. A preprocedure time-out was performed correctly identifying the patie nt, procedure, site, and informed consent. The left femoral artery was identified with ultrasound. 1% lidocaine was injected in the subcutaneous tissue overlying the artery. The artery was accessed with an 18-gauge needle using ultrasound guidance with pulsatile bright red blood returned. A wire was advanced and the needle was removed. A small skin edouard was made with a #11 blade. A 5Fr sheath was advanced over the wire and a 0.035 angled Glidewire was inserted and advanced into the right external iliac artery. A 65cm Rim catheter was then advanced. There was some difficulty passing over the aortic bifurcation so a QuickCross was used. A 65cm angled Glidecath was then attempted. A 0.035 stiff angled Glidewire was then used and passed into the SFA. Arteriography showed a common femoral artery that was patent. Profundofemoral artery was also patent as well as the proximal superficial femoral artery. There is total occlusion from the mid superficial femoral artery to the proximal popliteal just beyond the adductor hiatus. A 7Fr Destination catheter was then attempted to be passed, but could not get past the bifurcation of the common iliac. A 0.035 stiff wire was then passed using the QuickCross. The stiff angled Glidewire was then passed through most of the occlusion, however, was unable to traverse the lesion in the distal-SFA. Attempts were made using the 4Fr Glidecath with the wire, however, after multiple attempts with multiple catheters and wires, we elected to stop as the wire was unable to get past the occlusion. The catheter and wire were removed and direct manual pressure was applied. A sterile dressing was applied. At the conclusion of the case, all needle, sponge, and instrument counts were correct. The patient tolerated the procedure well and there were no apparent complications. Dr. Fournier was present for, directly supervised, and participated in the procedure. I attest to the content of the Intraoperative Record and any orders documented therein. Any exceptions are noted below.
--- NOTE | 2019-12-31 14:44 | Post Operative Brief Note ---
Immediate Post Op Note v1 Date of Surgery December 31, 2019 Pre & Post Diagnosis Operation Date: 12/31/19 12:50 Pre-Op Diagnosis: Superficial Femoral Artery Occlusion With Osteomyelitis Post-Op Diagnosis: Superficial Femoral Artery Occlusion With Osteomyelitis I identified the patient and participated in the time-out.: Yes Procedure Operation Date: 12/31/19 12:50 Actual Procedures p Right Lower Extremity Angiogram with Attempted Intervention, Ultrasound Localization of Left Femoral Artery, Moderate Concious Sedation 1328 to 1451(Left) - Blu Fournier MD Surgeon Blu Fournier MD Chairman Ceo Hanh Sanchez MD Estimated Blood Loss 3 Findings Consistent with Post-Op Diagnosis Anesthesia Type RN Sedation Complications none Disposition Accompanied Patient To Recovery: No Disposition: Recovery Room
[2019-12-31] MEDS ORDERED: VISIPAQUE IV PRN (14:46)
--- NOTE | 2019-12-31 14:47 | Communication Note ---
Date of Service: December 31, 2019 Could not get through his right superficial femoral artery occlusion. Would recommend Ortho debride his foot. If it appears salvagable then we will need to do a fem pop bypass on the right leg friday. Will image his bilateral saphenous vein for useable conduit.
[2019-12-31] MEDS ORDERED: Nursing to Pharmacy Communication SCH (16:00)
--- NOTE | 2019-12-31 18:42 | Ultrasound Report ---
LOWER EXTREMITY VENOUS MAPPING CLINICAL HISTORY: pre op for right leg bypass COMPARISON STUDY: Right lower extremity venous Doppler ultrasound January 13, 2015. FINDINGS: For detailed measurements of the bilateral greater saphenous and small saphenous veins, ple ase see the PACS system. The right greater saphenous vein ranged in caliber from 0.29 cm to 0.73 cm a t the level of the groin. The distance from the skin for the right greater saphenous vein ranged from 0.24 to 1.02 cm. The right small saphenous vein ranged in caliber from 0.22 to 0.36 cm in depth rang ed from 0.22 to 0.93 cm. The left greater saphenous vein ranged in caliber from 0.11 cm to 0.33 cm and depth ranged from 0.19 cm to 1.18 cm. The left small saphenous vein ranged in caliber from 0.17 cm to 0.26 cm. Depth range f rom 0.32 cm to 0.38 cm. No thrombus was identified within these vessels. IMPRESSION: Venous mapping of the bilateral greater saphenous and small saphenous veins, as describe d above. For detailed measurements, please see the PACS system. ACT 112: Negative or not required by law. Electronically signed by: Benja Doran M.D. 12/31/2019 6:41 PM
[2020-01-01] MEDS: AMPICILLIN/SULBACTAM SOD 3,000 MG in 0.9 % SODIUM CHLORIDE 100 ML IV SCH ×4 (03:53→21:29)
[2020-01-01 06:15] LABS: Hematocrit (blood only) 32.6 % (42-52); Hemoglobin 10.6 g/dL (14.0-18.0); Mean Corpuscular Hemoglobin 30.3 pg (25-34); Mean Corpuscular Hgb Conc 32.5 g/dL (32-36); Mean Corpuscular Volume 93.1 fL (80-100); Platelet Count 596 K/uL (130-400); RDW Coefficient of Variation 13.3 % (11.5-14.5); RDW Standard Deviation 44.5 fL (36.4-46.3); White Blood Count 13.84 K/uL (4.8-10.8)
[2020-01-01 06:39] LABS: Calcium 8.5 mg/dl (8.5-10.1); Creatinine Clr Calc Pharmacy 71.2 ml/min; Est GFR (African American) 92.3; Est GFR (Non-African American) 79.7; Potassium 3.9 mmol/L (3.5-5.1)
[2020-01-01] MEDS: INSULIN ASPART 100 UNITS/ML 3 ML PEN SC SCH ×4 (09:02→21:26)
[2020-01-01] MEDS: INSULIN GLARGINE SOLOSTAR 100 UNITS/ML 3 ML PEN SC SCH (09:03)
[2020-01-01] MEDS: LACTOBACILLUS ACIDOPHILUS (FLORANEX) TAB PO SCH ×3 (09:34→17:55)
[2020-01-01] MEDS: ESCITALOPRAM OXALATE 20 MG TAB PO SCH (09:35)
[2020-01-01] MEDS: METOPROLOL SUCC 25MG EXT REL TAB PO SCH (09:36)
[2020-01-01] MEDS: DONEPEZIL HCL 5 MG TAB PO SCH (09:37)
[2020-01-01] MEDS: FINASTERIDE 5 MG TAB PO SCH (09:37)
[2020-01-01] MEDS: ISOSORBIDE MONO EXTENDED REL 30 MG TABCR PO SCH (09:37)
[2020-01-01] MEDS: CLOPIDOGREL BISULFATE 75 MG TAB PO SCH (09:37)
[2020-01-01] MEDS: ATORVASTATIN 40 MG TAB PO SCH (09:37)
[2020-01-01] MEDS: ASPIRIN 81 MG ECTAB PO SCH (09:37)
[2020-01-01] MEDS: RASPBERRY SYRUP 5 ML UDP PO SCH ×2 (09:38→21:29)
[2020-01-01] MEDS: VANCOMYCIN HCL 125 MG/2.5ML SOLN PO SCH ×2 (09:49→21:29)
[2020-01-01] MEDS: HEPARIN SOD 5,000 UNIT/0.5 ML VIAL SQ SCH ×2 (09:50→21:24)
--- NOTE | 2020-01-01 11:08 | Pharmacy Report ---
Glycemic Control Progress Note - Date of Service January 01, 2020 - Scope Glycemic Pharmacist consulted for glycemic control to write orders per [facility] inpatient glycemic control protocol. - Objective Accuchecks BSG(last 24 hours):: 12/31/19 12/31/19 12/31/19 11:56 17:08 20:37 Glucose POC Glucose 181 H 138 H 135 H 01/01/20 01/01/20 05:57 08:17 Glucose 100 H POC Glucose 102 H HbA1c:: Hemoglobin A1c 7.7 % (4.5-5.6) H 12/26/19 05:08 - Recent Pertinent Medications The patient is currently receiving: * Basal insulin: Lantus 30 units every 24 hours * Correctional Insulin: Novolog Correction per scale ACHS Goal Range: Low 110 mg/dL - High 140 mg/dL Correction Factor: 30 mg/dL/unit * Prandial insulin: Per carb ratio of 1 unit per 8 grams CHO consumed - Outpatient Anti-Diabetic Meds Lantus 26 units qAM Novolog scale metformin 500 mg qAM - Assessment & Plan ASSESSMENT: * See progress note from 12/29/2019 for more background info, in short: * Pt receiving SQ basal bolus insulin regimen for hyperglycemia secondary to baseline DM (outpatient regimen on hold). * Patient is currently receiving an average of 37 units of insulin per day * 30 units of basal insulin * 7 units of prandial/correctional insulin * BSGs ranging 135 - 196 mg/dl over the past 24hrs * Changes needed to insulin regimen: * AM Fasting BSG = 102 mg/dl. This is below goal range for patient based on inpatient targets and co-morbidities. Yesterday, Lantus was increased from 26 units to 30 units. Patient was NPO for study. Fasting today approximately 100 points lower than yesterday. Will reduce back to home dose. * Post-prandial BSGs are in range therefore no changes needed to CF/CR. * Total daily dose = 40-50 units. Adjusted insulin as appropriate. PLAN FOR INPATIENT GLYCEMIC CONTROL: * Decreasing Lantus to 25 units SQ qAM * Continuing correction factor of 30 mg/dl/unit * Continuing carb ratio of 1 unit per 8 grams CHO consumed * Continuing goal range of Low 110 mg/dL - High 140 mg/dL * Please note that the plan above was derived based on current level of insulin resistance and hospital stress. These recommendations are appropriate for inpatient admission only. Plan of care upon discharge will need to be reassessed to avoid potential outpatient hypo/hyperglycemia. Thank you.
--- NOTE | 2020-01-01 12:04 | Hospitalist Progress Note ---
Date of Service January 01, 2020 Assessment & Plan (1) Osteomyelitis: MRI reveals +osteomyelitis. Cont Unasyn. Angiogram was unsuccessful on 12/30 and patient will require bypass surgery next week. Ortho will need to debride foot surgically, also. Will need to figure out Ortho plans/recs. 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 The patient is not currently septic. Nurses are performing doppler checks for pulses. (3) C. difficile colitis: Per ID he will cont Vanc PO 125 BID while on antibiotics until he has been without any diarrhea for at least one week. Will cont to monitor clinically and cont contact precautions. (4) Atherosclerotic plaque: He has known, stable, chronic PAD and CAD. Cont medical management including ASA, Plavix, Lipitor, Toprol. Unsuccessful intervention on leg today. May require a fem pop bypass per vascular next week. (5) Type 2 diabetes mellitus, with long-term current use of insulin: At inpatient goal glucose. Cont MDD insulin while hospitalized. (6) Alzheimer's dementia: Supportive care. High risk for hospital-induced delirium. Reorient as needed. Cont Donepezil per home regimen. (7) Depression: cont Lexapro per home regimen. (8) DVT prophylaxis: Heparin Full Code Dispo-uncertain at this time. Need orthopedic recs DO Roshan Mcginnis Hospitalist Admission and Anticipated Discharge Date Admission Date: December 27, 2019 Subjective Pt denies pain, feels well, ate breakfast, angio wound site looks good. Review of Systems Review of Systems: All systems reviewed & are unremarkable except as noted in Subjective Physical Exam Physical Exam: CONSTITUTIONAL: WNWD, vitals as above, generally well- appearing EYES: pupils are equal and round bilaterally, normal conjunctivae, no scleral icterus ENT: external ear and nose normal, oropharynx clear, MMM RESPIRATORY: clear to auscultation bilaterally, no crackles, rales or wheezes, normal respiratory effort. Appears to be better airflow today. CARDIOVASCULAR: regular rate and rhythm, S1 and 2 heard without murmurs, gallops or rubs, no JVD, no peripheral edema GASTROINTESTINAL: soft, nontender, nondistended, no guarding. MUSCULOSKELETAL: strength 5/5 throughout, head is normocephalic and atraumatic SKIN: warm and dry, R round 2 cm arterial ulceration, covered with clean dry dressing. NEUROLOGIC: No facial palsy, no dysarthria. CN 2-12 grossly intact, normal cognition, normal speech PSYCHIATRIC: alert and cooperative. Results & Data Results & Data ([facility]) Vital Signs (Past 12 Hours) Vital Signs Temp Pulse Resp BP BP Pulse Ox 01/01/20 08:11 37.1 C 65 18 155/56 H 93 01/01/20 05:37 37.4 C 01/01/20 04:04 38.3 C H 80 16 169/71 H 91 Laboratory Results Short CBC 01/01/20 Range/Units 05:57 WBC 13.84 H (4.8-10.8) K/uL Hgb 10.6 L (14.0-18.0) g/dL Hct 32.6 L (42-52) % Plt Count 596 H (130-400) K/uL BMP 01/01/20 05:57 Sodium 139 Potassium 3.9 Chloride 105 Carbon Dioxide 30 BUN 19 H Creatinine 0.95 Glucose 100 H Calcium 8.5 Medications Administered Current Inpatient Medications Acetaminophen (Acetaminophen 325 Mg Tab) 650 mg PO Q4H PRN PRN Reason: pain/fever Stop: 01/24/20 20:13 Last Admin: 01/01/20 04:17 Dose: 650 mg Documented by: Aspirin (Aspirin 81 Mg Ectab) 81 mg PO [facility] Stop: 01/25/20 08:59 Last Admin: 01/01/20 09:37 Dose: 81 mg Documented by: Atorvastatin Calcium (Atorvastatin 40 Mg Tab) 80 mg PO [facility] Stop: 01/25/20 08:59 Last Admin: 01/01/20 09:37 Dose: 80 mg Documented by: Clopidogrel Bisulfate (Clopidogrel Bisulfate 75 Mg Tab) 75 mg PO [facility] Stop: 01/25/20 08:59 Last Admin: 01/01/20 09:37 Dose: 75 mg Documented by: Dextrose (Dextrose 50% 50 Ml Syringe) 25 - 50 ml IV UD PRN; Protocol PRN Reason: Hypoglycemia Protocol Stop: 01/24/20 20:13 Diphenhydramine HCl (Diphenhydramine Hcl 50 Mg/Ml Vial) 12.5 mg IV Q4H PRN PRN Reason: Rash Stop: 01/26/20 15:52 Donepezil HCl (Donepezil Hcl 5 Mg Tab) 5 mg PO QAM [facility] Stop: 01/25/20 08:59 Last Admin: 01/01/20 09:37 Dose: 5 mg Documented by: Escitalopram Oxalate (Escitalopram Oxalate 20 Mg Tab) 20 mg PO QAM [facility] Stop: 01/25/20 08:59 Last Admin: 01/01/20 09:35 Dose: 20 mg Documented by: Finasteride (Finasteride 5 Mg Tab) 5 mg PO QAM [facility] Stop: 01/25/20 08:59 Last Admin: 01/01/20 09:37 Dose: 5 mg Documented by: Glucagon (Glucagon For Inj 1 Mg Vial) 1 mg SQ UD PRN; Protocol PRN Reason: Hypoglycemia Protocol Stop: 01/24/20 20:13 Glucose (Glucose 10 Tabs/Tube) 4 - 8 tabs PO UD PRN; Protocol PRN Reason: Hypoglycemia Protocol Stop: 01/24/20 20:13 Glucose (Glucose 40% Gel 15 Gm Tube) 15 - 30 gm PO UD PRN; Protocol PRN Reason: Hypoglycemia Protocol Stop: 01/24/20 20:13 Heparin Sodium (Porcine) (Heparin Sod 5,000 Unit/0.5 Ml Vial) 5,000 units SQ Q12 [facility] Stop: 01/24/20 20:59 Last Admin: 01/01/20 09:50 Dose: 5,000 units Documented by: Ampicillin Sodium/Sulbactam Sodium 3,000 mg/ Sodium Chloride 108 mls @ 200 mls/hr IV Q6H [facility]; Protocol Stop: 02/07/20 15:59 Last Infusion: 01/01/20 10:32 Dose: Infused Documented by: Insulin Aspart (Insulin Aspart 100 Units/Ml 3 Ml Pen) 0 units SC ACHS [facility] Stop: 01/30/20 16:29 Last Admin: 01/01/20 09:02 Dose: 6 units Documented by: Insulin Glargine (Insulin Glargine Solostar 100 Units/Ml 3 Ml Pen) 25 units SC DAILY [facility]; Protocol Stop: 01/31/20 08:59 Last Admin: 01/01/20 09:03 Dose: 25 units Documented by: Iodixanol (Visipaque) 70 ml IV UD PRN PRN Reason: Interaction Checking Stop: 01/04/20 14:45 Last Admin: 12/31/19 14:47 Dose: 70 ml Documented by: Isosorbide Mononitrate (Isosorbide [place] Extended Rel 30 Mg Tabcr) 30 mg PO DAILY [facility] Stop: 01/25/20 08:59 Last Admin: 01/01/20 09:37 Dose: 30 mg Documented by: Lactobacillus Acidophilus (Lactobacillus Acidophilus (Floranex) Tab) 4 tab PO TIDM [facility] Stop: 01/25/20 07:59 Last Admin: 01/01/20 09:34 Dose: 4 tab Documented by: Metoprolol Succinate (Metoprolol Succ 25mg Ext Rel Tab) 25 mg PO DAILY [facility] Stop: 01/25/20 08:59 Last Admin: 01/01/20 09:36 Dose: 25 mg Documented by: Miscellaneous (Carbohydrates For Hypoglycemia ) 15 - 30 gm PO UD PRN PRN Reason: Hypoglycemia Protocol Stop: 01/24/20 20:13 Last Admin: 12/26/19 06:28 Dose: 30 gm Documented by: Miscellaneous Information (Pharmacy Glycemic Mgmt Consult) 1 ea N/A UD PRN PRN Reason: Consult Stop: 01/28/20 10:55 Polyethylene Glycol (Polyethylene (Miralax) 17 Gm Pack) 17 gm PO DAILY PRN PRN Reason: Constipation Stop: 01/24/20 20:13 Raspberry (Raspberry Syrup 5 Ml Udp) 5 ml PO BID [facility] Stop: 01/12/20 08:59 Last Admin: 01/01/20 09:38 Dose: 5 ml Documented by: Risperidone (Risperidone 0.5 Mg Tablet) 0.25 mg PO DAILY PRN PRN Reason: confusion Stop: 01/24/20 20:13 Last Admin: 12/29/19 19:39 Dose: 0.25 mg Documented by: Vancomycin HCl (Vancomycin Hcl 125 Mg/2.5ml Soln) 125 mg PO BID [facility] Stop: 01/07/20 20:59 Last Admin: 01/01/20 09:49 Dose: 125 mg Documented by:
--- NOTE | 2020-01-01 13:23 | Orthopedic Progress Note ---
Date of Service January 01, 2020 Assessment & Plan (1) Chronic heel ulcer: Continue IV antibiotics. Continue daily wound care. Patient nonoperative debridement candidate at this time until revascularization/bypass is performed by Dr. Fournier on Friday. I will reassess patient condition after revascularization is attempted and after discussion with Dr. Fournier next week. Until then, thank for the opportunity consult in the care of this patient. Present on Admission?: Yes (2) Osteomyelitis: Continue with local wound care, IV antibiotics per infectious disease, trend inflammatory labs, pending vascular consultation and possible intervention patient will most likely require debridement of at least lateral calcaneus chronic ulcer and bone. We will follow with you. Thank you for the consultation. Admission and Anticipated Discharge Date Admission Date: December 27, 2019 Subjective Was seen with present at bedside. Patient was demanding, personally insulting and refused to acknowledge that she had been given detailed information regarding the care plan yesterday until I reminded her of this and then she admitted that she had received the care plan in great detail from the nursing staff conveying that she would be seen by me today during patient rounds after surgery. Patient denies any recollection of seeing me during consultation on . He denies pain, feels well, ate breakfast, No complaints of pain at angio access site. Physical Exam Physical Exam: Patient was lying supine in the hospital room bed with his present at bedside. Patient is comfortable. No acute distress. Examination of bilateral lower extremities demonstrates local soft tissue dressing intact. No discharge or drainage. No foul odor. No streaking or cellulitis. Essentially unchanged compared to prior examination. Neurovascular status unchanged compared to previous examination. Results & Data ([facility]) Vital Signs (Past 12 Hours) Vital Signs Temp Pulse Resp BP BP Pulse Ox 01/01/20 08:11 37.1 C 65 18 155/56 H 93 01/01/20 05:37 37.4 C 01/01/20 04:04 38.3 C H 80 16 169/71 H 91
[2020-01-02] MEDS: AMPICILLIN/SULBACTAM SOD 3,000 MG in 0.9 % SODIUM CHLORIDE 100 ML IV SCH ×2 (03:16→09:39)
[2020-01-02] MEDS ORDERED: INSULIN GLARGINE SOLOSTAR 100 UNITS/ML 3 ML PEN SC SCH (09:00)
[2020-01-02] MEDS: INSULIN ASPART 100 UNITS/ML 3 ML PEN SC SCH ×5 (09:21→21:43)
[2020-01-02] MEDS: LACTOBACILLUS ACIDOPHILUS (FLORANEX) TAB PO SCH ×3 (09:23→18:11)
[2020-01-02] MEDS: HEPARIN SOD 5,000 UNIT/0.5 ML VIAL SQ SCH (09:23)
[2020-01-02] MEDS: ESCITALOPRAM OXALATE 20 MG TAB PO SCH (09:36)
[2020-01-02] MEDS: METOPROLOL SUCC 25MG EXT REL TAB PO SCH (09:36)
[2020-01-02] MEDS: DONEPEZIL HCL 5 MG TAB PO SCH (09:37)
[2020-01-02] MEDS: CLOPIDOGREL BISULFATE 75 MG TAB PO SCH (09:37)
[2020-01-02] MEDS: ATORVASTATIN 40 MG TAB PO SCH (09:37)
[2020-01-02] MEDS: ASPIRIN 81 MG ECTAB PO SCH (09:37)
[2020-01-02] MEDS: FINASTERIDE 5 MG TAB PO SCH (09:37)
[2020-01-02] MEDS: RASPBERRY SYRUP 5 ML UDP PO SCH ×2 (09:37→20:17)
[2020-01-02] MEDS: ISOSORBIDE MONO EXTENDED REL 30 MG TABCR PO SCH (09:37)
[2020-01-02] MEDS: VANCOMYCIN HCL 125 MG/2.5ML SOLN PO SCH ×2 (09:39→20:17)
[2020-01-02] MEDS: INSULIN GLARGINE SOLOSTAR 100 UNITS/ML 3 ML PEN SC SCH (10:23)
[2020-01-02 11:34] LABS: Basophils # (auto) 0.04 K/uL (0-0.2); Basophils % (auto) 0.3 %; Eosinophils # (auto) 0.06 K/uL (0-0.5); Eosinophils % (auto) 0.4 %; Hematocrit (blood only) 33.2 % (42-52); Hemoglobin 10.7 g/dL (14.0-18.0); Immature Granulocytes # (auto) 0.05 K/uL (0.00-0.02); Immature Granulocytes % (auto) 0.3 %; Lymphocytes # (auto) 1.35 K/uL (1.2-3.4); Lymphocytes % (auto) 8.7 %; Mean Corpuscular Hemoglobin 29.8 pg (25-34); Mean Corpuscular Hgb Conc 32.2 g/dL (32-36); Mean Corpuscular Volume 92.5 fL (80-100); Monocytes # (auto) 1.24 K/uL (0.11-0.59); Neutrophils # (auto) 12.84 K/uL (1.4-6.5); Neutrophils % (auto) 82.3 %; Platelet Count 611 K/uL (130-400); RDW Coefficient of Variation 13.2 % (11.5-14.5); RDW Standard Deviation 44.5 fL (36.4-46.3); Red Blood Count 3.59 M/uL (4.7-6.1); White Blood Count 15.58 K/uL (4.8-10.8)
--- NOTE | 2020-01-02 11:41 | XRay Report ---
XR chest 1V portable CLINICAL HISTORY: fever, has infected wound COMPARISON STUDY: Chest CT June 12, 2019. Chest radiograph December 25, 2019. FINDINGS: Agent is rotated. There is no pneumothorax or pleural effusion. There is no consolidation o r evidence for pulmonary edema. Mild cardiomegaly is noted. A left neck vascular stent is noted. Sury ral old right rib fractures are incidentally noted. IMPRESSION: No acute cardiopulmonary findings. ACT 112: Negative or not required by law. Electronically signed by: Benja Doran M.D. 01/02/2020 11:40 AM
[2020-01-02 11:51] LABS: BUN Creatinine Ratio 18.4 (10-20); Calcium 8.7 mg/dl (8.5-10.1); Creatinine Clr Calc Pharmacy 66.3 ml/min; Est GFR (African American) 84.7; Est GFR (Non-African American) 73.1; Potassium 4.1 mmol/L (3.5-5.1)
[2020-01-02] MEDS ORDERED: PIPERACILL/TAZOBAC CONSULT ACTIVE PRN (13:53)
--- NOTE | 2020-01-02 13:59 | Hospitalist Progress Note ---
Date of Service January 02, 2020 Assessment & Plan (1) Osteomyelitis: WBC and CRP still up. Platelets rising- likely acute phase reactant. Pt more sleepy today. No fever noted. May be worsening necrosis vs infection in R foot. Cont Zosyn and touched base with ortho regarding this issue. 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 Cont to check pulses with doppler. (3) C. 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 Still having some diarrhea. Will recheck C-diff toxin. (4) Atherosclerotic plaque: He has known, stable, chronic PAD and CAD. Cont medical management including ASA, Plavix, Lipitor, Toprol. Unsuccessful angiogram on leg; fem-pop bypass set up for 01/[address] Fournier. (5) Type 2 diabetes mellitus, with long-term current use of insulin: At inpatient goal glucose. Cont MDD insulin while hospitalized. (6) Alzheimer's dementia: Supportive care. High risk for hospital-induced delirium. Reorient as needed. Cont Donepezil per home regimen. (7) Depression: cont Lexapro per home regimen. (8) DVT prophylaxis: Lovenox Full Code Dispo-uncertain at this time. Pending revascularization on 01/04 followed by Ortho recommendations for debridement/other surgical options. Danielle Flores DO [facility] Hospitalist Admission and Anticipated Discharge Date Admission Date: December 27, 2019 Subjective Patient is tired today per . Exam was performed with patient sleeping Wound not evaluated as nurse gave me update on the appearance prior to wrapping it. Review of Systems Review of Systems: Unobtainable due to cognitive status (pt sleeping) Physical Exam Physical Exam: CONSTITUTIONAL: WNWD, vitals as above, generally well- appearing, sleeping RESPIRATORY: clear to auscultation bilaterally, no crackles, rales or wheezes, normal respiratory effort. CARDIOVASCULAR: regular rate and rhythm, S1 and 2 heard without murmurs, gallops or rubs, no JVD, no peripheral edema GASTROINTESTINAL: soft, nontender, nondistended, no guarding. SKIN: warm and dry, R round 2 cm arterial ulceration, covered with clean dry dressing. Results & Data Results & Data ([facility]) Vital Signs (Past 12 Hours) Vital Signs Temp Pulse Resp BP Pulse Ox 01/02/20 08:50 38.2 C H 80 18 143/59 H 100 Laboratory Results Short CBC 01/02/20 Range/Units 11:22 WBC 15.58 H (4.8-10.8) K/uL Hgb 10.7 L (14.0-18.0) g/dL Hct 33.2 L (42-52) % Plt Count 611 H (130-400) K/uL BMP 01/02/20 11:22 Sodium 135 L Potassium 4.1 Chloride 101 Carbon Dioxide 27 BUN 19 H Creatinine 1.02 Glucose 253 H Calcium 8.7 Diagnostic Findings XR chest 1V portable CLINICAL HISTORY: fever, has infected wound COMPARISON STUDY: Chest CT June 12, 2019. Chest radiograph December 25, 2019. FINDINGS: Agent is rotated. There is no pneumothorax or pleural effusion. There is no consolidation or evidence for pulmonary edema. Mild cardiomegaly is noted. A left neck vascular stent is noted. Several old right rib fractures are incidentally noted. IMPRESSION: No acute cardiopulmonary findings. Medications Administered Current Inpatient Medications Acetaminophen (Acetaminophen 500 Mg Tab) 1,000 mg PO Q8H [facility] Stop: 02/01/20 13:59 Aspirin (A[facility]in 81 Mg Ectab) [facility] Stop: 01/25/20 08:59 Last Admin: 01/02/20 09:37 Dose: 81 mg Documented by: Atorvastatin Calcium (Atorvastatin 40 Mg Tab) 80 mg PO QAM [facility] Stop: 01/25/20 08:59 Last Admin: 01/02/20 09:37 Dose: 80 mg Documented by: Clopidogrel Bisulfate (Clopidogrel Bisulfate 75 Mg Tab) 75 mg PO QAM [facility] Stop: 01/25/20 08:59 Last Admin: 01/02/20 09:37 Dose: 75 mg Documented by: Dextrose (Dextrose 50% 50 Ml Syringe) 25 - 50 ml IV UD PRN; Protocol PRN Reason: Hypoglycemia Protocol Stop: 01/24/20 20:13 Diphenhydramine HCl (Diphenhydramine Hcl 50 Mg/Ml Vial) 12.5 mg IV Q4H PRN PRN Reason: Rash Stop: 01/26/20 15:52 Donepezil HCl (Donepezil Hcl 5 Mg Tab) 5 mg PO QAM [facility] Stop: 01/25/20 08:59 Last Admin: 01/02/20 09:37 Dose: 5 mg Documented by: Escitalopram Oxalate (Escitalopram Oxalate 20 Mg Tab) 20 mg PO QAM [facility] Stop: 01/25/20 08:59 Last Admin: 01/02/20 09:36 Dose: 20 mg Documented by: Finasteride (Finasteride 5 Mg Tab) 5 mg PO QAM [facility] Stop: 01/25/20 08:59 Last Admin: 01/02/20 09:37 Dose: 5 mg Documented by: Glucagon (Glucagon For Inj 1 Mg Vial) 1 mg SQ UD PRN; Protocol PRN Reason: Hypoglycemia Protocol Stop: 01/24/20 20:13 Glucose (Glucose 10 Tabs/Tube) 4 - 8 tabs PO UD PRN; Protocol PRN Reason: Hypoglycemia Protocol Stop: 01/24/20 20:13 Glucose (Glucose 40% Gel 15 Gm Tube) 15 - 30 gm PO UD PRN; Protocol PRN Reason: Hypoglycemia Protocol Stop: 01/24/20 20:13 Heparin Sodium (Porcine) (Heparin Sod 5,000 Unit/0.5 Ml Vial) 5,000 units SQ Q12 [facility] Stop: 01/24/20 20:59 Last Admin: 01/02/20 09:23 Dose: 5,000 units Documented by: Insulin Aspart (Insulin Aspart 100 Units/Ml 3 Ml Pen) 0 units SC ACHS [facility] Stop: 01/30/20 16:29 Last Admin: 01/02/20 12:53 Dose: 10 units Documented by: Insulin Glargine (Insulin Glargine Solostar 100 Units/Ml 3 Ml Pen) 30 units SC DAILY [facility]; Protocol Stop: 02/01/20 08:59 Last Admin: 01/02/20 09:22 Dose: 30 units Documented by: Iodixanol (Visipaque) 70 ml IV UD PRN PRN Reason: Interaction Checking Stop: 01/04/20 14:45 Last Admin: 12/31/19 14:47 Dose: 70 ml Documented by: Isosorbide Mononitrate (Isosorbide [place] Extended Rel 30 Mg Tabcr) 30 mg PO DAILY [facility] Stop: 01/25/20 08:59 Last Admin: 01/02/20 09:37 Dose: 30 mg Documented by: Lactobacillus Acidophilus (Lactobacillus Acidophilus (Floranex) Tab) 4 tab PO TIDM [facility] Stop: 01/25/20 07:59 Last Admin: 01/02/20 12:54 Dose: 4 tab Documented by: Metoprolol Succinate (Metoprolol Succ 25mg Ext Rel Tab) 25 mg PO DAILY [facility] Stop: 01/25/20 08:59 Last Admin: 01/02/20 09:36 Dose: 25 mg Documented by: Miscellaneous (Carbohydrates For Hypoglycemia ) 15 - 30 gm PO UD PRN PRN Reason: Hypoglycemia Protocol Stop: 01/24/20 20:13 Last Admin: 12/26/19 06:28 Dose: 30 gm Documented by: Miscellaneous Information (Pharmacy Glycemic Mgmt Consult) 1 ea N/A UD PRN PRN Reason: Consult Stop: 01/28/20 10:55 Miscellaneous Information (Consult Pharmacy) 1 ea N/A NOW STA Stop: 01/02/20 13:46 Polyethylene Glycol (Polyethylene (Miralax) 17 Gm Pack) 17 gm PO DAILY PRN PRN Reason: Constipation Stop: 01/24/20 20:13 Raspberry (Raspberry Syrup 5 Ml Udp) 5 ml PO BID [facility] Stop: 01/12/20 08:59 Last Admin: 01/02/20 09:37 Dose: 5 ml Documented by: Risperidone (Risperidone 0.5 Mg Tablet) 0.25 mg PO DAILY PRN PRN Reason: confusion Stop: 01/24/20 20:13 Last Admin: 12/29/19 19:39 Dose: 0.25 mg Documented by: Vancomycin HCl (Vancomycin Hcl 125 Mg/2.5ml Soln) 125 mg PO BID [facility] Stop: 01/07/20 20:59 Last Admin: 01/02/20 09:39 Dose: 125 mg Documented by:
[2020-01-02] MEDS ORDERED: PIPERACILLIN/TAZOBACTAM 3.375 GM in DEXTROSE 5% 100 ML IV ONE (14:00)
[2020-01-02] MEDS: ACETAMINOPHEN 500 MG TAB PO SCH ×2 (14:15→21:43)
--- NOTE | 2020-01-02 14:42 | Pharmacy Report ---
Glycemic Control Progress Note - Date of Service January 02, 2020 - Scope Glycemic Pharmacist consulted for glycemic control to write orders per [facility] inpatient glycemic control protocol. - Objective Accuchecks BSG(last 24 hours):: 01/01/20 01/01/20 01/02/20 17:06 20:21 08:42 Glucose POC Glucose 233 H 265 H 172 H 01/02/20 01/02/20 11:22 12:19 Glucose 253 H POC Glucose 248 H HbA1c:: Hemoglobin A1c 7.7 % (4.5-5.6) H 12/26/19 05:08 - Recent Pertinent Medications The patient is currently receiving: * Basal insulin: Lantus 25 units every 24 hours * Correctional Insulin: Novolog Correction per scale ACHS Goal Range: Low 110 mg/dL - High 140 mg/dL Correction Factor: 25 mg/dL/unit * Prandial insulin: Per carb ratio of 1 unit per 7 grams CHO consumed - Outpatient Anti-Diabetic Meds Lantus 26 units qAM Novolog sliding scale Metformin 500 qAM - Assessment & Plan ASSESSMENT: * See progress note from 12/29/19 for more background info, in short: * Pt receiving SQ basal bolus insulin regimen for hyperglycemia secondary to baseline DM (outpatient regimen on hold),stress/infection (patient on Zosyn and PO vancomycin). * Patient is currently receiving an average of 49 units of insulin per day * 25 units of basal insulin * 24 units of prandial/correctional insulin * BSGs ranging 102 - 265 mg/dl over the past 24hrs * Changes needed to insulin regimen: * AM Fasting BSG = 172 mg/dl. This is above goal range for patient based on inpatient targets and co-morbidities. Therefore Basal insulin will be increased back to 30 units. * Post-prandial BSGs are elevated - tightened yesterday at dinnertime but will tighten further here today. * Total daily dose = 50-60 units. PLAN FOR INPATIENT GLYCEMIC CONTROL: * INCREASING Lantus to 30 units SQ daily * TIGHTENING correction factor to 20 mg/dl/unit * TIGHTENING carb ratio to 1 unit per 6 grams CHO consumed * Continuing goal range of Low 110 mg/dL - High 140 mg/dL * Please note that the plan above was derived based on current level of insulin resistance and hospital stress. These recommendations are appropriate for inpatient admission only. Plan of care upon discharge will need to be reassessed to avoid potential outpatient hypo/hyperglycemia. Thank you.
[2020-01-02] MEDS: ENOXAPARIN INJ 40 MG/0.4 ML SYR SQ SCH (15:12)
[2020-01-02] MEDS: PIPERACILLIN/TAZOBACTAM 3.375 GM in DEXTROSE 5% 100 ML IV SCH (20:18)
[2020-01-03] MEDS: PIPERACILLIN/TAZOBACTAM 3.375 GM in DEXTROSE 5% 100 ML IV SCH ×3 (04:06→19:39)
[2020-01-03] MEDS: ACETAMINOPHEN 500 MG TAB PO SCH ×3 (06:17→21:19)
[2020-01-03 06:31] LABS: Appearance Urine Clear (Clear); Bilirubin Urine Negative (Negative); Blood Urine Negative (Negative); Color Urine Yellow; Glucose Urine UA 2+ (Negative); Ketones Urine Negative (Negative); Leukocyte Esterase Urine Negative (Negative); Nitrite Urine Negative (Negative); Protein Urine Negative (Negative); Specific Gravity Urine 1.019 (1.000-1.030); Urobilinogen Urine Negative (Negative)
[2020-01-03 07:05] LABS: Hematocrit (blood only) 35.5 % (42-52); Mean Corpuscular Hemoglobin 28.8 pg (25-34); Mean Corpuscular Volume 92.9 fL (80-100); Mean Platelet Volume 9.1 fL (7.4-10.4); Platelet Count 654 K/uL (130-400); RDW Coefficient of Variation 13.4 % (11.5-14.5); RDW Standard Deviation 45.6 fL (36.4-46.3); Red Blood Count 3.82 M/uL (4.7-6.1); White Blood Count 15.51 K/uL (4.8-10.8)
[2020-01-03 07:37] LABS: BUN Creatinine Ratio 18.8 (10-20); C Reactive Protein 8.8 mg/dl (0-0.29); Calcium 9.1 mg/dl (8.5-10.1); Creatinine Clr Calc Pharmacy 70.4 ml/min; Est GFR (African American) 91.2; Est GFR (Non-African American) 78.7
[2020-01-03] MEDS ORDERED: INSULIN GLARGINE SOLOSTAR 100 UNITS/ML 3 ML PEN SC SCH (09:00)
[2020-01-03] MEDS: INSULIN ASPART 100 UNITS/ML 3 ML PEN SC SCH ×4 (09:08→20:31)
[2020-01-03] MEDS: RASPBERRY SYRUP 5 ML UDP PO SCH ×2 (09:32→21:19)
[2020-01-03] MEDS: LACTOBACILLUS ACIDOPHILUS (FLORANEX) TAB PO SCH ×3 (09:32→17:48)
[2020-01-03] MEDS: FINASTERIDE 5 MG TAB PO SCH (09:32)
[2020-01-03] MEDS: CLOPIDOGREL BISULFATE 75 MG TAB PO SCH (09:32)
[2020-01-03] MEDS: ESCITALOPRAM OXALATE 20 MG TAB PO SCH (09:32)
[2020-01-03] MEDS: ASPIRIN 81 MG ECTAB PO SCH (09:32)
[2020-01-03] MEDS: METOPROLOL SUCC 25MG EXT REL TAB PO SCH (09:32)
[2020-01-03] MEDS: ATORVASTATIN 40 MG TAB PO SCH (09:32)
[2020-01-03] MEDS: DONEPEZIL HCL 5 MG TAB PO SCH (09:32)
[2020-01-03] MEDS: ISOSORBIDE MONO EXTENDED REL 30 MG TABCR PO SCH (09:32)
[2020-01-03] MEDS: VANCOMYCIN HCL 125 MG/2.5ML SOLN PO SCH ×2 (09:32→21:19)
--- NOTE | 2020-01-03 10:44 | Pharmacy Report ---
Pharmacy Glycemic Short Note 2 - Date of Service January 03, 2020 - Glycemic Short BSG Results (Last 24 hours): OUTPATIENT ANTIDIABETIC REGIMEN: * Lantus 26 units SQ qAM * Novolog SSI * Metformin 500mg PO qAM * HbA1c: 7.7% (12/26/19) ASSESSMENT: 01/02: * 74 yo M admitted on 12/25/2019 secondary to weakness and confusion. Found to have a foot diabetic foot ulcer. Underwent an arteriography on 12/31/2019 which was unsuccessful. Patient is now scheduled for a R femoral popliteal bypass on 01/05/2020 as well as I&D of ulcer on 01/07/2020. * BSGs yesterday were uncontrolled: [phone] mg/dL * Received a total of 80 units of insulin (30 units basal + 50 units bolus) * Fasting BSG is uncontrolled this morning at 256 mg/dL * Will increased basal insulin by 20% today given consistent increase in fasting BSGs over the past 3 days (102-172-256 mg/dL) * If BSG continues to increase with lunch, may consider adding another small dose of Lantus * Tightened CF/CR this morning. PLAN FOR INPATIENT GLYCEMIC CONTROL: * Hold outpatient oral diabetes medications * Basal insulin - increased by 20% * Lantus 36 units SQ daily * Bolus insulin - tightened CF/CR * NovoLog per scale ACHS or Q6hrs while NPO * Goal Range: Low 110 mg/dL - High 140 mg/dL * Correction Factor: 15 mg/dL/unit * Nutritional / Prandial insulin per carb ratio of 1 unit per 5 grams CHO consumed PLAN FOR DISCHARGE: * Patient's A1c (7.7%) indicates adequate glycemic control, in a 74yo patient with multiple comorbidities. * Expect that pt may resume home regimen on discharge, as long as he does not report having episodes of hypoglycemia. * Less stringent glycemic mgmt is appropriate in the setting of dementia, when reducing the risk for hypoglycemia is especially relevant.
[2020-01-03] MEDS: ENOXAPARIN INJ 40 MG/0.4 ML SYR SQ SCH (13:47)
--- NOTE | 2020-01-03 18:18 | Hospitalist Progress Note ---
Date of Service January 03, 2020 Assessment & Plan (1) Osteomyelitis: persistent elevation in WBC, CRP and PLT as a reaction to either worsening necrosis vs infection in R ulcerative area. Ortho has him on 01/06 scheduled for debridement after fem pop bypass on Fri. Cont Zosyn. 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 Nurses are still finding pulses with doppler. (3) C. difficile colitis: h/o c-diff on the Vanc 125mg PO BID while on correction broad spectrum abx. Repeat C-diff check is negative. (4) Atherosclerotic plaque: He has known, stable, chronic PAD and CAD. Cont medical management including ASA, Plavix, Lipitor, Toprol. Unsuccessful angiogram on leg; fem-pop bypass set up for 01/[address] Fournier. (5) Type 2 diabetes mellitus, with long-term current use of insulin: At inpatient goal glucose. Cont MDD insulin while hospitalized. (6) Alzheimer's dementia: Supportive care. High risk for hospital-induced delirium. Reorient as needed. Cont Donepezil per home regimen. (7) Depression: cont Lexapro per home regimen. (8) DVT prophylaxis: Lovenox Full Code Dispo-uncertain at this time. Pending revascularization on 01/04 followed by Ortho debridement. Danielle Flores DO [facility] Hospitalist Admission and Anticipated Discharge Date Admission Date: December 27, 2019 Subjective Awake and reports feeling well afebrile tolerating PO denies pain in ankle. Now on scheduled Tylenol. Review of Systems Review of Systems: All systems reviewed & are unremarkable except as noted in Subjective Physical Exam Physical Exam: CONSTITUTIONAL: WNWD, vitals as above, generally well- appearing EYES: pupils are equal and round bilaterally, normal conjunctivae, no scleral icterus ENT: external ear and nose normal RESPIRATORY: clear to auscultation bilaterally, no crackles, rales or wheezes, normal respiratory effort. Appears to be better airflow today. CARDIOVASCULAR: regular rate and rhythm, S1 and 2 heard without murmurs, gallops or rubs, no JVD, no peripheral edema GASTROINTESTINAL: soft, nontender, nondistended, no guarding. MUSCULOSKELETAL: strength 5/5 throughout, head is normocephalic and atraumatic SKIN: warm and dry, R round 2 cm arterial ulceration, covered with clean dry dressing. NEUROLOGIC: No facial palsy, no dysarthria. CN 2-12 grossly intact, normal cognition, normal speech PSYCHIATRIC: alert and cooperative. Results & Data Results & Data ([facility]) Vital Signs (Past 12 Hours) Vital Signs Temp Pulse Resp BP BP Pulse Ox 01/03/20 15:52 36.7 C 75 16 129/67 93 01/03/20 08:37 36.9 C 64 18 133/70 92 Laboratory Results Short CBC 01/03/20 Range/Units 06:38 WBC 15.51 H (4.8-10.8) K/uL Hgb 11.0 L (14.0-18.0) g/dL Hct 35.5 L (42-52) % Plt Count 654 H (130-400) K/uL BMP 01/03/20 06:38 Sodium 135 L Potassium 4.0 Chloride 101 Carbon Dioxide 27 BUN 18 Creatinine 0.96 Glucose 223 H Calcium 9.1 Urine 01/03/20 Range/Units 06:15 Urine Color Yellow Urine Appearance Clear (Clear) Urine pH 5.0 (4.5-7.5) Ur Specific Manson 1.019 (1.000-1.030) Urine Protein Negative (Negative) Urine Glucose (UA) 2+ H (Negative) Medications Administered Current Inpatient Medications Acetaminophen (Acetaminophen 500 Mg Tab) 1,000 mg PO Q8H [facility] Stop: 02/01/20 13:59 Last Admin: 01/03/20 13:30 Dose: 1,000 mg Documented by: Aspirin (Aspirin 81 Mg Ectab) 81 mg PO [facility] Stop: 01/25/20 08:59 Last Admin: 01/03/20 09:32 Dose: 81 mg Documented by: Atorvastatin Calcium (Atorvastatin 40 Mg Tab) 80 mg PO [facility] Stop: 01/25/20 08:59 Last Admin: 01/03/20 09:32 Dose: 80 mg Documented by: Clopidogrel Bisulfate (Clopidogrel Bisulfate 75 Mg Tab) 75 mg PO [facility] Stop: 01/25/20 08:59 Last Admin: 01/03/20 09:32 Dose: 75 mg Documented by: Dextrose (Dextrose 50% 50 Ml Syringe) 25 - 50 ml IV UD PRN; Protocol PRN Reason: Hypoglycemia Protocol Stop: 01/24/20 20:13 Diphenhydramine HCl (Diphenhydramine Hcl 50 Mg/Ml Vial) 12.5 mg IV Q4H PRN PRN Reason: Rash Stop: 01/26/20 15:52 Donepezil HCl (Donepezil Hcl 5 Mg Tab) 5 mg PO QAM [facility] Stop: 01/25/20 08:59 Last Admin: 01/03/20 09:32 Dose: 5 mg Documented by: Enoxaparin Sodium (Enoxaparin Inj 40 Mg/0.4 Ml Syr) 40 mg SQ Q24H [facility] Stop: 02/01/20 14:14 Last Admin: 01/03/20 13:47 Dose: 40 mg Documented by: Escitalopram Oxalate (Escitalopram Oxalate 20 Mg Tab) 20 mg PO QAM [facility] Stop: 01/25/20 08:59 Last Admin: 01/03/20 09:32 Dose: 20 mg Documented by: Finasteride (Finasteride 5 Mg Tab) 5 mg PO QAM [facility] Stop: 01/25/20 08:59 Last Admin: 01/03/20 09:32 Dose: 5 mg Documented by: Glucagon (Glucagon For Inj 1 Mg Vial) 1 mg SQ UD PRN; Protocol PRN Reason: Hypoglycemia Protocol Stop: 01/24/20 20:13 Glucose (Glucose 10 Tabs/Tube) 4 - 8 tabs PO UD PRN; Protocol PRN Reason: Hypoglycemia Protocol Stop: 01/24/20 20:13 Glucose (Glucose 40% Gel 15 Gm Tube) 15 - 30 gm PO UD PRN; Protocol PRN Reason: Hypoglycemia Protocol Stop: 01/24/20 20:13 Piperacillin Sod/Tazobactam (Sod 3.375 gm/ Dextrose) 115 mls @ 28.75 mls/hr IV Q8H [facility]; Protocol Stop: 02/13/20 19:59 Last Infusion: 01/03/20 17:37 Dose: Infused Documented by: Insulin Aspart (Insulin Aspart 100 Units/Ml 3 Ml Pen) 0 units SC ACHS [facility]; Protocol Stop: 01/30/20 16:29 Last Admin: 01/03/20 17:42 Dose: 9 units Documented by: Insulin Glargine (Insulin Glargine Solostar 100 Units/Ml 3 Ml Pen) 36 units SC DAILY [facility]; Protocol Stop: 02/01/20 08:59 Last Admin: 01/03/20 09:08 Dose: 36 units Documented by: Iodixanol (Visipaque) 70 ml IV UD PRN PRN Reason: Interaction Checking Stop: 01/04/20 14:45 Last Admin: 12/31/19 14:47 Dose: 70 ml Documented by: Isosorbide Mononitrate (Isosorbide [place] Extended Rel 30 Mg Tabcr) 30 mg PO DAILY [facility] Stop: 01/25/20 08:59 Last Admin: 01/03/20 09:32 Dose: 30 mg Documented by: Lactobacillus Acidophilus (Lactobacillus Acidophilus (Floranex) Tab) 4 tab PO TIDM [facility] Stop: 01/25/20 07:59 Last Admin: 01/03/20 17:48 Dose: 4 tab Documented by: Metoprolol Succinate (Metoprolol Succ 25mg Ext Rel Tab) 25 mg PO DAILY [facility] Stop: 01/25/20 08:59 Last Admin: 01/03/20 09:32 Dose: 25 mg Documented by: Miscellaneous (Carbohydrates For Hypoglycemia ) 15 - 30 gm PO UD PRN PRN Reason: Hypoglycemia Protocol Stop: 01/24/20 20:13 Last Admin: 12/26/19 06:28 Dose: 30 gm Documented by: Miscellaneous Information (Pharmacy Glycemic Mgmt Consult) 1 ea N/A UD PRN PRN Reason: Consult Stop: 01/28/20 10:55 Miscellaneous Information (Piperacill/Tazobac Consult Active) 1 ea N/A UD PRN PRN Reason: Consult Stop: 02/01/20 13:52 Polyethylene Glycol (Polyethylene (Miralax) 17 Gm Pack) 17 gm PO DAILY PRN PRN Reason: Constipation Stop: 01/24/20 20:13 Raspberry (Raspberry Syrup 5 Ml Udp) 5 ml PO BID [facility] Stop: 01/12/20 08:59 Last Admin: 01/03/20 09:32 Dose: 5 ml Documented by: Risperidone (Risperidone 0.5 Mg Tablet) 0.25 mg PO DAILY PRN PRN Reason: confusion Stop: 01/24/20 20:13 Last Admin: 12/29/19 19:39 Dose: 0.25 mg Documented by: Vancomycin HCl (Vancomycin Hcl 125 Mg/2.5ml Soln) 125 mg PO BID [facility] Stop: 01/07/20 20:59 Last Admin: 01/03/20 09:32 Dose: 125 mg Documented by:
[2020-01-03] MEDS: SACCHAROMYCES BOULARDII 250 MG CAP PO SCH (19:39)
[2020-01-04] MEDS: PIPERACILLIN/TAZOBACTAM 3.375 GM in DEXTROSE 5% 100 ML IV SCH ×3 (04:29→20:40)
[2020-01-04] MEDS: ACETAMINOPHEN 500 MG TAB PO SCH ×3 (05:14→20:39)
[2020-01-04 05:55] LABS: Basophils # (auto) 0.03 K/uL (0-0.2); Basophils % (auto) 0.2 %; Eosinophils # (auto) 0.34 K/uL (0-0.5); Eosinophils % (auto) 2.2 %; Hematocrit (blood only) 31.8 % (42-52); Hemoglobin 10.6 g/dL (14.0-18.0); Immature Granulocytes # (auto) 0.04 K/uL (0.00-0.02); Immature Granulocytes % (auto) 0.3 %; Lymphocytes # (auto) 1.78 K/uL (1.2-3.4); Lymphocytes % (auto) 11.4 %; Mean Corpuscular Hemoglobin 30.4 pg (25-34); Mean Corpuscular Hgb Conc 33.3 g/dL (32-36); Mean Corpuscular Volume 91.1 fL (80-100); Monocytes # (auto) 1.17 K/uL (0.11-0.59); Monocytes % (auto) 7.5 %; Neutrophils # (auto) 12.27 K/uL (1.4-6.5); Neutrophils % (auto) 78.4 %; Platelet Count 663 K/uL (130-400); RDW Coefficient of Variation 13.4 % (11.5-14.5); RDW Standard Deviation 44.3 fL (36.4-46.3); Red Blood Count 3.49 M/uL (4.7-6.1); White Blood Count 15.63 K/uL (4.8-10.8)
[2020-01-04 06:25] LABS: BUN Creatinine Ratio 19.6 (10-20); C Reactive Protein 8.35 mg/dl (0-0.29); Calcium 8.6 mg/dl (8.5-10.1); Creatinine Clr Calc Pharmacy 60.4 ml/min; Est GFR (African American) 75.7; Est GFR (Non-African American) 65.3; Potassium 4.2 mmol/L (3.5-5.1)
--- NOTE | 2020-01-04 09:04 | Pharmacy Report ---
Glycemic Control Progress Note - Date of Service January 04, 2020 - Scope Glycemic Pharmacist consulted for glycemic control to write orders per [facility] inpatient glycemic control protocol. - Objective Accuchecks BSG(last 24 hours):: 01/03/20 01/03/20 01/03/20 12:30 17:23 20:24 Glucose POC Glucose 238 H 149 H 113 H 01/04/20 01/04/20 05:33 08:30 Glucose 143 H POC Glucose 192 H HbA1c:: Hemoglobin A1c 7.7 % (4.5-5.6) H 12/26/19 05:08 - Recent Pertinent Medications The patient is currently receiving: * Basal insulin: Lantus 36 units every 24 hours * Correctional Insulin: Novolog Correction per scale ACHS Goal Range: Low 110 mg/dL - High 140 mg/dL Correction Factor: 15 mg/dL/unit * Prandial insulin: Per carb ratio of 1 unit per 5 grams CHO consumed - Outpatient Anti-Diabetic Meds Lantus 26 units qAM Novolog Sliding scale metformin 500 mg qAM - Assessment & Plan ASSESSMENT: * See progress note from 12/29/2019 for more background info, in short: * Pt receiving SQ basal bolus insulin regimen for hyperglycemia secondary to baseline DM (outpatient regimen on hold) and diabetic foot infection currently on Zosyn. Currently awaiting bypass surgery on 01/05/2020. * Patient is currently receiving an average of 77 units of insulin per day * 36 units of basal insulin * 41 units of prandial/correctional insulin * BSGs ranging 113 - 256 mg/dl over the past 24hrs * Changes needed to insulin regimen: * AM Fasting BSG = 192 mg/dl. This is slightly above goal range for patient based on inpatient targets and co-morbidities. Basal insulin significantly increased yesterday by 20% (from 30 units to 36 units) resulting in a BSG drop of approximately 60 points (256 mg/dL vs 192 mg/dL). Patient planning to be NPO tomorrow. Will reduce basal insulin slightly today. * Post-prandial BSGs trended downwards yesterday so continue tightened CF/CR. * Total daily dose = ~85 units. * Additional notes / comments: continue to hold metformin PLAN FOR INPATIENT GLYCEMIC CONTROL: * Decreasing Lantus to 33 units SQ daily * Continuing correction factor of 15 mg/dl/unit * Continuing carb ratio of 1 unit per 5 grams CHO consumed * Continuing goal range of Low 110 mg/dL - High 140 mg/dL RECOMMENDATIONS FOR DISCHARGE: * Patient's HbA1C is reasonable for his age and co-morbidities. * Currently HbA1C = 7.7% * Goal HbA1C = 8% * Recommend continuing outpatient regimen at this time. Thank you.
[2020-01-04] MEDS: ATORVASTATIN 40 MG TAB PO SCH (09:28)
[2020-01-04] MEDS: CLOPIDOGREL BISULFATE 75 MG TAB PO SCH (09:28)
[2020-01-04] MEDS: SACCHAROMYCES BOULARDII 250 MG CAP PO SCH (09:28)
[2020-01-04] MEDS: METOPROLOL SUCC 25MG EXT REL TAB PO SCH (09:28)
[2020-01-04] MEDS: FINASTERIDE 5 MG TAB PO SCH (09:28)
[2020-01-04] MEDS: LACTOBACILLUS ACIDOPHILUS (FLORANEX) TAB PO SCH ×3 (09:29→18:08)
[2020-01-04] MEDS: INSULIN ASPART 100 UNITS/ML 3 ML PEN SC SCH ×4 (09:29→20:40)
[2020-01-04] MEDS: DONEPEZIL HCL 5 MG TAB PO SCH (09:29)
[2020-01-04] MEDS: ISOSORBIDE MONO EXTENDED REL 30 MG TABCR PO SCH (09:29)
[2020-01-04] MEDS: ASPIRIN 81 MG ECTAB PO SCH (09:29)
[2020-01-04] MEDS: ESCITALOPRAM OXALATE 20 MG TAB PO SCH (09:29)
[2020-01-04] MEDS: INSULIN GLARGINE SOLOSTAR 100 UNITS/ML 3 ML PEN SC SCH (09:33)
[2020-01-04] MEDS: RASPBERRY SYRUP 5 ML UDP PO SCH ×2 (09:37→20:40)
--- NOTE | 2020-01-04 09:52 | Communication Note ---
Date of Service: January 04, 2020 Pt is scheduled for RLE fem-pop insitu bypass in [place] tomorrow with Dr Fournier. Pt is agreeable. Dr Fournier to discuss consent with prior to procedure.
[2020-01-04] MEDS: VANCOMYCIN HCL 125 MG/2.5ML SOLN PO SCH ×2 (10:12→20:40)
--- NOTE | 2020-01-04 12:33 | Hospitalist Progress Note ---
Date of Service January 04, 2020 Assessment & Plan (1) Osteomyelitis: persistent elevation in WBC, CRP and PLT as a reaction to either worsening necrosis vs infection in R ulcerative area. Ortho has him on 01/06 scheduled for debridement after fem pop bypass on Fri. Cont Zosyn. 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 Cont to check pulses with doppler. (3) C. difficile colitis: h/o c-diff on the Vanc 125mg PO BID while on group home broad spectrum abx. Repeat C-diff check is negative. (4) Atherosclerotic plaque: He has known, stable, chronic PAD and CAD. Cont medical management including ASA, Plavix, Lipitor, Toprol. Unsuccessful angiogram on leg; fem-pop bypass set up for 01/[address] Fournier. (5) Type 2 diabetes mellitus, with long-term current use of insulin: At inpatient goal glucose. Cont MDD insulin while hospitalized. (6) Alzheimer's dementia: Supportive care. High risk for hospital-induced delirium. Reorient as needed. Cont Donepezil per home regimen. (7) Depression: cont Lexapro per home regimen. (8) DVT prophylaxis: Lovenox Full Code Dispo-uncertain at this time. Pending revascularization on 01/04 followed by Ortho debridement. Danielle Flores DO [facility] Hospitalist Admission and Anticipated Discharge Date Admission Date: December 27, 2019 Subjective feeling well today afebrile overnight present at bedside eating well pt has severe pain in right foot/ankle with any movement but no pain at rest. R ankle wound looks worse today with worsening necrosis. This was shared with Ortho who evaluated the foot after I did. Review of Systems Review of Systems: All systems reviewed & are unremarkable except as noted in Subjective Physical Exam Physical Exam: CONSTITUTIONAL: WNWD, vitals as above, generally well- appearing EYES: pupils are equal and round bilaterally, normal conjunctivae, no scleral icterus ENT: external ear and nose normal RESPIRATORY: clear to auscultation bilaterally, no crackles, rales or wheezes, normal respiratory effort. Appears to be better airflow today. CARDIOVASCULAR: regular rate and rhythm, S1 and 2 heard without murmurs, gallops or rubs, no JVD, no peripheral edema GASTROINTESTINAL: soft, nontender, nondistended, no guarding. MUSCULOSKELETAL: strength 5/5 throughout, head is normocephalic and atraumatic SKIN: warm and dry, R round 2 cm arterial ulceration, covered with clean dry dressing. No increased dressing but there is a bogginess around the room and a distal extension of the necrotic tissue. NEUROLOGIC: No facial palsy, no dysarthria. CN 2-12 grossly intact, normal cognition, normal speech PSYCHIATRIC: alert and cooperative. Results & Data Results & Data ([facility]) Vital Signs (Past 12 Hours) Vital Signs Temp Pulse Resp BP Pulse Ox 01/04/20 08:39 36.6 C 65 16 151/73 H 94 Laboratory Results Short CBC 12/25/19 12/25/19 12/25/19 Range/Units 16:10 16:10 16:10 WBC (4.8-10.8) K/uL RBC 4.24 L (4.7-6.1) M/uL Hgb (14.0-18.0) g/dL Hct (42-52) % MCV 91.0 (80-100) fL MCH 30.4 (25-34) pg MCHC 33.4 (32-36) g/dL RDW Std Deviation 42.6 (36.4-46.3) fL RDW Coeff of [place] 12.7 (11.5-14.5) % Plt Count (130-400) K/uL MPV 8.8 (7.4-10.4) fL Immature Gran % (Auto) 0.2 % Neut % (Auto) 84.7 % Lymph % (Auto) 9.2 % [place] % (Auto) 5.1 % Eos % (Auto) 0.6 % Baso % (Auto) 0.2 % Neut # (Auto) 12.94 H (1.4-6.5) K/uL Lymph # (Auto) 1.40 (1.2-3.4) K/uL [place] # (Auto) 0.78 H (0.11-0.59) K/uL Eos # (Auto) 0.09 (0-0.5) K/uL Baso # (Auto) 0.03 (0-0.2) K/uL Immature Gran # (Auto) 0.03 H (0.00-0.02) K/uL ESR (0-14) mm/hr PT 11.7 (9.0-12.0) Seconds INR 1.1 (0.9-1.1) APTT 30.7 (21.0-31.0) Seconds PTT Ratio 1.1 Sodium 137 (136-145) mmol/L Potassium 4.5 (3.5-5.1) mmol/L Chloride 102 (98-107) mmol/L Carbon Dioxide 29 (21-32) mmol/L Anion Gap 7.0 (3-11) BUN 18 (7-18) mg/dl Creatinine 0.91 (0.6-1.4) mg/dl Est Cr Clr Drug Dosing 74.3 ml/min Est GFR ( Amer) 97.2 Est GFR (Non-Af Amer) 83.9 BUN/Creatinine Ratio 19.9 (10-20) Glucose 159 H (70-99) mg/dl POC Glucose (70-99) mg/dl Estimat Average Glucose mg/dl Hemoglobin A1c (4.5-5.6) % Calcium 9.2 (8.5-10.1) mg/dl Phosphorus 2.9 (2.5-4.9) mg/dl Magnesium 1.9 (1.8-2.4) mg/dl Total Bilirubin 0.5 (0.2-1) mg/dl AST 13 L (15-37) U/L ALT 19 (12-78) U/L Alkaline Phosphatase 83 (45-117) U/L Troponin I < 0.015 (0-0.045) ng/ml C-Reactive Protein (0-0.29) mg/dl Total Protein 7.4 (6.4-8.2) gm/dl Albumin 2.9 L (3.4-5.0) gm/dl Globulin 4.5 H (2.5-4.0) gm/dl Albumin/Globulin Ratio 0.6 L (0.9-2) Triglycerides (0-150) mg/dl Cholesterol (0-200) mg/dl LDL Cholesterol, Calc mg/dl VLDL Cholesterol, Calc mg/dl HDL Cholesterol mg/dl Cholesterol/HDL Ratio Lipase 39 L (73-393) U/L TSH 1.960 (0.300-4.500) uIu/ml Urine Color Urine Appearance (Clear) Urine pH (4.5-7.5) Ur Specific [place] (1.000-1.030) Urine Protein (Negative) Urine Glucose (UA) (Negative) Urine Ketones (Negative) Urine Blood (Negative) Urine Nitrite (Negative) Urine Bilirubin (Negative) Urine Urobilinogen (Negative) Ur Leukocyte Esterase (Negative) Stl C. diff Tox B Gene (Neg) COVID-19 Eval Order SARS-CoV-2, RNA, NAAT (NEGATIVE) 12/25/19 12/25/19 12/25/19 Range/Units 16:16 16:16 20:45 WBC (4.8-10.8) K/uL RBC (4.7-6.1) M/uL Hgb (14.0-18.0) g/dL Hct (42-52) % MCV (80-100) fL MCH (25-34) pg MCHC (32-36) g/dL RDW Std Deviation (36.4-46.3) fL RDW Coeff of [place]olly (11.5-14.5) % Plt Count (130-400) K/uL MPV (7.4-10.4) fL Immature Gran % (Auto) % Neut % (Auto) % Lymph % (Auto) % [place] % (Auto) % Eos % (Auto) % Baso % (Auto) % Neut # (Auto) (1.4-6.5) K/uL Lymph # (Auto) (1.2-3.4) K/uL [place] # (Auto) (0.11-0.59) K/uL Eos # (Auto) (0-0.5) K/uL Baso # (Auto) (0-0.2) K/uL Immature Gran # (Auto) (0.00-0.02) K/uL ESR 69 H (0-14) mm/hr PT (9.0-12.0) Seconds INR (0.9-1.1) APTT (21.0-31.0) Seconds PTT Ratio Sodium (136-145) mmol/L Potassium (3.5-5.1) mmol/L Chloride (98-107) mmol/L Carbon Dioxide (21-32) mmol/L Anion Gap (3-11) BUN (7-18) mg/dl Creatinine (0.6-1.4) mg/dl Est Cr Clr Drug Dosing ml/min Est GFR ( Amer) Est GFR (Non-Af Amer) BUN/Creatinine Ratio (10-20) Glucose (70-99) mg/dl POC Glucose 101 H (70-99) mg/dl Estimat Average Glucose mg/dl Hemoglobin A1c (4.5-5.6) % Calcium (8.5-10.1) mg/dl Phosphorus (2.5-4.9) mg/dl Magnesium (1.8-2.4) mg/dl Total Bilirubin (0.2-1) mg/dl AST (15-37) U/L ALT (12-78) U/L Alkaline Phosphatase (45-117) U/L Troponin I (0-0.045) ng/ml C-Reactive Protein 5.03 H (0-0.29) mg/dl Total Protein (6.4-8.2) gm/dl Albumin (3.4-5.0) gm/dl Globulin (2.5-4.0) gm/dl Albumin/Globulin Ratio (0.9-2) Triglycerides (0-150) mg/dl Cholesterol (0-200) mg/dl LDL Cholesterol, Calc mg/dl VLDL Cholesterol, Calc mg/dl HDL Cholesterol mg/dl Cholesterol/HDL Ratio Lipase (73-393) U/L TSH (0.300-4.500) uIu/ml Urine Color Urine Appearance (Clear) Urine pH (4.5-7.5) Ur Specific [place] (1.000-1.030) Urine Protein (Negative) Urine Glucose (UA) (Negative) Urine Ketones (Negative) Urine Blood (Negative) Urine Nitrite (Negative) Urine Bilirubin (Negative) Urine Urobilinogen (Negative) Ur Leukocyte Esterase (Negative) Stl C. diff Tox B Gene (Neg) COVID-19 Eval Order SARS-CoV-2, RNA, NAAT (NEGATIVE) 12/26/19 12/26/19 12/26/19 Range/Units 05:08 05:08 05:08 WBC (4.8-10.8) K/uL RBC 3.59 L (4.7-6.1) M/uL Hgb (14.0-18.0) g/dL Hct (42-52) % MCV 91.9 (80-100) fL MCH 30.1 (25-34) pg MCHC 32.7 (32-36) g/dL RDW Std Deviation 42.7 (36.4-46.3) fL RDW Coeff of [place] 12.7 (11.5-14.5) % Plt Count (130-400) K/uL MPV 8.8 (7.4-10.4) fL Immature Gran % (Auto) % Neut % (Auto) % Lymph % (Auto) % [place] % (Auto) % Eos % (Auto) % Baso % (Auto) % Neut # (Auto) (1.4-6.5) K/uL Lymph # (Auto) (1.2-3.4) K/uL [place] # (Auto) (0.11-0.59) K/uL Eos # (Auto) (0-0.5) K/uL Baso # (Auto) (0-0.2) K/uL Immature Gran # (Auto) (0.00-0.02) K/uL ESR (0-14) mm/hr PT (9.0-12.0) Seconds INR (0.9-1.1) APTT (21.0-31.0) Seconds PTT Ratio Sodium 140 (136-145) mmol/L Potassium 3.9 (3.5-5.1) mmol/L Chloride 107 (98-107) mmol/L Carbon Dioxide 29 (21-32) mmol/L Anion Gap 4.0 (3-11) BUN 17 (7-18) mg/dl Creatinine 0.80 (0.6-1.4) mg/dl Est Cr Clr Drug Dosing 84.5 ml/min Est GFR ( Amer) 103.4 Est GFR (Non-Af Amer) 89.2 BUN/Creatinine Ratio 21.1 H (10-20) Glucose 45 L* (70-99) mg/dl POC Glucose (70-99) mg/dl Estimat Average Glucose 174 mg/dl Hemoglobin A1c 7.7 H (4.5-5.6) % Calcium 8.5 (8.5-10.1) mg/dl Phosphorus (2.5-4.9) mg/dl Magnesium (1.8-2.4) mg/dl Total Bilirubin (0.2-1) mg/dl AST (15-37) U/L ALT (12-78) U/L Alkaline Phosphatase (45-117) U/L Troponin I (0-0.045) ng/ml C-Reactive Protein (0-0.29) mg/dl Total Protein (6.4-8.2) gm/dl Albumin (3.4-5.0) gm/dl Globulin (2.5-4.0) gm/dl Albumin/Globulin Ratio (0.9-2) Triglycerides 94 (0-150) mg/dl Cholesterol 79 (0-200) mg/dl LDL Cholesterol, Calc 32 mg/dl VLDL Cholesterol, Calc 19 mg/dl HDL Cholesterol 28 mg/dl Cholesterol/HDL Ratio 3 Lipase (73-393) U/L TSH (0.300-4.500) uIu/ml Urine Color Urine Appearance (Clear) Urine pH (4.5-7.5) Ur Specific [place] (1.000-1.030) Urine Protein (Negative) Urine Glucose (UA) (Negative) Urine Ketones (Negative) Urine Blood (Negative) Urine Nitrite (Negative) Urine Bilirubin (Negative) Urine Urobilinogen (Negative) Ur Leukocyte Esterase (Negative) Stl C. diff Tox B Gene (Neg) COVID-19 Eval Order SARS-CoV-2, RNA, NAAT (NEGATIVE) 12/26/19 12/26/19 12/26/19 Range/Units 05:33 06:48 08:17 WBC (4.8-10.8) K/uL RBC (4.7-6.1) M/uL Hgb (14.0-18.0) g/dL Hct (42-52) % MCV (80-100) fL MCH (25-34) pg MCHC (32-36) g/dL RDW Std Deviation (36.4-46.3) fL RDW Coeff of [place]olly (11.5-14.5) % Plt Count (130-400) K/uL MPV (7.4-10.4) fL Immature Gran % (Auto) % Neut % (Auto) % Lymph % (Auto) % [place] % (Auto) % Eos % (Auto) % Baso % (Auto) % Neut # (Auto) (1.4-6.5) K/uL Lymph # (Auto) (1.2-3.4) K/uL [place] # (Auto) (0.11-0.59) K/uL Eos # (Auto) (0-0.5) K/uL Baso # (Auto) (0-0.2) K/uL Immature Gran # (Auto) (0.00-0.02) K/uL ESR (0-14) mm/hr PT (9.0-12.0) Seconds INR (0.9-1.1) APTT (21.0-31.0) Seconds PTT Ratio Sodium (136-145) mmol/L Potassium (3.5-5.1) mmol/L Chloride (98-107) mmol/L Carbon Dioxide (21-32) mmol/L Anion Gap (3-11) BUN (7-18) mg/dl Creatinine (0.6-1.4) mg/dl Est Cr Clr Drug Dosing ml/min Est GFR ( Amer) Est GFR (Non-Af Amer) BUN/Creatinine Ratio (10-20) Glucose (70-99) mg/dl POC Glucose 102 H 118 H (70-99) mg/dl Estimat Average Glucose mg/dl Hemoglobin A1c (4.5-5.6) % Calcium (8.5-10.1) mg/dl Phosphorus (2.5-4.9) mg/dl Magnesium (1.8-2.4) mg/dl Total Bilirubin (0.2-1) mg/dl AST (15-37) U/L ALT (12-78) U/L Alkaline Phosphatase (45-117) U/L Troponin I (0-0.045) ng/ml C-Reactive Protein (0-0.29) mg/dl Total Protein (6.4-8.2) gm/dl Albumin (3.4-5.0) gm/dl Globulin (2.5-4.0) gm/dl Albumin/Globulin Ratio (0.9-2) Triglycerides (0-150) mg/dl Cholesterol (0-200) mg/dl LDL Cholesterol, Calc mg/dl VLDL Cholesterol, Calc mg/dl HDL Cholesterol mg/dl Cholesterol/HDL Ratio Lipase (73-393) U/L TSH (0.300-4.500) uIu/ml Urine Color Yellow Urine Appearance Clear (Clear) Urine pH 6.0 (4.5-7.5) Ur Specific [place] 1.018 (1.000-1.030) Urine Protein Negative (Negative) Urine Glucose (UA) Trace H (Negative) Urine Ketones Negative (Negative) Urine Blood Negative (Negative) Urine Nitrite Negative (Negative) Urine Bilirubin Negative (Negative) Urine Urobilinogen Negative (Negative) Ur Leukocyte Esterase Negative (Negative) Stl C. diff Tox B Gene (Neg) COVID-19 Eval Order SARS-CoV-2, RNA, NAAT (NEGATIVE) 12/26/19 12/26/19 12/26/19 Range/Units 12:04 17:16 20:16 WBC (4.8-10.8) K/uL RBC (4.7-6.1) M/uL Hgb (14.0-18.0) g/dL Hct (42-52) % MCV (80-100) fL MCH (25-34) pg MCHC (32-36) g/dL RDW Std Deviation (36.4-46.3) fL RDW Coeff of [place] (11.5-14.5) % Plt Count (130-400) K/uL MPV (7.4-10.4) fL Immature Gran % (Auto) % Neut % (Auto) % Lymph % (Auto) % [place] % (Auto) % Eos % (Auto) % Baso % (Auto) % Neut # (Auto) (1.4-6.5) K/uL Lymph # (Auto) (1.2-3.4) K/uL [place] # (Auto) (0.11-0.59) K/uL Eos # (Auto) (0-0.5) K/uL Baso # (Auto) (0-0.2) K/uL Immature Gran # (Auto) (0.00-0.02) K/uL ESR (0-14) mm/hr PT (9.0-12.0) Seconds INR (0.9-1.1) APTT (21.0-31.0) Seconds PTT Ratio Sodium (136-145) mmol/L Potassium (3.5-5.1) mmol/L Chloride (98-107) mmol/L Carbon Dioxide (21-32) mmol/L Anion Gap (3-11) BUN (7-18) mg/dl Creatinine (0.6-1.4) mg/dl Est Cr Clr Drug Dosing ml/min Est GFR ( Amer) Est GFR (Non-Af Amer) BUN/Creatinine Ratio (10-20) Glucose (70-99) mg/dl POC Glucose 152 H 192 H 175 H (70-99) mg/dl Estimat Average Glucose mg/dl Hemoglobin A1c (4.5-5.6) % Calcium (8.5-10.1) mg/dl Phosphorus (2.5-4.9) mg/dl Magnesium (1.8-2.4) mg/dl Total Bilirubin (0.2-1) mg/dl AST (15-37) U/L ALT (12-78) U/L Alkaline Phosphatase (45-117) U/L Troponin I (0-0.045) ng/ml C-Reactive Protein (0-0.29) mg/dl Total Protein (6.4-8.2) gm/dl Albumin (3.4-5.0) gm/dl Globulin (2.5-4.0) gm/dl Albumin/Globulin Ratio (0.9-2) Triglycerides (0-150) mg/dl Cholesterol (0-200) mg/dl LDL Cholesterol, Calc mg/dl VLDL Cholesterol, Calc mg/dl HDL Cholesterol mg/dl Cholesterol/HDL Ratio Lipase (73-393) U/L TSH (0.300-4.500) uIu/ml Urine Color Urine Appearance (Clear) Urine pH (4.5-7.5) Ur Specific [place] (1.000-1.030) Urine Protein (Negative) Urine Glucose (UA) (Negative) Urine Ketones (Negative) Urine Blood (Negative) Urine Nitrite (Negative) Urine Bilirubin (Negative) Urine Urobilinogen (Negative) Ur Leukocyte Esterase (Negative) Stl C. diff Tox B Gene (Neg) COVID-19 Eval Order SARS-CoV-2, RNA, NAAT (NEGATIVE) 12/27/19 12/27/19 12/27/19 Range/Units 08:06 08:30 12:10 WBC (4.8-10.8) K/uL RBC (4.7-6.1) M/uL Hgb (14.0-18.0) g/dL Hct (42-52) % MCV (80-100) fL MCH (25-34) pg MCHC (32-36) g/dL RDW Std Deviation (36.4-46.3) fL RDW Coeff of [place] (11.5-14.5) % Plt Count (130-400) K/uL MPV (7.4-10.4) fL Immature Gran % (Auto) % Neut % (Auto) % Lymph % (Auto) % [place] % (Auto) % Eos % (Auto) % Baso % (Auto) % Neut # (Auto) (1.4-6.5) K/uL Lymph # (Auto) (1.2-3.4) K/uL [place] # (Auto) (0.11-0.59) K/uL Eos # (Auto) (0-0.5) K/uL Baso # (Auto) (0-0.2) K/uL Immature Gran # (Auto) (0.00-0.02) K/uL ESR (0-14) mm/hr PT (9.0-12.0) Seconds INR (0.9-1.1) APTT (21.0-31.0) Seconds PTT Ratio Sodium (136-145) mmol/L Potassium (3.5-5.1) mmol/L Chloride (98-107) mmol/L Carbon Dioxide (21-32) mmol/L Anion Gap (3-11) BUN (7-18) mg/dl Creatinine 1.00 (0.6-1.4) mg/dl Est Cr Clr Drug Dosing 67.6 ml/min Est GFR ( Amer) 86.8 Est GFR (Non-Af Amer) 74.9 BUN/Creatinine Ratio (10-20) Glucose (70-99) mg/dl POC Glucose 166 H 316 H* (70-99) mg/dl Estimat Average Glucose mg/dl Hemoglobin A1c (4.5-5.6) % Calcium (8.5-10.1) mg/dl Phosphorus (2.5-4.9) mg/dl Magnesium (1.8-2.4) mg/dl Total Bilirubin (0.2-1) mg/dl AST (15-37) U/L ALT (12-78) U/L Alkaline Phosphatase (45-117) U/L Troponin I (0-0.045) ng/ml C-Reactive Protein (0-0.29) mg/dl Total Protein (6.4-8.2) gm/dl Albumin (3.4-5.0) gm/dl Globulin (2.5-4.0) gm/dl Albumin/Globulin Ratio (0.9-2) Triglycerides (0-150) mg/dl Cholesterol (0-200) mg/dl LDL Cholesterol, Calc mg/dl VLDL Cholesterol, Calc mg/dl HDL Cholesterol mg/dl Cholesterol/HDL Ratio Lipase (73-393) U/L TSH (0.300-4.500) uIu/ml Urine Color Urine Appearance (Clear) Urine pH (4.5-7.5) Ur Specific [place] (1.000-1.030) Urine Protein (Negative) Urine Glucose (UA) (Negative) Urine Ketones (Negative) Urine Blood (Negative) Urine Nitrite (Negative) Urine Bilirubin (Negative) Urine Urobilinogen (Negative) Ur Leukocyte Esterase (Negative) Stl C. diff Tox B Gene (Neg) COVID-19 Eval Order SARS-CoV-2, RNA, NAAT (NEGATIVE) 12/27/19 12/27/19 12/27/19 Range/Units 12:12 17:01 20:33 WBC (4.8-10.8) K/uL RBC (4.7-6.1) M/uL Hgb (14.0-18.0) g/dL Hct (42-52) % MCV (80-100) fL MCH (25-34) pg MCHC (32-36) g/dL RDW Std Deviation (36.4-46.3) fL RDW Coeff of [place] (11.5-14.5) % Plt Count (130-400) K/uL MPV (7.4-10.4) fL Immature Gran % (Auto) % Neut % (Auto) % Lymph % (Auto) % [place] % (Auto) % Eos % (Auto) % Baso % (Auto) % Neut # (Auto) (1.4-6.5) K/uL Lymph # (Auto) (1.2-3.4) K/uL [place] # (Auto) (0.11-0.59) K/uL Eos # (Auto) (0-0.5) K/uL Baso # (Auto) (0-0.2) K/uL Immature Gran # (Auto) (0.00-0.02) K/uL ESR (0-14) mm/hr PT (9.0-12.0) Seconds INR (0.9-1.1) APTT (21.0-31.0) Seconds PTT Ratio Sodium (136-145) mmol/L Potassium (3.5-5.1) mmol/L Chloride (98-107) mmol/L Carbon Dioxide (21-32) mmol/L Anion Gap (3-11) BUN (7-18) mg/dl Creatinine (0.6-1.4) mg/dl Est Cr Clr Drug Dosing ml/min Est GFR ( Amer) Est GFR (Non-Af Amer) BUN/Creatinine Ratio (10-20) Glucose (70-99) mg/dl POC Glucose 296 H 215 H 206 H (70-99) mg/dl Estimat Average Glucose mg/dl Hemoglobin A1c (4.5-5.6) % Calcium (8.5-10.1) mg/dl Phosphorus (2.5-4.9) mg/dl Magnesium (1.8-2.4) mg/dl Total Bilirubin (0.2-1) mg/dl AST (15-37) U/L ALT (12-78) U/L Alkaline Phosphatase (45-117) U/L Troponin I (0-0.045) ng/ml C-Reactive Protein (0-0.29) mg/dl Total Protein (6.4-8.2) gm/dl Albumin (3.4-5.0) gm/dl Globulin (2.5-4.0) gm/dl Albumin/Globulin Ratio (0.9-2) Triglycerides (0-150) mg/dl Cholesterol (0-200) mg/dl LDL Cholesterol, Calc mg/dl VLDL Cholesterol, Calc mg/dl HDL Cholesterol mg/dl Cholesterol/HDL Ratio Lipase (73-393) U/L TSH (0.300-4.500) uIu/ml Urine Color Urine Appearance (Clear) Urine pH (4.5-7.5) Ur Specific [place] (1.000-1.030) Urine Protein (Negative) Urine Glucose (UA) (Negative) Urine Ketones (Negative) Urine Blood (Negative) Urine Nitrite (Negative) Urine Bilirubin (Negative) Urine Urobilinogen (Negative) Ur Leukocyte Esterase (Negative) Stl C. diff Tox B Gene (Neg) COVID-19 Eval Order SARS-CoV-2, RNA, NAAT (NEGATIVE) 12/28/19 12/28/19 12/28/19 Range/Units 04:58 08:46 11:55 WBC (4.8-10.8) K/uL RBC (4.7-6.1) M/uL Hgb (14.0-18.0) g/dL Hct (42-52) % MCV (80-100) fL MCH (25-34) pg MCHC (32-36) g/dL RDW Std Deviation (36.4-46.3) fL RDW Coeff of [place] (11.5-14.5) % Plt Count (130-400) K/uL MPV (7.4-10.4) fL Immature Gran % (Auto) % Neut % (Auto) % Lymph % (Auto) % [place] % (Auto) % Eos % (Auto) % Baso % (Auto) % Neut # (Auto) (1.4-6.5) K/uL Lymph # (Auto) (1.2-3.4) K/uL [place] # (Auto) (0.11-0.59) K/uL Eos # (Auto) (0-0.5) K/uL Baso # (Auto) (0-0.2) K/uL Immature Gran # (Auto) (0.00-0.02) K/uL ESR (0-14) mm/hr PT (9.0-12.0) Seconds INR (0.9-1.1) APTT (21.0-31.0) Seconds PTT Ratio Sodium (136-145) mmol/L Potassium (3.5-5.1) mmol/L Chloride (98-107) mmol/L Carbon Dioxide (21-32) mmol/L Anion Gap (3-11) BUN (7-18) mg/dl Creatinine 1.01 (0.6-1.4) mg/dl Est Cr Clr Drug Dosing 67.0 ml/min Est GFR ( Amer) 85.7 Est GFR (Non-Af Amer) 74.0 BUN/Creatinine Ratio (10-20) Glucose (70-99) mg/dl POC Glucose 232 H 356 H* (70-99) mg/dl Estimat Average Glucose mg/dl Hemoglobin A1c (4.5-5.6) % Calcium (8.5-10.1) mg/dl Phosphorus (2.5-4.9) mg/dl Magnesium (1.8-2.4) mg/dl Total Bilirubin (0.2-1) mg/dl AST (15-37) U/L ALT (12-78) U/L Alkaline Phosphatase (45-117) U/L Troponin I (0-0.045) ng/ml C-Reactive Protein (0-0.29) mg/dl Total Protein (6.4-8.2) gm/dl Albumin (3.4-5.0) gm/dl Globulin (2.5-4.0) gm/dl Albumin/Globulin Ratio (0.9-2) Triglycerides (0-150) mg/dl Cholesterol (0-200) mg/dl LDL Cholesterol, Calc mg/dl VLDL Cholesterol, Calc mg/dl HDL Cholesterol mg/dl Cholesterol/HDL Ratio Lipase (73-393) U/L TSH (0.300-4.500) uIu/ml Urine Color Urine Appearance (Clear) Urine pH (4.5-7.5) Ur Specific [place] (1.000-1.030) Urine Protein (Negative) Urine Glucose (UA) (Negative) Urine Ketones (Negative) Urine Blood (Negative) Urine Nitrite (Negative) Urine Bilirubin (Negative) Urine Urobilinogen (Negative) Ur Leukocyte Esterase (Negative) Stl C. diff Tox B Gene (Neg) COVID-19 Eval Order SARS-CoV-2, RNA, NAAT (NEGATIVE) 12/28/19 12/28/19 12/28/19 Range/Units 11:56 17:12 17:13 WBC (4.8-10.8) K/uL RBC (4.7-6.1) M/uL Hgb (14.0-18.0) g/dL Hct (42-52) % MCV (80-100) fL MCH (25-34) pg MCHC (32-36) g/dL RDW Std Deviation (36.4-46.3) fL RDW Coeff of [place] (11.5-14.5) % Plt Count (130-400) K/uL MPV (7.4-10.4) fL Immature Gran % (Auto) % Neut % (Auto) % Lymph % (Auto) % [place] % (Auto) % Eos % (Auto) % Baso % (Auto) % Neut # (Auto) (1.4-6.5) K/uL Lymph # (Auto) (1.2-3.4) K/uL [place] # (Auto) (0.11-0.59) K/uL Eos # (Auto) (0-0.5) K/uL Baso # (Auto) (0-0.2) K/uL Immature Gran # (Auto) (0.00-0.02) K/uL ESR (0-14) mm/hr PT (9.0-12.0) Seconds INR (0.9-1.1) APTT (21.0-31.0) Seconds PTT Ratio Sodium (136-145) mmol/L Potassium (3.5-5.1) mmol/L Chloride (98-107) mmol/L Carbon Dioxide (21-32) mmol/L Anion Gap (3-11) BUN (7-18) mg/dl Creatinine (0.6-1.4) mg/dl Est Cr Clr Drug Dosing ml/min Est GFR ( Amer) Est GFR (Non-Af Amer) BUN/Creatinine Ratio (10-20) Glucose (70-99) mg/dl POC Glucose 354 H* 305 H* 300 H (70-99) mg/dl Estimat Average Glucose mg/dl Hemoglobin A1c (4.5-5.6) % Calcium (8.5-10.1) mg/dl Phosphorus (2.5-4.9) mg/dl Magnesium (1.8-2.4) mg/dl Total Bilirubin (0.2-1) mg/dl AST (15-37) U/L ALT (12-78) U/L Alkaline Phosphatase (45-117) U/L Troponin I (0-0.045) ng/ml C-Reactive Protein (0-0.29) mg/dl Total Protein (6.4-8.2) gm/dl Albumin (3.4-5.0) gm/dl Globulin (2.5-4.0) gm/dl Albumin/Globulin Ratio (0.9-2) Triglycerides (0-150) mg/dl Cholesterol (0-200) mg/dl LDL Cholesterol, Calc mg/dl VLDL Cholesterol, Calc mg/dl HDL Cholesterol mg/dl Cholesterol/HDL Ratio Lipase (73-393) U/L TSH (0.300-4.500) uIu/ml Urine Color Urine Appearance (Clear) Urine pH (4.5-7.5) Ur Specific [place] (1.000-1.030) Urine Protein (Negative) Urine Glucose (UA) (Negative) Urine Ketones (Negative) Urine Blood (Negative) Urine Nitrite (Negative) Urine Bilirubin (Negative) Urine Urobilinogen (Negative) Ur Leukocyte Esterase (Negative) Stl C. diff Tox B Gene (Neg) COVID-19 Eval Order SARS-CoV-2, RNA, NAAT (NEGATIVE) 12/28/19 12/29/19 12/29/19 Range/Units 20:31 06:42 06:42 WBC (4.8-10.8) K/uL RBC 3.77 L (4.7-6.1) M/uL Hgb (14.0-18.0) g/dL Hct (42-52) % MCV 91.5 (80-100) fL MCH 29.2 (25-34) pg MCHC 31.9 L (32-36) g/dL RDW Std Deviation 42.8 (36.4-46.3) fL RDW Coeff of [place] 12.7 (11.5-14.5) % Plt Count (130-400) K/uL MPV 9.0 (7.4-10.4) fL Immature Gran % (Auto) 0.2 % Neut % (Auto) 79.8 % Lymph % (Auto) 9.9 % [place] % (Auto) 8.1 % Eos % (Auto) 1.6 % Baso % (Auto) 0.4 % Neut # (Auto) 10.51 H (1.4-6.5) K/uL Lymph # (Auto) 1.31 (1.2-3.4) K/uL [place] # (Auto) 1.07 H (0.11-0.59) K/uL Eos # (Auto) 0.21 (0-0.5) K/uL Baso # (Auto) 0.05 (0-0.2) K/uL Immature Gran # (Auto) 0.02 (0.00-0.02) K/uL ESR (0-14) mm/hr PT (9.0-12.0) Seconds INR (0.9-1.1) APTT (21.0-31.0) Seconds PTT Ratio Sodium 136 (136-145) mmol/L Potassium 4.0 (3.5-5.1) mmol/L Chloride 101 (98-107) mmol/L Carbon Dioxide 27 (21-32) mmol/L Anion Gap 8.0 (3-11) BUN 17 (7-18) mg/dl Creatinine 1.03 (0.6-1.4) mg/dl Est Cr Clr Drug Dosing 65.7 ml/min Est GFR ( Amer) 83.7 Est GFR (Non-Af Amer) 72.2 BUN/Creatinine Ratio 16.3 (10-20) Glucose 245 H (70-99) mg/dl POC Glucose 211 H (70-99) mg/dl Estimat Average Glucose mg/dl Hemoglobin A1c (4.5-5.6) % Calcium 8.5 (8.5-10.1) mg/dl Phosphorus 2.6 (2.5-4.9) mg/dl Magnesium (1.8-2.4) mg/dl Total Bilirubin (0.2-1) mg/dl AST (15-37) U/L ALT (12-78) U/L Alkaline Phosphatase (45-117) U/L Troponin I (0-0.045) ng/ml C-Reactive Protein (0-0.29) mg/dl Total Protein (6.4-8.2) gm/dl Albumin (3.4-5.0) gm/dl Globulin (2.5-4.0) gm/dl Albumin/Globulin Ratio (0.9-2) Triglycerides (0-150) mg/dl Cholesterol (0-200) mg/dl LDL Cholesterol, Calc mg/dl VLDL Cholesterol, Calc mg/dl HDL Cholesterol mg/dl Cholesterol/HDL Ratio Lipase (73-393) U/L TSH (0.300-4.500) uIu/ml Urine Color Urine Appearance (Clear) Urine pH (4.5-7.5) Ur Specific [place] (1.000-1.030) Urine Protein (Negative) Urine Glucose (UA) (Negative) Urine Ketones (Negative) Urine Blood (Negative) Urine Nitrite (Negative) Urine Bilirubin (Negative) Urine Urobilinogen (Negative) Ur Leukocyte Esterase (Negative) Stl C. diff Tox B Gene (Neg) COVID-19 Eval Order SARS-CoV-2, RNA, NAAT (NEGATIVE) 12/29/19 12/29/19 12/29/19 Range/Units 08:18 12:30 17:10 WBC (4.8-10.8) K/uL RBC (4.7-6.1) M/uL Hgb (14.0-18.0) g/dL Hct (42-52) % MCV (80-100) fL MCH (25-34) pg MCHC (32-36) g/dL RDW Std Deviation (36.4-46.3) fL RDW Coeff of [place] (11.5-14.5) % Plt Count (130-400) K/uL MPV (7.4-10.4) fL Immature Gran % (Auto) % Neut % (Auto) % Lymph % (Auto) % [place] % (Auto) % Eos % (Auto) % Baso % (Auto) % Neut # (Auto) (1.4-6.5) K/uL Lymph # (Auto) (1.2-3.4) K/uL [place] # (Auto) (0.11-0.59) K/uL Eos # (Auto) (0-0.5) K/uL Baso # (Auto) (0-0.2) K/uL Immature Gran # (Auto) (0.00-0.02) K/uL ESR (0-14) mm/hr PT (9.0-12.0) Seconds INR (0.9-1.1) APTT (21.0-31.0) Seconds PTT Ratio Sodium (136-145) mmol/L Potassium (3.5-5.1) mmol/L Chloride (98-107) mmol/L Carbon Dioxide (21-32) mmol/L Anion Gap (3-11) BUN (7-18) mg/dl Creatinine (0.6-1.4) mg/dl Est Cr Clr Drug Dosing ml/min Est GFR ( Amer) Est GFR (Non-Af Amer) BUN/Creatinine Ratio (10-20) Glucose (70-99) mg/dl POC Glucose 242 H 296 H 186 H (70-99) mg/dl Estimat Average Glucose mg/dl Hemoglobin A1c (4.5-5.6) % Calcium (8.5-10.1) mg/dl Phosphorus (2.5-4.9) mg/dl Magnesium (1.8-2.4) mg/dl Total Bilirubin (0.2-1) mg/dl AST (15-37) U/L ALT (12-78) U/L Alkaline Phosphatase (45-117) U/L Troponin I (0-0.045) ng/ml C-Reactive Protein (0-0.29) mg/dl Total Protein (6.4-8.2) gm/dl Albumin (3.4-5.0) gm/dl Globulin (2.5-4.0) gm/dl Albumin/Globulin Ratio (0.9-2) Triglycerides (0-150) mg/dl Cholesterol (0-200) mg/dl LDL Cholesterol, Calc mg/dl VLDL Cholesterol, Calc mg/dl HDL Cholesterol mg/dl Cholesterol/HDL Ratio Lipase (73-393) U/L TSH (0.300-4.500) uIu/ml Urine Color Urine Appearance (Clear) Urine pH (4.5-7.5) Ur Specific [place] (1.000-1.030) Urine Protein (Negative) Urine Glucose (UA) (Negative) Urine Ketones (Negative) Urine Blood (Negative) Urine Nitrite (Negative) Urine Bilirubin (Negative) Urine Urobilinogen (Negative) Ur Leukocyte Esterase (Negative) Stl C. diff Tox B Gene (Neg) COVID-19 Eval Order SARS-CoV-2, RNA, NAAT (NEGATIVE) 12/29/19 12/30/19 12/30/19 Range/Units 20:25 02:02 07:29 WBC (4.8-10.8) K/uL RBC (4.7-6.1) M/uL Hgb (14.0-18.0) g/dL Hct (42-52) % MCV (80-100) fL MCH (25-34) pg MCHC (32-36) g/dL RDW Std Deviation (36.4-46.3) fL RDW Coeff of [place] (11.5-14.5) % Plt Count (130-400) K/uL MPV (7.4-10.4) fL Immature Gran % (Auto) % Neut % (Auto) % Lymph % (Auto) % [place] % (Auto) % Eos % (Auto) % Baso % (Auto) % Neut # (Auto) (1.4-6.5) K/uL Lymph # (Auto) (1.2-3.4) K/uL [place] # (Auto) (0.11-0.59) K/uL Eos # (Auto) (0-0.5) K/uL Baso # (Auto) (0-0.2) K/uL Immature Gran # (Auto) (0.00-0.02) K/uL ESR (0-14) mm/hr PT (9.0-12.0) Seconds INR (0.9-1.1) APTT (21.0-31.0) Seconds PTT Ratio Sodium (136-145) mmol/L Potassium (3.5-5.1) mmol/L Chloride (98-107) mmol/L Carbon Dioxide (21-32) mmol/L Anion Gap (3-11) BUN (7-18) mg/dl Creatinine 0.98 (0.6-1.4) mg/dl Est Cr Clr Drug Dosing 69.0 ml/min Est GFR ( Amer) 88.9 Est GFR (Non-Af Amer) 76.7 BUN/Creatinine Ratio (10-20) Glucose (70-99) mg/dl POC Glucose 104 H 127 H (70-99) mg/dl Estimat Average Glucose mg/dl Hemoglobin A1c (4.5-5.6) % Calcium (8.5-10.1) mg/dl Phosphorus (2.5-4.9) mg/dl Magnesium (1.8-2.4) mg/dl Total Bilirubin (0.2-1) mg/dl AST (15-37) U/L ALT (12-78) U/L Alkaline Phosphatase (45-117) U/L Troponin I (0-0.045) ng/ml C-Reactive Protein (0-0.29) mg/dl Total Protein (6.4-8.2) gm/dl Albumin (3.4-5.0) gm/dl Globulin (2.5-4.0) gm/dl Albumin/Globulin Ratio (0.9-2) Triglycerides (0-150) mg/dl Cholesterol (0-200) mg/dl LDL Cholesterol, Calc mg/dl VLDL Cholesterol, Calc mg/dl HDL Cholesterol mg/dl Cholesterol/HDL Ratio Lipase (73-393) U/L TSH (0.300-4.500) uIu/ml Urine Color Urine Appearance (Clear) Urine pH (4.5-7.5) Ur Specific [place] (1.000-1.030) Urine Protein (Negative) Urine Glucose (UA) (Negative) Urine Ketones (Negative) Urine Blood (Negative) Urine Nitrite (Negative) Urine Bilirubin (Negative) Urine Urobilinogen (Negative) Ur Leukocyte Esterase (Negative) Stl C. diff Tox B Gene (Neg) COVID-19 Eval Order SARS-CoV-2, RNA, NAAT (NEGATIVE) 12/30/19 12/30/19 12/30/19 Range/Units 08:12 12:07 17:11 WBC (4.8-10.8) K/uL RBC (4.7-6.1) M/uL Hgb (14.0-18.0) g/dL Hct (42-52) % MCV (80-100) fL MCH (25-34) pg MCHC (32-36) g/dL RDW Std Deviation (36.4-46.3) fL RDW Coeff of [place] (11.5-14.5) % Plt Count (130-400) K/uL MPV (7.4-10.4) fL Immature Gran % (Auto) % Neut % (Auto) % Lymph % (Auto) % [place] % (Auto) % Eos % (Auto) % Baso % (Auto) % Neut # (Auto) (1.4-6.5) K/uL Lymph # (Auto) (1.2-3.4) K/uL [place] # (Auto) (0.11-0.59) K/uL Eos # (Auto) (0-0.5) K/uL Baso # (Auto) (0-0.2) K/uL Immature Gran # (Auto) (0.00-0.02) K/uL ESR (0-14) mm/hr PT (9.0-12.0) Seconds INR (0.9-1.1) APTT (21.0-31.0) Seconds PTT Ratio Sodium (136-145) mmol/L Potassium (3.5-5.1) mmol/L Chloride (98-107) mmol/L Carbon Dioxide (21-32) mmol/L Anion Gap (3-11) BUN (7-18) mg/dl Creatinine (0.6-1.4) mg/dl Est Cr Clr Drug Dosing ml/min Est GFR ( Amer) Est GFR (Non-Af Amer) BUN/Creatinine Ratio (10-20) Glucose (70-99) mg/dl POC Glucose 152 H 292 H 206 H (70-99) mg/dl Estimat Average Glucose mg/dl Hemoglobin A1c (4.5-5.6) % Calcium (8.5-10.1) mg/dl Phosphorus (2.5-4.9) mg/dl Magnesium (1.8-2.4) mg/dl Total Bilirubin (0.2-1) mg/dl AST (15-37) U/L ALT (12-78) U/L Alkaline Phosphatase (45-117) U/L Troponin I (0-0.045) ng/ml C-Reactive Protein (0-0.29) mg/dl Total Protein (6.4-8.2) gm/dl Albumin (3.4-5.0) gm/dl Globulin (2.5-4.0) gm/dl Albumin/Globulin Ratio (0.9-2) Triglycerides (0-150) mg/dl Cholesterol (0-200) mg/dl LDL Cholesterol, Calc mg/dl VLDL Cholesterol, Calc mg/dl HDL Cholesterol mg/dl Cholesterol/HDL Ratio Lipase (73-393) U/L TSH (0.300-4.500) uIu/ml Urine Color Urine Appearance (Clear) Urine pH (4.5-7.5) Ur Specific [place] (1.000-1.030) Urine Protein (Negative) Urine Glucose (UA) (Negative) Urine Ketones (Negative) Urine Blood (Negative) Urine Nitrite (Negative) Urine Bilirubin (Negative) Urine Urobilinogen (Negative) Ur Leukocyte Esterase (Negative) Stl C. diff Tox B Gene (Neg) COVID-19 Eval Order SARS-CoV-2, RNA, NAAT (NEGATIVE) 09/24/20 09/25/20 09/25/20 Range/Units 19:50 02:11 06:00 WBC (4.8-10.8) K/uL RBC (4.7-6.1) M/uL Hgb (14.0-18.0) g/dL Hct (42-52) % MCV (80-100) fL MCH (25-34) pg MCHC (32-36) g/dL RDW Std Deviation (36.4-46.3) fL RDW Coeff of [place] (11.5-14.5) % Plt Count (130-400) K/uL MPV (7.4-10.4) fL Immature Gran % (Auto) % Neut % (Auto) % Lymph % (Auto) % [place] % (Auto) % Eos % (Auto) % Baso % (Auto) % Neut # (Auto) (1.4-6.5) K/uL Lymph # (Auto) (1.2-3.4) K/uL [place] # (Auto) (0.11-0.59) K/uL Eos # (Auto) (0-0.5) K/uL Baso # (Auto) (0-0.2) K/uL Immature Gran # (Auto) (0.00-0.02) K/uL ESR (0-14) mm/hr PT (9.0-12.0) Seconds INR (0.9-1.1) APTT (21.0-31.0) Seconds PTT Ratio Sodium (136-145) mmol/L Potassium (3.5-5.1) mmol/L Chloride (98-107) mmol/L Carbon Dioxide (21-32) mmol/L Anion Gap (3-11) BUN (7-18) mg/dl Creatinine (0.6-1.4) mg/dl Est Cr Clr Drug Dosing ml/min Est GFR ( Amer) Est GFR (Non-Af Amer) BUN/Creatinine Ratio (10-20) Glucose (70-99) mg/dl POC Glucose 131 H 211 H 196 H (70-99) mg/dl Estimat Average Glucose mg/dl Hemoglobin A1c (4.5-5.6) % Calcium (8.5-10.1) mg/dl Phosphorus (2.5-4.9) mg/dl Magnesium (1.8-2.4) mg/dl Total Bilirubin (0.2-1) mg/dl AST (15-37) U/L ALT (12-78) U/L Alkaline Phosphatase (45-117) U/L Troponin I (0-0.045) ng/ml C-Reactive Protein (0-0.29) mg/dl Total Protein (6.4-8.2) gm/dl Albumin (3.4-5.0) gm/dl Globulin (2.5-4.0) gm/dl Albumin/Globulin Ratio (0.9-2) Triglycerides (0-150) mg/dl Cholesterol (0-200) mg/dl LDL Cholesterol, Calc mg/dl VLDL Cholesterol, Calc mg/dl HDL Cholesterol mg/dl Cholesterol/HDL Ratio Lipase (73-393) U/L TSH (0.300-4.500) uIu/ml Urine Color Urine Appearance (Clear) Urine pH (4.5-7.5) Ur Specific [place] (1.000-1.030) Urine Protein (Negative) Urine Glucose (UA) (Negative) Urine Ketones (Negative) Urine Blood (Negative) Urine Nitrite (Negative) Urine Bilirubin (Negative) Urine Urobilinogen (Negative) Ur Leukocyte Esterase (Negative) Stl C. diff Tox B Gene (Neg) COVID-19 Eval Order SARS-CoV-2, RNA, NAAT (NEGATIVE) 12/31/19 12/31/19 12/31/19 Range/Units 09:11 09:11 11:56 WBC (4.8-10.8) K/uL RBC (4.7-6.1) M/uL Hgb (14.0-18.0) g/dL Hct (42-52) % MCV (80-100) fL MCH (25-34) pg MCHC (32-36) g/dL RDW Std Deviation (36.4-46.3) fL RDW Coeff of [place] (11.5-14.5) % Plt Count (130-400) K/uL MPV (7.4-10.4) fL Immature Gran % (Auto) % Neut % (Auto) % Lymph % (Auto) % [place] % (Auto) % Eos % (Auto) % Baso % (Auto) % Neut # (Auto) (1.4-6.5) K/uL Lymph # (Auto) (1.2-3.4) K/uL [place] # (Auto) (0.11-0.59) K/uL Eos # (Auto) (0-0.5) K/uL Baso # (Auto) (0-0.2) K/uL Immature Gran # (Auto) (0.00-0.02) K/uL ESR (0-14) mm/hr PT (9.0-12.0) Seconds INR (0.9-1.1) APTT (21.0-31.0) Seconds PTT Ratio Sodium (136-145) mmol/L Potassium (3.5-5.1) mmol/L Chloride (98-107) mmol/L Carbon Dioxide (21-32) mmol/L Anion Gap (3-11) BUN (7-18) mg/dl Creatinine (0.6-1.4) mg/dl Est Cr Clr Drug Dosing ml/min Est GFR ( Amer) Est GFR (Non-Af Amer) BUN/Creatinine Ratio (10-20) Glucose (70-99) mg/dl POC Glucose 181 H (70-99) mg/dl Estimat Average Glucose mg/dl Hemoglobin A1c (4.5-5.6) % Calcium (8.5-10.1) mg/dl Phosphorus (2.5-4.9) mg/dl Magnesium (1.8-2.4) mg/dl Total Bilirubin (0.2-1) mg/dl AST (15-37) U/L ALT (12-78) U/L Alkaline Phosphatase (45-117) U/L Troponin I (0-0.045) ng/ml C-Reactive Protein (0-0.29) mg/dl Total Protein (6.4-8.2) gm/dl Albumin (3.4-5.0) gm/dl Globulin (2.5-4.0) gm/dl Albumin/Globulin Ratio (0.9-2) Triglycerides (0-150) mg/dl Cholesterol (0-200) mg/dl LDL Cholesterol, Calc mg/dl VLDL Cholesterol, Calc mg/dl HDL Cholesterol mg/dl Cholesterol/HDL Ratio Lipase (73-393) U/L TSH (0.300-4.500) uIu/ml Urine Color Urine Appearance (Clear) Urine pH (4.5-7.5) Ur Specific [place] (1.000-1.030) Urine Protein (Negative) Urine Glucose (UA) (Negative) Urine Ketones (Negative) Urine Blood (Negative) Urine Nitrite (Negative) Urine Bilirubin (Negative) Urine Urobilinogen (Negative) Ur Leukocyte Esterase (Negative) Stl C. diff Tox B Gene (Neg) COVID-19 Eval [id number]-2, RNA, NAAT NEGATIVE (NEGATIVE) 12/31/19 12/31/19 01/01/20 Range/Units 17:08 20:37 05:57 WBC (4.8-10.8) K/uL RBC 3.50 L (4.7-6.1) M/uL Hgb (14.0-18.0) g/dL Hct (42-52) % MCV 93.1 (80-100) fL MCH 30.3 (25-34) pg MCHC 32.5 (32-36) g/dL RDW Std Deviation 44.5 (36.4-46.3) fL RDW Coeff of [place] 13.3 (11.5-14.5) % Plt Count (130-400) K/uL MPV 9.0 (7.4-10.4) fL Immature Gran % (Auto) % Neut % (Auto) % Lymph % (Auto) % [place] % (Auto) % Eos % (Auto) % Baso % (Auto) % Neut # (Auto) (1.4-6.5) K/uL Lymph # (Auto) (1.2-3.4) K/uL [place] # (Auto) (0.11-0.59) K/uL Eos # (Auto) (0-0.5) K/uL Baso # (Auto) (0-0.2) K/uL Immature Gran # (Auto) (0.00-0.02) K/uL ESR (0-14) mm/hr PT (9.0-12.0) Seconds INR (0.9-1.1) APTT (21.0-31.0) Seconds PTT Ratio Sodium (136-145) mmol/L Potassium (3.5-5.1) mmol/L Chloride (98-107) mmol/L Carbon Dioxide (21-32) mmol/L Anion Gap (3-11) BUN (7-18) mg/dl Creatinine (0.6-1.4) mg/dl Est Cr Clr Drug Dosing ml/min Est GFR ( Amer) Est GFR (Non-Af Amer) BUN/Creatinine Ratio (10-20) Glucose (70-99) mg/dl POC Glucose 138 H 135 H (70-99) mg/dl Estimat Average Glucose mg/dl Hemoglobin A1c (4.5-5.6) % Calcium (8.5-10.1) mg/dl Phosphorus (2.5-4.9) mg/dl Magnesium (1.8-2.4) mg/dl Total Bilirubin (0.2-1) mg/dl AST (15-37) U/L ALT (12-78) U/L Alkaline Phosphatase (45-117) U/L Troponin I (0-0.045) ng/ml C-Reactive Protein (0-0.29) mg/dl Total Protein (6.4-8.2) gm/dl Albumin (3.4-5.0) gm/dl Globulin (2.5-4.0) gm/dl Albumin/Globulin Ratio (0.9-2) Triglycerides (0-150) mg/dl Cholesterol (0-200) mg/dl LDL Cholesterol, Calc mg/dl VLDL Cholesterol, Calc mg/dl HDL Cholesterol mg/dl Cholesterol/HDL Ratio Lipase (73-393) U/L TSH (0.300-4.500) uIu/ml Urine Color Urine Appearance (Clear) Urine pH (4.5-7.5) Ur Specific [place] (1.000-1.030) Urine Protein (Negative) Urine Glucose (UA) (Negative) Urine Ketones (Negative) Urine Blood (Negative) Urine Nitrite (Negative) Urine Bilirubin (Negative) Urine Urobilinogen (Negative) Ur Leukocyte Esterase (Negative) Stl C. diff Tox B Gene (Neg) COVID-19 Eval Order SARS-CoV-2, RNA, NAAT (NEGATIVE) 01/01/20 01/01/20 01/01/20 Range/Units 05:57 08:17 12:36 WBC (4.8-10.8) K/uL RBC (4.7-6.1) M/uL Hgb (14.0-18.0) g/dL Hct (42-52) % MCV (80-100) fL MCH (25-34) pg MCHC (32-36) g/dL RDW Std Deviation (36.4-46.3) fL RDW Coeff of [place] (11.5-14.5) % Plt Count (130-400) K/uL MPV (7.4-10.4) fL Immature Gran % (Auto) % Neut % (Auto) % Lymph % (Auto) % [place] % (Auto) % Eos % (Auto) % Baso % (Auto) % Neut # (Auto) (1.4-6.5) K/uL Lymph # (Auto) (1.2-3.4) K/uL [place] # (Auto) (0.11-0.59) K/uL Eos # (Auto) (0-0.5) K/uL Baso # (Auto) (0-0.2) K/uL Immature Gran # (Auto) (0.00-0.02) K/uL ESR (0-14) mm/hr PT (9.0-12.0) Seconds INR (0.9-1.1) APTT (21.0-31.0) Seconds PTT Ratio Sodium 139 (136-145) mmol/L Potassium 3.9 (3.5-5.1) mmol/L Chloride 105 (98-107) mmol/L Carbon Dioxide 30 (21-32) mmol/L Anion Gap 4.0 (3-11) BUN 19 H (7-18) mg/dl Creatinine 0.95 (0.6-1.4) mg/dl Est Cr Clr Drug Dosing 71.2 ml/min Est GFR ( Amer) 92.3 Est GFR (Non-Af Amer) 79.7 BUN/Creatinine Ratio 20.0 (10-20) Glucose 100 H (70-99) mg/dl POC Glucose 102 H 259 H (70-99) mg/dl Estimat Average Glucose mg/dl Hemoglobin A1c (4.5-5.6) % Calcium 8.5 (8.5-10.1) mg/dl Phosphorus (2.5-4.9) mg/dl Magnesium (1.8-2.4) mg/dl Total Bilirubin (0.2-1) mg/dl AST (15-37) U/L ALT (12-78) U/L Alkaline Phosphatase (45-117) U/L Troponin I (0-0.045) ng/ml C-Reactive Protein (0-0.29) mg/dl Total Protein (6.4-8.2) gm/dl Albumin (3.4-5.0) gm/dl Globulin (2.5-4.0) gm/dl Albumin/Globulin Ratio (0.9-2) Triglycerides (0-150) mg/dl Cholesterol (0-200) mg/dl LDL Cholesterol, Calc mg/dl VLDL Cholesterol, Calc mg/dl HDL Cholesterol mg/dl Cholesterol/HDL Ratio Lipase (73-393) U/L TSH (0.300-4.500) uIu/ml Urine Color Urine Appearance (Clear) Urine pH (4.5-7.5) Ur Specific [place] (1.000-1.030) Urine Protein (Negative) Urine Glucose (UA) (Negative) Urine Ketones (Negative) Urine Blood (Negative) Urine Nitrite (Negative) Urine Bilirubin (Negative) Urine Urobilinogen (Negative) Ur Leukocyte Esterase (Negative) Stl C. diff Tox B Gene (Neg) COVID-19 Eval Order SARS-CoV-2, RNA, NAAT (NEGATIVE) 01/01/20 01/01/20 01/02/20 Range/Units 17:06 20:21 08:42 WBC (4.8-10.8) K/uL RBC (4.7-6.1) M/uL Hgb (14.0-18.0) g/dL Hct (42-52) % MCV (80-100) fL MCH (25-34) pg MCHC (32-36) g/dL RDW Std Deviation (36.4-46.3) fL RDW Coeff of [place] (11.5-14.5) % Plt Count (130-400) K/uL MPV (7.4-10.4) fL Immature Gran % (Auto) % Neut % (Auto) % Lymph % (Auto) % [place] % (Auto) % Eos % (Auto) % Baso % (Auto) % Neut # (Auto) (1.4-6.5) K/uL Lymph # (Auto) (1.2-3.4) K/uL [place] # (Auto) (0.11-0.59) K/uL Eos # (Auto) (0-0.5) K/uL Baso # (Auto) (0-0.2) K/uL Immature Gran # (Auto) (0.00-0.02) K/uL ESR (0-14) mm/hr PT (9.0-12.0) Seconds INR (0.9-1.1) APTT (21.0-31.0) Seconds PTT Ratio Sodium (136-145) mmol/L Potassium (3.5-5.1) mmol/L Chloride (98-107) mmol/L Carbon Dioxide (21-32) mmol/L Anion Gap (3-11) BUN (7-18) mg/dl Creatinine (0.6-1.4) mg/dl Est Cr Clr Drug Dosing ml/min Est GFR ( Amer) Est GFR (Non-Af Amer) BUN/Creatinine Ratio (10-20) Glucose (70-99) mg/dl POC Glucose 233 H 265 H 172 H (70-99) mg/dl Estimat Average Glucose mg/dl Hemoglobin A1c (4.5-5.6) % Calcium (8.5-10.1) mg/dl Phosphorus (2.5-4.9) mg/dl Magnesium (1.8-2.4) mg/dl Total Bilirubin (0.2-1) mg/dl AST (15-37) U/L ALT (12-78) U/L Alkaline Phosphatase (45-117) U/L Troponin I (0-0.045) ng/ml C-Reactive Protein (0-0.29) mg/dl Total Protein (6.4-8.2) gm/dl Albumin (3.4-5.0) gm/dl Globulin (2.5-4.0) gm/dl Albumin/Globulin Ratio (0.9-2) Triglycerides (0-150) mg/dl Cholesterol (0-200) mg/dl LDL Cholesterol, Calc mg/dl VLDL Cholesterol, Calc mg/dl HDL Cholesterol mg/dl Cholesterol/HDL Ratio Lipase (73-393) U/L TSH (0.300-4.500) uIu/ml Urine Color Urine Appearance (Clear) Urine pH (4.5-7.5) Ur Specific [place] (1.000-1.030) Urine Protein (Negative) Urine Glucose (UA) (Negative) Urine Ketones (Negative) Urine Blood (Negative) Urine Nitrite (Negative) Urine Bilirubin (Negative) Urine Urobilinogen (Negative) Ur Leukocyte Esterase (Negative) Stl C. diff Tox B Gene (Neg) COVID-19 Eval Order SARS-CoV-2, RNA, NAAT (NEGATIVE) 01/02/20 01/02/20 01/02/20 Range/Units 11:22 11:22 12:19 WBC (4.8-10.8) K/uL RBC 3.59 L (4.7-6.1) M/uL Hgb (14.0-18.0) g/dL Hct (42-52) % MCV 92.5 (80-100) fL MCH 29.8 (25-34) pg MCHC 32.2 (32-36) g/dL RDW Std Deviation 44.5 (36.4-46.3) fL RDW Coeff of [place] 13.2 (11.5-14.5) % Plt Count (130-400) K/uL MPV 9.0 (7.4-10.4) fL Immature Gran % (Auto) 0.3 % Neut % (Auto) 82.3 % Lymph % (Auto) 8.7 % [place] % (Auto) 8.0 % Eos % (Auto) 0.4 % Baso % (Auto) 0.3 % Neut # (Auto) 12.84 H (1.4-6.5) K/uL Lymph # (Auto) 1.35 (1.2-3.4) K/uL [place] # (Auto) 1.24 H (0.11-0.59) K/uL Eos # (Auto) 0.06 (0-0.5) K/uL Baso # (Auto) 0.04 (0-0.2) K/uL Immature Gran # (Auto) 0.05 H (0.00-0.02) K/uL ESR (0-14) mm/hr PT (9.0-12.0) Seconds INR (0.9-1.1) APTT (21.0-31.0) Seconds PTT Ratio Sodium 135 L (136-145) mmol/L Potassium 4.1 (3.5-5.1) mmol/L Chloride 101 (98-107) mmol/L Carbon Dioxide 27 (21-32) mmol/L Anion Gap 7.0 (3-11) BUN 19 H (7-18) mg/dl Creatinine 1.02 (0.6-1.4) mg/dl Est Cr Clr Drug Dosing 66.3 ml/min Est GFR ( Amer) 84.7 Est GFR (Non-Af Amer) 73.1 BUN/Creatinine Ratio 18.4 (10-20) Glucose 253 H (70-99) mg/dl POC Glucose 248 H (70-99) mg/dl Estimat Average Glucose mg/dl Hemoglobin A1c (4.5-5.6) % Calcium 8.7 (8.5-10.1) mg/dl Phosphorus (2.5-4.9) mg/dl Magnesium (1.8-2.4) mg/dl Total Bilirubin (0.2-1) mg/dl AST (15-37) U/L ALT (12-78) U/L Alkaline Phosphatase (45-117) U/L Troponin I (0-0.045) ng/ml C-Reactive Protein (0-0.29) mg/dl Total Protein (6.4-8.2) gm/dl Albumin (3.4-5.0) gm/dl Globulin (2.5-4.0) gm/dl Albumin/Globulin Ratio (0.9-2) Triglycerides (0-150) mg/dl Cholesterol (0-200) mg/dl LDL Cholesterol, Calc mg/dl VLDL Cholesterol, Calc mg/dl HDL Cholesterol mg/dl Cholesterol/HDL Ratio Lipase (73-393) U/L TSH (0.300-4.500) uIu/ml Urine Color Urine Appearance (Clear) Urine pH (4.5-7.5) Ur Specific [place] (1.000-1.030) Urine Protein (Negative) Urine Glucose (UA) (Negative) Urine Ketones (Negative) Urine Blood (Negative) Urine Nitrite (Negative) Urine Bilirubin (Negative) Urine Urobilinogen (Negative) Ur Leukocyte Esterase (Negative) Stl C. diff Tox B Gene (Neg) COVID-19 Eval Order SARS-CoV-2, RNA, NAAT (NEGATIVE) 01/02/20 01/02/20 01/02/20 Range/Units 17:26 17:28 20:42 WBC (4.8-10.8) K/uL RBC (4.7-6.1) M/uL Hgb (14.0-18.0) g/dL Hct (42-52) % MCV (80-100) fL MCH (25-34) pg MCHC (32-36) g/dL RDW Std Deviation (36.4-46.3) fL RDW Coeff of [place] (11.5-14.5) % Plt Count (130-400) K/uL MPV (7.4-10.4) fL Immature Gran % (Auto) % Neut % (Auto) % Lymph % (Auto) % [place] % (Auto) % Eos % (Auto) % Baso % (Auto) % Neut # (Auto) (1.4-6.5) K/uL Lymph # (Auto) (1.2-3.4) K/uL [place] # (Auto) (0.11-0.59) K/uL Eos # (Auto) (0-0.5) K/uL Baso # (Auto) (0-0.2) K/uL Immature Gran # (Auto) (0.00-0.02) K/uL ESR (0-14) mm/hr PT (9.0-12.0) Seconds INR (0.9-1.1) APTT (21.0-31.0) Seconds PTT Ratio Sodium (136-145) mmol/L Potassium (3.5-5.1) mmol/L Chloride (98-107) mmol/L Carbon Dioxide (21-32) mmol/L Anion Gap (3-11) BUN (7-18) mg/dl Creatinine (0.6-1.4) mg/dl Est Cr Clr Drug Dosing ml/min Est GFR ( Amer) Est GFR (Non-Af Amer) BUN/Creatinine Ratio (10-20) Glucose (70-99) mg/dl POC Glucose 342 H* 331 H* 279 H (70-99) mg/dl Estimat Average Glucose mg/dl Hemoglobin A1c (4.5-5.6) % Calcium (8.5-10.1) mg/dl Phosphorus (2.5-4.9) mg/dl Magnesium (1.8-2.4) mg/dl Total Bilirubin (0.2-1) mg/dl AST (15-37) U/L ALT (12-78) U/L Alkaline Phosphatase (45-117) U/L Troponin I (0-0.045) ng/ml C-Reactive Protein (0-0.29) mg/dl Total Protein (6.4-8.2) gm/dl Albumin (3.4-5.0) gm/dl Globulin (2.5-4.0) gm/dl Albumin/Globulin Ratio (0.9-2) Triglycerides (0-150) mg/dl Cholesterol (0-200) mg/dl LDL Cholesterol, Calc mg/dl VLDL Cholesterol, Calc mg/dl HDL Cholesterol mg/dl Cholesterol/HDL Ratio Lipase (73-393) U/L TSH (0.300-4.500) uIu/ml Urine Color Urine Appearance (Clear) Urine pH (4.5-7.5) Ur Specific [place] (1.000-1.030) Urine Protein (Negative) Urine Glucose (UA) (Negative) Urine Ketones (Negative) Urine Blood (Negative) Urine Nitrite (Negative) Urine Bilirubin (Negative) Urine Urobilinogen (Negative) Ur Leukocyte Esterase (Negative) Stl C. diff Tox B Gene (Neg) COVID-19 Eval Order SARS-CoV-2, RNA, NAAT (NEGATIVE) 01/03/20 01/03/20 01/03/20 Range/Units 06:15 06:38 06:38 WBC (4.8-10.8) K/uL RBC 3.82 L (4.7-6.1) M/uL Hgb (14.0-18.0) g/dL Hct (42-52) % MCV 92.9 (80-100) fL MCH 28.8 (25-34) pg MCHC 31.0 L (32-36) g/dL RDW Std Deviation 45.6 (36.4-46.3) fL RDW Coeff of [place] 13.4 (11.5-14.5) % Plt Count (130-400) K/uL MPV 9.1 (7.4-10.4) fL Immature Gran % (Auto) % Neut % (Auto) % Lymph % (Auto) % [place] % (Auto) % Eos % (Auto) % Baso % (Auto) % Neut # (Auto) (1.4-6.5) K/uL Lymph # (Auto) (1.2-3.4) K/uL [place] # (Auto) (0.11-0.59) K/uL Eos # (Auto) (0-0.5) K/uL Baso # (Auto) (0-0.2) K/uL Immature Gran # (Auto) (0.00-0.02) K/uL ESR 70 H (0-14) mm/hr PT (9.0-12.0) Seconds INR (0.9-1.1) APTT (21.0-31.0) Seconds PTT Ratio Sodium (136-145) mmol/L Potassium (3.5-5.1) mmol/L Chloride (98-107) mmol/L Carbon Dioxide (21-32) mmol/L Anion Gap (3-11) BUN (7-18) mg/dl Creatinine (0.6-1.4) mg/dl Est Cr Clr Drug Dosing ml/min Est GFR ( Amer) Est GFR (Non-Af Amer) BUN/Creatinine Ratio (10-20) Glucose (70-99) mg/dl POC Glucose (70-99) mg/dl Estimat Average Glucose mg/dl Hemoglobin A1c (4.5-5.6) % Calcium (8.5-10.1) mg/dl Phosphorus (2.5-4.9) mg/dl Magnesium (1.8-2.4) mg/dl Total Bilirubin (0.2-1) mg/dl AST (15-37) U/L ALT (12-78) U/L Alkaline Phosphatase (45-117) U/L Troponin I (0-0.045) ng/ml C-Reactive Protein (0-0.29) mg/dl Total Protein (6.4-8.2) gm/dl Albumin (3.4-5.0) gm/dl Globulin (2.5-4.0) gm/dl Albumin/Globulin Ratio (0.9-2) Triglycerides (0-150) mg/dl Cholesterol (0-200) mg/dl LDL Cholesterol, Calc mg/dl VLDL Cholesterol, Calc mg/dl HDL Cholesterol mg/dl Cholesterol/HDL Ratio Lipase (73-393) U/L TSH (0.300-4.500) uIu/ml Urine Color Yellow Urine Appearance Clear (Clear) Urine pH 5.0 (4.5-7.5) Ur Specific [place] 1.019 (1.000-1.030) Urine Protein Negative (Negative) Urine Glucose (UA) 2+ H (Negative) Urine Ketones Negative (Negative) Urine Blood Negative (Negative) Urine Nitrite Negative (Negative) Urine Bilirubin Negative (Negative) Urine Urobilinogen Negative (Negative) Ur Leukocyte Esterase Negative (Negative) Stl C. diff Tox B Gene (Neg) COVID-19 Eval Order SARS-CoV-2, RNA, NAAT (NEGATIVE) 01/03/20 01/03/20 01/03/20 Range/Units 06:38 08:26 12:30 WBC (4.8-10.8) K/uL RBC (4.7-6.1) M/uL Hgb (14.0-18.0) g/dL Hct (42-52) % MCV (80-100) fL MCH (25-34) pg MCHC (32-36) g/dL RDW Std Deviation (36.4-46.3) fL RDW Coeff of [place] (11.5-14.5) % Plt Count (130-400) K/uL MPV (7.4-10.4) fL Immature Gran % (Auto) % Neut % (Auto) % Lymph % (Auto) % [place] % (Auto) % Eos % (Auto) % Baso % (Auto) % Neut # (Auto) (1.4-6.5) K/uL Lymph # (Auto) (1.2-3.4) K/uL [place] # (Auto) (0.11-0.59) K/uL Eos # (Auto) (0-0.5) K/uL Baso # (Auto) (0-0.2) K/uL Immature Gran # (Auto) (0.00-0.02) K/uL ESR (0-14) mm/hr PT (9.0-12.0) Seconds INR (0.9-1.1) APTT (21.0-31.0) Seconds PTT Ratio Sodium 135 L (136-145) mmol/L Potassium 4.0 (3.5-5.1) mmol/L Chloride 101 (98-107) mmol/L Carbon Dioxide 27 (21-32) mmol/L Anion Gap 7.0 (3-11) BUN 18 (7-18) mg/dl Creatinine 0.96 (0.6-1.4) mg/dl Est Cr Clr Drug Dosing 70.4 ml/min Est GFR ( Amer) 91.2 Est GFR (Non-Af Amer) 78.7 BUN/Creatinine Ratio 18.8 (10-20) Glucose 223 H (70-99) mg/dl POC Glucose 256 H 238 H (70-99) mg/dl Estimat Average Glucose mg/dl Hemoglobin A1c (4.5-5.6) % Calcium 9.1 (8.5-10.1) mg/dl Phosphorus (2.5-4.9) mg/dl Magnesium (1.8-2.4) mg/dl Total Bilirubin (0.2-1) mg/dl AST (15-37) U/L ALT (12-78) U/L Alkaline Phosphatase (45-117) U/L Troponin I (0-0.045) ng/ml C-Reactive Protein 8.80 H (0-0.29) mg/dl Total Protein (6.4-8.2) gm/dl Albumin (3.4-5.0) gm/dl Globulin (2.5-4.0) gm/dl Albumin/Globulin Ratio (0.9-2) Triglycerides (0-150) mg/dl Cholesterol (0-200) mg/dl LDL Cholesterol, Calc mg/dl VLDL Cholesterol, Calc mg/dl HDL Cholesterol mg/dl Cholesterol/HDL Ratio Lipase (73-393) U/L TSH (0.300-4.500) uIu/ml Urine Color Urine Appearance (Clear) Urine pH (4.5-7.5) Ur Specific [place] (1.000-1.030) Urine Protein (Negative) Urine Glucose (UA) (Negative) Urine Ketones (Negative) Urine Blood (Negative) Urine Nitrite (Negative) Urine Bilirubin (Negative) Urine Urobilinogen (Negative) Ur Leukocyte Esterase (Negative) Stl C. diff Tox B Gene (Neg) COVID-19 Eval Order SARS-CoV-2, RNA, NAAT (NEGATIVE) 01/03/20 01/03/20 01/03/20 Range/Units 17:23 20:24 21:11 WBC (4.8-10.8) K/uL RBC (4.7-6.1) M/uL Hgb (14.0-18.0) g/dL Hct (42-52) % MCV (80-100) fL MCH (25-34) pg MCHC (32-36) g/dL RDW Std Deviation (36.4-46.3) fL RDW Coeff of Lolly (11.5-14.5) % Plt Count (130-400) K/uL MPV (7.4-10.4) fL Immature Gran % (Auto) % Neut % (Auto) % Lymph % (Auto) % [place] % (Auto) % Eos % (Auto) % Baso % (Auto) % Neut # (Auto) (1.4-6.5) K/uL Lymph # (Auto) (1.2-3.4) K/uL [place] # (Auto) (0.11-0.59) K/uL Eos # (Auto) (0-0.5) K/uL Baso # (Auto) (0-0.2) K/uL Immature Gran # (Auto) (0.00-0.02) K/uL ESR (0-14) mm/hr PT (9.0-12.0) Seconds INR (0.9-1.1) APTT (21.0-31.0) Seconds PTT Ratio Sodium (136-145) mmol/L Potassium (3.5-5.1) mmol/L Chloride (98-107) mmol/L Carbon Dioxide (21-32) mmol/L Anion Gap (3-11) BUN (7-18) mg/dl Creatinine (0.6-1.4) mg/dl Est Cr Clr Drug Dosing ml/min Est GFR ( Amer) Est GFR (Non-Af Amer) BUN/Creatinine Ratio (10-20) Glucose (70-99) mg/dl POC Glucose 149 H 113 H (70-99) mg/dl Estimat Average Glucose mg/dl Hemoglobin A1c (4.5-5.6) % Calcium (8.5-10.1) mg/dl Phosphorus (2.5-4.9) mg/dl Magnesium (1.8-2.4) mg/dl Total Bilirubin (0.2-1) mg/dl AST (15-37) U/L ALT (12-78) U/L Alkaline Phosphatase (45-117) U/L Troponin I (0-0.045) ng/ml C-Reactive Protein (0-0.29) mg/dl Total Protein (6.4-8.2) gm/dl Albumin (3.4-5.0) gm/dl Globulin (2.5-4.0) gm/dl Albumin/Globulin Ratio (0.9-2) Triglycerides (0-150) mg/dl Cholesterol (0-200) mg/dl LDL Cholesterol, Calc mg/dl VLDL Cholesterol, Calc mg/dl HDL Cholesterol mg/dl Cholesterol/HDL Ratio Lipase (73-393) U/L TSH (0.300-4.500) uIu/ml Urine Color Urine Appearance (Clear) Urine pH (4.5-7.5) Ur Specific [place] (1.000-1.030) Urine Protein (Negative) Urine Glucose (UA) (Negative) Urine Ketones (Negative) Urine Blood (Negative) Urine Nitrite (Negative) Urine Bilirubin (Negative) Urine Urobilinogen (Negative) Ur Leukocyte Esterase (Negative) Stl C. diff Tox B Gene Negative Cdiff Gene (Neg) COVID-19 Eval Order SARS-CoV-2, RNA, NAAT (NEGATIVE) 01/04/20 01/04/20 01/04/20 Range/Units 05:33 05:33 08:30 WBC 15.63 H (4.8-10.8) K/uL RBC 3.49 L (4.7-6.1) M/uL Hgb 10.6 L (14.0-18.0) g/dL Hct 31.8 L (42-52) % MCV 91.1 (80-100) fL MCH 30.4 (25-34) pg MCHC 33.3 (32-36) g/dL RDW Std Deviation 44.3 (36.4-46.3) fL RDW Coeff of [place] 13.4 (11.5-14.5) % Plt Count 663 H (130-400) K/uL MPV 9.0 (7.4-10.4) fL Immature Gran % (Auto) 0.3 % Neut % (Auto) 78.4 % Lymph % (Auto) 11.4 % [place] % (Auto) 7.5 % Eos % (Auto) 2.2 % Baso % (Auto) 0.2 % Neut # (Auto) 12.27 H (1.4-6.5) K/uL Lymph # (Auto) 1.78 (1.2-3.4) K/uL [place] # (Auto) 1.17 H (0.11-0.59) K/uL Eos # (Auto) 0.34 (0-0.5) K/uL Baso # (Auto) 0.03 (0-0.2) K/uL Immature Gran # (Auto) 0.04 H (0.00-0.02) K/uL ESR (0-14) mm/hr PT (9.0-12.0) Seconds INR (0.9-1.1) APTT (21.0-31.0) Seconds PTT Ratio Sodium 136 (136-145) mmol/L Potassium 4.2 (3.5-5.1) mmol/L Chloride 103 (98-107) mmol/L Carbon Dioxide 29 (21-32) mmol/L Anion Gap 4.0 (3-11) BUN 22 H (7-18) mg/dl Creatinine 1.12 (0.6-1.4) mg/dl Est Cr Clr Drug Dosing 60.4 ml/min Est GFR ( Amer) 75.7 Est GFR (Non-Af Amer) 65.3 BUN/Creatinine Ratio 19.6 (10-20) Glucose 143 H (70-99) mg/dl POC Glucose 192 H (70-99) mg/dl Estimat Average Glucose mg/dl Hemoglobin A1c (4.5-5.6) % Calcium 8.6 (8.5-10.1) mg/dl Phosphorus (2.5-4.9) mg/dl Magnesium (1.8-2.4) mg/dl Total Bilirubin (0.2-1) mg/dl AST (15-37) U/L ALT (12-78) U/L Alkaline Phosphatase (45-117) U/L Troponin I (0-0.045) ng/ml C-Reactive Protein 8.35 H (0-0.29) mg/dl Total Protein (6.4-8.2) gm/dl Albumin (3.4-5.0) gm/dl Globulin (2.5-4.0) gm/dl Albumin/Globulin Ratio (0.9-2) Triglycerides (0-150) mg/dl Cholesterol (0-200) mg/dl LDL Cholesterol, Calc mg/dl VLDL Cholesterol, Calc mg/dl HDL Cholesterol mg/dl Cholesterol/HDL Ratio Lipase (73-393) U/L TSH (0.300-4.500) uIu/ml Urine Color Urine Appearance (Clear) Urine pH (4.5-7.5) Ur Specific [place] (1.000-1.030) Urine Protein (Negative) Urine Glucose (UA) (Negative) Urine Ketones (Negative) Urine Blood (Negative) Urine Nitrite (Negative) Urine Bilirubin (Negative) Urine Urobilinogen (Negative) Ur Leukocyte Esterase (Negative) Stl C. diff Tox B Gene (Neg) COVID-19 Eval Order SARS-CoV-2, RNA, NAAT (NEGATIVE) BMP 01/04/20 05:33 Sodium 136 Potassium 4.2 Chloride 103 Carbon Dioxide 29 BUN 22 H Creatinine 1.12 Glucose 143 H Calcium 8.6 Medications Administered Acetaminophen (Acetaminophen 500 Mg Tab) 1,000 mg PO Q8H [facility] Stop: 02/01/20 13:59 Last Admin: 01/04/20 05:14 Dose: 1,000 mg Documented by: [id number] Admin: 01/03/20 21:19 Dose: 1,000 mg Documented by: [id number] Admin: 01/03/20 13:30 Dose: 1,000 mg Documented by: [id number] Admin: 01/03/20 06:17 Dose: 1,000 mg Documented by: [id number] Admin: 01/02/20 21:43 Dose: 1,000 mg Documented by: [id number] Admin: 01/02/20 14:15 Dose: 1,000 mg Documented by: [id number] Aspirin (Aspirin 81 Mg Ectab) 81 mg PO QAM [facility] Stop: 01/25/20 08:59 Last Admin: 01/04/20 09:29 Dose: 81 mg Documented by: [id number] Admin: 01/03/20 09:32 Dose: 81 mg Documented by: [id number] Admin: 01/02/20 09:37 Dose: 81 mg Documented by: [id number] Admin: 01/01/20 09:37 Dose: 81 mg Documented by: [id number] Admin: 12/31/19 07:50 Dose: 81 mg Documented by: [id number] Admin: 12/30/19 09:11 Dose: 81 mg Documented by: [id number] Admin: 12/29/19 09:06 Dose: 81 mg Documented by: [id number] Admin: 12/28/19 09:12 Dose: 81 mg Documented by: [id number] Admin: 12/27/19 09:37 Dose: 81 mg Documented by: [id number] Admin: 12/26/19 09:07 Dose: 81 mg Documented by: [id number] Atorvastatin Calcium (Atorvastatin 40 Mg Tab) 80 mg PO [facility] Stop: 01/25/20 08:59 Last Admin: 01/04/20 09:28 Dose: 80 mg Documented by: [id number] Admin: 01/03/20 09:32 Dose: 80 mg Documented by: [id number] Admin: 01/02/20 09:37 Dose: 80 mg Documented by: [id number] Admin: 01/01/20 09:37 Dose: 80 mg Documented by: [id number] Admin: 12/31/19 07:51 Dose: 80 mg Documented by: [id number] Admin: 12/30/19 09:11 Dose: 80 mg Documented by: [id number] Admin: 12/29/19 09:07 Dose: 80 mg Documented by: [id number] Admin: 12/28/19 09:12 Dose: 80 mg Documented by: [id number] Admin: 12/27/19 09:36 Dose: 80 mg Documented by: [id number] Admin: 12/26/19 09:07 Dose: 80 mg Documented by: [id number] Clopidogrel Bisulfate (Clopidogrel Bisulfate 75 Mg Tab) 75 mg PO [facility] Stop: 01/25/20 08:59 Last Admin: 01/04/20 09:28 Dose: 75 mg Documented by: [id number] Admin: 01/03/20 09:32 Dose: 75 mg Documented by: [id number] Admin: 01/02/20 09:37 Dose: 75 mg Documented by: [id number] Admin: 01/01/20 09:37 Dose: 75 mg Documented by: [id number] Admin: 12/31/19 07:48 Dose: 75 mg Documented by: [id number] Admin: 12/30/19 09:12 Dose: 75 mg Documented by: [id number] Admin: 12/29/19 09:08 Dose: 75 mg Documented by: [id number] Admin: 12/28/19 09:12 Dose: 75 mg Documented by: [id number] Admin: 12/27/19 09:35 Dose: 75 mg Documented by: [id number] Admin: 12/26/19 09:09 Dose: 75 mg Documented by: [id number] Donepezil HCl (Donepezil Hcl 5 Mg Tab) 5 mg PO QAM [facility] Stop: 01/25/20 08:59 Last Admin: 01/04/20 09:29 Dose: 5 mg Documented by: [id number] Admin: 01/03/20 09:32 Dose: 5 mg Documented by: [id number] Admin: 01/02/20 09:37 Dose: 5 mg Documented by: [id number] Admin: 01/01/20 09:37 Dose: 5 mg Documented by: [id number] Admin: 12/31/19 07:49 Dose: 5 mg Documented by: [id number] Admin: 12/30/19 09:11 Dose: 5 mg Documented by: [id number] Admin: 12/29/19 09:06 Dose: 5 mg Documented by: [id number] Admin: 12/28/19 09:11 Dose: 5 mg Documented by: [id number] Admin: 12/27/19 09:39 Dose: 5 mg Documented by: [id number] Admin: 12/26/19 09:08 Dose: 5 mg Documented by: [id number] Enoxaparin Sodium (Enoxaparin Inj 40 Mg/0.4 Ml Syr) 40 mg SQ Q24H [facility] Stop: 02/01/20 14:14 Last Admin: 01/03/20 13:47 Dose: 40 mg Documented by: [id number] Admin: 01/02/20 15:12 Dose: 40 mg Documented by: [id number] Escitalopram Oxalate (Escitalopram Oxalate 20 Mg Tab) 20 mg PO QAM [facility] Stop: 01/25/20 08:59 Last Admin: 01/04/20 09:29 Dose: 20 mg Documented by: [id number] Admin: 01/03/20 09:32 Dose: 20 mg Documented by: [id number] Admin: 01/02/20 09:36 Dose: 20 mg Documented by: [id number] Admin: 01/01/20 09:35 Dose: 20 mg Documented by: [id number] Admin: 12/31/19 07:50 Dose: 20 mg Documented by: [id number] Admin: 12/30/19 09:12 Dose: 20 mg Documented by: [id number] Admin: 12/29/19 09:08 Dose: 20 mg Documented by: [id number] Admin: 12/28/19 09:13 Dose: 20 mg Documented by: [id number] Admin: 12/27/19 09:39 Dose: 20 mg Documented by: [id number] Admin: 12/26/19 09:08 Dose: 20 mg Documented by: [id number] Finaster[facility] 5 Mg Tab) [facility]: 01/25/20 08:59 Last Admin: 01/04/20 09:28 Dose: 5 mg Documented by: [id number] Admin: 01/03/20 09:32 Dose: 5 mg Documented by: [id number] Admin: 01/02/20 09:37 Dose: 5 mg Documented by: [id number] Admin: 01/01/20 09:37 Dose: 5 mg Documented by: [id number] Admin: 12/31/19 07:49 Dose: 5 mg Documented by: [id number] Admin: 12/30/19 09:11 Dose: 5 mg Documented by: [id number] Admin: 12/29/19 09:08 Dose: 5 mg Documented by: [id number] Admin: 12/28/19 09:12 Dose: 5 mg Documented by: [id number] Admin: 12/27/19 09:37 Dose: 5 mg Documented by: [id number] Admin: 12/26/19 09:08 Dose: 5 mg Documented by: [id number] Piperacillin Sod/Tazobactam (Sod 3.375 gm/ Dextrose) 115 mls @ 28.75 mls/hr IV Q8H [facility]; Protocol Stop: 02/13/20 19:59 Last Infusion: 01/04/20 09:02 Dose: 0 mls/hr Documented by: [id number] Admin: 01/04/20 04:29 Dose: 28.8 mls/hr Documented by: [id number] Infusion: 01/04/20 00:21 Dose: 0 mls/hr Documented by: [id number] Infusion: 01/03/20 23:11 Dose: 28.8 mls/hr Documented by: [id number] Infusion: 01/03/20 22:36 Dose: 0 mls/hr Documented by: [id number] Admin: 01/03/20 19:39 Dose: 28.8 mls/hr Documented by: [id number] Infusion: 01/03/20 17:37 Dose: 0 mls/hr Documented by: [id number] Admin: 01/03/20 13:30 Dose: 28.8 mls/hr Documented by: [id number] Infusion: 01/03/20 08:33 Dose: 0 mls/hr Documented by: [id number] Admin: 01/03/20 04:06 Dose: 28.8 mls/hr Documented by: [id number] Infusion: 01/02/20 23:47 Dose: 0 mls/hr Documented by: [id number] Admin: 01/02/20 20:18 Dose: 28.8 mls/hr Documented by: [id number] Insulin Aspart (Insulin Aspart 100 Units/Ml 3 Ml Pen) 0 units SC ACHS [facility]; Protocol Stop: 01/30/20 16:29 Last Admin: 01/04/20 09:29 Dose: 12 units Documented by: [id number] Cosigned by: [id number] Admin: 01/03/20 20:31 Dose: Not Given Documented by: [id number] Admin: 01/03/20 17:42 Dose: 9 units Documented by: [id number] Cosigned by: [id number] Admin: 01/03/20 13:33 Dose: 14 units Documented by: [id number] Cosigned by: [id number] Admin: 01/03/20 09:08 Dose: 18 units Documented by: [id number] Cosigned by: [id number] Admin: 01/02/20 21:43 Dose: 7 units Documented by: [id number] Cosigned by: [id number] Admin: 01/02/20 18:09 Dose: 17 units Documented by: [id number] Cosigned by: [id number] Admin: 01/02/20 12:53 Dose: 10 units Documented by: [id number] Cosigned by: [id number] Admin: 01/02/20 09:33 Dose: 16 units Documented by: [id number] Cosigned by: [id number] Admin: 01/01/20 21:26 Dose: 5 units Documented by: [id number] Cosigned by: [id number] Admin: 01/01/20 17:57 Dose: 6 units Documented by: [id number] Cosigned by: [id number] Admin: 01/01/20 13:11 Dose: 7 units Documented by: [id number] Cosigned by: [id number] Admin: 01/01/20 09:02 Dose: 6 units Documented by: [id number] Cosigned by: [id number] Admin: 12/31/19 21:22 Dose: Not Given Documented by: [id number] Cosigned by: [id number] Admin: 12/31/19 18:57 Dose: 4 units Documented by: [id number] Cosigned by: [id number] Insulin Glargine (Insulin Glargine Solostar 100 Units/Ml 3 Ml Pen) 33 units SC DAILY [facility]; Protocol Stop: 02/03/20 08:59 Last Admin: 01/04/20 09:33 Dose: 33 units Documented by: [id number] Cosigned by: [id number] Iodixanol (Visipaque) 70 ml IV UD PRN PRN Reason: Interaction Checking Stop: 01/04/20 14:45 Last Admin: 12/31/19 14:47 Dose: 70 ml Documented by: [id number] Isosorbide Mononitrate (Isosorbide [place] Extended Rel 30 Mg Tabcr) 30 mg PO DAILY [facility] Stop: 01/25/20 08:59 Last Admin: 01/04/20 09:29 Dose: 30 mg Documented by: [id number] Admin: 01/03/20 09:32 Dose: 30 mg Documented by: [id number] Admin: 01/02/20 09:37 Dose: 30 mg Documented by: [id number] Admin: 01/01/20 09:37 Dose: 30 mg Documented by: [id number] Admin: 12/31/19 07:49 Dose: 30 mg Documented by: [id number] Admin: 12/30/19 09:12 Dose: 30 mg Documented by: [id number] Admin: 12/29/19 09:05 Dose: 30 mg Documented by: [id number] Admin: 12/28/19 09:12 Dose: 30 mg Documented by: [id number] Admin: 12/27/19 09:38 Dose: 30 mg Documented by: [id number] Admin: 12/26/19 09:05 Dose: 30 mg Documented by: [id number] Lactobacillus Acidophilus (Lactobacillus Acidophilus (Floranex) Tab) 4 tab PO TIDM [facility] Stop: 01/25/20 07:59 Last Admin: 01/04/20 09:29 Dose: 4 tab Documented by: [id number] Admin: 01/03/20 17:48 Dose: 4 tab Documented by: [id number] Admin: 01/03/20 13:30 Dose: 4 tab Documented by: [id number] Admin: 01/03/20 09:32 Dose: 4 tab Documented by: [id number] Admin: 01/02/20 18:11 Dose: 4 tab Documented by: [id number] Admin: 01/02/20 12:54 Dose: 4 tab Documented by: [id number] Admin: 01/02/20 09:23 Dose: 4 tab Documented by: [id number] Admin: 01/01/20 17:55 Dose: 4 tab Documented by: [id number] Admin: 01/01/20 13:13 Dose: 4 tab Documented by: [id number] Admin: 01/01/20 09:34 Dose: 4 tab Documented by: [id number] Admin: 12/31/19 18:49 Dose: 4 tab Documented by: [id number] Admin: 12/31/19 12:11 Dose: Not Given Documented by: [id number] Admin: 12/31/19 07:51 Dose: 4 tab Documented by: [id number] Admin: 12/30/19 16:08 Dose: 4 tab Documented by: [id number] Admin: 12/30/19 14:03 Dose: 4 tab Documented by: [id number] Admin: 12/30/19 09:10 Dose: 4 tab Documented by: [id number] Admin: 12/29/19 16:20 Dose: 4 tab Documented by: [id number] Admin: 12/29/19 14:10 Dose: 4 tab Documented by: [id number] Admin: 12/29/19 09:04 Dose: 4 tab Documented by: [id number] Admin: 12/28/19 17:19 Dose: 4 tab Documented by: [id number] Admin: 12/28/19 13:16 Dose: 4 tab Documented by: [id number] Admin: 12/28/19 09:10 Dose: 4 tab Documented by: [id number] Admin: 12/27/19 17:21 Dose: 4 tab Documented by: [id number] Admin: 12/27/19 13:03 Dose: 4 tab Documented by: [id number] Admin: 12/27/19 09:35 Dose: 4 tab Documented by: [id number] Admin: 12/26/19 18:08 Dose: 4 tab Documented by: [id number] Admin: 12/26/19 12:52 Dose: 4 tab Documented by: [id number] Admin: 12/26/19 09:09 Dose: 4 tab Documented by: [id number] Metoprolol Succinate (Metoprolol Succ 25mg Ext Rel Tab) 25 mg PO DAILY [facility] Stop: 01/25/20 08:59 Last Admin: 01/04/20 09:28 Dose: 25 mg Documented by: [id number] Admin: 01/03/20 09:32 Dose: 25 mg Documented by: [id number] Admin: 01/02/20 09:36 Dose: 25 mg Documented by: [id number] Admin: 01/01/20 09:36 Dose: 25 mg Documented by: [id number] Admin: 12/31/19 07:50 Dose: 25 mg Documented by: [id number] Admin: 12/30/19 09:12 Dose: 25 mg Documented by: [id number] Admin: 12/29/19 09:06 Dose: 25 mg Documented by: [id number] Admin: 12/28/19 09:11 Dose: 25 mg Documented by: [id number] Admin: 12/27/19 09:39 Dose: 25 mg Documented by: [id number] Admin: 12/26/19 09:07 Dose: 25 mg Documented by: [id number] Miscellaneous (Carbohydrates For Hypoglycemia ) 15 - 30 gm PO UD PRN PRN Reason: Hypoglycemia Protocol Stop: 01/24/20 20:13 Last Admin: 12/26/19 06:28 Dose: 30 gm Documented by: [id number] Raspberry (Raspberry Syrup 5 Ml Udp) 5 ml PO BID [facility] Stop: 01/12/20 08:59 Last Admin: 01/04/20 09:37 Dose: 5 ml Documented by: [id number] Admin: 01/03/20 21:19 Dose: 5 ml Documented by: [id number] Admin: 01/03/20 09:32 Dose: 5 ml Documented by: [id number] Admin: 01/02/20 20:17 Dose: 5 ml Documented by: [id number] Admin: 01/02/20 09:37 Dose: 5 ml Documented by: [id number] Admin: 01/01/20 21:29 Dose: 5 ml Documented by: [id number] Admin: 01/01/20 09:38 Dose: 5 ml Documented by: [id number] Admin: 12/31/19 21:23 Dose: 5 ml Documented by: [id number] Admin: 12/31/19 10:36 Dose: 5 ml Documented by: [id number] Admin: 12/30/19 20:56 Dose: 5 ml Documented by: [id number] Admin: 12/30/19 09:14 Dose: 5 ml Documented by: [id number] Admin: 12/29/19 21:22 Dose: 5 ml Documented by: [id number] Admin: 12/29/19 09:13 Dose: 5 ml Documented by: [id number] Risperidone (Risperidone 0.5 Mg Tablet) 0.25 mg PO DAILY PRN PRN Reason: confusion Stop: 01/24/20 20:13 Last Admin: 12/29/19 19:39 Dose: 0.25 mg Documented by: [id number] Admin: 12/26/19 09:08 Dose: 0.25 mg Documented by: [id number] Saccharomyces Boulardii (Saccharomyces Boulardii 250 Mg Cap) 250 mg PO DAILY [facility] Stop: 02/02/20 18:29 Last Admin: 01/04/20 09:28 Dose: 250 mg Documented by: [id number] Admin: 01/03/20 19:39 Dose: 250 mg Documented by: [id number] Vancomycin HCl (Vancomycin Hcl 125 Mg/2.5ml Soln) 125 mg PO BID [facility] Stop: 01/07/20 20:59 Last Admin: 01/04/20 10:12 Dose: 125 mg Documented by: [id number] Admin: 01/03/20 21:19 Dose: 125 mg Documented by: [id number] Admin: 01/03/20 09:32 Dose: 125 mg Documented by: [id number] Admin: 01/02/20 20:17 Dose: 125 mg Documented by: [id number] Admin: 01/02/20 09:39 Dose: 125 mg Documented by: [id number] Admin: 01/01/20 21:29 Dose: 125 mg Documented by: [id number] Admin: 01/01/20 09:49 Dose: 125 mg Documented by: [id number] Admin: 12/31/19 21:23 Dose: 125 mg Documented by: [id number] Admin: 12/31/19 10:36 Dose: 125 mg Documented by: [id number] Admin: 12/30/19 20:56 Dose: 125 mg Documented by: [id number] Admin: 12/30/19 09:26 Dose: 125 mg Documented by: [id number] Admin: 12/29/19 21:22 Dose: 125 mg Documented by: [id number] Admin: 12/29/19 09:13 Dose: 125 mg Documented by: [id number] Admin: 12/28/19 21:16 Dose: 125 mg Documented by: [id number]
[2020-01-04] MEDS: ENOXAPARIN INJ 40 MG/0.4 ML SYR SQ SCH (12:48)
--- NOTE | 2020-01-04 17:43 | Orthopedic Progress Note ---
Date of Service January 04, 2020 Assessment & Plan (1) Chronic heel ulcer: Continue IV antibiotics. Continue daily wound care. Revascularization/bypass to be performed by Dr. Fournier tomorrow. Continue plans for I/D Right heel by Dr Waddell Friday. (2) Osteomyelitis: Continue with local wound care, IV antibiotics per infectious disease, trend inflammatory labs, pending vascular consultation and possible intervention patient will most likely require debridement of at least lateral calcaneus chronic ulcer and bone. We will follow with you. Thank you for the consultation. Admission and Anticipated Discharge Date Admission Date: December 27, 2019 Subjective Patient currently awake and alert lying in bed. His is present. No new complaints today. States that his heel was giving him some pain off and on but currently he is comfortable. Discussed that he is scheduled for his bypass tomorrow with Dr. Fournier. Physical Exam Physical Exam: Optifoam dressing removed. Noted area of necrosis over the right lateral heel with apparently a new area of demarcation that is slowly creeping out from the outer margins of the original necrosis. Mild odor noted. Mild drainage noted on the dressing. Scant erythema noted around the margins of the necrosis. Dressing reapplied with aqua cell on top of the wounds. Results & Data ([facility]) Vital Signs (Past 12 Hours) Vital Signs Temp Pulse Resp BP Pulse Ox 01/04/20 15:34 37.0 C 79 18 135/70 92 01/04/20 08:39 36.6 C 65 16 151/73 H 94
[2020-01-04] MEDS ORDERED: Nursing to Pharmacy Communication SCH (21:45)
[2020-01-05] MEDS: INSULIN ASPART 100 UNITS/ML 3 ML PEN SC SCH ×5 (00:32→21:38)
[2020-01-05] MEDS: PIPERACILLIN/TAZOBACTAM 3.375 GM in DEXTROSE 5% 100 ML IV SCH ×3 (04:59→20:00)
[2020-01-05 05:23] LABS: Hematocrit (blood only) 34.8 % (42-52); Hemoglobin 10.9 g/dL (14.0-18.0); Mean Corpuscular Hgb Conc 31.3 g/dL (32-36); Mean Corpuscular Volume 92.6 fL (80-100); Mean Platelet Volume 9.1 fL (7.4-10.4); Platelet Count 817 K/uL (130-400); RDW Coefficient of Variation 13.7 % (11.5-14.5); RDW Standard Deviation 46.4 fL (36.4-46.3); Red Blood Count 3.76 M/uL (4.7-6.1); White Blood Count 14.73 K/uL (4.8-10.8)
[2020-01-05] MEDS: ACETAMINOPHEN 500 MG TAB PO SCH ×3 (05:28→21:35)
[2020-01-05 05:52] LABS: BUN Creatinine Ratio 20.5 (10-20); C Reactive Protein 8.22 mg/dl (0-0.29); Calcium 8.6 mg/dl (8.5-10.1); Creatinine Clr Calc Pharmacy 68.3 ml/min; Est GFR (African American) 87.8; Est GFR (Non-African American) 75.8
[2020-01-05] MEDS ORDERED: SODIUM CHLORIDE 0.9% 250 ML IV PRN (06:00)
--- NOTE | 2020-01-05 07:22 | History & Physical Bridge Note ---
Date of Service January 05, 2020 History & Physical Bridge Note Patient for right fem pop bypass today. I have discussed the risks options and benefits of the procedure with the patient's . The patient;s understands the risks options and benefits and agrees to the procedure. I have examined the patient, reviewed the History & Physical and in the interval since the performance of the History & Physical I have noted the following changes of clinical significance: no changes noted
--- NOTE | 2020-01-05 07:27 | Anesthesiology Consultation ---
Date of Service January 05, 2020 Assessment & Plan Chart Review Chart Review: Acceptable Risk for Surgery Consults Requested none History Surgery Operation Date: 12/31/19 12:50 Proposed Procedures p Right Lower Extremity Angiogram with Intervention - Blu Fournier MD Operation Date: 01/05/20 07:30 Proposed Procedures p Right Femoral Popliteal Bypass - Blu Fournier MD Operation Date: 01/07/20 13:00 Proposed Procedures p Right Heel Incision and Drainage - Kulwinder Waddell DO Height/Weight Height: 5 ft 11 in Weight: 71.6 kg Allergies Allergy/AdvReac Type Severity Reaction Status Date / Time Penicillins Allergy Unknown UNK Verified 12/25/19 17:36 KAVITA Inhibitors AdvReac Intermediate COUGH Verified 12/25/19 17:36 Medications Home Medications Medication Instructions Recorded Confirmed Last Taken atorvastatin 80 mg PO QAM 05/06/18 12/25/19 12/15/19 clopidogrel 75 mg PO QAM 05/06/18 12/25/19 12/15/19 donepezil 5 mg PO QAM 05/06/18 12/25/19 12/15/19 escitalopram oxalate [Lexapro] 20 mg PO QAM 05/06/18 12/25/19 12/15/19 turmeric root extract 500 mg PO DAILY 05/06/18 12/25/19 Unknown metformin 500 mg PO QAM 04/14/19 12/25/19 12/15/19 finasteride 5 mg PO QAM 06/12/19 12/25/19 12/15/19 aspirin 81 mg PO QAM 30 Days #30 tab 06/19/19 12/25/19 12/15/19 nitroglycerin [Nitrostat] 0.4 mg SUBLINGUAL UD PRN #30 tab 06/19/19 12/25/19 Unknown insulin glargine 100 unit/mL (3 26 unit SUBCUT QAM ml 11/29/19 12/25/19 12/15/19 mL) subcutaneous pen insulin aspart U-100 0 unit SUBCUT UD 12/16/19 12/25/19 12/15/19 isosorbide mononitrate 30 mg PO DAILY 12/16/19 12/25/19 12/15/19 metoprolol succinate 25 mg PO DAILY 12/16/19 12/25/19 12/15/19 polyethylene glycol 3350 [Miralax] 17 g PO DAILY 12/16/19 12/25/19 12/15/19 psyllium husk (with sugar) 1 tsp PO DAILY 12/16/19 12/25/19 12/15/19 [Metamucil Free] risperidone 0.25 mg PO DAILY PRN 12/16/19 12/25/19 Unknown sennosides [senna] 8.6 mg PO HS 12/16/19 12/25/19 12/15/19 acidophilus-pectin, citrus 1 cap PO TIDM 12/25/19 12/25/19 Unknown [Acidophilus Probiotic] hydroxyzine HCl 10 mg PO Q8 12/25/19 12/25/19 Unknown vancomycin 125 mg PO Q6H 12/25/19 12/25/19 Unknown cefdinir 300 mg capsule 300 mg PO BID 14 Days #28 cap 12/27/19 Unknown Active Medications Generic Name Dose Route Start Last Admin Trade Name Freq PRN Reason Stop Dose Admin Acetaminophen 1,000 mg 01/02/20 14:00 01/05/20 05:28 Acetaminophen 500 Mg Tab PO 02/01/20 13:59 1,000 mg Q8H GISELL Administration Aspirin 81 mg 12/26/19 09:00 01/04/20 09:29 Aspirin 81 Mg Ectab PO 01/25/20 08:59 81 mg QAM GISELL Administration Atorvastatin Calcium 80 mg 12/26/19 09:00 01/04/20 09:28 Atorvastatin 40 Mg Tab PO 01/25/20 08:59 80 mg QAM GISELL Administration Clopidogrel Bisulfate 75 mg 12/26/19 09:00 01/04/20 09:28 Clopidogrel Bisulfate 75 Mg Tab PO 01/25/20 08:59 75 mg QAM GISELL Administration Donepezil HCl 5 mg 12/26/19 09:00 01/04/20 09:29 Donepezil Hcl 5 Mg Tab PO 01/25/20 08:59 5 mg QAM GISELL Administration Enoxaparin Sodium 40 mg 01/02/20 14:15 01/04/20 12:48 Enoxaparin Inj 40 Mg/0.4 Ml Syr SQ 02/01/20 14:14 40 mg Q24H GISELL Administration Escitalopram Oxalate 20 mg 12/26/19 09:00 01/04/20 09:29 Escitalopram Oxalate 20 Mg Tab PO 01/25/20 08:59 20 mg QAM GISELL Administration Finasteride 5 mg 12/26/19 09:00 01/04/20 09:28 Finasteride 5 Mg Tab PO 01/25/20 08:59 5 mg QAM GISELL Administration Piperacillin Sod/Tazobactam 115 mls @ 28.75 mls/hr 01/02/20 20:00 01/05/20 04:59 Sod 3.375 gm/ Dextrose IV 02/13/20 19:59 28.8 mls/hr Q8H GISELL Administration Protocol Insulin Aspart 0 units 01/05/20 00:00 01/05/20 06:27 Insulin Aspart 100 Units/Ml 3 Ml Pen SC 02/04/20 00:00 Not Given Q6 GISELL Protocol Insulin Glargine 33 units 01/04/20 09:00 01/04/20 09:33 Insulin Glargine Solostar 100 Units/Ml 3 Ml Pen SC 02/03/20 08:59 33 units DAILY GISELL Administration Protocol Isosorbide Mononitrate 30 mg 12/26/19 09:00 01/04/20 09:29 Isosorbide [place] Extended Rel 30 Mg Tabcr PO 01/25/20 08:59 30 mg DAILY GISELL Administration Lactobacillus Acidophilus 4 tab 12/26/19 08:00 01/04/20 18:08 Lactobacillus Acidophilus (Floranex) Tab PO 01/25/20 07:59 4 tab TIDM GISELL Administration Metoprolol Succinate 25 mg 12/26/19 09:00 01/04/20 09:28 Metoprolol Succ 25mg Ext Rel Tab PO 01/25/20 08:59 25 mg DAILY GISELL Administration Miscellaneous 15 - 30 gm 12/25/19 20:14 12/26/19 06:28 Carbohydrates For Hypoglycemia PO 01/24/20 20:13 30 gm UD PRN Administration Hypoglycemia Protocol Raspberry 5 ml 12/29/19 09:00 01/04/20 20:40 Raspberry Syrup 5 Ml Udp PO 01/12/20 08:59 5 ml BID GISELL Administration Risperidone 0.25 mg 12/25/19 20:14 12/29/19 19:39 Risperidone 0.5 Mg Tablet PO 01/24/20 20:13 0.25 mg DAILY PRN Administration confusion Saccharomyces Boulardii 250 mg 01/03/20 18:30 01/04/20 09:28 Saccharomyces Boulardii 250 Mg Cap PO 02/02/20 18:29 250 mg DAILY GISELL Administration Vancomycin HCl 125 mg 12/28/19 21:00 01/04/20 20:40 Vancomycin Hcl 125 Mg/2.5ml Soln PO 01/07/20 20:59 125 mg BID GISELL Administration NPO Date Last Intake of Fluids: 01/04/20 Time Last Intake of Fluids: 23:55 Date Last Intake of Solids: 01/04/20 Time Last Intake of Solids: 23:55 Past Medical History Medical History Carotid artery disease Chest pain on exertion (11/08/13) Dementia DM (diabetes mellitus) HTN (hypertension) Hyperglycemia Hyperlipemia Hypoglycemia Ischemic cardiomyopathy Non-ST elevation [place] (NSTEMI) Open wound Slurred speech Type 2 diabetes mellitus, with long-term current use of insulin Vascular disease Vascular disease Past Family History Family History Other Family history non-contributory Past Surgical History Surgical History History of colonoscopy History of repair of ACL Social History Smoking Status: Former smoker Hx Alcohol Use: Yes Alcohol type: beer and wine alcohol intake frequency: holidays/special occasions only Hx Substance Use: No substance use type: does not use Physical Exam Vital Signs Last Vital Signs Temp 36.8 C 01/05/20 06:56 Pulse 69 01/05/20 06:56 Resp 20 01/05/20 06:56 BP 119/57 L 01/05/20 06:56 Pulse Ox 93 01/05/20 06:56 Testing Laboratory Results 01/05/20 04:59 01/05/20 04:59 PT 11.7 Seconds (9.0-12.0) 12/25/19 16:10 INR 1.1 (0.9-1.1) 12/25/19 16:10 APTT 30.7 Seconds (21.0-31.0) 12/25/19 16:10 Hemoglobin A1c 7.7 % (4.5-5.6) H 12/26/19 05:08 Urine Color Yellow 01/03/20 06:15 Urine Appearance Clear (Clear) 01/03/20 06:15 Urine pH 5.0 (4.5-7.5) 01/03/20 06:15 Ur Specific [place] 1.019 (1.000-1.030) 01/03/20 06:15 Urine Protein Negative (Negative) 01/03/20 06:15 Urine Glucose (UA) 2+ (Negative) H 01/03/20 06:15 Urine Ketones Negative (Negative) 01/03/20 06:15 Urine Nitrite Negative (Negative) 01/03/20 06:15 Ur Leukocyte Esterase Negative (Negative) 01/03/20 06:15 Blood Type O Positive 01/04/20 16:03 Antibody Screen NEGATIVE 01/04/20 16:03 01/02/20 11:22 Aerobic Blood Culture - Preliminary Blood No growth in Aerobic bottle after 48 hours. Anaerobic Blood Culture - Preliminary No growth in Anaerobic bottle after 48 hours. 01/02/20 11:23 Aerobic Blood Culture - Preliminary Blood No growth in Aerobic bottle after 48 hours. Anaerobic Blood Culture - Preliminary No growth in Anaerobic bottle after 48 hours. 01/05/20 01/05/20 01/04/20 06:09 00:03 20:38 POC Glucose 118 H 83 81
[2020-01-05] MEDS ORDERED: ATROPINE SULFATE 0.1 MG/ML 10ML SYR IV PRN (07:29)
[2020-01-05] MEDS ORDERED: fentaNYL citrate 100 MCG/2 ML VIAL IV PRN (07:29)
[2020-01-05] MEDS ORDERED: ePHEDrine sulfate 50 MG/ML AMP IV PRN (07:29)
[2020-01-05] MEDS ORDERED: HYDROmorphone INJ 2 MG/ML SYR/VIAL IV PRN (07:29)
[2020-01-05] MEDS ORDERED: METOCLOPRAMIDE HCL INJ 5 MG/ML 2 ML VIAL IV PRN (07:29)
[2020-01-05] MEDS ORDERED: ONDANSETRON INJ 2 MG/ML 2 ML VIAL IV PRN ×2 (07:29→12:38)
[2020-01-05] MEDS ORDERED: PROMETHAZINE HCL 12.5 MG in SODIUM CHLORIDE 0.9% 50 ML IV PRN (07:29)
[2020-01-05] MEDS ORDERED: IODIXANOL (VISIPAQUE) 270 MG/ML 150ML ONE (07:40)
[2020-01-05] MEDS ORDERED: PAPAVERINE HCL INJ 30 MG/ML 2 ML VIAL ONE (07:40)
[2020-01-05] MEDS ORDERED: EPINEPHrine INJ 1 MG/ML AMP ONE (07:40)
[2020-01-05] MEDS ORDERED: BUPIVACAINE 0.5 % 5 MG/1 ML MPF 30ML VIAL ONE (07:40)
[2020-01-05] MEDS ORDERED: LIDOCAINE HCL 1% 20 ML VIAL ONE (07:40)
[2020-01-05] MEDS ORDERED: HEPARIN (PORCINE) 1000 UNIT/ML 10 ML (CATH LAB USE ONLY) ONE (07:40)
[2020-01-05] MEDS ORDERED: THROMBIN 5000 UNITS KIT ONE (07:41)
[2020-01-05] MEDS ORDERED: GELATIN SPONGE SZ 100 ONE (07:41)
[2020-01-05] MEDS ORDERED: THROMBIN FOR SOLN 20000 UNIT KIT ONE (08:15)
[2020-01-05] MEDS ORDERED: fentaNYL citrate 100 MCG/2 ML VIAL ONE ×3 (08:29→09:37)
[2020-01-05] MEDS ORDERED: ROCURONIUM BROMIDE 10 MG/ML 5 ML VIAL IV ONE (08:30)
[2020-01-05] MEDS ORDERED: LIDOCAINE HCL 2% 2 ML VIAL/AMP(20MG/ML) INFIL ONE (08:30)
[2020-01-05] MEDS ORDERED: ONDANSETRON INJ 2 MG/ML 2 ML VIAL ONE (08:30)
[2020-01-05] MEDS ORDERED: PROPOFOL IV EMULSION 10 MG/ML 20 ML VIAL IV ONE (08:30)
[2020-01-05] MEDS ORDERED: NEOSTIGMINE METHYLSULFATE 5 MG/5 ML SYR ONE (08:30)
[2020-01-05] MEDS ORDERED: HEPARIN SOD (PORCINE) 1000 UNIT/ML 10 ML VIAL ONE (08:30)
[2020-01-05] MEDS ORDERED: DEXAMETHASONE SOD INJ 4 MG/ML VIAL ONE (08:30)
[2020-01-05] MEDS ORDERED: GLYCOPYRROLATE 0.2 MG/ML VIAL ONE (08:30)
[2020-01-05] MEDS ORDERED: ePHEDrine sulfate 50 MG/ML SYR ONE (08:31)
[2020-01-05] MEDS ORDERED: INSULIN GLARGINE SOLOSTAR 100 UNITS/ML 3 ML PEN SC SCH (09:00)
[2020-01-05] MEDS ORDERED: SURGICEL ABSORB HEMOSTAT 2IN X 14IN TOP ONE (09:13)
[2020-01-05] MEDS ORDERED: PROTAMINE SULFATE 10 MG/ML 5 ML VIAL ONE (10:54)
--- NOTE | 2020-01-05 11:01 | Post Operative Brief Note ---
Immediate Post Op Note v1 Date of Surgery January 05, 2020 Pre & Post Diagnosis Operation Date: 12/31/19 12:50 Pre-Op Diagnosis: Superficial Femoral Artery Occlusion With Osteomyelitis Post-Op Diagnosis: Superficial Femoral Artery Occlusion With Osteomyelitis Operation Date: 01/05/20 07:30 Pre-Op Diagnosis: Nonhealing ulcer right foot with osteomylitis Post-Op Diagnosis: Nonhealing ulcer right foot with osteomylitis Operation Date: 01/07/20 13:00 <No data on this case meets the specified criteria> I identified the patient and participated in the time-out.: Yes Procedure Operation Date: 12/31/19 12:50 Actual Procedures p Right Lower Extremity Angiogram with Attempted Intervention, Ultrasound Localization of Left Femoral Artery, Moderate Concious Sedation 1328 to 1451(Left) - Blu Fournier MD Operation Date: 01/05/20 07:30 Actual Procedures p Right Femoral Popliteal Prosthetic Bypass(Right) - Blu Fournier MD Operation Date: 01/07/20 13:00 <No data on this case meets the specified criteria> Surgeon Blu Fournier MD Director Of Services MD Ascencion Shrestha,PAC Estimated Blood Loss 100 Findings Consistent with Post-Op Diagnosis Drains Ward Catheter Anesthesia Type General Complications none Disposition Accompanied Patient To Recovery: No Disposition: Recovery Room
--- NOTE | 2020-01-05 12:04 | Operative Report ---
Post Operative Report Pre & Post Diagnosis Operation Date: 12/31/19 12:50 Pre-Op Diagnosis: Superficial Femoral Artery Occlusion With Osteomyelitis Post-Op Diagnosis: Superficial Femoral Artery Occlusion With Osteomyelitis Operation Date: 01/05/20 07:30 Pre-Op Diagnosis: Nonhealing ulcer right foot with osteomylitis Post-Op Diagnosis: Nonhealing ulcer right foot with osteomylitis Operation Date: 01/07/20 13:00 <No data on this case meets the specified criteria> I identified the patient and participated in the time-out.: Yes Procedure Operation Date: 12/31/19 12:50 Actual Procedures p Right Lower Extremity Angiogram with Attempted Intervention, Ultrasound Localization of Left Femoral Artery, Moderate Concious Sedation 1328 to 1451(Left) - Blu Fournier MD Operation Date: 01/05/20 07:30 Actual Procedures p Right Femoral Popliteal Prosthetic Bypass(Right) - Blu Fournier MD Operation Date: 01/07/20 13:00 <No data on this case meets the specified criteria> Surgeon Blu Fournier MD Development System Efficiency Manager MD Lacy ShresthaMinarchick,PAC Estimated Blood Loss 100 Findings Consistent with Post-Op Diagnosis Specimens None Anesthesia Type General/Epidural Complications none Disposition Accompanied Patient To Recovery: No Disposition: Surgical ICU Indications 74 yoM with non-healing RLE wounds with occluded SFA requiring bypass for distal revascularization. Description of Procedure The patient was placed supine on the operating room table. His right leg was prepared with chlorhexidine from the groin to the ankle. A preprocedure time- out was performed correctly identifying the patient, procedure, site, and informed consent. Using a #10 blade, a longitudinal incision was made in the right groin and the subcutaneous tissues were dissected with electrocautery. The femoral sheath was entered and the superficial femoral artery was identified. There was a significant amount of scarring in this vicinity from his previous carotid stent placement. The artery was cleared of adhesions with sharp dissection proximally until the profunda was identified. There was a significant amount of plaque in this area necessitating extension of the incision proximally to the inguinal ligament to expose the entire common femoral artery. The saphenous vein was unable to be identified. We next turned our attention to the knee where a longitudinal incision was made with a #10 blade on the medial aspect of the leg approximately two finger breadths from the tibial tuberosity. The subcutaneous tissue was dissected with electrocautery and through the fascia. The gastrocnemius muscle was retracted posteriorly and the popliteal vein was visualized. The incision was extended proximally for better visualization. The tibioperoneal trunk was identified, but a clear bifurcation proximally at the popliteal artery was not evident. We thus dissected out the tibioperoneal trunk to use as a distal target for the graft. A tunnel was created under the sartorius from the knee to the groin and a 6mm ringed Propatent graft was pulled through the tunnel. After clamps were placed to obtain proximal and distal control on the tibioperoneal trunk, an arteriotomy was made using a #11 blade. This was extended proximally and distally using Woo scissors. The graft was then trimmed to length and the anastomosis was created using 6-0 Goretex suture. The clamps were removed and back bleeding was present. Thrombin-soaked gel foam was placed in the wound and covered with a 4x4. Attention was then turned to the groin to create the proximal anastomosis. The common femoral, SFA, and profunda were clamped and an arteriotomy was made with a #11 blade. The arteriotomy was extended proximally and distally using Woo scissors. There was a significant amount of plaque in the common femoral and SFA requiring endarterectomy. After completion of the endarterectomy, the graft was then trimmed to length and sutured into place using 5-0 Goretex suture. The clamps were removed and there was excellent flow through the graft. Thrombin- soaked gel foam was then placed and covered with a 4x4. The leg incision was then irrigated with Ancef and saline. Hemostasis was achieved and the subcutaneous tissue was closed with running 3-0 vicryl. The skin was reapproximated with skin amaris and a sterile dressing was applied with 4x4s and Medipore tape. Hemostasis had been achieved in the groin and it was then irrigated with Ancef and saline. The femoral sheath was closed with running 3-0 vicryl. The subcutaneous tissues were then closed with running 3-0 vicryl and the skin was reapproximated with skin amaris. A sterile dressing was applied with 4x4s and Medipore tape. The patient had dopplerable signals in his DP and PT and the conclusion of the case. His non-healing foot ulcers were dressing with a Kerlix wrap. At the conclusion of the case, all needle, sponge, and instrument counts were correct. The patient tolerated the procedure well and there were no apparent complications. Dr. Fournier was present for, directly supervised, and participated in the entirety of the operation. I attest to the content of the Intraoperative Record and any orders documented therein. Any exceptions are noted below.
[2020-01-05 12:13] LABS: Basophils # (auto) 0.03 K/uL (0-0.2); Basophils % (auto) 0.2 %; Eosinophils # (auto) 0.09 K/uL (0-0.5); Eosinophils % (auto) 0.5 %; Hematocrit (blood only) 31.7 % (42-52); Hemoglobin 10.2 g/dL (14.0-18.0); Immature Granulocytes # (auto) 0.07 K/uL (0.00-0.02); Immature Granulocytes % (auto) 0.4 %; Lymphocytes % (auto) 6.5 %; Mean Corpuscular Hemoglobin 29.5 pg (25-34); Mean Corpuscular Volume 91.6 fL (80-100); Mean Platelet Volume 8.9 fL (7.4-10.4); Monocytes # (auto) 0.31 K/uL (0.11-0.59); Monocytes % (auto) 1.8 %; Neutrophils # (auto) 15.22 K/uL (1.4-6.5); Neutrophils % (auto) 90.6 %; Platelet Count 722 K/uL (130-400); RDW Coefficient of Variation 13.7 % (11.5-14.5); RDW Standard Deviation 46.1 fL (36.4-46.3); Red Blood Count 3.46 M/uL (4.7-6.1); White Blood Count 16.82 K/uL (4.8-10.8)
[2020-01-05 12:21] LABS: Mean Corpuscular Hgb Conc 32.2 g/dL (32-36)
--- NOTE | 2020-01-05 12:27 | Anesthesiology Progress Note ---
Date of Service January 05, 2020 Anesthesia Post Procedure Vital Signs Vital Signs: Temp Pulse Pulse Resp BP Pulse Ox 01/05/20 12:15 76 14 145/68 H 94 01/05/20 12:05 78 18 139/61 95 01/05/20 11:55 78 14 137/84 100 01/05/20 11:47 37.1 C 83 22 147/80 H 100 01/05/20 06:56 36.8 C 69 20 119/57 L 93 01/05/20 06:39 36.8 C 73 16 144/64 H 93 01/04/20 23:09 36.6 C 65 16 137/64 92 01/04/20 15:34 37.0 C 79 18 135/70 92 Pain Intensity Bilateral Abdomen: Pain Intensity: 0 Transfer of Care Handoff Completed per policy Notes Mental Status: alert / awake / arousable and participated in evaluation Patient Amnestic to Procedure: Yes Nausea / Vomiting: adequately controlled Pain: adequately controlled Airway Patency, RR, SpO2: stable & adequate BP & HR: stable & adequate Hydration State: stable & adequate Anesthetic Complications: no major complications apparent
[2020-01-05 12:30] LABS: BUN Creatinine Ratio 22.3 (10-20); Calcium 8.6 mg/dl (8.5-10.1); Creatinine Clr Calc Pharmacy 73.5 ml/min; Est GFR (Non-African American) 82.8; Potassium 4.3 mmol/L (3.5-5.1)
--- NOTE | 2020-01-05 12:40 | Billing Data ---
Date of Service January 05, 2020 Coding Level of Care Code 64675 Inpt Consult Level 5
[2020-01-05] MEDS: LACTOBACILLUS ACIDOPHILUS (FLORANEX) TAB PO SCH ×3 (12:54→16:42)
[2020-01-05] MEDS: ASPIRIN 81 MG ECTAB PO SCH (12:54)
[2020-01-05] MEDS: DONEPEZIL HCL 5 MG TAB PO SCH (12:54)
[2020-01-05] MEDS: CLOPIDOGREL BISULFATE 75 MG TAB PO SCH (12:55)
[2020-01-05] MEDS: VANCOMYCIN HCL 125 MG/2.5ML SOLN PO SCH ×2 (12:56→21:43)
[2020-01-05] MEDS: RASPBERRY SYRUP 5 ML UDP PO SCH ×2 (12:56→21:35)
[2020-01-05] MEDS ORDERED: NovoLIN-N (NPH) PER UNIT CHARGE SQ ONE (13:15)
[2020-01-05] MEDS: D5W AND 1/2NSS 1,000 ML IV SCH ×2 (13:20→21:33)
[2020-01-05] MEDS: SACCHAROMYCES BOULARDII 250 MG CAP PO SCH (13:24)
[2020-01-05] MEDS: ISOSORBIDE MONO EXTENDED REL 30 MG TABCR PO SCH (13:24)
[2020-01-05] MEDS: FINASTERIDE 5 MG TAB PO SCH (13:24)
[2020-01-05] MEDS: METOPROLOL SUCC 25MG EXT REL TAB PO SCH (13:25)
[2020-01-05] MEDS: ESCITALOPRAM OXALATE 20 MG TAB PO SCH (13:25)
[2020-01-05] MEDS: ATORVASTATIN 40 MG TAB PO SCH (13:25)
[2020-01-05] MEDS: ENOXAPARIN INJ 40 MG/0.4 ML SYR SQ SCH (14:12)
[2020-01-05] MEDS ORDERED: INSULIN GLARGINE SOLOSTAR 100 UNITS/ML 3 ML PEN SC ONE (14:30)
--- NOTE | 2020-01-05 14:32 | Pharmacy Report ---
Glycemic Control Progress Note - Date of Service January 05, 2020 - Scope Glycemic Pharmacist consulted for glycemic control to write orders per [facility] inpatient glycemic control protocol. - Objective Accuchecks BSG(last 24 hours):: 01/04/20 01/04/20 01/05/20 17:07 20:38 00:03 Glucose POC Glucose 141 H 81 83 01/05/20 01/05/20 01/05/20 04:59 06:09 11:47 Glucose 91 POC Glucose 118 H 168 H 01/05/20 12:03 Glucose 181 H POC Glucose HbA1c:: Hemoglobin A1c 7.7 % (4.5-5.6) H 12/26/19 05:08 - Recent Pertinent Medications The patient is currently receiving: * Basal insulin: Lantus 33 units every 24 hours * Correctional Insulin: Novolog Correction per scale ACHS Goal Range: Low 110 mg/dL - High 140 mg/dL Correction Factor: 15 mg/dL/unit * Prandial insulin: Per carb ratio of 1 unit per 5 grams CHO consumed - Outpatient Anti-Diabetic Meds Lantus 26 units qAM Novolog SSI Metformin 500 mg qAM - Assessment & Plan ASSESSMENT: * See progress note from 12/29/2019 for more background info, in short: * Pt receiving SQ basal bolus insulin regimen for hyperglycemia secondary to baseline DM (outpatient regimen on hold). Patient is POD 0 for popliteal bypass. He received dexamethasone 4 mg in the OR. Dr Fournier ordered D51/2NS @ 125 until patient tolerated diet and this occurred this afternoon. * Patient is currently receiving an average of 74 units of insulin per day * 33 units of basal insulin * 41 units of prandial/correctional insulin * BSGs ranging 81 - 241 mg/dl over the past 24hrs * Changes needed to insulin regimen: * AM Fasting BSG = 118 mg/dl. This is in goal range for patient based on inpatient targets and co-morbidities. The patient is NPO today so ordered lower dose of Lantus. This was held early today. Ordered Lantus 20 units for this afternoon. Provided NPH 25 units SQ x 1 for steroid hyperglycemia. * Post-prandial BSGs are in range therefore no changes needed to CF/CR. Will not tighten carbohydrate ratio for steroid hyperglycemia since NPH given. * Total daily dose = ? units. Expect higher requirements for now since patient had surgery and steroids. PLAN FOR INPATIENT GLYCEMIC CONTROL: * Lantus 20 units SQ x 1 then 23-33 units SQ in the morning based upon BSG (plan to be NPO tomorrow morning as well) * Continuing correction factor of 15 mg/dl/unit * Continuing carb ratio of 1 unit per 5 grams CHO consumed * Continuing goal range of Low 110 mg/dL - High 140 mg/dL * Please note that the plan above was derived based on current level of insulin resistance and hospital stress. These recommendations are appropriate for inpatient admission only. Plan of care upon discharge will need to be reassessed to avoid potential outpatient hypo/hyperglycemia. Thank you.
--- NOTE | 2020-01-05 16:49 | Critical Care Consultation ---
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: Reason Critically Ill: 74M with osteomyelitis of the R heel and superficial femoral artery blockage requiring Femoral-Popliteal bypass, s/p fem- pop POD#0 NEURO: CAM ICU: Negative -Fairly extensive dementia, but friendly and cooperative -Continue Lexapro for depression -Continue Aricept CARDIAC: -S/P R Fem-Pop bypass POD#0 -Continue neurovascular checks -Continue to check pulses with dopplers (marked) -Activity per Vascular -Continue ASA, Lipitor, Plavix, Isosorbide mononitrate, Metoprolol succ RESPIRATORY: -O2 goal >92 GI: -HH DM2 diet -D5W /2 NSS 125ml/hr -Vancomycin for C diff prophylaxis RENAL/LYTES: -Replete PRN : -Ward catheter in place -Continue Proscar ENDO: -SSI and basal HEME: -Monitor CBC in AM ID: -Osteomyelitis of the R heel, scheduled for debridement 01/06 with ortho -Continue Zosyn LINES/IV ACCESS:L wrist periph, R post periph, A line CODE STATUS: Full DVT PROPHYLAXIS: Lovenox 40mg QD Thank you for allowing us to participate in the care of this patient. Please refer to my attending physician's documentation for any further recommendations. (2) Atherosclerotic plaque: (3) Alzheimer's dementia: (4) Osteomyelitis: (5) Chronic heel ulcer: (6) Type 2 diabetes mellitus, with long-term current use of insulin: (7) PAD (peripheral artery disease): (8) Hyperlipidemia: (9) Hypertension: (10) Dementia: Supervising Physician Co-Signing Physician Notes Dr. Cason was resident physician during care of patient. I separately evaluated patient for aguilar portions of the history and the exam. I was present during the critical portion of medical decision making, and I discussed the case with the resident. I generally agree with the findings and plan. Patient has palpable and dopplerable pulses postoperatively. He is pleasant. I anticipate advancing his diet later today. Close observation for bleeding. History of Present Illness Reason for Consultation: S/P Fem-Pop Attending Physician: Harry Rios MD History of Present Illness Patient is a 74 year old male with PMHx Alzheimer's dementia, Osteomyelitis, DM2, PAD, Ischemic Cardiomyopathy, HLD, HTN who was admitted to the ICU s/p Right femoral popliteal prosthetic bypass for observation post-op. Patient was initially admitted for increasing weakness and confusion, found to have osteomyelitis of the R heel. Patient also has a severe history of PAD with significantly decreased blood flow to the RLE secondary to a superficial femoral artery occlusion. A femoral-popliteal bypass was recommended at that time in order to reestablish appropriate circulation to the foot prior to debridement from Ortho. Patient underwent Fem-pop bypass with Dr. Fournier earlier this morning and is currently resting comfortably in bed. Patient notes that he has no pain at this time. He is very focused on discussing "his life in [place]." He notes over all that his foot is feeling better, but has obvious dementia. Allergies Allergy/AdvReac Type Severity Reaction Status Date / Time Penicillins Allergy Unknown UNK Verified 12/25/19 17:36 KAVITA Inhibitors AdvReac Intermediate COUGH Verified 12/25/19 17:36 Home Medications Home Medications Medication Instructions Recorded Confirmed Type atorvastatin 80 mg PO QAM 05/06/18 12/25/19 History clopidogrel 75 mg PO QAM 05/06/18 12/25/19 History donepezil 5 mg PO QAM 05/06/18 12/25/19 History escitalopram oxalate [Lexapro] 20 mg PO QAM 05/06/18 12/25/19 History turmeric root extract 500 mg PO DAILY 05/06/18 12/25/19 History metformin 500 mg PO QAM 04/14/19 12/25/19 History finasteride 5 mg PO QAM 06/12/19 12/25/19 History aspirin 81 mg PO QAM 30 Days #30 tab 06/19/19 12/25/19 Rx nitroglycerin [Nitrostat] 0.4 mg SUBLINGUAL UD PRN #30 tab 06/19/19 12/25/19 Rx insulin glargine 100 unit/mL (3 26 unit SUBCUT QAM ml 11/29/19 12/25/19 History mL) subcutaneous pen insulin aspart U-100 0 unit SUBCUT UD 12/16/19 12/25/19 History isosorbide mononitrate 30 mg PO DAILY 12/16/19 12/25/19 History metoprolol succinate 25 mg PO DAILY 12/16/19 12/25/19 History polyethylene glycol 3350 [Miralax] 17 g PO DAILY 12/16/19 12/25/19 History psyllium husk (with sugar) 1 tsp PO DAILY 12/16/19 12/25/19 History [Metamucil Free] risperidone 0.25 mg PO DAILY PRN 12/16/19 12/25/19 History sennosides [senna] 8.6 mg PO HS 12/16/19 12/25/19 History acidophilus-pectin, citrus 1 cap PO TIDM 12/25/19 12/25/19 History [Acidophilus Probiotic] hydroxyzine HCl 10 mg PO Q8 12/25/19 12/25/19 History vancomycin 125 mg PO Q6H 12/25/19 12/25/19 History cefdinir 300 mg capsule 300 mg PO BID 14 Days #28 cap 12/27/19 Rx Patient History Medical History (Updated 01/05/20 @ 23:35 by Harry Rios MD) Carotid artery disease Chest pain on exertion (11/08/13) Coronary artery disease Dementia DM (diabetes mellitus) HTN (hypertension) Hyperglycemia Hyperlipemia Hypoglycemia Ischemic cardiomyopathy Non-ST elevation NM (NSTEMI) Open wound Slurred speech Type 2 diabetes mellitus, with long-term current use of insulin Vascular disease Vascular disease Surgical History History of colonoscopy History of repair of ACL Family History Other Family history non-contributory Social History Smoking Status: Former smoker Second Hand Exposure: No; Hx Alcohol Use: Yes Alcohol type: beer and wine Hx Substance Use: No Preferred Language: Thai Communication Ability: Effective Complex Commercial Litigation Paralegal Required: No Beliefs That Will Affect Care: None marital status: Current Living Situation: Spouse Current Living Situation Comment: lives with in home with 1 step to enter and 7 steps inside Feels Safe at Home: Yes Assistive Devices: Glasses Review of Systems Constitutional: no fever, no chills and no body aches Respiratory: + cough; no dyspnea and no pain on inspiration Cardiovascular: no chest pain, no radiating jaw, neck or arm pain, no dyspnea on exertion and no palpitations Gastrointestinal: no abdominal pain, no nausea and no vomiting Musculoskeletal: Pain in R foot Physical Exam Constitutional: well developed and well nourished; no acute distress Eyes: PERRL, conjunctivae normal, anicteric sclerae ENMT: external ear and nose normal, oropharynx normal Respiratory: normal respiratory effort, lungs clear to auscultation Cardiovascular: Rate/Rhythm: regular rate and regular rhythm Heart Sounds: no murmur Vessels: dorsalis pedis pulses present (RLE by doppler ) Gastrointestinal (Abdomen): normal bowel sounds, soft, nontender, no hepatosplenomegaly Musculoskeletal: TTP on any movement of the R foot Muscle strength testing of LE 5/5 b/l R foot bandaged, CDI Psychiatric: Orientation: alert, oriented x 3, oriented to person and cooperative; + not oriented to place Eye Contact: good eye contact Results & Data Results & Data ([facility]) Vital Signs (Past 12 Hours) Vital Signs Temp Pulse Pulse Pulse Resp BP BP 01/05/20 16:30 88 15 01/05/20 16:00 36.9 C 77 16 151/67 H 01/05/20 15:30 80 15 01/05/20 15:00 80 22 150/62 H 01/05/20 14:45 81 15 01/05/20 14:30 36.7 C 87 21 01/05/20 14:15 80 14 01/05/20 14:00 36.8 C 81 15 157/58 H 01/05/20 13:45 84 16 01/05/20 13:30 79 14 01/05/20 13:15 36.8 C 77 14 01/05/20 13:00 37.0 C 73 16 141/56 H 01/05/20 12:45 77 15 01/05/20 12:41 78 14 01/05/20 12:38 36.9 C 81 74 16 130/56 L 01/05/20 12:34 76 14 130/56 L 01/05/20 12:25 37 C 78 16 140/49 L 01/05/20 12:15 76 14 145/68 H 01/05/20 12:05 78 18 139/61 01/05/20 11:55 78 14 137/84 01/05/20 11:47 37.1 C 83 22 147/80 H 01/05/20 06:56 36.8 C 69 20 119/57 L 01/05/20 06:39 36.8 C 73 16 144/64 H BP Pulse Ox Pulse Ox 01/05/20 16:30 95 01/05/20 16:00 97 92 01/05/20 15:30 95 01/05/20 15:00 100 01/05/20 14:45 98 01/05/20 14:30 99 01/05/20 14:15 98 01/05/20 14:00 97 01/05/20 13:45 98 01/05/20 13:30 98 01/05/20 13:15 97 01/05/20 13:00 97 01/05/20 12:45 95 01/05/20 12:41 90 01/05/20 12:38 139/52 L 83 L 01/05/20 12:34 84 L 01/05/20 12:25 93 01/05/20 12:15 94 01/05/20 12:05 95 01/05/20 11:55 100 01/05/20 11:47 100 01/05/20 06:56 93 01/05/20 06:39 93 Resident Activity Tracking Resident Involvement: Resident Care Provided Care Provided: Adult Hospital Medicine
[2020-01-05] MEDS ORDERED: Nursing to Pharmacy Communication SCH (21:45)
--- NOTE | 2020-01-05 23:37 | Hospitalist Progress Note ---
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 Wound culture grew Klebsiella oxytoca and group B beta strep. ID, Ortho, and Vascular Surgery consulted. Receiving IV piperacillin / tazobactam per sensitivities. Vascular evaluation demonstrated occlusion of right superficial femoral artery. Right fem-pop bypass performed today. Continue IV antibiotic therapy with piperacillin / tazobactam. (2) Osteomyelitis: As noted above. (3) PAD (peripheral artery disease): Occlusion of right superficial femoral artery as noted above. S/P right fem-pop bypass. Ongoing risk factor modification. (4) Coronary artery disease: History of CAD, s/p [place]. Denies chest pain. Continue aspirin, clopidogrel, metoprolol, isosorbide, statin. (5) Hypertension: Continue metoprolol and isosorbide mononitrate. (6) Hyperlipidemia: Continue atorvastatin. (7) Type 2 diabetes mellitus, with long-term current use of insulin: DM type 2 complicated by CAD and PVD. Hgb A1c 7.7. Lantus / NovoLog per protocol. (8) Alzheimer's dementia: Continue donepezil. Monitor for delirium. (9) C. difficile colitis: History of C diff colitis diagnosed prior to admission. Continue vancomycin. (10) DVT prophylaxis: SQ enoxaparin. (11) Discharge planning issues: Discharge disposition to be determined. Internal Medicine follow-up with Dr. Corina Strong. Admission and Anticipated Discharge Date Admission Date: December 27, 2019 Subjective Recheck for multiple problems. Patient seen in their room around 1420. visiting. Right fem-pop bypass performed this morning by Dr. Fournier. Doing well postop. Pain well-controlled. Review of Systems: Constitutional- no fever. Cardiac- no chest pain. Pulmonary- no cough or SOB. GI- no nausea, vomiting, diarrhea, melena, hematochezia. - Ward cath. Otherwise, as noted above. Physical Exam Constitutional: no acute distress Respiratory: no respiratory distress Auscultation: lungs clear to auscultation bilaterally Cardiovascular: Rate/Rhythm: regular rate and regular rhythm Vessels: no JVD Extremities: normal capillary refill (bilat toes < 2 sec) and + edema (trace pretibial); no calf tenderness Gastrointestinal (Abdomen): normal bowel sounds, soft, nontender, no hepatosplenomegaly Musculoskeletal: Extremities: no cyanosis RLE wounds bandaged; waffle boots applied Skin: no rashes, warm and dry Psychiatric: Orientation: alert; + not oriented x 3 Results & Data Results & Data ([facility]) Vital Signs (Past 12 Hours) Vital Signs Temp Pulse Pulse Pulse Resp BP BP 01/05/20 22:30 66 13 01/05/20 22:00 66 12 141/62 H 01/05/20 21:30 67 17 01/05/20 21:00 67 15 133/60 01/05/20 20:30 79 20 01/05/20 20:00 79 17 138/75 01/05/20 19:01 86 22 131/64 01/05/20 18:01 82 20 123/41 L 01/05/20 18:00 81 16 01/05/20 17:30 86 23 01/05/20 17:01 91 H 21 145/108 H 01/05/20 17:00 36.6 C 89 18 01/05/20 16:30 88 15 01/05/20 16:00 36.9 C 77 16 151/67 H 01/05/20 15:30 80 15 01/05/20 15:00 80 22 150/62 H 01/05/20 14:45 81 15 01/05/20 14:30 36.7 C 87 21 01/05/20 14:15 80 14 01/05/20 14:00 36.8 C 81 15 157/58 H 01/05/20 13:45 84 16 01/05/20 13:30 79 14 01/05/20 13:15 36.8 C 77 14 01/05/20 13:00 37.0 C 73 16 141/56 H 01/05/20 12:45 77 15 01/05/20 12:41 78 14 01/05/20 12:38 36.9 C 81 74 16 130/56 L 01/05/20 12:34 76 14 130/56 L 01/05/20 12:25 37 C 78 16 140/49 L 01/05/20 12:15 76 14 145/68 H 01/05/20 12:05 78 18 139/61 01/05/20 11:55 78 14 137/84 01/05/20 11:47 37.1 C 83 22 147/80 H Laboratory Results - last 24 hr 01/05/20 01/05/20 01/05/20 00:03 04:59 04:59 WBC 14.73 H RBC 3.76 L Hgb 10.9 L Hct 34.8 L MCV 92.6 MCH 29.0 MCHC 31.3 L RDW Std Deviation 46.4 H RDW Coeff of Lolly 13.7 Plt Count 817 H MPV 9.1 Immature Gran % (Auto) Neut % (Auto) Lymph % (Auto) Rogers % (Auto) Eos % (Auto) Baso % (Auto) Neut # (Auto) Lymph # (Auto) Rogers # (Auto) Eos # (Auto) Baso # (Auto) Immature Gran # (Auto) Sodium 138 Potassium 4.0 Chloride 106 Carbon Dioxide 28 Anion Gap 4.0 BUN 20 H Creatinine 0.99 Est Cr Clr Drug Dosing 68.3 Est GFR ( Amer) 87.8 Est GFR (Non-Af Amer) 75.8 BUN/Creatinine Ratio 20.5 H Glucose 91 POC Glucose 83 Calcium 8.6 C-Reactive Protein 8.22 H 01/05/20 01/05/20 01/05/20 06:09 11:47 12:03 WBC 16.82 H RBC 3.46 L Hgb 10.2 L Hct 31.7 L MCV 91.6 MCH 29.5 MCHC 32.2 RDW Std Deviation 46.1 RDW Coeff of Lolly 13.7 Plt Count 722 H MPV 8.9 Immature Gran % (Auto) 0.4 Neut % (Auto) 90.6 Lymph % (Auto) 6.5 Rogers % (Auto) 1.8 Eos % (Auto) 0.5 Baso % (Auto) 0.2 Neut # (Auto) 15.22 H Lymph # (Auto) 1.10 L Rogers # (Auto) 0.31 Eos # (Auto) 0.09 Baso # (Auto) 0.03 Immature Gran # (Auto) 0.07 H Sodium Potassium Chloride Carbon Dioxide Anion Gap BUN Creatinine Est Cr Clr Drug Dosing Est GFR ( Amer) Est GFR (Non-Af Amer) BUN/Creatinine Ratio Glucose POC Glucose 118 H 168 H Calcium C-Reactive Protein 09/30/20 09/30/20 09/30/20 12:03 16:02 20:08 WBC RBC Hgb Hct MCV MCH MCHC RDW Std Deviation RDW Coeff of Lolly Plt Count MPV Immature Gran % (Auto) Neut % (Auto) Lymph % (Auto) Rogers % (Auto) Eos % (Auto) Baso % (Auto) Neut # (Auto) Lymph # (Auto) Rogers # (Auto) Eos # (Auto) Baso # (Auto) Immature Gran # (Auto) Sodium 137 Potassium 4.3 Chloride 105 Carbon Dioxide 23 Anion Gap 9.0 BUN 20 H Creatinine 0.92 Est Cr Clr Drug Dosing 73.5 Est GFR ( Amer) 96.0 Est GFR (Non-Af Amer) 82.8 BUN/Creatinine Ratio 22.3 H Glucose 181 H POC Glucose 233 H 191 H Calcium 8.6 C-Reactive Protein
[2020-01-06] MEDS: INSULIN ASPART 100 UNITS/ML 3 ML PEN SC SCH ×5 (00:17→21:28)
[2020-01-06] MEDS ORDERED: ALBUMIN 25% 50 ML IV SCH (01:00)
[2020-01-06 04:50] LABS: Basophils # (auto) 0.02 K/uL (0-0.2); Basophils % (auto) 0.1 %; Eosinophils % (auto) 0.7 %; Hematocrit (blood only) 29.4 % (42-52); Hemoglobin 9.5 g/dL (14.0-18.0); Immature Granulocytes # (auto) 0.05 K/uL (0.00-0.02); Immature Granulocytes % (auto) 0.3 %; Lymphocytes # (auto) 1.63 K/uL (1.2-3.4); Mean Corpuscular Hemoglobin 29.7 pg (25-34); Mean Corpuscular Hgb Conc 32.3 g/dL (32-36); Mean Corpuscular Volume 91.9 fL (80-100); Mean Platelet Volume 8.4 fL (7.4-10.4); Monocytes # (auto) 1.12 K/uL (0.11-0.59); Monocytes % (auto) 7.6 %; Neutrophils % (auto) 80.3 %; Platelet Count 734 K/uL (130-400); RDW Coefficient of Variation 13.6 % (11.5-14.5); RDW Standard Deviation 45.8 fL (36.4-46.3); White Blood Count 14.82 K/uL (4.8-10.8)
[2020-01-06] MEDS: ACETAMINOPHEN 500 MG TAB PO SCH ×3 (05:15→21:56)
[2020-01-06] MEDS: PIPERACILLIN/TAZOBACTAM 3.375 GM in DEXTROSE 5% 100 ML IV SCH ×3 (05:15→19:32)
[2020-01-06 05:17] LABS: BUN Creatinine Ratio 20.1 (10-20); Calcium 8.4 mg/dl (8.5-10.1); Creatinine Clr Calc Pharmacy 84.5 ml/min; Est GFR (African American) 103.4; Est GFR (Non-African American) 89.2; Potassium 4.1 mmol/L (3.5-5.1)
--- NOTE | 2020-01-06 05:41 | Critical Care Progress Note ---
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: Reason Critically Ill: 74M with osteomyelitis of the R heel and superficial femoral artery blockage requiring Femoral-Popliteal bypass, s/p fem- pop POD#1 NEURO: CAM ICU: Negative -Fairly extensive dementia, but friendly and cooperative -Continue Lexapro for depression -Continue Aricept CARDIAC: -S/P R Fem-Pop bypass POD#1 -Continue neurovascular checks -Continue to check pulses with dopplers (marked) -Activity per Vascular -Continue ASA, Lipitor, Plavix, Isosorbide mononitrate, Metoprolol succ -Overnight had removed dressing on RLE, replaced, currently CDI RESPIRATORY: -O2 goal >92 GI: -HH DM2 diet -Vancomycin for C diff prophylaxis RENAL/LYTES: -Replete PRN : -Ward catheter in place -Continue Proscar ENDO: -SSI and basal HEME: -Monitor CBC in AM ID: -Osteomyelitis of the R heel, scheduled for debridement 01/06 with ortho -Continue Zosyn LINES/IV ACCESS:L wrist periph, R post periph, A line CODE STATUS: Full DVT PROPHYLAXIS: Lovenox 40mg QD DISPO: Plan for downgrade after seen by Vascular Thank you for allowing us to participate in the care of this patient. Please refer to my attending physician's documentation for any further recommendations. (2) Atherosclerotic plaque: (3) Alzheimer's dementia: (4) Osteomyelitis: (5) Chronic heel ulcer: (6) Type 2 diabetes mellitus, with long-term current use of insulin: (7) PAD (peripheral artery disease): (8) Hyperlipidemia: (9) Hypertension: (10) Dementia: Admission and Anticipated Discharge Date Admission Date: December 27, 2019 Supervising Physician Co-Signing Physician Notes Dr. Cason was resident physician during care of patient. I separately evaluated patient for aguilar portions of the history and the exam. I was present during the critical portion of medical decision making, and I discussed the case with the resident. I generally agree with the findings and plan. Patient is doing well today. Tolerated his diet and is stable for downgrade out of ICU. Deferring additional evaluation or orders to vascular service. Subjective Patient seen and evaluated this AM. Noted he was feeling well, no pain at this time. Did note occasional numbness and tingling in his LE b/l, but that it would resolve rapidly. Review of Systems Constitutional: no fever, no chills and no weakness Eyes: no worsening vision Ear, Nose, Mouth, Throat: no dizziness Respiratory: + cough; no dyspnea and no pain on inspiration Cardiovascular: no chest pain Gastrointestinal: no abdominal pain, no nausea and no vomiting Musculoskeletal: Pain in R foot Physical Exam Constitutional: well developed and well nourished; no acute distress Eyes: PERRL, conjunctivae normal, anicteric sclerae ENMT: external ear and nose normal, oropharynx normal Respiratory: normal respiratory effort, lungs clear to auscultation Cardiovascular: Rate/Rhythm: regular rate and regular rhythm Heart Sounds: no murmur Vessels: dorsalis pedis pulses present (RLE by doppler ) Gastrointestinal (Abdomen): normal bowel sounds, soft, nontender, no hepatosplenomegaly Psychiatric: Orientation: alert, oriented x 3, oriented to person and cooperative; + not oriented to place Eye Contact: good eye contact Results & Data Results & Data ([facility]) Vital Signs (Past 12 Hours) Vital Signs Temp Pulse Resp BP Pulse Ox 01/06/20 04:00 60 19 135/58 L 92 01/06/20 03:00 71 19 138/87 93 01/06/20 02:01 82 16 132/71 94 01/06/20 01:00 65 16 143/60 H 92 01/06/20 00:30 60 17 92 01/06/20 00:19 60 01/06/20 00:14 36.7 C 01/06/20 00:00 63 12 125/56 L 93 01/05/20 23:30 60 15 92 01/05/20 23:00 64 13 125/58 L 92 01/05/20 22:30 66 13 93 01/05/20 22:00 66 12 141/62 H 94 01/05/20 21:30 67 17 93 01/05/20 21:00 67 15 133/60 93 01/05/20 20:30 79 20 96 01/05/20 20:00 36.7 C 79 17 138/75 95 01/05/20 19:01 86 22 131/64 92 01/05/20 18:01 82 20 123/41 L 91 01/05/20 18:00 81 16 94 Resident Activity Tracking Resident Involvement: Resident Care Provided Care Provided: Adult [facility] Medicine
[2020-01-06] MEDS: LACTOBACILLUS ACIDOPHILUS (FLORANEX) TAB PO SCH ×3 (08:01→17:33)
[2020-01-06] MEDS: SACCHAROMYCES BOULARDII 250 MG CAP PO SCH (08:01)
[2020-01-06] MEDS: ASPIRIN 81 MG ECTAB PO SCH (08:01)
[2020-01-06] MEDS: ISOSORBIDE MONO EXTENDED REL 30 MG TABCR PO SCH (08:01)
[2020-01-06] MEDS: ESCITALOPRAM OXALATE 20 MG TAB PO SCH (08:01)
[2020-01-06] MEDS: DONEPEZIL HCL 5 MG TAB PO SCH (08:01)
[2020-01-06] MEDS: CLOPIDOGREL BISULFATE 75 MG TAB PO SCH (08:01)
[2020-01-06] MEDS: METOPROLOL SUCC 25MG EXT REL TAB PO SCH (08:01)
[2020-01-06] MEDS: FINASTERIDE 5 MG TAB PO SCH (08:01)
[2020-01-06] MEDS: ATORVASTATIN 40 MG TAB PO SCH (08:02)
--- NOTE | 2020-01-06 08:07 | Anesthesiology Progress Note ---
Date of Service January 06, 2020 Anesthesia Post Procedure Vital Signs Vital Signs: Temp Pulse Pulse Pulse Resp BP BP 01/06/20 06:00 61 15 143/63 H 01/06/20 05:01 62 12 145/59 H 01/06/20 05:00 60 12 01/06/20 04:00 60 19 135/58 L 01/06/20 03:00 71 19 138/87 01/06/20 02:01 82 16 132/71 01/06/20 01:00 65 16 143/60 H 01/06/20 00:30 60 17 01/06/20 00:19 60 01/06/20 00:14 36.7 C 01/06/20 00:00 63 12 125/56 L 01/05/20 23:30 60 15 01/05/20 23:00 64 13 125/58 L 01/05/20 22:30 66 13 01/05/20 22:00 66 12 141/62 H 01/05/20 21:30 67 17 01/05/20 21:00 67 15 133/60 01/05/20 20:30 79 20 01/05/20 20:00 36.7 C 79 17 138/75 01/05/20 19:01 86 22 131/64 01/05/20 18:01 82 20 123/41 L 01/05/20 18:00 81 16 01/05/20 17:30 86 23 01/05/20 17:01 91 H 21 145/108 H 01/05/20 17:00 36.6 C 89 18 01/05/20 16:30 88 15 01/05/20 16:00 36.9 C 77 16 151/67 H 01/05/20 15:30 80 15 01/05/20 15:00 80 22 150/62 H 01/05/20 14:45 81 15 01/05/20 14:30 36.7 C 87 21 01/05/20 14:15 80 14 01/05/20 14:00 36.8 C 81 15 157/58 H 01/05/20 13:45 84 16 01/05/20 13:30 79 14 01/05/20 13:15 36.8 C 77 14 01/05/20 13:00 37.0 C 73 16 141/56 H 01/05/20 12:45 77 15 01/05/20 12:41 78 14 01/05/20 12:38 36.9 C 81 74 16 130/56 L 01/05/20 12:34 76 14 130/56 L 01/05/20 12:25 37 C 78 16 140/49 L 01/05/20 12:15 76 14 145/68 H 01/05/20 12:05 78 18 139/61 01/05/20 11:55 78 14 137/84 01/05/20 11:47 37.1 C 83 22 147/80 H BP Pulse Ox Pulse Ox 01/06/20 06:00 91 01/06/20 05:01 92 01/06/20 05:00 93 01/06/20 04:00 92 01/06/20 03:00 93 01/06/20 02:01 94 01/06/20 01:00 92 01/06/20 00:30 92 01/06/20 00:19 01/06/20 00:14 01/06/20 00:00 93 01/05/20 23:30 92 01/05/20 23:00 92 01/05/20 22:30 93 01/05/20 22:00 94 01/05/20 21:30 93 01/05/20 21:00 93 01/05/20 20:30 96 01/05/20 20:00 95 01/05/20 19:01 92 01/05/20 18:01 91 01/05/20 18:00 94 01/05/20 17:30 95 01/05/20 17:01 95 01/05/20 17:00 96 01/05/20 16:30 95 01/05/20 16:00 97 92 01/05/20 15:30 95 01/05/20 15:00 100 01/05/20 14:45 98 01/05/20 14:30 99 01/05/20 14:15 98 01/05/20 14:00 97 01/05/20 13:45 98 01/05/20 13:30 98 01/05/20 13:15 97 01/05/20 13:00 97 01/05/20 12:45 95 01/05/20 12:41 90 01/05/20 12:38 139/52 L 83 L 01/05/20 12:34 84 L 01/05/20 12:25 93 01/05/20 12:15 94 01/05/20 12:05 95 01/05/20 11:55 100 01/05/20 11:47 100 Pain Intensity Bilateral Abdomen: Pain Intensity: 0 Notes Mental Status: alert / awake / arousable and participated in evaluation Patient Amnestic to Procedure: Yes Nausea / Vomiting: adequately controlled Pain: adequately controlled Airway Patency, RR, SpO2: stable & adequate BP & HR: stable & adequate Hydration State: stable & adequate Anesthetic Complications: no major complications apparent and Pt Satisfied with anesthetic care
[2020-01-06] MEDS: VANCOMYCIN HCL 125 MG/2.5ML SOLN PO SCH ×2 (08:47→20:19)
[2020-01-06] MEDS: INSULIN GLARGINE SOLOSTAR 100 UNITS/ML 3 ML PEN SC SCH (08:47)
[2020-01-06] MEDS: RASPBERRY SYRUP 5 ML UDP PO SCH ×2 (08:47→20:18)
[2020-01-06] MEDS ORDERED: INSULIN GLARGINE SOLOSTAR 100 UNITS/ML 3 ML PEN SC SCH (09:00)
--- NOTE | 2020-01-06 10:57 | Pharmacy Report ---
Pharmacy Glycemic Short Note 2 - Date of Service January 06, 2020 - Glycemic Short BSG Results (Last 24 hours): 01/05/20 01/05/20 01/05/20 11:47 12:03 16:02 Glucose 181 H POC Glucose 168 H 233 H 01/05/20 01/06/20 01/06/20 20:08 04:40 07:29 Glucose 100 H POC Glucose 191 H 113 H OUTPATIENT ANTIDIABETIC REGIMEN: * Lantus 26 units SQ qAM * Novolog SSI * Metformin 500mg PO qAM * HbA1c: 7.7% (12/26/19) ASSESSMENT: 01/05 * BSGs fairly well controlled over last 24 hours given recent events * Patient returned to the OR yesterday for superficial femoral artery occlusion, where fem-pop prosthetic bypass was performed * Of note he received dexamethasone in the OR yesterday (4mg IV x 1) * Fasting BSG 100 this AM with 20 units of Lantus + 25 units NPH on board * Diet resumed yesterday w/ dinner and continues this AM. Patient may return to OR tomorrow. * Will resume basal insulin dose will be based upon data collected this admission. Estimate he will require 30-36 units basal per day while tolerating a diet. * Novolog parameters have performed fairly well - will continue the same for now and follow post-prandial pattern * Total daily insulin estimate ~80 units while tolerating a diet. PLAN FOR INPATIENT GLYCEMIC CONTROL: * Continue to hold metformin * Basal insulin * Lantus 33 units SQ daily * Bolus insulin * NovoLog per scale ACHS or Q6hrs while NPO * Goal Range: Low 110 mg/dL - High 140 mg/dL * Correction Factor: 15 mg/dL/unit * Nutritional / Prandial insulin per carb ratio of 1 unit per 5 grams CHO consumed PLAN FOR DISCHARGE: * Patient's A1c (7.7%) indicates adequate glycemic control, in a 74yo patient with multiple comorbidities. * Expect that pt may resume home regimen on discharge, as long as he does not report having episodes of hypoglycemia. * Less stringent glycemic mgmt is appropriate in the setting of dementia, when reducing the risk for hypoglycemia is especially relevant.
--- NOTE | 2020-01-06 11:11 | Billing Data ---
Date of Service January 06, 2020 Coding Level of Care Code 56864 Subseq Hosp Care Lvl 1
--- NOTE | 2020-01-06 12:57 | Surgery Progress Note ---
Date of Service January 06, 2020 Assessment & Plan (1) Status post femoral-popliteal bypass surgery: He is doing well from his femoropopliteal bypass. At this point we will transfer him to the floor. There is no contraindication from a vascular standpoint for his foot surgery which was planned for tomorrow . Admission and Anticipated Discharge Date Admission Date: December 27, 2019 Subjective This patient is awake and alert. He denies pain in his foot. Physical Exam Constitutional: There is dressings are intact.Good capillary refill to the right foot.There is excellent Doppler signals heard in the right foot. Results & Data ([facility]) Vital Signs (Past 12 Hours) Vital Signs Temp Pulse Pulse Resp BP BP BP 01/06/20 12:00 36.6 C 79 20 153/67 H 01/06/20 11:11 62 20 158/65 H 01/06/20 11:00 72 17 01/06/20 10:00 36.9 C 66 16 139/62 01/06/20 09:00 62 15 135/60 01/06/20 08:01 63 15 145/62 H 01/06/20 08:00 36.7 C 66 68 17 143/62 H 158/55 H 01/06/20 07:00 61 15 143/62 H 01/06/20 06:00 61 15 143/63 H 01/06/20 05:01 62 12 145/59 H 01/06/20 05:00 60 12 01/06/20 04:00 60 19 135/58 L 01/06/20 03:00 71 19 138/87 01/06/20 02:01 82 16 132/71 01/06/20 01:00 65 16 143/60 H Pulse Ox Pulse Ox 01/06/20 12:00 90 01/06/20 11:11 96 01/06/20 11:00 98 01/06/20 10:00 95 01/06/20 09:00 93 01/06/20 08:01 95 01/06/20 08:00 92 95 01/06/20 07:00 92 01/06/20 06:00 91 01/06/20 05:01 92 01/06/20 05:00 93 01/06/20 04:00 92 01/06/20 03:00 93 01/06/20 02:01 94 01/06/20 01:00 92
[2020-01-06] MEDS: ENOXAPARIN INJ 40 MG/0.4 ML SYR SQ SCH (14:04)
[2020-01-06] MEDS: MoRPHine SULFATE 4 MG/ML 1 ML CARP\\VIAL IV PRN (17:49)
--- NOTE | 2020-01-06 19:19 | Orthopedic Progress Note ---
Date of Service January 06, 2020 Assessment & Plan (1) Chronic heel ulcer: Continue IV antibiotics. Continue daily wound care. Revascularization/bypass performed by Dr. Fournier Continue plans for I/D Right heel by Dr Waddell tomorrow (2) Osteomyelitis: Continue with local wound care, IV antibiotics per infectious disease, trend inflammatory labs, pending vascular consultation and possible intervention patient will most likely require debridement of at least lateral calcaneus chronic ulcer and bone. We will follow with you. Thank you for the consultation. Admission and Anticipated Discharge Date Admission Date: December 27, 2019 Subjective Patient lying in bed awake. Pleasantly confused. Currently has a one-on-one nursing. States that his heel is bothering him today. No other complaints at this time. Physical Exam Physical Exam: Dressing removed. Overall, the heel looks about the same. He does have a slight amount of increased erythema on the inferior aspect of the necrotic area. No gross drainage noted at this time. Demarcation appears to be about the same. Results & Data ([facility]) Vital Signs (Past 12 Hours) Vital Signs Temp Pulse Pulse Resp BP BP BP 01/06/20 13:00 69 21 133/55 L 01/06/20 12:00 36.6 C 79 20 153/67 H 01/06/20 11:11 62 20 158/65 H 01/06/20 11:00 72 17 01/06/20 10:00 36.9 C 66 16 139/62 01/06/20 09:00 62 15 135/60 01/06/20 08:01 63 15 145/62 H 01/06/20 08:00 36.7 C 66 68 17 143/62 H 158/55 H Pulse Ox Pulse Ox 01/06/20 13:00 95 01/06/20 12:00 90 01/06/20 11:11 96 01/06/20 11:00 98 01/06/20 10:00 95 01/06/20 09:00 93 01/06/20 08:01 95 01/06/20 08:00 92 95
[2020-01-06] MEDS: risperiDONE 0.5 MG TABLET PO PRN (20:18)
--- NOTE | 2020-01-06 20:59 | Hospitalist Progress Note ---
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 Wound culture grew Klebsiella oxytoca and group B beta strep. ID, Ortho, and Vascular Surgery consulted. Receiving IV piperacillin / tazobactam per sensitivities. Vascular evaluation demonstrated occlusion of right superficial femoral artery. Right fem-pop bypass performed 01/04. Surgical debridement anticipated. Continue IV antibiotic therapy with piperacillin / tazobactam. (2) Osteomyelitis: As noted above. (3) PAD (peripheral artery disease): Occlusion of right superficial femoral artery as noted above. S/P right fem-pop bypass. Ongoing risk factor modification. (4) Coronary artery disease: History of CAD, s/p DE. Denies chest pain. Continue aspirin, clopidogrel, metoprolol, isosorbide, statin. (5) Hypertension: Continue metoprolol and isosorbide mononitrate. (6) Hyperlipidemia: Continue atorvastatin. (7) Type 2 diabetes mellitus, with long-term current use of insulin: DM type 2 complicated by CAD and PVD. Hgb A1c 7.7. Lantus / NovoLog per protocol. FBS today = 113. (8) Alzheimer's dementia: Continue donepezil. Monitor for delirium. (9) C. difficile colitis: History of C diff colitis diagnosed prior to admission. Continue vancomycin. (10) DVT prophylaxis: SQ enoxaparin. (11) Discharge planning issues: Discharge disposition to be determined. Anticipated need for skilled care- discussed with and she agrees. Internal Medicine follow-up with Dr. Corina Strong. Admission and Anticipated Discharge Date Admission Date: December 27, 2019 Subjective Recheck for multiple problems. Patient seen in their room around 1330. visiting. Doing well postop. Pain well-controlled. Confused. Review of Systems: (questionable reliability due to confusion) Constitutional- no fever. Cardiac- no chest pain. Pulmonary- no cough or SOB. GI- no nausea, vomiting, diarrhea, melena, hematochezia. - Ward cath. Otherwise, as noted above. Physical Exam Constitutional: no acute distress Respiratory: no respiratory distress Auscultation: lungs clear to auscultation bilaterally Cardiovascular: Rate/Rhythm: regular rate and regular rhythm Vessels: no JVD Extremities: normal capillary refill (bilat toes < 2 sec) and + edema (trace pretibial); no calf tenderness Gastrointestinal (Abdomen): normal bowel sounds, soft, nontender, no hepatosplenomegaly Musculoskeletal: Extremities: no cyanosis surgical dressings RLE; right foot bandaged; waffle boots applied Skin: no rashes, warm and dry Psychiatric: Orientation: alert; + not oriented x 3 Genitourinary: + bladder abnormality (Ward cath) Results & Data Results & Data ([facility]) Vital Signs (Past 12 Hours) Vital Signs Temp Pulse Resp BP Pulse Ox 01/06/20 13:00 69 21 133/55 L 95 01/06/20 12:00 36.6 C 79 20 153/67 H 90 01/06/20 11:11 62 20 158/65 H 96 01/06/20 11:00 72 17 98 01/06/20 10:00 36.9 C 66 16 139/62 95 01/06/20 09:00 62 15 135/60 93 Laboratory Results Laboratory Results - last 24 hr 01/05/20 01/06/20 01/06/20 12:35 04:40 04:40 WBC 14.82 H RBC 3.20 L Hgb 9.5 L Hct 29.4 L MCV 91.9 MCH 29.7 MCHC 32.3 RDW Std Deviation 45.8 RDW Coeff of Lolly 13.6 Plt Count 734 H MPV 8.4 Immature Gran % (Auto) 0.3 Neut % (Auto) 80.3 Lymph % (Auto) 11.0 [place] % (Auto) 7.6 Eos % (Auto) 0.7 Baso % (Auto) 0.1 Neut # (Auto) 11.90 H Lymph # (Auto) 1.63 [place] # (Auto) 1.12 H Eos # (Auto) 0.10 Baso # (Auto) 0.02 Immature Gran # (Auto) 0.05 H Sodium 139 Potassium 4.1 Chloride 108 H Carbon Dioxide 28 Anion Gap 3.0 BUN 16 Creatinine 0.80 Est Cr Clr Drug Dosing 84.5 Est GFR ( Amer) 103.4 Est GFR (Non-Af Amer) 89.2 BUN/Creatinine Ratio 20.1 H Glucose 100 H POC Glucose Calcium 8.4 L Nasal Screen MRSA (PCR) Negative 01/06/20 01/06/20 01/06/20 07:29 11:15 17:25 WBC RBC Hgb Hct MCV MCH MCHC RDW Std Deviation RDW Coeff of Lolly Plt Count MPV Immature Gran % (Auto) Neut % (Auto) Lymph % (Auto) [place] % (Auto) Eos % (Auto) Baso % (Auto) Neut # (Auto) Lymph # (Auto) [place] # (Auto) Eos # (Auto) Baso # (Auto) Immature Gran # (Auto) Sodium Potassium Chloride Carbon Dioxide Anion Gap BUN Creatinine Est Cr Clr Drug Dosing Est GFR ( Amer) Est GFR (Non-Af Amer) BUN/Creatinine Ratio Glucose POC Glucose 113 H 84 125 H Calcium Nasal Screen MRSA (PCR) 01/06/20 20:43 WBC RBC Hgb Hct MCV MCH MCHC RDW Std Deviation RDW Coeff of Lolly Plt Count MPV Immature Gran % (Auto) Neut % (Auto) Lymph % (Auto) [place] % (Auto) Eos % (Auto) Baso % (Auto) Neut # (Auto) Lymph # (Auto) [place] # (Auto) Eos # (Auto) Baso # (Auto) Immature Gran # (Auto) Sodium Potassium Chloride Carbon Dioxide Anion Gap BUN Creatinine Est Cr Clr Drug Dosing Est GFR ( Amer) Est GFR (Non-Af Amer) BUN/Creatinine Ratio Glucose POC Glucose 106 H Calcium Nasal Screen MRSA (PCR)
[2020-01-07] MEDS: PIPERACILLIN/TAZOBACTAM 3.375 GM in DEXTROSE 5% 100 ML IV SCH ×3 (04:20→21:18)
[2020-01-07] MEDS: ACETAMINOPHEN 500 MG TAB PO SCH ×3 (06:54→21:18)
[2020-01-07 07:33] LABS: Hematocrit (blood only) 30.8 % (42-52); Hemoglobin 9.9 g/dL (14.0-18.0); Mean Corpuscular Hemoglobin 29.5 pg (25-34); Mean Corpuscular Hgb Conc 32.1 g/dL (32-36); Mean Corpuscular Volume 91.7 fL (80-100); Mean Platelet Volume 8.7 fL (7.4-10.4); Platelet Count 734 K/uL (130-400); RDW Coefficient of Variation 13.7 % (11.5-14.5); RDW Standard Deviation 45.5 fL (36.4-46.3); Red Blood Count 3.36 M/uL (4.7-6.1); White Blood Count 13.27 K/uL (4.8-10.8)
[2020-01-07 08:06] LABS: BUN Creatinine Ratio 15.7 (10-20); Creatinine Clr Calc Pharmacy 88.8 ml/min; Est GFR (African American) 104.5; Est GFR (Non-African American) 90.2
[2020-01-07] MEDS: INSULIN ASPART 100 UNITS/ML 3 ML PEN SC SCH ×5 (08:13→21:28)
[2020-01-07] MEDS: SACCHAROMYCES BOULARDII 250 MG CAP PO SCH (08:23)
[2020-01-07] MEDS: ATORVASTATIN 40 MG TAB PO SCH (08:23)
[2020-01-07] MEDS: ISOSORBIDE MONO EXTENDED REL 30 MG TABCR PO SCH (08:23)
[2020-01-07] MEDS: CLOPIDOGREL BISULFATE 75 MG TAB PO SCH ×2 (08:23→08:34)
[2020-01-07] MEDS: ASPIRIN 81 MG ECTAB PO SCH ×2 (08:23→08:34)
[2020-01-07] MEDS: METOPROLOL SUCC 25MG EXT REL TAB PO SCH (08:23)
[2020-01-07] MEDS: LACTOBACILLUS ACIDOPHILUS (FLORANEX) TAB PO SCH ×3 (08:23→16:06)
[2020-01-07] MEDS: ESCITALOPRAM OXALATE 20 MG TAB PO SCH (08:23)
[2020-01-07] MEDS: DONEPEZIL HCL 5 MG TAB PO SCH (08:24)
[2020-01-07] MEDS: FINASTERIDE 5 MG TAB PO SCH (08:37)
[2020-01-07] MEDS: VANCOMYCIN HCL 125 MG/2.5ML SOLN PO SCH ×2 (08:38→12:35)
[2020-01-07] MEDS: RASPBERRY SYRUP 5 ML UDP PO SCH ×3 (08:38→20:07)
[2020-01-07] MEDS ORDERED: fentaNYL citrate 100 MCG/2 ML VIAL ONE (08:51)
--- NOTE | 2020-01-07 08:51 | Anesthesiology Consultation ---
Date of Service January 07, 2020 Assessment & Plan (1) Encounter for pre-operative examination: Chart Review Chart Review: Acceptable Risk for Surgery History Surgery Operation Date: 12/31/19 12:50 Proposed Procedures p Right Lower Extremity Angiogram with Intervention - Blu Fournier MD Operation Date: 01/05/20 07:30 Proposed Procedures p Right Femoral Popliteal Bypass - Blu Fournier MD Operation Date: 01/07/20 10:00 Proposed Procedures p Right Heel Incision and Drainage - Kulwinder Waddell DO Height/Weight Height: 5 ft 11 in Weight: 73.3 kg Allergies Allergy/AdvReac Type Severity Reaction Status Date / Time Penicillins Allergy Unknown UNK Verified 12/25/19 17:36 KAVITA Inhibitors AdvReac Intermediate COUGH Verified 12/25/19 17:36 Medications Home Medications Medication Instructions Recorded Confirmed Last Taken atorvastatin 80 mg PO QAM 05/06/18 12/25/19 12/15/19 clopidogrel 75 mg PO QAM 05/06/18 12/25/19 12/15/19 donepezil 5 mg PO QAM 05/06/18 12/25/19 12/15/19 escitalopram oxalate [Lexapro] 20 mg PO QAM 05/06/18 12/25/19 12/15/19 turmeric root extract 500 mg PO DAILY 05/06/18 12/25/19 Unknown metformin 500 mg PO QAM 04/14/19 12/25/19 12/15/19 finasteride 5 mg PO QAM 06/12/19 12/25/19 12/15/19 aspirin 81 mg PO QAM 30 Days #30 tab 06/19/19 12/25/19 12/15/19 nitroglycerin [Nitrostat] 0.4 mg SUBLINGUAL UD PRN #30 tab 06/19/19 12/25/19 Unknown insulin glargine 100 unit/mL (3 26 unit SUBCUT QAM ml 11/29/19 12/25/19 12/15/19 mL) subcutaneous pen insulin aspart U-100 0 unit SUBCUT UD 12/16/19 12/25/19 12/15/19 isosorbide mononitrate 30 mg PO DAILY 12/16/19 12/25/19 12/15/19 metoprolol succinate 25 mg PO DAILY 12/16/19 12/25/19 12/15/19 polyethylene glycol 3350 [Miralax] 17 g PO DAILY 12/16/19 12/25/19 12/15/19 psyllium husk (with sugar) 1 tsp PO DAILY 12/16/19 12/25/19 12/15/19 [Metamucil Free] risperidone 0.25 mg PO DAILY PRN 12/16/19 12/25/19 Unknown sennosides [senna] 8.6 mg PO HS 12/16/19 12/25/19 12/15/19 acidophilus-pectin, citrus 1 cap PO TIDM 12/25/19 12/25/19 Unknown [Acidophilus Probiotic] hydroxyzine HCl 10 mg PO Q8 12/25/19 12/25/19 Unknown vancomycin 125 mg PO Q6H 12/25/19 12/25/19 Unknown cefdinir 300 mg capsule 300 mg PO BID 14 Days #28 cap 12/27/19 Unknown Active Medications Generic Name Dose Route Start Last Admin Trade Name Freq PRN Reason Stop Dose Admin Acetaminophen 1,000 mg 01/02/20 14:00 01/07/20 06:54 Acetaminophen 500 Mg Tab PO 02/01/20 13:59 1,000 mg Q8H GISELL Administration Aspirin 81 mg 12/26/19 09:00 01/07/20 08:34 Aspirin 81 Mg Ectab PO 01/25/20 08:59 Not Given QAM GISELL Atorvastatin Calcium 80 mg 12/26/19 09:00 01/07/20 08:23 Atorvastatin 40 Mg Tab PO 01/25/20 08:59 80 mg QAM GISELL Administration Clopidogrel Bisulfate 75 mg 12/26/19 09:00 01/07/20 08:34 Clopidogrel Bisulfate 75 Mg Tab PO 01/25/20 08:59 Not Given QAM GISELL Donepezil HCl 5 mg 12/26/19 09:00 01/07/20 08:24 Donepezil Hcl 5 Mg Tab PO 01/25/20 08:59 5 mg QAM GISELL Administration Enoxaparin Sodium 40 mg 01/02/20 14:15 01/06/20 14:04 Enoxaparin Inj 40 Mg/0.4 Ml Syr SQ 02/01/20 14:14 40 mg Q24H GISELL Administration Escitalopram Oxalate 20 mg 12/26/19 09:00 01/07/20 08:23 Escitalopram Oxalate 20 Mg Tab PO 01/25/20 08:59 20 mg QAM GISELL Administration Finasteride 5 mg 12/26/19 09:00 01/07/20 08:37 Finasteride 5 Mg Tab PO 01/25/20 08:59 Not Given QAM GISELL Piperacillin Sod/Tazobactam 115 mls @ 28.75 mls/hr 01/02/20 20:00 01/07/20 08:20 Sod 3.375 gm/ Dextrose IV 02/13/20 19:59 Infused Q8H GISELL Infusion Protocol Insulin Aspart 0 units 01/07/20 08:15 01/07/20 08:13 Insulin Aspart 100 Units/Ml 3 Ml Pen SC 02/06/20 08:14 Not Given Q6 GISELL Protocol Insulin Glargine 33 units 01/04/20 09:00 01/06/20 08:47 Insulin Glargine Solostar 100 Units/Ml 3 Ml Pen SC 02/03/20 08:59 33 units DAILY GISELL Administration Protocol Isosorbide Mononitrate 30 mg 12/26/19 09:00 01/07/20 08:23 Isosorbide [place] Extended Rel 30 Mg Tabcr PO 01/25/20 08:59 30 mg DAILY GISELL Administration Lactobacillus Acidophilus 4 tab 12/26/19 08:00 01/07/20 08:23 Lactobacillus Acidophilus (Floranex) Tab PO 01/25/20 07:59 4 tab TIDM GISELL Administration Metoprolol Succinate 25 mg 12/26/19 09:00 01/07/20 08:23 Metoprolol Succ 25mg Ext Rel Tab PO 01/25/20 08:59 25 mg DAILY GISELL Administration Miscellaneous 15 - 30 gm 12/25/19 20:14 12/26/19 06:28 Carbohydrates For Hypoglycemia PO 01/24/20 20:13 30 gm UD PRN Administration Hypoglycemia Protocol Morphine Sulfate 1 - 4 mg 01/05/20 12:38 01/06/20 17:49 Morphine Sulfate 4 Mg/Ml 1 Ml Carp\Vial IV 01/19/20 12:37 2 mg Q2H PRN Administration Severe Pain Raspberry 5 ml 12/29/19 09:00 01/07/20 08:38 Raspberry Syrup 5 Ml Udp PO 01/12/20 08:59 Not Given BID GISELL Risperidone 0.25 mg 12/25/19 20:14 01/06/20 20:18 Risperidone 0.5 Mg Tablet PO 01/24/20 20:13 0.25 mg DAILY PRN Administration confusion Saccharomyces Boulardii 250 mg 01/03/20 18:30 01/07/20 08:23 Saccharomyces Boulardii 250 Mg Cap PO 02/02/20 18:29 250 mg DAILY GISELL Administration Vancomycin HCl 125 mg 12/28/19 21:00 01/07/20 08:38 Vancomycin Hcl 125 Mg/2.5ml Soln PO 01/07/20 20:59 Not Given BID GISELL NPO Date Last Intake of Fluids: 01/06/20 Time Last Intake of Fluids: 23:59 Date Last Intake of Solids: 01/06/20 Time Last Intake of Solids: 23:59 Past Medical History Medical History (Updated 01/07/20 @ 08:52 by Kris Rae MD) Carotid artery disease Chest pain on exertion (11/08/13) Coronary artery disease Dementia DM (diabetes mellitus) HTN (hypertension) Hyperglycemia Hyperlipemia Hypoglycemia Ischemic cardiomyopathy Non-ST elevation [place] (NSTEMI) Open wound Slurred speech Type 2 diabetes mellitus, with long-term current use of insulin Vascular disease Vascular disease Past Family History Family History Other Family history non-contributory Past Surgical History Surgical History (Updated 01/07/20 @ 08:49 by Kris aRe MD) History of colonoscopy History of repair of ACL Status post femoral-popliteal bypass surgery Social History Smoking Status: Former smoker Hx Alcohol Use: Yes Alcohol type: beer and wine alcohol intake frequency: holidays/special occasions only Hx Substance Use: No substance use type: does not use Physical Exam Vital Signs Last Vital Signs Temp 36.3 C L 01/06/20 23:29 Pulse 78 01/06/20 23:29 Resp 18 01/06/20 23:29 BP 152/63 H 01/06/20 23:29 Pulse Ox 93 01/06/20 23:29 Testing Laboratory Results 01/07/20 07:19 01/07/20 07:19 PT 11.7 Seconds (9.0-12.0) 12/25/19 16:10 INR 1.1 (0.9-1.1) 12/25/19 16:10 APTT 30.7 Seconds (21.0-31.0) 12/25/19 16:10 Hemoglobin A1c 7.7 % (4.5-5.6) H 12/26/19 05:08 Urine Color Yellow 01/03/20 06:15 Urine Appearance Clear (Clear) 01/03/20 06:15 Urine pH 5.0 (4.5-7.5) 01/03/20 06:15 Ur Specific [place] 1.019 (1.000-1.030) 01/03/20 06:15 Urine Protein Negative (Negative) 01/03/20 06:15 Urine Glucose (UA) 2+ (Negative) H 01/03/20 06:15 Urine Ketones Negative (Negative) 01/03/20 06:15 Urine Nitrite Negative (Negative) 01/03/20 06:15 Ur Leukocyte Esterase Negative (Negative) 01/03/20 06:15 Blood Type O Positive 01/04/20 16:03 Antibody Screen NEGATIVE 01/04/20 16:03 01/02/20 11:22 Aerobic Blood Culture - Preliminary Blood No growth in Aerobic bottle after 48 hours. Anaerobic Blood Culture - Preliminary No growth in Anaerobic bottle after 48 hours. 01/02/20 11:23 Aerobic Blood Culture - Preliminary Blood No growth in Aerobic bottle after 48 hours. Anaerobic Blood Culture - Preliminary No growth in Anaerobic bottle after 48 hours. 01/07/20 01/06/20 08:09 20:43 POC Glucose 134 H 106 H Electrocardiogram Date: 12/25/19 Findings: + NSR @ (80) Echocardiogram Date: 06/23/19 EF: 35-40 LV Function: dysfunctional Valvular Disease: + no significant valvular disease
[2020-01-07] MEDS ORDERED: PROPOFOL IV EMULSION 10 MG/ML 20 ML VIAL IV ONE (08:55)
[2020-01-07] MEDS ORDERED: LIDOCAINE HCL 2% 2 ML VIAL/AMP(20MG/ML) INFIL ONE (08:55)
[2020-01-07] MEDS ORDERED: INSULIN GLARGINE SOLOSTAR 100 UNITS/ML 3 ML PEN SC SCH (09:00)
[2020-01-07] MEDS ORDERED: ONDANSETRON INJ 2 MG/ML 2 ML VIAL IV PRN (09:01)
[2020-01-07] MEDS ORDERED: fentaNYL citrate 100 MCG/2 ML VIAL IV PRN (09:01)
[2020-01-07] MEDS ORDERED: ATROPINE SULFATE 0.1 MG/ML 10ML SYR IV PRN (09:01)
--- NOTE | 2020-01-07 09:09 | Pharmacy Report ---
Pharmacy Glycemic Short Note 2 - Date of Service January 07, 2020 - Glycemic Short BSG Results (Last 24 hours): 01/06/20 01/06/20 01/06/20 11:15 17:25 20:43 Glucose POC Glucose 84 125 H 106 H 01/07/20 01/07/20 07:19 08:09 Glucose 116 H POC Glucose 134 H OUTPATIENT ANTIDIABETIC REGIMEN: * Lantus 26 units SQ qAM * Novolog SSI * Metformin 500mg PO qAM * HbA1c: 7.7% (12/26/19) ASSESSMENT: 01/06: * Pt has received 47 units of insulin over the past 24hrs * 33 units of basal * 14 units of bolus (no CHO at dinner or HS which is keeping bolus dosing lower) * BSGs [id number] mg/dl * Pt is scheduled for Right heel I&D this AM. Currently NPO * Will decrease basal insulin dose by 20% for NPO status to prevent low BSG * No changes needed to CF/CR as this will be omitted while NPO * Will add supplemental dose of NPH if dexamethasone is given in OR/PACU - dose will be unit/kg dose based on dose of DXM received. 01/05 * BSGs fairly well controlled over last 24 hours given recent events * Patient returned to the OR yesterday for superficial femoral artery occlusion, where fem-pop prosthetic bypass was performed * Of note he received dexamethasone in the OR yesterday (4mg IV x 1) * Fasting BSG 100 this AM with 20 units of Lantus + 25 units NPH on board * Diet resumed yesterday w/ dinner and continues this AM. Patient may return to OR tomorrow. * Will resume basal insulin dose will be based upon data collected this admission. Estimate he will require 30-36 units basal per day while tolerating a diet. * Novolog parameters have performed fairly well - will continue the same for now and follow post-prandial pattern * Total daily insulin estimate ~80 units while tolerating a diet. PLAN FOR INPATIENT GLYCEMIC CONTROL: * Continue to hold metformin * Basal insulin * Lantus 33 units SQ daily - HOLD * Decrease dose today to 26 units for NPO * Bolus insulin * NovoLog per scale ACHS or Q6hrs while NPO * Goal Range: Low 110 mg/dL - High 140 mg/dL * Correction Factor: 15 mg/dL/unit * Nutritional / Prandial insulin per carb ratio of 1 unit per 5 grams CHO consumed PLAN FOR DISCHARGE: * Patient's A1c (7.7%) indicates adequate glycemic control, in a 74yo patient with multiple comorbidities. * Expect that pt may resume home regimen on discharge, as long as he does not report having episodes of hypoglycemia. * Less stringent glycemic mgmt is appropriate in the setting of dementia, when reducing the risk for hypoglycemia is especially relevant.
--- NOTE | 2020-01-07 09:32 | History & Physical Bridge Note ---
Date of Service January 07, 2020 History & Physical Bridge Note I have examined the patient, reviewed the History & Physical and in the interval since the performance of the History & Physical I have noted the following changes of clinical significance: no changes noted
[2020-01-07] MEDS ORDERED: VANCOMYCIN HCL 1000MG/20ML VIAL ONE (10:15)
[2020-01-07] MEDS ORDERED: GENTAMICIN SULFATE 40 MG/ML 2 ML VIAL ONE (10:16)
--- NOTE | 2020-01-07 11:05 | Post Operative Brief Note ---
Immediate Post Op Note v1 Date of Surgery January 07, 2020 Pre & Post Diagnosis Operation Date: 12/31/19 12:50 Pre-Op Diagnosis: Superficial Femoral Artery Occlusion With Osteomyelitis Post-Op Diagnosis: Superficial Femoral Artery Occlusion With Osteomyelitis Operation Date: 01/05/20 07:30 Pre-Op Diagnosis: Nonhealing ulcer right foot with osteomylitis Post-Op Diagnosis: Nonhealing ulcer right foot with osteomylitis Operation Date: 01/07/20 10:00 Pre-Op Diagnosis: Right lateral calcaneus diabetic/neuropathic/gangrenous ulcer 6 cm x 4.5 cm x 0.3 cm, right lateral malleolus diabetic/neuropathic/gangrenous ulcer 2 cm x 2.5 cm x 0.3 cm, septic periostitis with early osteomyelitis lateral calcaneus, septic periostitis with early osteomyelitis lateral malleolus Post-Op Diagnosis: Right lateral calcaneus diabetic/neuropathic/gangrenous ulcer 6 cm x 4.5 cm x 0.3 cm, right lateral malleolus diabetic/neuropathic/gangrenous ulcer 2 cm x 2.5 cm x 0.3 cm, septic periostitis with early osteomyelitis lateral calcaneus, septic periostitis with early osteomyelitis lateral malleolus I identified the patient and participated in the time-out.: Yes Procedure Operation Date: 12/31/19 12:50 Actual Procedures p Right Lower Extremity Angiogram with Attempted Intervention, Ultrasound Localization of Left Femoral Artery, Moderate Concious Sedation 1328 to 1451(Left) - Blu Fournier MD Operation Date: 01/05/20 07:30 Actual Procedures p Right Femoral Popliteal Prosthetic Bypass(Right) - Blu Fournier MD Operation Date: 01/07/20 10:00 Actual Procedures p Right foot irrigation and debridement lateral heel diabetic/neuropathic/gangrenous ulcer 6 cm x 4.5 cm x 0.3 cm; right lateral malleolus irrigation debridement diabetic/neuropathic/gangrenous ulcer 2 cm x 2.5 cm x 0.3 cm; debridement of right heel skin, subcutaneous fat, fascia and periosteum; debridement of right lateral malleolus skin, subcutaneous fat, fascia and periosteum; application of 5cc antibiotic Stimulan beads at 2 separate locations.- Kulwinder Waddell DO Surgeon Kulwinder Waddell DO [employer] Application Development Manager Frank Roldan PA-C Estimated Blood Loss 4 Findings Consistent with Post-Op Diagnosis Specimens Aerobic anaerobic Gram stain deep lateral heel right foot Drains Ward Catheter Anesthesia Type General Regional Complications none Disposition Accompanied Patient To Recovery: Yes Disposition: Recovery Room
--- NOTE | 2020-01-07 11:27 | Anesthesiology Progress Note ---
Date of Service January 07, 2020 Anesthesia Post Procedure Vital Signs Vital Signs: Temp Pulse Pulse Pulse Resp BP BP 01/07/20 11:15 85 14 135/63 01/07/20 11:05 85 14 138/59 L 01/07/20 10:56 36.5 C 82 14 128/59 L 01/07/20 08:50 37.4 C 72 18 126/57 L 01/07/20 08:20 37.6 C H 75 16 01/06/20 23:29 36.3 C L 78 18 152/63 H 01/06/20 13:00 69 21 133/55 L 01/06/20 12:00 36.6 C 79 20 153/67 H BP Pulse Ox 01/07/20 11:15 97 01/07/20 11:05 97 01/07/20 10:56 94 01/07/20 08:50 92 01/07/20 08:20 143/69 H 90 01/06/20 23:29 93 01/06/20 13:00 95 01/06/20 12:00 90 Pain Intensity Bilateral Abdomen: Pain Intensity: 0 Transfer of Care Handoff Completed per policy Notes Mental Status: alert / awake / arousable Patient Amnestic to Procedure: Yes Nausea / Vomiting: adequately controlled Pain: adequately controlled Airway Patency, RR, SpO2: stable & adequate BP & HR: stable & adequate Hydration State: stable & adequate Anesthetic Complications: no major complications apparent
[2020-01-07] MEDS ORDERED: INSULIN GLARGINE SOLOSTAR 100 UNITS/ML 3 ML PEN SC ONE (12:45)
[2020-01-07] MEDS: ENOXAPARIN INJ 40 MG/0.4 ML SYR SQ SCH (13:44)
--- NOTE | 2020-01-07 14:54 | Operative Report (OR) ---
DATE OF OPERATION: 01/07/2020 PREOPERATIVE DIAGNOSES: Right foot lateral calcaneus diabetic/neuropathic/gangrenous ulcer 6 cm x 4.5 cm x 0.3 cm, right lateral malleolus diabetic/neuropathic/gangrenous ulcer 2 cm x 2.5 cm x 0.3 cm, septic periostitis with early osteomyelitis of lateral calcaneus, septic periostitis with early osteomyelitis of the lateral malleolus. POSTOPERATIVE DIAGNOSES: Right foot lateral calcaneus diabetic/neuropathic/gangrenous ulcer 6 cm x 4.5 cm x 0.3 cm, right lateral malleolus diabetic/neuropathic/gangrenous ulcer 2 cm x 2.5 cm x 0.3 cm, septic periostitis with early osteomyelitis of lateral calcaneus, septic periostitis with early osteomyelitis of the lateral malleolus. PROCEDURES PERFORMED: Right foot irrigation and debridement of lateral heel diabetic/neuropathic/gangrenous ulcer 6 cm x 4.5 cm x 0.3 cm, right lateral malleolus irrigation and debridement of diabetic/neuropathic/gangrenous ulcer 2 cm x 2.5 cm x 0.3 cm; debridement of right heel, skin, subcutaneous fat, fascia and periosteum; debridement of right lateral malleolus skin, subcutaneous fat, fascia and periosteum; application of 5 mL antibiotic Stimulan beads at 2 separate locations, lateral malleolus and lateral heel. SURGEON: Kulwinder Waddell DO. ABSTRACT MAKER: Frank Roldan PA-C who was present for patient positioning, sterile prep and drape, management of retractors and instruments. He was present through the critical portions of the case including wound closure, application of sterile dressing and transport of the patient to recovery. ANESTHESIA: General with local. SPECIMENS: Aerobic, anaerobic, Gram stain, deep lateral heel. DRAINS: None. COMPLICATIONS: None. BLOOD LOSS: 4 mL. PERTINENT HISTORY: This is a 74-year-old gentleman who had developed a diabetic/neuropathic/gangrenous ulcer of the lateral aspect of the heel and the lateral malleolus over the last several weeks. He had been seen by wound care and primary care. He was then admitted to the hospital for IV antibiotics. He was evaluated by the vascular team, noted to have a superficial femoral artery occlusion and underwent a femoral popliteal bypass with a [place] graft performed by Dr. Fournier and after that is stabilized, he was then scheduled for operative intervention for his lateral malleolar ulcer and his lateral heel ulcer as mentioned above. The patient had local supportive wound care up to that point, he was then scheduled for surgery as indicated and when appropriate. All potential risks, benefits, complications, alternatives, rehab potential for incomplete relief of symptoms, need for further surgery, DVT, PE, , persistent pain, swelling, scarring, weakness, neurovascular injury, wound complications, need for further amputation and treatment were discussed with the patient and his , they both decided to proceed with the procedure as indicated. DESCRIPTION OF PROCEDURE: The patient was then taken to the operative suite, placed supine on the operating room table. After review of the consent and identification of proper operative site, the patient was anesthetized. Next, there was no pneumatic tourniquet applied on the thigh due to the recent fem-pop bypass. The right lower extremity was then sterilely prepped and draped in usual fashion, elevated and an Esmarch tourniquet was applied over sterile surgical towel at the level of the ankle. A 15 blade scalpel was used to perform a full thickness debridement of the right lateral heel ulcer, measurements noted above. The necrotic gangrenous tissue was sharply excised including the skin, subcutaneous fat down to the level of the fascia. There was noted to be a small fluid collection of what appeared to be purulent debris. This was then cultured for aerobic, anaerobic, Gram stain. Next, the tissue was then passed off. The subcutaneous fat and fascia was then further debrided sharply with a 15 blade scalpel and a curette. All necrotic tissue was excised. This was performed down to the level of the periosteum, which was also debrided sharply with a 15 blade scalpel. Some epidermal skin slough was then sharply excised with 15 blade scalpel and removing it around to normal-appearing tissue out of the zone of injury. Next, a separate blade and forceps were then used to debride the lateral malleolus, the gangrenous overlying tissue, measurements noted above; 2 cm x 2.5 cm x 0.3 cm was sharply debrided from skin, subcutaneous fat down to the fascia and then down to the periosteum sharply resecting any necrotic gangrenous-appearing tissue. Slight foul odor was encountered. Once all necrotic debris and tissue was sharply excised with 15 blade scalpel and a curette, next, pulsatile lavage was used with bacitracin, approximately 3 liters in total, it was fully lavaged until clear. Next, top gloves and top sheet were changed and antibiotic Stimulan beads were created 5 mL with vancomycin and gentamicin. Once these beads were thoroughly hardened, final debridement of the tissue was performed with a fresh 15 blade scalpel. After careful debridement of the periosteum of the lateral malleolus and the lateral heel, the bone was noted to be firm when probed with a 15 blade scalpel at both sites respectively. Next, bead pouches were created with a skin stapler and an Acticoat Flex over the lateral malleolus and the lateral calcaneus, and these were filled equally with beads at each site as appropriate. Next, the excess Acticoat Flex was then trimmed with a scissor and the bead pouches were closed with amaris. Finally, local anesthetic was injected around the incision sites, Marcaine 0.5% plain. A sterile compressive dressing overwrapped with an Derrick wrap was applied. The tourniquet was released. The patient was awakened and taken to recovery in stable condition. I attest to the content of the Intraoperative Record and any orders documented therein. Any exception s are noted below.
--- NOTE | 2020-01-07 19:04 | Hospitalist Progress Note ---
Date of Service January 07, 2020 Assessment & Plan (1) Diabetic ulcer of foot with necrosis of bone: Diabetic foot ulcer right lateral malleolus and calcaneus with suspected underlying osteomyelitis. Wound culture grew Klebsiella oxytoca and group B beta strep. ID, Ortho, and Vascular Surgery consulted. Receiving IV piperacillin / tazobactam per sensitivities. Vascular evaluation demonstrated occlusion of right superficial femoral artery. Right fem-pop bypass performed 01/04. Surgical debridement performed by Ortho 01/06. Continue IV antibiotic therapy with piperacillin / tazobactam. (2) Osteomyelitis: As noted above. (3) PAD (peripheral artery disease): Occlusion of right superficial femoral artery as noted above. S/P right fem-pop bypass. Ongoing risk factor modification. (4) Coronary artery disease: History of CAD, s/p [place]. Denies chest pain. Continue aspirin, clopidogrel, metoprolol, isosorbide, statin. (5) Hypertension: Continue metoprolol and isosorbide mononitrate. (6) Hyperlipidemia: Continue atorvastatin. (7) Type 2 diabetes mellitus, with long-term current use of insulin: DM type 2 complicated by CAD and PVD. Hgb A1c 7.7. Pharmacy consulted for glycemia management. Lantus / NovoLog per protocol. FBS today = 134. (8) Alzheimer's dementia: Continue donepezil. Monitor for delirium. (9) C. difficile colitis: History of C diff colitis diagnosed prior to admission. Continue vancomycin. (10) COVID-19 ruled out: COVID-19 screening necessary for preop screening. SARS-CoV-2 PCR negative on 12/31/19. (11) DVT prophylaxis: SQ enoxaparin. (12) Discharge planning issues: Discharge disposition to be determined. Anticipated need for skilled care- discussed with and she agrees. Internal Medicine follow-up with Dr. Corina Strong. Admission and Anticipated Discharge Date Admission Date: December 27, 2019 Subjective Recheck for multiple problems. Patient seen in their room around 1150. Right foot ulcers debrided this morning by Ortho. Doing well. Pain well-controlled. Confused. Review of Systems: (questionable reliability due to confusion) Constitutional- no fever. Cardiac- no chest pain. Pulmonary- no cough or SOB. GI- no nausea, vomiting, diarrhea, melena, hematochezia. - Ward cath. Otherwise, as noted above. Physical Exam Constitutional: no acute distress Respiratory: no respiratory distress Auscultation: lungs clear to auscultation bilaterally Cardiovascular: Rate/Rhythm: regular rate and regular rhythm Vessels: no JVD Extremities: normal capillary refill (bilat toes < 2 sec) and + edema (trace pretibial); no calf tenderness Gastrointestinal (Abdomen): normal bowel sounds, soft, nontender, no hepatosplenomegaly Musculoskeletal: Extremities: + extremities abnormal to inspection (surgical dressings RLE & foot; waffle boots applied) and no cyanosis Skin: no rashes, warm and dry Psychiatric: Orientation: alert; + not oriented x 3 Genitourinary: + bladder abnormality (Ward cath) Results & Data Results & Data ([facility]) Vital Signs (Past 12 Hours) Vital Signs Temp Pulse Pulse Resp BP BP Pulse Ox 01/07/20 14:59 36.9 C 18 117/65 94 01/07/20 13:43 88 12 120/57 L 91 01/07/20 12:52 93 H 16 118/52 L 92 01/07/20 12:07 36.6 C 95 H 16 137/69 92 01/07/20 11:46 36.9 C 85 16 135/62 96 01/07/20 11:35 86 18 123/61 96 01/07/20 11:25 36.6 C 86 18 140/62 97 01/07/20 11:15 85 14 135/63 97 01/07/20 11:05 85 14 138/59 L 97 01/07/20 10:56 36.5 C 82 14 128/59 L 94 01/07/20 08:50 37.4 C 72 18 126/57 L 92 01/07/20 08:20 37.6 C H 75 16 143/69 H 90 Laboratory Results Laboratory Results - last 24 hr 01/04/20 01/06/20 01/07/20 16:03 20:43 07:19 WBC 13.27 H RBC 3.36 L Hgb 9.9 L Hct 30.8 L MCV 91.7 MCH 29.5 MCHC 32.1 RDW Std Deviation 45.5 RDW Coeff of Lolly 13.7 Plt Count 734 H MPV 8.7 Sodium Potassium Chloride Carbon Dioxide Anion Gap BUN Creatinine Est Cr Clr Drug Dosing Est GFR ( Amer) Est GFR (Non-Af Amer) BUN/Creatinine Ratio Glucose POC Glucose 106 H Calcium Crossmatch See Detail 01/07/20 01/07/20 01/07/20 07:19 08:09 11:09 WBC RBC Hgb Hct MCV MCH MCHC RDW Std Deviation RDW Coeff of Lolly Plt Count MPV Sodium 139 Potassium 4.0 Chloride 105 Carbon Dioxide 25 Anion Gap 9.0 BUN 12 Creatinine 0.78 Est Cr Clr Drug Dosing 88.8 Est GFR ( Amer) 104.5 Est GFR (Non-Af Amer) 90.2 BUN/Creatinine Ratio 15.7 Glucose 116 H POC Glucose 134 H 179 H Calcium 9.0 Crossmatch 01/07/20 17:26 WBC RBC Hgb Hct MCV MCH MCHC RDW Std Deviation RDW Coeff of Lolly Plt Count MPV Sodium Potassium Chloride Carbon Dioxide Anion Gap BUN Creatinine Est Cr Clr Drug Dosing Est GFR ( Amer) Est GFR (Non-Af Amer) BUN/Creatinine Ratio Glucose POC Glucose 150 H Calcium Crossmatch
[2020-01-08] MEDS: PIPERACILLIN/TAZOBACTAM 3.375 GM in DEXTROSE 5% 100 ML IV SCH ×3 (05:39→20:28)
[2020-01-08] MEDS: ACETAMINOPHEN 500 MG TAB PO SCH ×3 (05:46→21:34)
[2020-01-08 06:25] LABS: BUN Creatinine Ratio 15.2 (10-20); Calcium 8.6 mg/dl (8.5-10.1); Creatinine Clr Calc Pharmacy 81.4 ml/min; Est GFR (African American) 100.9; Est GFR (Non-African American) 87.1
[2020-01-08] MEDS: INSULIN ASPART 100 UNITS/ML 3 ML PEN SC SCH ×4 (08:43→21:31)
[2020-01-08] MEDS: SACCHAROMYCES BOULARDII 250 MG CAP PO SCH (08:44)
[2020-01-08] MEDS: ISOSORBIDE MONO EXTENDED REL 30 MG TABCR PO SCH (08:45)
[2020-01-08] MEDS: ASPIRIN 81 MG ECTAB PO SCH (08:45)
[2020-01-08] MEDS: CLOPIDOGREL BISULFATE 75 MG TAB PO SCH (08:45)
[2020-01-08] MEDS: FINASTERIDE 5 MG TAB PO SCH (08:46)
[2020-01-08] MEDS: DONEPEZIL HCL 5 MG TAB PO SCH (08:46)
[2020-01-08] MEDS: METOPROLOL SUCC 25MG EXT REL TAB PO SCH (08:46)
[2020-01-08] MEDS: ATORVASTATIN 40 MG TAB PO SCH (08:46)
[2020-01-08] MEDS: LACTOBACILLUS ACIDOPHILUS (FLORANEX) TAB PO SCH ×3 (08:47→18:01)
[2020-01-08] MEDS: ESCITALOPRAM OXALATE 20 MG TAB PO SCH (08:47)
[2020-01-08] MEDS: RASPBERRY SYRUP 5 ML UDP PO SCH ×2 (08:47→23:55)
[2020-01-08] MEDS: INSULIN GLARGINE SOLOSTAR 100 UNITS/ML 3 ML PEN SC SCH (08:48)
--- NOTE | 2020-01-08 09:12 | Orthopedic Progress Note ---
Date of Service January 08, 2020 Assessment & Plan (1) Chronic heel ulcer: Postop day #1 s/p Right foot irrigation and debridement of lateral heel diabetic/neuropathic/gangrenous ulcer 6 cm x 4.5 cm x 0.3 cm, right lateral malleolus irrigation and debridement of diabetic/neuropathic/gangrenous ulcer 2 cm x 2.5 cm x 0.3 cm; debridement of right heel, skin, subcutaneous fat, fascia and periosteum; debridement of right lateral malleolus skin, subcutaneous fat, fascia and periosteum; application of 5 mL antibiotic Stimulan beads at 2 separate locations, lateral malleolus and lateral heel. Continue IV antibiotics. Continue daily wound care. Postoperative dressing kept in place today. We will plan for dressing change tomorrow. Nonweightbearing right lower extremity at all times. Gram stain is complete. Lateral heel growing gram-positive cocci, gram-positive bacilli, gram-negative bacilli. The lateral malleolus ulceration growing gram- positive cocci and gram-positive bacilli. Will await final culture results. Discharge planninguncertain at this time. (2) Osteomyelitis: Admission and Anticipated Discharge Date Admission Date: December 27, 2019 Subjective Patient was asleep however was awaken easily. Seem to be answering questions appropriately today. Does not have any complaints of the right foot. Denies pain on the right lower lateral ankle. Physical Exam Constitutional: no acute distress Musculoskeletal: Ankle: no skin erythema and no ecchymosis Skin: + ulcer (Right lateral malleolus and lateral heel ulcerations. Postoperative dressings clean/dry/intact) Psychiatric: Orientation: alert Results & Data ([facility]) Vital Signs (Past 12 Hours) Vital Signs Temp Pulse Pulse Resp BP BP Pulse Ox 01/08/20 08:00 36.8 C 79 18 148/66 H 96 01/08/20 04:12 37.2 C 75 14 140/59 L 94 01/07/20 23:04 37.2 C 78 14 130/47 L 92 Laboratory Results Spec: [id number] Collected: 01/07/20 Received: 01/07/[address]: Kulwinder WaddellDGregO. Copy To: Harris Warner DO Source: Foot,Right OV Order: Ordered: Aer/Jill Cult/Sm Comments: Comment Culture #1- small container- right heel Procedure Result Verified Site Gram Stain Final 01/08/20 Gram Stain Result Many Epithelial Cells Many Gram Positive Cocci Many Gram Positive Bacilli Rare Gram Negative Bacilli Rare WBCs Seen Aero/Jill Cult PENDING Spec: [id number] Collected: 01/07/20 Received: 01/07/[address]: Kulwinder WaddellDGregO. Copy To: Harris Warner DO Source: Foot,Right OV Order: Ordered: Aer/Jill Cult/Sm Comments: Comment #3- culture in small container- lateral ulcer Procedure Result Verified Site Gram Stain Final 01/08/20 Gram Stain Result Rare Gram Positive Bacilli Rare Gram Positive Cocci No WBCs Seen Aero/Jill Cult PENDING
[2020-01-08] MEDS ORDERED: INSULIN GLARGINE SOLOSTAR 100 UNITS/ML 3 ML PEN SC ONE (09:30)
[2020-01-08] MEDS: Nursing to Pharmacy Communication SCH ×2 (12:22→12:23)
[2020-01-08] MEDS: ENOXAPARIN INJ 40 MG/0.4 ML SYR SQ SCH (12:30)
--- NOTE | 2020-01-08 14:38 | Pharmacy Report ---
Pharmacy Glycemic Short Note 2 - Date of Service January 08, 2020 - Glycemic Short BSG Results (Last 24 hours): 01/07/20 01/07/20 01/08/20 17:26 21:03 05:21 Glucose 105 H POC Glucose 150 H 113 H 01/08/20 08:22 Glucose POC Glucose 131 H OUTPATIENT ANTIDIABETIC REGIMEN: * Lantus 26 units SQ qAM * Novolog SSI * Metformin 500mg PO qAM * HbA1c: 7.7% (12/26/19) ASSESSMENT: 01/07: * Pt received 45 units of insulin yesterday (33 units of basal and 12 units of bolus) * He has resumed an oral diet s/p I&D * Fasting BSG of 105 mg/dL. Patient requested not to have his ordered dose of Lantus 33 units due to BSG level. He agreed to reduced dose of Lantus 25 units (25% decrease). Will reassess dose in AM. * Post prandial BSGs are acceptable. No changes to novolog. 01/06: * Pt has received 47 units of insulin over the past 24hrs * 33 units of basal * 14 units of bolus (no CHO at dinner or HS which is keeping bolus dosing lower) * BSGs [phone] mg/dl * Pt is scheduled for Right heel I&D this AM. Currently NPO * Will decrease basal insulin dose by 20% for NPO status to prevent low BSG * No changes needed to CF/CR as this will be omitted while NPO * Will add supplemental dose of NPH if dexamethasone is given in OR/PACU - dose will be unit/kg dose based on dose of DXM received. 01/05 * BSGs fairly well controlled over last 24 hours given recent events * Patient returned to the OR yesterday for superficial femoral artery occlusion, where fem-pop prosthetic bypass was performed * Of note he received dexamethasone in the OR yesterday (4mg IV x 1) * Fasting BSG 100 this AM with 20 units of Lantus + 25 units NPH on board * Diet resumed yesterday w/ dinner and continues this AM. Patient may return to OR tomorrow. * Will resume basal insulin dose will be based upon data collected this admis javier. Estimate he will require 30-36 units basal per day while tolerating a diet. * Novolog parameters have performed fairly well - will continue the same for now and follow post-prandial pattern * Total daily insulin estimate ~80 units while tolerating a diet. PLAN FOR INPATIENT GLYCEMIC CONTROL: * Continue to hold metformin * Basal insulin - decrease * Lantus 25 units SQ this morning * Bolus insulin - no change * NovoLog per scale ACHS or Q6hrs while NPO * Goal Range: Low 110 mg/dL - High 140 mg/dL * Correction Factor: 15 mg/dL/unit * Nutritional / Prandial insulin per carb ratio of 1 unit per 5 grams CHO consumed PLAN FOR DISCHARGE: * Patient's A1c (7.7%) indicates adequate glycemic control, in a 74yo patient with multiple comorbidities. * Expect that pt may resume home regimen on discharge, as long as he does not report having episodes of hypoglycemia. * Less stringent glycemic mgmt is appropriate in the setting of dementia, when reducing the risk for hypoglycemia is especially relevant.
[2020-01-08] MEDS: HYDROCODONE/ACETAMOPHEN 5/325MG TAB PO PRN (17:57)
[2020-01-08] MEDS: CLOTRIMAZOLE 1% CR 15 GM TUBE EXT SCH (20:28)
--- NOTE | 2020-01-08 22:44 | Hospitalist Progress Note ---
Date of Service January 08, 2020 Assessment & Plan (1) Diabetic ulcer of foot with necrosis of bone: Diabetic foot ulcer right lateral malleolus and calcaneus with suspected underlying osteomyelitis. Wound culture grew Klebsiella oxytoca and group B beta strep. ID, Ortho, and Vascular Surgery consulted. Receiving IV piperacillin / tazobactam per sensitivities. Vascular evaluation demonstrated occlusion of right superficial femoral artery. Right fem-pop bypass performed 01/04. Surgical debridement performed by Ortho 01/06. Continue IV antibiotic therapy with piperacillin / tazobactam. (2) Osteomyelitis: As noted above. (3) PAD (peripheral artery disease): Occlusion of right superficial femoral artery as noted above. S/P right fem-pop bypass. Ongoing risk factor modification. (4) Coronary artery disease: History of CAD, s/p [place]. Denies chest pain. Continue aspirin, clopidogrel, metoprolol, isosorbide, statin. (5) Hypertension: Continue metoprolol and isosorbide mononitrate. (6) Hyperlipidemia: Continue atorvastatin. (7) Type 2 diabetes mellitus, with long-term current use of insulin: DM type 2 complicated by CAD and PVD. Hgb A1c 7.7. Pharmacy consulted for glycemia management. Lantus / NovoLog per protocol. FBS today = 131. (8) Alzheimer's dementia: Continue donepezil. Monitor for delirium. (9) C. difficile colitis: History of C diff colitis diagnosed prior to admission; receiving vancomycin at time of admission. Intermittent loose stools; probably best to resume contact isolation. Receiving probiotics. Continue vancomycin. (10) COVID-19 ruled out: COVID-19 screening necessary for preop screening. SARS-CoV-2 PCR negative on 12/31/19. (11) DVT prophylaxis: SQ enoxaparin. (12) Discharge planning issues: Discharge disposition to be determined. Anticipated need for skilled care- discussed with and she agrees. Internal Medicine follow-up with Dr. Corina Strong. visiting this afternoon and given update. Admission and Anticipated Discharge Date Admission Date: December 27, 2019 Subjective Recheck for multiple problems. Patient seen in their room around 1440. Doing well. Pain well-controlled. Pleasantly confused. One loose stool yesterday; stools soft / formed today. Review of Systems: (questionable reliability due to confusion) Constitutional- no fever. Cardiac- no chest pain. Pulmonary- no cough or SOB. GI- loose stools as discussed above; no nausea, vomiting, melena, hematochezia. - Ward cath. Otherwise, as noted above. Physical Exam Constitutional: no acute distress Respiratory: no respiratory distress Auscultation: lungs clear to ausculta tion bilaterally Cardiovascular: Rate/Rhythm: regular rate and regular rhythm Vessels: no JVD Extremities: normal capillary refill (bilat toes < 2 sec) and + edema (trace pretibial); no calf tenderness Gastrointestinal (Abdomen): normal bowel sounds, soft, nontender, no hepatosplenomegaly Musculoskeletal: Extremities: + extremities abnormal to inspection (surgical dressings RLE & foot; waffle boots applied) and no cyanosis Skin: no rashes, warm and dry Psychiatric: Orientation: alert; + not oriented x 3 (pleasantly confused) Genitourinary: + bladder abnormality (Ward cath) Results & Data Results & Data ([facility]) Vital Signs (Past 12 Hours) Vital Signs Temp Pulse Pulse Resp BP Pulse Ox 01/08/20 19:49 36.8 C 64 19 116/61 94 01/08/20 16:00 36.7 C 74 18 118/60 94 Laboratory Results 01/07/20 07:19 01/08/20 05:21
[2020-01-08] MEDS: VANCOMYCIN HCL 125 MG/2.5ML SOLN PO SCH (23:55)
[2020-01-09] MEDS: PIPERACILLIN/TAZOBACTAM 3.375 GM in DEXTROSE 5% 100 ML IV SCH ×3 (05:00→21:06)
[2020-01-09] MEDS: VANCOMYCIN HCL 125 MG/2.5ML SOLN PO SCH ×4 (05:15→23:31)
[2020-01-09] MEDS: RASPBERRY SYRUP 5 ML UDP PO SCH ×4 (05:15→23:32)
[2020-01-09] MEDS: ACETAMINOPHEN 500 MG TAB PO SCH ×3 (05:48→22:37)
[2020-01-09] MEDS: MoRPHine SULFATE 4 MG/ML 1 ML CARP\\VIAL IV PRN (09:29)
[2020-01-09] MEDS: INSULIN GLARGINE SOLOSTAR 100 UNITS/ML 3 ML PEN SC SCH (09:30)
[2020-01-09] MEDS: INSULIN ASPART 100 UNITS/ML 3 ML PEN SC SCH ×4 (09:33→21:07)
[2020-01-09] MEDS: DONEPEZIL HCL 5 MG TAB PO SCH (09:34)
[2020-01-09] MEDS: LACTOBACILLUS ACIDOPHILUS (FLORANEX) TAB PO SCH ×3 (09:34→18:08)
[2020-01-09] MEDS: ISOSORBIDE MONO EXTENDED REL 30 MG TABCR PO SCH (09:35)
[2020-01-09] MEDS: ASPIRIN 81 MG ECTAB PO SCH (09:35)
[2020-01-09] MEDS: SACCHAROMYCES BOULARDII 250 MG CAP PO SCH (09:35)
[2020-01-09] MEDS: ESCITALOPRAM OXALATE 20 MG TAB PO SCH (09:36)
[2020-01-09] MEDS: ATORVASTATIN 40 MG TAB PO SCH (09:36)
[2020-01-09] MEDS: FINASTERIDE 5 MG TAB PO SCH (09:37)
[2020-01-09] MEDS: CLOPIDOGREL BISULFATE 75 MG TAB PO SCH (09:37)
[2020-01-09] MEDS: CLOTRIMAZOLE 1% CR 15 GM TUBE EXT SCH ×2 (09:37→21:11)
[2020-01-09] MEDS: METOPROLOL SUCC 25MG EXT REL TAB PO SCH (09:38)
--- NOTE | 2020-01-09 11:30 | Orthopedic Progress Note ---
Date of Service January 09, 2020 Assessment & Plan (1) Chronic heel ulcer: Postop day #2 s/p Right foot irrigation and debridement of lateral heel diabetic/neuropathic/gangrenous ulcer 6 cm x 4.5 cm x 0.3 cm, right lateral malleolus irrigation and debridement of diabetic/neuropathic/gangrenous ulcer 2 cm x 2.5 cm x 0.3 cm; debridement of right heel, skin, subcutaneous fat, fascia and periosteum; debridement of right lateral malleolus skin, subcutaneous fat, fascia and periosteum; application of 5 mL antibiotic Stimulan beads at 2 separate locations, lateral malleolus and lateral heel. Continue IV antibiotics. Dressing change today. Adaptic over the Acticoat flex, gauze, gauze wrap, Derrick bandage. Nonweightbearing right lower extremity at all times. Gram stain is complete. Lateral heel growing gram-positive cocci, gram-positive bacilli, gram-negative bacilli. The lateral malleolus ulceration growing gram- positive cocci and gram-positive bacilli. Will await final culture results. Discharge planninguncertain at this time. (2) Osteomyelitis: Continue with local wound care, IV antibiotics per infectious disease Admission and Anticipated Discharge Date Admission Date: December 27, 2019 Subjective Patient was alert during the dressing change. No complaints. Some pain with manipulating his leg during dressing change. Physical Exam Constitutional: no acute distress Musculoskeletal: Ankle: + ankle abnormal to inspection (Right ankle: Stable lateral malleolus and lateral heel ulcerations with Acticoat Flex dressing stapled in place. No erythema noted. No drainage.); no skin erythema and no ecchymosis Psychiatric: Orientation: alert Results & Data ([facility]) Vital Signs (Past 12 Hours) Vital Signs Temp Pulse Resp BP Pulse Ox 01/09/20 07:13 36.6 C 67 16 158/72 H 96 01/08/20 23:46 37.1 C 75 14 162/72 H 95
[2020-01-09] MEDS ORDERED: HYDROCODONE/ACETAMOPHEN 5/325MG TAB PO ONE (12:39)
[2020-01-09] MEDS: ENOXAPARIN INJ 40 MG/0.4 ML SYR SQ SCH (14:20)
[2020-01-09] MEDS: HYDROCODONE/ACETAMOPHEN 5/325MG TAB PO PRN (18:27)
--- NOTE | 2020-01-09 20:35 | Hospitalist Progress Note ---
Date of Service January 09, 2020 Assessment & Plan Admission and Anticipated Discharge Date Admission Date: December 27, 2019 Results & Data Results & Data ([facility]) Vital Signs (Past 12 Hours) Vital Signs Temp Pulse Resp BP Pulse Ox 01/09/20 20:14 36.9 C 69 16 128/65 93 01/09/20 15:27 36.6 C 77 18 121/61 96
--- NOTE | 2020-01-09 21:36 | Hospitalist Progress Note ---
Date of Service January 09, 2020 Assessment & Plan (1) Diabetic ulcer of foot with necrosis of bone: Diabetic foot ulcer right lateral malleolus and calcaneus with suspected underlying osteomyelitis. Wound culture grew Klebsiella oxytoca and group B beta strep. ID, Ortho, and Vascular Surgery consulted. Receiving IV piperacillin / tazobactam per sensitivities. Vascular evaluation demonstrated occlusion of right superficial femoral artery. Right fem-pop bypass performed 01/04. Surgical debridement performed by Ortho 01/06. Cultures from debridement negative so far. WBC 13,170 --> --> 16,820 --> --> 13,270. CRP 5.03 --> 8.80 --> --> 8.22. Continue IV antibiotic therapy with piperacillin / tazobactam. (2) Osteomyelitis: As noted above. (3) PAD (peripheral artery disease): Occlusion of right superficial femoral artery as noted above. S/P right fem-pop bypass 01/04. Ongoing risk factor modification. (4) Coronary artery disease: History of CAD, s/p [place]. Denies chest pain. Continue aspirin, clopidogrel, metoprolol, isosorbide, statin. (5) Hypertension: Continue metoprolol and isosorbide mononitrate. (6) Hyperlipidemia: Continue atorvastatin. (7) Type 2 diabetes mellitus, with long-term current use of insulin: DM type 2 complicated by CAD and PVD. Hgb A1c 7.7. Pharmacy consulted for glycemia management. Lantus / NovoLog per protocol. FBS today = 136. (8) Alzheimer's dementia: Continue donepezil. Monitor for delirium. (9) C. difficile colitis: History of C diff colitis diagnosed prior to admission; receiving vancomycin at time of admission. Intermittent loose stools; probably best to maintain contact isolation. Receiving probiotics. Continue vancomycin. (10) COVID-19 ruled out: COVID-19 screening necessary for preop screening. SARS-CoV-2 PCR negative on 12/31/19. (11) DVT prophylaxis: SQ enoxaparin. (12) Discharge planning issues: Discharge disposition to be determined. Anticipated need for skilled care- discussed with and she agrees. Internal Medicine follow-up with Dr. Corina Strong. Admission and Anticipated Discharge Date Admission Date: December 27, 2019 Subjective Recheck for multiple problems. Patient seen in their room around 1020. Doing well. Pain usually well-controlled on PRN analgesics. Pleasantly confused. One loose stool yesterday; none today. Review of Systems: (questionable reliability due to confusion) Constitutional- no fever. Cardiac- no chest pain. Pulmonary- no cough or SOB. GI- loose stools as discussed above; no nausea, vomiting, melena, hematochezia. - Ward cath. Otherwise, as noted above. Physical Exam Constitutional: no acute distress Respiratory: no respiratory distress Auscultation: lungs clear to auscultation bilaterally Cardiovascular: Rate/Rhythm: regular rate and regular rhythm Vessels: no JVD Extremities: normal capillary refill (bilat toes < 2 sec) and + edema (trace pretibial); no calf tenderness Gastrointestinal (Abdomen): normal bowel sounds, soft, nontender, no hepatosplenomegaly Musculoskeletal: Extremities: + extremities abnormal to inspection (surgical dressings RLE & foot; waffle boots applied) and no cyanosis Skin: no rashes, warm and dry Psychiatric: Orientation: alert; + not oriented x 3 (pleasantly confused) Genitourinary: + bladder abnormality (Ward cath) Results & Data Results & Data ([facility]) Vital Signs (Past 12 Hours) Vital Signs Temp Pulse Resp BP Pulse Ox 01/09/20 20:14 36.9 C 69 16 128/65 93 01/09/20 15:27 36.6 C 77 18 121/61 96 Laboratory Results 01/07/20 07:19 01/08/20 05:21
[2020-01-10] MEDS: RASPBERRY SYRUP 5 ML UDP PO SCH ×3 (05:00→17:37)
[2020-01-10] MEDS: PIPERACILLIN/TAZOBACTAM 3.375 GM in DEXTROSE 5% 100 ML IV SCH ×3 (05:00→21:22)
[2020-01-10] MEDS: VANCOMYCIN HCL 125 MG/2.5ML SOLN PO SCH ×3 (05:00→17:37)
[2020-01-10] MEDS: ACETAMINOPHEN 500 MG TAB PO SCH ×3 (05:00→21:24)
[2020-01-10] MEDS: INSULIN ASPART 100 UNITS/ML 3 ML PEN SC SCH ×4 (08:50→21:56)
[2020-01-10] MEDS: LACTOBACILLUS ACIDOPHILUS (FLORANEX) TAB PO SCH ×3 (08:53→17:22)
[2020-01-10] MEDS: SACCHAROMYCES BOULARDII 250 MG CAP PO SCH (08:54)
[2020-01-10] MEDS: ASPIRIN 81 MG ECTAB PO SCH (08:54)
[2020-01-10] MEDS: DONEPEZIL HCL 5 MG TAB PO SCH (08:54)
[2020-01-10] MEDS: FINASTERIDE 5 MG TAB PO SCH (08:54)
[2020-01-10] MEDS: CLOPIDOGREL BISULFATE 75 MG TAB PO SCH (08:54)
[2020-01-10] MEDS: ESCITALOPRAM OXALATE 20 MG TAB PO SCH (08:54)
[2020-01-10] MEDS: ATORVASTATIN 40 MG TAB PO SCH (08:55)
[2020-01-10] MEDS: INSULIN GLARGINE SOLOSTAR 100 UNITS/ML 3 ML PEN SC SCH (08:55)
[2020-01-10] MEDS: METOPROLOL SUCC 25MG EXT REL TAB PO SCH (08:55)
[2020-01-10] MEDS: CLOTRIMAZOLE 1% CR 15 GM TUBE EXT SCH ×2 (08:55→21:23)
[2020-01-10] MEDS: ISOSORBIDE MONO EXTENDED REL 30 MG TABCR PO SCH (08:55)
--- NOTE | 2020-01-10 09:31 | Orthopedic Progress Note ---
Date of Service January 10, 2020 Assessment & Plan (1) Chronic heel ulcer: Postop day #3 s/p Right foot irrigation and debridement of lateral heel diabetic/neuropathic/gangrenous ulcer 6 cm x 4.5 cm x 0.3 cm, right lateral malleolus irrigation and debridement of diabetic/neuropathic/gangrenous ulcer 2 cm x 2.5 cm x 0.3 cm; debridement of right heel, skin, subcutaneous fat, fascia and periosteum; debridement of right lateral malleolus skin, subcutaneous fat, fascia and periosteum; application of 5 mL antibiotic Stimulan beads at 2 separate locations, lateral malleolus and lateral heel. Continue IV antibiotics. Dressing change today. Nonweightbearing right lower extremity at all times. Gram stain is complete. Lateral heel growing gram-positive cocci, gram-positive bacilli, gram-negative bacilli. The lateral malleolus ulceration growing gram- positive cocci and gram-positive bacilli. Will await final culture results. Discharge planninguncertain at this time. (2) Osteomyelitis: Continue with local wound care, IV antibiotics per infectious disease Admission and Anticipated Discharge Date Admission Date: December 27, 2019 Subjective Post Operative Progress Note Patient seen sitting up in bed, comfortable, denies complaints, pain well controlled, no acute issues. Denies F/C/N/V/SOB/CP. Review of Systems Review of Systems: All systems reviewed & are unremarkable except as noted in HPI & below Constitutional: as per Subjective / HPI Physical Exam Physical Exam: RLE NVSI +EHL/FHL/TA/GS SILT grossly, +2 DP pulse, compartments soft NT, dressing cdi. Constitutional: WD/WN, vitals as above Results & Data ([facility]) Vital Signs (Past 12 Hours) Vital Signs Temp Pulse Resp BP Pulse Ox Pulse Ox 01/10/20 07:18 36.9 C 64 16 153/68 H 97 01/09/20 23:59 95 01/09/20 23:26 37.1 C 69 14 153/75 H 95
[2020-01-10] MEDS: ENOXAPARIN INJ 40 MG/0.4 ML SYR SQ SCH (17:23)
--- NOTE | 2020-01-10 21:13 | Hospitalist Progress Note ---
Date of Service January 10, 2020 Assessment & Plan (1) Diabetic ulcer of foot with necrosis of bone: Diabetic foot ulcer right lateral malleolus and calcaneus with suspected underlying osteomyelitis. Wound culture grew Klebsiella oxytoca and group B beta strep. ID, Ortho, and Vascular Surgery consulted. Receiving IV piperacillin / tazobactam per sensitivities. Vascular evaluation demonstrated occlusion of right superficial femoral artery. Right fem-pop bypass performed 01/04. Surgical debridement performed by Ortho 01/06. Nonweightbearing RLE. Cultures from debridement negative so far. WBC 13,170 --> --> 16,820 --> --> 13,270. CRP 5.03 --> 8.80 --> --> 8.22. Continue IV antibiotic therapy with piperacillin / tazobactam. (2) Osteomyelitis: As noted above. (3) PAD (peripheral artery disease): Occlusion of right superficial femoral artery as noted above. S/P right fem-pop bypass 01/04. Ongoing risk factor modification. (4) Coronary artery disease: History of CAD, s/p [place]. Denies chest pain. Continue aspirin, clopidogrel, metoprolol, isosorbide, statin. (5) Hypertension: Continue metoprolol and isosorbide mononitrate. (6) Hyperlipidemia: Continue atorvastatin. (7) Type 2 diabetes mellitus, with long-term current use of insulin: DM type 2 complicated by CAD and PVD. Hgb A1c 7.7. Pharmacy consulted for glycemia management. Lantus / NovoLog per protocol. FBS today = 108. (8) Alzheimer's dementia: Continue donepezil. Monitor for delirium. (9) C. difficile colitis: History of C diff colitis diagnosed prior to admission; receiving vancomycin at time of admission. Intermittent loose stools; probably best to maintain contact isolation. Receiving probiotics. Continue vancomycin. (10) COVID-19 ruled out: COVID-19 screening necessary for preop screening. SARS-CoV-2 PCR negative on 12/31/19. (11) DVT prophylaxis: SQ enoxaparin. (12) Discharge planning issues: Discharge disposition to be determined. Anticipated need for skilled care- discussed with and she agrees. Internal Medicine follow-up with Dr. Corina Strong. Admission and Anticipated Discharge Date Admission Date: December 27, 2019 Subjective Recheck for multiple problems. Patient seen in their room around 1130. Doing well. Postop pain improved. Pleasantly confused. Review of Systems: (questionable reliability due to confusion) Constitutional- no fever. Cardiac- no chest pain. Pulmonary- no cough or SOB. GI- last loose stool 01/07; no nausea, vomiting, melena, hematochezia. - Ward cath removed. Otherwise, as noted above. Physical Exam Constitutional: no acute distress Respiratory: no respiratory distress Auscultation: lungs clear to auscultation bilaterally Cardiovascular: Rate/Rhythm: regular rate and regular rhythm Vessels: no JVD Extremities: normal capillary refill (bilat toes < 2 sec) and + edema (trace pretibial); no calf tenderness Gastrointestinal (Abdomen): normal bowel sounds, soft, nontender, no he patosplenomegaly Musculoskeletal: Extremities: + extremities abnormal to inspection (surgical dressings RLE & foot; waffle boots applied) and no cyanosis Skin: no rashes, warm and dry Psychiatric: Orientation: alert; + not oriented x 3 (pleasantly confused) Genitourinary: + bladder abnormality (Ward cath) Results & Data Results & Data ([facility]) Vital Signs (Past 12 Hours) Vital Signs Temp Pulse Resp BP Pulse Ox 01/10/20 14:56 36.7 C 67 19 112/61 94
[2020-01-11] MEDS: RASPBERRY SYRUP 5 ML UDP PO SCH ×5 (00:13→23:59)
[2020-01-11] MEDS: VANCOMYCIN HCL 125 MG/2.5ML SOLN PO SCH ×5 (00:13→23:59)
[2020-01-11] MEDS: PIPERACILLIN/TAZOBACTAM 3.375 GM in DEXTROSE 5% 100 ML IV SCH ×3 (04:08→19:45)
[2020-01-11] MEDS: ACETAMINOPHEN 500 MG TAB PO SCH ×3 (06:19→21:59)
[2020-01-11 06:43] LABS: BUN Creatinine Ratio 18.1 (10-20); C Reactive Protein 3.78 mg/dl (0-0.29); Calcium 8.9 mg/dl (8.5-10.1); Creatinine Clr Calc Pharmacy 62.4 ml/min; Est GFR (African American) 76.5
[2020-01-11 06:53] LABS: Hemoglobin 10.7 g/dL (14.0-18.0); Mean Corpuscular Hemoglobin 29.2 pg (25-34); Mean Corpuscular Hgb Conc 31.5 g/dL (32-36); Mean Corpuscular Volume 92.9 fL (80-100); Mean Platelet Volume 8.7 fL (7.4-10.4); Platelet Count 1028 K/uL (130-400); RDW Coefficient of Variation 13.7 % (11.5-14.5); RDW Standard Deviation 46.4 fL (36.4-46.3); Red Blood Count 3.66 M/uL (4.7-6.1); White Blood Count 13.99 K/uL (4.8-10.8)
[2020-01-11 06:54] LABS: Platelet Estimate SN (Normal)
[2020-01-11] MEDS: CLOTRIMAZOLE 1% CR 15 GM TUBE EXT SCH ×2 (08:53→19:46)
[2020-01-11] MEDS: ATORVASTATIN 40 MG TAB PO SCH (08:54)
[2020-01-11] MEDS: METOPROLOL SUCC 25MG EXT REL TAB PO SCH (08:54)
[2020-01-11] MEDS: DONEPEZIL HCL 5 MG TAB PO SCH (08:54)
[2020-01-11] MEDS: CLOPIDOGREL BISULFATE 75 MG TAB PO SCH (08:54)
[2020-01-11] MEDS: ISOSORBIDE MONO EXTENDED REL 30 MG TABCR PO SCH (08:54)
[2020-01-11] MEDS: FINASTERIDE 5 MG TAB PO SCH (08:54)
[2020-01-11] MEDS: LACTOBACILLUS ACIDOPHILUS (FLORANEX) TAB PO SCH ×3 (08:54→18:52)
[2020-01-11] MEDS: SACCHAROMYCES BOULARDII 250 MG CAP PO SCH (08:54)
[2020-01-11] MEDS: ESCITALOPRAM OXALATE 20 MG TAB PO SCH (08:54)
[2020-01-11] MEDS: ASPIRIN 81 MG ECTAB PO SCH (08:54)
[2020-01-11] MEDS: INSULIN ASPART 100 UNITS/ML 3 ML PEN SC SCH ×4 (08:59→21:44)
[2020-01-11] MEDS: INSULIN GLARGINE SOLOSTAR 100 UNITS/ML 3 ML PEN SC SCH (09:00)
[2020-01-11] MEDS: ENOXAPARIN INJ 40 MG/0.4 ML SYR SQ SCH (12:56)
--- NOTE | 2020-01-11 12:56 | Pharmacy Report ---
Pharmacy Glycemic Short Note 2 - Date of Service January 11, 2020 - Glycemic Short BSG Results (Last 24 hours): 01/10/20 01/10/20 01/11/20 16:31 20:40 05:44 Glucose 107 H POC Glucose 99 97 01/11/20 01/11/20 08:52 12:21 Glucose POC Glucose 131 H 187 H OUTPATIENT ANTIDIABETIC REGIMEN: * Lantus 26 units SQ qAM * Novolog SSI * Metformin 500mg PO qAM * HbA1c: 7.7% (12/26/19) ASSESSMENT: 01/10 * Patient received total of 45 units of insulin yesterday, of which 25 were basal insulin * Fasting BSG 107 mg/dL - no change in basal/continue same * Loosened CR this AM as BSGs trending down yesterday, 131-99-97 mg/dL / continue same parameters for now, will reevaluate tomorrow PLAN FOR INPATIENT GLYCEMIC CONTROL: * Continue to hold metformin * Basal insulin - continue same * Lantus 25 units SQ this morning * Bolus insulin - loosen * NovoLog per scale ACHS or Q6hrs while NPO * Goal Range: Low 110 mg/dL - High 140 mg/dL * Correction Factor: 25 mg/dL/unit * Nutritional / Prandial insulin per carb ratio of 1 unit per 8 grams CHO consumed PLAN FOR DISCHARGE: * Patient's A1c (7.7%) indicates adequate glycemic control, in a 74yo patient with multiple comorbidities. * Expect that pt may resume home regimen on discharge, as long as he does not report having episodes of hypoglycemia. * Less stringent glycemic mgmt is appropriate in the setting of dementia, when reducing the risk for hypoglycemia is especially relevant.
--- NOTE | 2020-01-11 14:34 | Orthopedic Progress Note ---
Date of Service January 11, 2020 Assessment & Plan (1) Chronic heel ulcer: Postop day #4 s/p Right foot irrigation and debridement of lateral heel diabetic/neuropathic/gangrenous ulcer 6 cm x 4.5 cm x 0.3 cm, right lateral malleolus irrigation and debridement of diabetic/neuropathic/gangrenous ulcer 2 cm x 2.5 cm x 0.3 cm; debridement of right heel, skin, subcutaneous fat, fascia and periosteum; debridement of right lateral malleolus skin, subcutaneous fat, fascia and periosteum; application of 5 mL antibiotic Stimulan beads at 2 separate locations, lateral malleolus and lateral heel. Continue IV antibiotics. Dressing change daily. Nonweightbearing right lower extremity at all times. Final Cx showing No Growth for 01/07/20 cultures. Discharge planninguncertain at this time. Orthopedics will sign off at this time. Please call with any questions. I disucussed the case with Yoli Doherty from Wound Care Team who will be following the patient. (2) Osteomyelitis: Continue with local wound care, IV antibiotics per infectious disease Admission and Anticipated Discharge Date Admission Date: December 27, 2019 Subjective Sitting up in bed. Awake, alert. Pleasant. Pt's is present. No new complaints. Pain controlled. Physical Exam Physical Exam: Dressings removed. Small and large area of debridement covered with Acticoat flex with Stimulan beads underneath. Mild erythema around the dorsal edge of the larger wound. Minimal drainage. No foul odor. Results & Data ([facility]) Vital Signs (Past 12 Hours) Vital Signs Temp Pulse Resp BP Pulse Ox 01/11/20 07:51 37.1 C 63 18 151/72 H 95
--- NOTE | 2020-01-11 19:49 | Hospitalist Progress Note ---
Date of Service January 11, 2020 Assessment & Plan (1) Diabetic ulcer of foot with necrosis of bone: Diabetic foot ulcer right lateral malleolus and calcaneus with Osteomyelitis. S/P irrigation and debridement, Antibiotic stimulant beads Wound culture:Klebsiella oxytoca and group B beta strep Blood CX: Negative to date Appreciate ID, Ortho, and Vascular Surgery Input Continue IV Zosyn Needs follow-up with orthopedics upon discharge Continue wound care We will discuss with ID regarding duration of IV antibiotics (2) Osteomyelitis: Management as above (3) PAD (peripheral artery disease): Occlusion of right superficial femoral artery. S/P Right fem-pop bypass performed 01/04. S/P Surgical debridement performed by Ortho 01/06. Nonweightbearing RLE. Cultures from debridement negative to date Persistent leukocytosis Continue IV antibiotics as above Appreciate vascular surgery input next (4) Coronary artery disease: H/O CAD, [place]. Continue aspirin, clopidogrel, metoprolol, isosorbide, statin. (5) Hypertension: Continue metoprolol, Isosorbide mononitrate. (6) Hyperlipidemia: Continue atorvastatin. (7) Type 2 diabetes mellitus, with long-term current use of insulin: DM II Hgb A1c 7.7. Pharmacy consulted for glycemia management. Lantus / NovoLog per protocol. Monitor BGs (8) Alzheimer's dementia: Continue donepezil. Monitor for delirium. (9) C. difficile colitis: H/O C diff colitis diagnosed prior to admission On vancomycin at time of admission. Intermittent loose stools Continue contact isolation Continue PO vancomycin (10) COVID-19 ruled out: COVID-19 screening necessary for preop screening. SARS-CoV-2 PCR negative on 12/31/19. (11) DVT prophylaxis: SQ Lovenox (12) Discharge planning issues: SNF as able Internal Medicine follow-up with Dr. Corina Strong. Admission and Anticipated Discharge Date Admission Date: December 27, 2019 Subjective Patient is seen and examined at bedside Denies any significant right leg pain Denies chest pain, shortness of breath, dizziness, nausea, abdominal pain Offers no complaints Review of Systems Review of Systems: All systems reviewed & are unremarkable except as noted in HPI & below Physical Exam Physical Exam: Physical Exam: Vitals signs as noted above General Appearance:Moderately built and nourished, no apparent distress Head: normocephalic, Atraumatic Eyes: normal inspection, EOMI Neck: supple, Trachea midline Respiratory/Chest: Normal breath sounds, CTA Cardiovascular: S1, S2, No murmur Abdomen/GI:Soft, Non tender, Bowel sounds present Extremities/Musculoskelatal:normal inspection, R LE amaris, R ankle in dressing Neurologic/Psych:grossly no focal neurological deficits Skin: normal color, warm Results & Data Results & Data ([facility]) Vital Signs (Past 12 Hours) Vital Signs Temp Pulse Resp BP Pulse Ox 01/11/20 07:51 37.1 C 63 18 151/72 H 95 Laboratory Results Short CBC 01/11/20 Range/Units 05:44 WBC 13.99 H (4.8-10.8) K/uL Hgb 10.7 L (14.0-18.0) g/dL Hct 34.0 L (42-52) % Plt Count 1028 H* (130-400) K/uL BMP 01/11/20 05:44 Sodium 139 Potassium 4.0 Chloride 108 H Carbon Dioxide 26 BUN 20 H Creatinine 1.11 Glucose 107 H Calcium 8.9
[2020-01-12] MEDS: PIPERACILLIN/TAZOBACTAM 3.375 GM in DEXTROSE 5% 100 ML IV SCH (04:03)
[2020-01-12] MEDS: ACETAMINOPHEN 500 MG TAB PO SCH ×3 (05:52→22:32)
[2020-01-12] MEDS: RASPBERRY SYRUP 5 ML UDP PO SCH ×4 (05:52→23:21)
[2020-01-12] MEDS: VANCOMYCIN HCL 125 MG/2.5ML SOLN PO SCH ×4 (05:52→23:22)
[2020-01-12 06:34] LABS: BUN Creatinine Ratio 17.5 (10-20); Calcium 8.7 mg/dl (8.5-10.1); Creatinine Clr Calc Pharmacy 64.7 ml/min; Magnesium 2.2 mg/dl (1.8-2.4); Potassium 4.2 mmol/L (3.5-5.1)
[2020-01-12] MEDS: DONEPEZIL HCL 5 MG TAB PO SCH (07:43)
[2020-01-12] MEDS: LACTOBACILLUS ACIDOPHILUS (FLORANEX) TAB PO SCH ×3 (07:44→17:57)
[2020-01-12] MEDS: ATORVASTATIN 40 MG TAB PO SCH (07:45)
[2020-01-12] MEDS: ESCITALOPRAM OXALATE 20 MG TAB PO SCH (07:45)
[2020-01-12] MEDS: ASPIRIN 81 MG ECTAB PO SCH (07:45)
[2020-01-12] MEDS: FINASTERIDE 5 MG TAB PO SCH (07:46)
[2020-01-12] MEDS: ISOSORBIDE MONO EXTENDED REL 30 MG TABCR PO SCH (07:46)
[2020-01-12] MEDS: METOPROLOL SUCC 25MG EXT REL TAB PO SCH (07:47)
[2020-01-12] MEDS: CLOTRIMAZOLE 1% CR 15 GM TUBE EXT SCH ×2 (07:48→20:37)
[2020-01-12] MEDS: SACCHAROMYCES BOULARDII 250 MG CAP PO SCH (07:48)
[2020-01-12] MEDS: CLOPIDOGREL BISULFATE 75 MG TAB PO SCH (07:49)
--- NOTE | 2020-01-12 08:27 | Pharmacy Report ---
Pharmacy Glycemic Short Note 2 - Date of Service January 12, 2020 - Glycemic Short BSG Results (Last 24 hours): 01/11/20 01/11/20 01/11/20 08:52 12:21 16:59 Glucose POC Glucose 131 H 187 H 150 H 01/11/20 01/12/20 01/12/20 21:31 05:31 07:59 Glucose 135 H POC Glucose 83 151 H OUTPATIENT ANTIDIABETIC REGIMEN: * Lantus 26 units SQ qAM * Novolog SSI * Metformin 500mg PO qAM * HbA1c: 7.7% (12/26/19) ASSESSMENT: 01/11 * AM fasting BSG very slightly above goal range per POC but in range w random AM labs. Patient has been on a stable dose of Lantus x days with good AM fasting BSGs - will not adjust at this time * Multiple day trend where lunch BSG is the highest of the day, and some of the time is >180 mg/dL. Will tighten CHO ratio at breakfast only 01/10 * Patient received total of 45 units of insulin yesterday, of which 25 were basal insulin * Fasting BSG 107 mg/dL - no change in basal/continue same * Loosened CR this AM as BSGs trending down yesterday, 131-99-97 mg/dL / continue same parameters for now, will reevaluate tomorrow PLAN FOR INPATIENT GLYCEMIC CONTROL: * Continue to hold metformin * Basal insulin - continue same * Lantus 25 units SQ qAM * Bolus insulin - tighten breakfast CHO ratio * NovoLog per scale ACHS or Q6hrs while NPO * Goal Range: Low 110 mg/dL - High 140 mg/dL * Correction Factor: 25 mg/dL/unit * Carb ratio: 7 g CHO/unit with breakfast, 8 g CHO/unit with all other checks PLAN FOR DISCHARGE: * Patient's A1c (7.7%) indicates adequate glycemic control, in a 74yo patient with multiple comorbidities. * Patient may resume home regimen on discharge, as long as he does not report having episodes of hypoglycemia. * Less stringent glycemic mgmt is appropriate in the setting of dementia, when reducing the risk for hypoglycemia is especially relevant.
[2020-01-12] MEDS: INSULIN GLARGINE SOLOSTAR 100 UNITS/ML 3 ML PEN SC SCH (09:37)
[2020-01-12] MEDS: INSULIN ASPART 100 UNITS/ML 3 ML PEN SC SCH ×4 (09:39→21:07)
[2020-01-12] MEDS: cefTRIAXone SODIUM 2,000 MG in DEXTROSE 5% 50 ML IV SCH (12:01)
[2020-01-12] MEDS: ENOXAPARIN INJ 40 MG/0.4 ML SYR SQ SCH (13:39)
--- NOTE | 2020-01-12 15:30 | Wound Progress Note ---
Date of Service January 12, 2020 Assessment & Plan (1) Osteomyelitis: Is a 74-year-old male who is postop day #5 status post surgical I&D of osteomyelitis of his right heel. Recommend continuing to dress the wounds with Adaptic, gauze and Kerlix daily. He is to wear his waffle boots at all times in bed. Continue IV antibiotics per recommendations. Thank you for limited participate in the care of this patient. Please call with any questions. Admission and Anticipated Discharge Date Admission Date: December 27, 2019 Subjective Patient seen at bedside with GONZALO. Patient is postop day #5 status post right foot irrigation debridement of lateral heel diabetic/neuropathic gangrenous ulcer and right malleolus ulcer. [facility] Review of Systems Review of Systems: All systems reviewed & are unremarkable except as noted in HPI & below Physical Exam Physical Exam: Temp Pulse Resp BP Pulse Ox 36.9 C 63 20 140/66 94 01/12/20 08:00 01/12/20 08:00 01/12/20 08:00 01/12/20 08:00 01/12/20 08:00 Skin: Wounds measuring as recorded in nursing documentation. There is Acticoat [address] with underlying antibiotic beads. Periwound is intact without inflammation. There is mild drainage no foul odors. Neurologic: awake and + confused Psychiatric: Orientation: oriented to person, oriented to place and cooperative Results & Data ([facility]) Vital Signs (Past 12 Hours) Vital Signs Temp Pulse Resp BP Pulse Ox 01/12/20 08:00 36.9 C 63 20 140/66 94 PG Care Time/CCT Total # of Minutes Spent Total Time Spent with Patient: Total time spent is greater than 50% in coordination of care (as documented) at patient's floor/unit and/or counseling patient: Coding Level of Care Code 94078 Subseq Hosp Care Lvl 2 Diagnoses Osteomyelitis M86.9
--- NOTE | 2020-01-12 20:05 | Hospitalist Progress Note ---
Date of Service January 12, 2020 Assessment & Plan (1) Diabetic ulcer of foot with necrosis of bone: Diabetic foot ulcer right lateral malleolus and calcaneus with Osteomyelitis. S/P irrigation and debridement, Antibiotic stimulant beads Wound culture:Klebsiella oxytoca and group B beta strep Blood CX: Negative to date Appreciate ID, Ortho, and Vascular Surgery Input Continue IV Zosyn>>> transition to Rocephin 2 g IV daily--need to complete 4- week course of therapy--last date 02/03/20 Needs follow-up with orthopedics upon discharge Continue wound care Needs biweekly CRP and weekly CMP, CBC while on IV antibiotics PICC line to be placed Needs follow-up with ID upon discharge (After completion of IV antibiotic course) (2) Osteomyelitis: Management as above (3) PAD (peripheral artery disease): Occlusion of right superficial femoral artery. S/P Right fem-pop bypass performed 01/04. S/P Surgical debridement performed by Ortho 01/06. Nonweightbearing RLE. Cultures from debridement negative to date Persistent leukocytosis Continue IV antibiotics as above Appreciate vascular surgery input next (4) Coronary artery disease: H/O CAD, [place]. Continue aspirin, clopidogrel, metoprolol, isosorbide, statin. (5) Hypertension: Continue metoprolol, Isosorbide mononitrate. (6) Hyperlipidemia: Continue atorvastatin. (7) Type 2 diabetes mellitus, with long-term current use of insulin: DM II Hgb A1c 7.7. Pharmacy consulted for glycemia management. Lantus / NovoLog per protocol. Monitor BGs (8) Alzheimer's dementia: Continue donepezil. Monitor for delirium. (9) C. difficile colitis: H/O C diff colitis diagnosed prior to admission On vancomycin at time of admission. Intermittent loose stools Continue contact isolation Continue PO vancomycin Taper Plan :Vanco po 125 mg bid for 1 week then qd for 1 week then every 2-3 days for atleast 2 weeks Needs follow-up with ID upon discharge after IV Antibiotic therapy (10) COVID-19 ruled out: COVID-19 screening necessary for preop screening. SARS-CoV-2 PCR negative on 12/31/19. (11) DVT prophylaxis: SQ Lovenox (12) Discharge planning issues: SNF as able Internal Medicine follow-up with Dr. Corina Strong. Admission and Anticipated Discharge Date Admission Date: December 27, 2019 Review of Systems Review of Systems: All systems reviewed & are unremarkable except as noted in HPI & below Physical Exam Physical Exam: Physical Exam: Vitals signs as noted above General Appearance:Moderately built and nourished, no apparent distress Head: normocephalic, Atraumatic Eyes: normal inspection, EOMI Neck: supple, Trachea midline Respiratory/Chest: Normal breath sounds, CTA Cardiovascular: S1, S2, No murmur Abdomen/GI:Soft, Non tender, Bowel sounds present Extremities/Musculoskelatal:normal inspection, R LE amaris, R ankle in dressing Neurologic/Psych:grossly no focal neurological deficits Skin: normal color, warm Results & Data Results & Data ([facility]) Vital Signs (Past 12 Hours) Vital Signs Temp Pulse Resp BP Pulse Ox 01/12/20 15:41 36.8 C 66 16 163/71 H 95 Laboratory Results [facility] 01/12/20 05:31 Sodium 141 Potassium 4.2 Chloride 109 H Carbon Dioxide 27 BUN 19 H Creatinine 1.07 Glucose 135 H Calcium 8.7
[2020-01-12] MEDS: risperiDONE 0.5 MG TABLET PO PRN (21:36)
[2020-01-13] MEDS: VANCOMYCIN HCL 125 MG/2.5ML SOLN PO SCH (06:01)
[2020-01-13] MEDS: ACETAMINOPHEN 500 MG TAB PO SCH (06:01)
[2020-01-13] MEDS: RASPBERRY SYRUP 5 ML UDP PO SCH (06:01)
[2020-01-13 06:13] LABS: Basophils # (auto) 0.02 K/uL (0-0.2); Basophils % (auto) 0.2 %; Eosinophils % (auto) 3.9 %; Hemoglobin 10.4 g/dL (14.0-18.0); Immature Granulocytes # (auto) 0.05 K/uL (0.00-0.02); Immature Granulocytes % (auto) 0.5 %; Lymphocytes # (auto) 1.68 K/uL (1.2-3.4); Lymphocytes % (auto) 16.2 %; Mean Corpuscular Hemoglobin 29.3 pg (25-34); Mean Corpuscular Hgb Conc 31.5 g/dL (32-36); Mean Platelet Volume 8.7 fL (7.4-10.4); Monocytes # (auto) 0.77 K/uL (0.11-0.59); Monocytes % (auto) 7.4 %; Neutrophils # (auto) 7.43 K/uL (1.4-6.5); Neutrophils % (auto) 71.8 %; Platelet Count 823 K/uL (130-400); RDW Coefficient of Variation 14.1 % (11.5-14.5); RDW Standard Deviation 47.1 fL (36.4-46.3); Red Blood Count 3.55 M/uL (4.7-6.1); White Blood Count 10.35 K/uL (4.8-10.8)
[2020-01-13 06:43] LABS: BUN Creatinine Ratio 18.9 (10-20); Calcium 9.3 mg/dl (8.5-10.1); Creatinine Clr Calc Pharmacy 82.4 ml/min; Est GFR (African American) 101.4; Est GFR (Non-African American) 87.5; Potassium 4.1 mmol/L (3.5-5.1)
[2020-01-13] MEDS: FINASTERIDE 5 MG TAB PO SCH (07:54)
[2020-01-13] MEDS: SACCHAROMYCES BOULARDII 250 MG CAP PO SCH (07:54)
[2020-01-13] MEDS: ASPIRIN 81 MG ECTAB PO SCH (07:54)
[2020-01-13] MEDS: ATORVASTATIN 40 MG TAB PO SCH (07:54)
[2020-01-13] MEDS: CLOPIDOGREL BISULFATE 75 MG TAB PO SCH (07:54)
[2020-01-13] MEDS: ESCITALOPRAM OXALATE 20 MG TAB PO SCH (07:54)
[2020-01-13] MEDS: LACTOBACILLUS ACIDOPHILUS (FLORANEX) TAB PO SCH (07:54)
[2020-01-13] MEDS: DONEPEZIL HCL 5 MG TAB PO SCH (07:55)
[2020-01-13] MEDS: CLOTRIMAZOLE 1% CR 15 GM TUBE EXT SCH (07:55)
[2020-01-13] MEDS: ISOSORBIDE MONO EXTENDED REL 30 MG TABCR PO SCH (07:55)
[2020-01-13] MEDS: METOPROLOL SUCC 25MG EXT REL TAB PO SCH (07:55)
[2020-01-13] MEDS: cefTRIAXone SODIUM 2,000 MG in DEXTROSE 5% 50 ML IV SCH (08:10)
[2020-01-13] MEDS: INSULIN GLARGINE SOLOSTAR 100 UNITS/ML 3 ML PEN SC SCH (09:05)
[2020-01-13] MEDS: INSULIN ASPART 100 UNITS/ML 3 ML PEN SC SCH ×2 (09:06→12:21)
--- NOTE | 2020-01-13 11:51 | Hospitalist Progress Note ---
Date of Service January 13, 2020 Assessment & Plan (1) Diabetic ulcer of foot with necrosis of bone: Diabetic foot ulcer right lateral malleolus and calcaneus with Osteomyelitis. S/P irrigation and debridement, Antibiotic stimulant beads Wound culture:Klebsiella oxytoca and group B beta strep Blood CX: Negative to date Appreciate ID, Ortho, and Vascular Surgery Input Continue IV Zosyn>>> transition to Rocephin 2 g IV daily--need to complete 4- week course of therapy--last date 02/03/20 Needs follow-up with orthopedics upon discharge Continue wound care Needs biweekly CRP and weekly CMP, CBC while on IV antibiotics PICC line to be placed Needs follow-up with ID upon discharge (After completion of IV antibiotic course) Continue current management Denies any significant pain (2) Osteomyelitis: Management as above (3) PAD (peripheral artery disease): Occlusion of right superficial femoral artery. S/P Right fem-pop bypass performed 01/04. S/P Surgical debridement performed by Ortho 01/06. Nonweightbearing RLE. Cultures from debridement negative to date Persistent leukocytosis Continue IV antibiotics as above Appreciate vascular surgery input next (4) Coronary artery disease: H/O CAD, [place]. Continue aspirin, clopidogrel, metoprolol, isosorbide, statin. (5) Hypertension: Continue metoprolol, Isosorbide mononitrate. (6) Hyperlipidemia: Continue atorvastatin. (7) Type 2 diabetes mellitus, with long-term current use of insulin: DM II Hgb A1c 7.7. Pharmacy consulted for glycemia management. Lantus / NovoLog per protocol. Monitor BGs (8) Alzheimer's dementia: Continue donepezil. Monitor for delirium. (9) C. difficile colitis: H/O C diff colitis diagnosed prior to admission On vancomycin at time of admission. Intermittent loose stools Continue contact isolation Continue PO vancomycin Taper Plan :Vanco po 125 mg bid for 1 week then qd for 1 week then every 2-3 days for atleast 2 weeks Needs follow-up with ID upon discharge after IV Antibiotic therapy (10) COVID-19 ruled out: COVID-19 screening necessary for preop screening. SARS-CoV-2 PCR negative on 12/31/19. (11) DVT prophylaxis: SQ Lovenox (12) Discharge planning issues: [facility] follow-up with Dr. Corina Strong. Admission and Anticipated Discharge Date Admission Date: December 27, 2019 Subjective Patient is seen and examined at bedside Reports having diarrhea overnight but currently improved Denies chest pain, shortness of breath, dizziness, nausea, abdominal pain, leg pain Offers no other complaints Plan to be discharged to rehab facility today Review of Systems Review of Systems: All systems reviewed & are unremarkable except as noted in HPI & below Physical Exam Physical Exam: Physical Exam: Vitals signs as noted above General Appearance:Moderately built and nourished, no apparent distress Head: normocephalic, Atraumatic Eyes: normal inspection, EOMI Neck: supple, Trachea midline Respiratory/Chest: Normal breath sounds, CTA Cardiovascular: S1, S2, No murmur Abdomen/GI:Soft, Non tender, Bowel sounds present Extremities/Musculoskelatal:normal inspection, R LE amaris, R ankle in dressing Neurologic/Psych:grossly no focal neurological deficits Skin: normal color, warm Results & Data Results & Data ([facility]) Vital Signs (Past 12 Hours) Vital Signs Temp Pulse Resp BP Pulse Ox 01/13/20 08:01 36.4 C L 79 16 133/69 92 Laboratory Results Short CBC 01/13/20 Range/Units 05:44 WBC 10.35 (4.8-10.8) K/uL Hgb 10.4 L (14.0-18.0) g/dL Hct 33.0 L (42-52) % Plt Count 823 H (130-400) K/uL BMP 01/13/20 05:44 Sodium 140 Potassium 4.1 Chloride 110 H Carbon Dioxide 26 BUN 16 Creatinine 0.84 Glucose 137 H Calcium 9.3
--- NOTE | 2020-01-13 12:14 | Discharge Summary ---
Date of Service January 13, 2020 Admission HPI Per Admitting Provider Patient is a 74 yo male with a complex past medical history including DM Type 2, chronic bilateral lower extremity PAD with chronic right heel ulceration, HTN, Dyslipidemia, Dementia, history of NSTEMI, history of Lymphoma who presented to the ED with concern of worsening confusion and functional status this morning. The patient's is the main historian, but the patient does contribute to the conversation as well. His states that he has been steadily declining over the past few months, but more recently, he has had increasing confusion and had a lot of 'almost' falls at home. The patient saw his PCP's office yesterday, and they were trying to get him more help at home vs. placement. He ultimately was not placed, and he didn't get out of bed until 1:30 PM today. His states that he moved his bowels prior to waking and then was having problems getting cleaned up. She has a hard time taking care of him at home at this point. The patient does also follow regularly at Wound Care with [facility]. He saw them on 12/22/19 and a culture was taken of his right ankle wound. The culture is growing pansensitive Klebsiella oxytoca and Group B strep for which sensitivities are pending. He did have a Foot X-Ray since presentation to the ED which showed no signs of osteo and soft tissue edema. Patient did have CATA's done as an outpatient on the B/L LE last year 05/04/18 which showed moderate arterial occl usive disease B/L LE. He is expected to have repeat vascular US next week at wound care. Of note, the patient was also set up for outpatient PET-CT to check on some lymphadenopathy that he has had. He has history of lymphoma. Since presentation to the ED, that patient is noted to have a WBC count of 15K with left shift, elevated ESR of 69, elevated CRP of 5.03. BUN 18, Creatinine 0.91. Most recently outpatient A1C was 7.4 in October 2019. Admission Exam Per Admitting Provider Physical Exam Constitutional: WD/WN, vitals as above Eyes: PERRL, conjunctivae normal, anicteric sclerae ENMT: external ear and nose normal, oropharynx normal Neck: trachea midline, no thyromegaly Respiratory: normal respiratory effort, lungs clear to auscultation Cardiovascular: RRR, no murmur, no edema Gastrointestinal (Abdomen): normal bowel sounds, soft, nontender, no hepatosplenomegaly Musculoskeletal: Head/Neck/Chest: normocephalic and head atraumatic Skin: + ulcer (2 large, black eschars on the right lateral heel. Surrounding erythema.); no rashes Tenderness to palpation. Neurologic: moves all extremities; no focal motor deficits Speech / Cognition: normal speech Psychiatric: Orientation: alert Speech: normal rate/rhythm/volume of speech Affect: euthymic affect Principal Diagnosis Diabetic foot ulcer right lateral malleolus and calcaneus with Osteomyelitis Occlusion of right superficial femoral artery C. difficile colitis Discharge Data Allergies Allergy/AdvReac Type Severity Reaction Status Date / Time Penicillins Allergy Unknown UNK Verified 12/25/19 17:36 KAVITA Inhibitors AdvReac Intermediate COUGH Verified 12/25/19 17:36 Consultations 12/25/19 17:38 ED Decision to Admit Stat 12/25/19 20:14 Consult Case Management - Discharge Planning Routine Consult Infectious Diseases Routine 12/27/19 17:00 Consult Wound Care Provider Routine 12/28/19 13:54 Consult Orthopedic Surgery Routine 12/28/19 14:23 Consult Vascular Surgery Routine Procedures Performed Operation Date: 12/31/19 12:50 Actual Procedures p Right Lower Extremity Angiogram with Attempted Intervention, Ultrasound Localization of Left Femoral Artery, Moderate Concious Sedation 1328 to 1451(Left) - Blu Fournier MD Operation Date: 01/05/20 07:30 Actual Procedures p Right Femoral Popliteal Prosthetic Bypass(Right) - Blu Fournier MD Operation Date: 01/07/20 10:00 Actual Procedures p Right Heel Incision and Drainage - Kulwinder Trevino, Ordered Studies 12/25/19 15:44 CT head/brain wo con Stat 12/26/19 09:30 MR ankle RT wo/w con Routine 12/27/19 14:00 US arterial duplex LE BI Routine 12/31/19 07:38 EV angio LE RT Routine US EV guide vascular access Routine 12/31/19 15:26 US venous mapping LE BI Routine Hospital Course (1) Diabetic ulcer of foot with necrosis of bone: Diabetic foot ulcer right lateral malleolus and calcaneus with Osteomyelitis. S/P irrigation and debridement, Antibiotic stimulant beads Wound culture:Klebsiella oxytoca and group B beta strep Blood CX: Negative to date Appreciate ID, Ortho, and Vascular Surgery Input Continue IV Zosyn>>> transition to Rocephin 2 g IV daily--need to complete 4- week course of therapy--last date 02/03/20 Needs follow-up with orthopedics upon discharge Continue wound care Needs biweekly CRP and weekly CMP, CBC while on IV antibiotics PICC line to be placed Needs follow-up with ID upon discharge (After completion of IV antibiotic course) Continue current management Denies any significant pain (2) Osteomyelitis: Management as above (3) PAD (peripheral artery disease): Occlusion of right superficial femoral artery. S/P Right fem-pop bypass performed 01/04. S/P Surgical debridement performed by Ortho 01/06. Nonweightbearing RLE. Cultures from debridement negative to date Persistent leukocytosis Continue IV antibiotics as above Appreciate vascular surgery input next (4) Coronary artery disease: H/O CAD, [place]. Continue aspirin, clopidogrel, metoprolol, isosorbide, statin. (5) Hypertension: Continue metoprolol, Isosorbide mononitrate. (6) Hyperlipidemia: Continue atorvastatin. (7) Type 2 diabetes mellitus, with long-term current use of insulin: DM II Hgb A1c 7.7. Pharmacy consulted for glycemia management. Lantus / NovoLog per protocol. Monitor BGs (8) Alzheimer's dementia: Continue donepezil. Monitor for delirium. (9) C. difficile colitis: H/O C diff colitis diagnosed prior to admission On vancomycin at time of admission. Intermittent loose stools Continue contact isolation Continue PO vancomycin Taper Plan :Vanco po 125 mg bid for 1 week then qd for 1 week then every 2-3 days for atleast 2 weeks Needs follow-up with ID upon discharge after IV Antibiotic therapy (10) COVID-19 ruled out: COVID-19 screening necessary for preop screening. SARS-CoV-2 PCR negative on 12/31/19. (11) DVT prophylaxis: SQ Lovenox (12) Discharge planning issues: [facility] follow-up with Dr. Corina Strong. Total Time Total Time Spent Total Time Spent (In Minutes): 45 minutes Total Time Includes: Examination of the Patient, Discharge Planning, Medication Reconciliation, Communication With Other Providers and Other Discharge Plan Discharge Items Patient Disposition: Transfer [facility] Reason For Visit: WEAKNESS, CONFUSION Discharge Diagnosis: Diabetic foot ulcer right lateral malleolus and calcaneus with Osteomyelitis Occlusion of right superficial femoral artery C. difficile colitis Activity: Per Instructions section Exercise/Sports: Gradually increase as tolerated Non-emergency contact: Primary Care Provider, Surgeon and Specialist Call non-emergency contact if: you have any medication questions, your symptoms worsen, your pain is not controlled, your pain is worsening, your pain is unusual for you, your wound has increased redness, your wound has increased drainage and your wound pain has increased Follow-up/Referrals: Corina Strong MD [Primary Care Provider] - Diet: Carb Consistent or DM2 and Heart Healthy Addtl Attending Provider Instructions: Follow-up with your primary care physician Dr. Strong in 1 week upon discharge from rehab facility Follow-up with your infectious disease DrTasha Ch after completion of IV antibiotic therapy (Last day of therapy on 02/03/20) for further instructions. Follow-up with [facility] in 1 week as advised. Please call for kajal ointment Follow-up with vascular surgery Dr. Fournier in 1 week as advised Follow-up with your wound care physician Dr. Orantes in 2 weeks Blood test: Get biweekly CRP and weekly CMP, CBC while on IV antibiotics and follow up with your physician with results Seek immediate medical attention if your symptoms reoccur or worsen Antibiotic Course Continue Rocephin 2 g IV daily for 3 more weeks. Last day of therapy 02/03/20 Vancomycin Taper Course: Start taking oral vancomycin 125 mg 4 times a day for 1 week then, Vancomycin po 125 mg twice a day for 1 week then daily for 1 week then every 2-3 days for atleast 2 weeks. Discussed with your infectious disease doctor for further recommendations. Wound Care Recommendations: Continuing to dress the wounds with Adaptic, gauze and Kerlix daily. Use waffle boots at all times in bed. Addtl Pattern Worker Provider Instructions: ACTIVITY RECOMMENDATIONS: Limitations: No weight bearing to affected limb at all times. SPECIAL CARE INSTRUCTIONS: * Some drainage onto the dressing is normal and is no cause for alarm. * Some swelling is natural especially after walking. * When resting, keep your foot elevated above the level of your heart. * Call [facility] [place] if you notice: -Increased drainage -Fever over 101 degrees F -Severe constant pain BANDAGE: * DAILY DRESSING CHANGES. * Keep bandage/cast dry at all times. FOLLOW UP VISIT WITH DR. TREVINO If appointment is not already scheduled: Please call [facility] [place] after you get home today to schedule a follow-up appointment for [address] Trevino at . Pending Studies at Discharge: No Stand-Alone Forms: My [facility] Skilled Items Patient informed of condition?: Yes DNR: No Discharge Level of Care: Skilled Communicable Disease: No Discharge Prognosis: Improving Lines: PICC Urinary Catheter: No Medications and DC Order Prescriptions: New ceftriaxone 2 gram recon soln 2 g IV DAILY 21 Days Qty: 21 RF: 0 Continued atorvastatin 80 mg Tablet 80 mg PO QAM RF: 0 escitalopram oxalate [Lexapro] 20 mg Tablet 20 mg PO QAM RF: 0 donepezil 5 mg Tablet 5 mg PO QAM RF: 0 clopidogrel 75 mg Tablet 75 mg PO QAM RF: 0 turmeric root extract 500 mg Capsule 500 mg PO DAILY RF: 0 Lantus Solostar U-100 Insulin 100 unit/mL (3 mL) insulin pen 26 unit SUBCUT QAM RF: 0 metformin 500 mg tablet extended release 24 hr 500 mg PO QAM RF: 0 finasteride 5 mg tablet 5 mg PO QAM RF: 0 nitroglycerin [Nitrostat] 0.4 mg Tablet, Sublingual 0.4 mg sublingual UD PRN (Reason: chest pain) Qty: 30 RF: 0 aspirin 81 mg Tablet,Delayed Release (Dr/Ec) 81 mg PO QAM 30 Days Qty: 30 RF: 0 isosorbide mononitrate 30 mg tablet extended release 24 hr 30 mg PO DAILY RF: 0 risperidone 0.25 mg Tablet 0.25 mg PO DAILY PRN (Reason: confusion) RF: 0 metoprolol succinate 25 mg Tablet Extended Release 24 Hr 25 mg PO DAILY RF: 0 insulin aspart U-100 100 unit/mL (3 mL) insulin pen 0 unit SUBCUT UD RF: 0 hydroxyzine HCl 10 mg tablet 10 mg PO Q8 RF: 0 Changed polyethylene glycol 3350 [Miralax] 17 gram Powder In Packet 17 g PO DAILY PRN (Reason: Constipation) Qty: 0 RF: 0 vancomycin 125 mg capsule 125 mg PO UD Qty: 60 RF: 0 acidophilus-pectin, citrus [Acidophilus Probiotic] 100 million cell-10 mg Capsule 4 cap PO TIDM Qty: 0 RF: 0 Metamucil Free 3 gram/7 gram Powder 1 tsp PO DAILY PRN (Reason: Constipation) Qty: 0 RF: 0 Discontinued cefdinir 300 mg capsule 300 mg PO BID 14 Days Qty: 28 RF: 0 sennosides [senna] 8.6 mg Tablet 8.6 mg PO HS RF: 0 Discharge Orders: Discharge Order (Routine); Ordered 01/13/20 Ordered By: Jv Loredo Admission Data Admit Date/Time: 12/27/19 16:35 Attending Provider: Jv Loredo Admit Provider: Harris Warner Primary Care Provider: Corina Strong Other Providers: [place] ; [facility] ; Danielle Flores ; Harris Warner ; Db Stanley ; Lorne Ch ; J Carlos Anderson I. ; Mamadou Burgos II ; Corina Heller ; Marc Cheney ; Mauro Orantes ; Erick Orantes ; Kulwinder Trevino ; Blake Smith ; Kezia Phillips ; Josué Patton ; Grace Jim ; Thomas Alva ; Marc Arreola ; Henry Gardiner ; Marc Mei ; Ayush Champion. ; Henry Aponte ; Holland Moore ; Surendra Burleson ; Butch Lucero ; Wiliam Hazel ; Frank Roldan ; Grace Dougherty Casey R ; Yousuf Singh ; Mita Grubbs ; Harry Casey ; Jody Adamson ; Blu Fournier Other Interventions: Discharge Summary Assessment (RN) Last Done: 01/13/20 12:26
--- NOTE | 2020-01-24 14:34 | Coding Query ---
To promote full compliance with coding requirements relating to patient care, provider participation is requested in all cases of soil specialist uncertainty. Please assist us with the question(s) below: Coding Question(s): The diagnosis below was documented in DR MARTINO'S 12/28/19 PROGRESS NOTE, then subsequently fell off all further documentation. Please indicate if it is still a possible diagnosis or ruled out. Physician's Response(s): METABOLIC ENCEPHALOPATHY IN THE SETTING OF INFECTION ( ) Diagnosed and POA ( x ) Diagnosed and not POA ( ) Ruled out ( ) Other (please specify) MTDD
== END 2020-01-13 12:55 | DRG 628 ==
LOC: ED 14:52 → 3N 14:52 → SUATTDRO 18:40 → 3N 19:53 → SUATTDRO 12-27 16:35 → 1E 01-05 12:36 → 3W 01-06 12:57